=== PATIENT | female | born 1970 | race Caucasian/White ===

== ENCOUNTER 2016-05-27 21:42 | Emergency (ER) | payer OTHER ==
[~2016-05-27] VITALS: Ht 162.6 cm; Wt 117.5 kg
[~2016-05-27 21:42] MED LIST: ALBUAER2 INH; ASCO500T16 PO; DIPH25TA24 PO; EPP3/2 IM; FERR325T51 PO; OXYC-609 PO
[2016-05-27 21:43] VITALS: TEMP 36.7; Ht 162.6 cm; Wt 117.5 kg
[2016-05-27 22:24] LABS: BASO % 0.4 %; BASO ABS # 0.05 K/uL (0-0.2); COMPLETE YES; EOS % 2.8 %; HEMATOCRIT 41.9 % (37-47); IG% 0.3 %; LYMPH % 32.8 %; MEAN CELL VOLUME 82.6 fL (80-100); MEAN CORPUSCULAR HEMOGLOBIN 27.6 pg (25-34); MEAN CORPUSCULAR HGB CONC 33.4 g/dl (32-36); MEAN PLATELET VOLUME 10.3 fL (7.4-10.4); MONO % 7.1 %; NEUT % 56.6 %; PLATELET COUNT 303 K/uL (130-400); RED BLOOD COUNT 5.07 M/uL (4.2-5.4)
[2016-05-27] MEDS: SODIUM CHLORIDE 0.9% 1000ML 1,000 ML IV SCH ×2 (22:27→23:31)
[2016-05-27] MEDS ORDERED: DIPH50TA10 PO (22:29)
--- NOTE | 2016-05-27 22:38 | EMERGENCY ROOM VISIT NOTE ---
History First contact with patient: 21:48 Chief Complaint: ABDOMINAL PAIN Stated Complaint: STOMACH PAIN,DIZZINESS Nursing Triage Summary: Patient reports having medial upper abdominal pain for about 6 months, states " I have just been dealing with it for a while". Patient reports nausea that comes and goes with the pain. Patient reports that she has had softer stools for the last two days. Patient reports her gallbladder is surgically absent. Patient reports dizziness that has been persistent for about 2 weeks, states "The dizziness is wicked." Patient complains of a pinching sensation to the left of her sternum occassaionally; increasing in frequency over the last two weeks; patient last had the pinching about 2 hours before coming. Patient reports occassional shortness of breath. History of Present Illness The patient is a 46 year old female who presents to the Emergency Room with complaints of dizziness. patient reports 2 wk Hx of Dizziness/lightheadedness, she notices when going up the stairs. She denies syncope. Patient was concerned about possible anemia because previously she was anemic secondary to menorrhagia and required transfusion. She saw her PCP 2 days prior to arrival but according to patient, she was not particularly anemic. Patient also reports 6 mos history of int. abdominal pain , diarrhea x a few days, cough, SOB on exertion and int. Chest pain x a few months , non radiating, substernal, non-exertional. She also reports intermittent palpitation. She has a hx of Endometriosis, Kidney stones, PCOS and Asthma Review of Systems See HPI for pertinent positives & negatives. A total of 10 systems reviewed and were otherwise negative. Past Medical/Surgical History Medical Problems: (1) Asthma (2) Depression (3) Endometriosis (4) Kidney stone (5) Lithotripsy (6) Polycystic ovaries Surgical Problems: (1) H/O cystoscopy (2) History of appendectomy (3) History of section (4) History of tonsillectomy Family History Hypertension Kidney disease Social History Smoking Status: Current Every Day Smoker Alcohol Use: occasionally Drug Use: none Marital Status: in relationship Housing Status: lives with family Occupation Status: employed Current/Historical Medications Scheduled B-Complex Vitamins (Vitamin B Complex), 1 TAB PO DAILY Multivitamins/Minerals (Mvi With Minerals), 1 TAB PO DAILY Scheduled PRN Albuterol Hfa (Ventolin Hfa), 2 PUFFS INH Q6H PRN for SOB/Wheezing Diphenhydramine Hcl (Sleep) (Diphenhydramine Hcl), 1 TAB PO Q6 PRN for ALLERGIC REACTION Epinephrine (Epipen), 0.3 MG IM UD PRN for ALLERGIC REACTION Meclizine Hcl (Meclizine Hcl), 1 TAB PO TID PRN for dizzy Naproxen (Aleve), 220 MG PO Q6 PRN for Headache or Pain Allergies Coded Allergies: [place] Nut (Verified Allergy, Severe, ANAPHYLAXIS; reported allergy to all nuts, 05/27/16) [place] Nut (Verified Allergy, Severe, ANAPHYLAXIS; reported allergy to all nuts, 05/27/16) Peanut (Verified Allergy, Severe, ANAPHYLAXIS-ALL NUTS, 05/27/16) ALL NUTS Penicillins (Verified Allergy, Intermediate, RASH - HAS TOLERATED ROCEPHIN 2012, 05/27/16) RASH NUTS (Unverified Allergy, Unknown, ANAPHYLAXIS, 05/27/16) Physical Exam Vital Signs Date Time Temp Pulse Resp B/P Pulse Ox O2 Delivery O2 Flow Rate FiO2 05/28/16 01:45 76 20 141/80 97 05/27/16 23:45 80 20 149/90 96 05/27/16 22:01 86 20 190/103 98 Room Air 90 186/103 92 147/92 05/27/16 21:58 87 05/27/16 21:43 36.7 87 19 169/95 100 Room Air Physical Exam GENERAL: alert, anxious, non-toxic EYE EXAM: normal conjunctiva, PERRL and EOM's grossly intact OROPHARYNX: no exudate, no erythema, lips, buccal mucosa, and tongue normal and mucous membranes are moist NECK: supple, no nuchal rigidity, no adenopathy, non-tender LUNGS: Clear to auscultation. Normal chest wall mechanics HEART: no murmurs, S1 normal and S2 normal ABDOMEN: abdomen tender to palpation in epigastrium normo-active bowel sounds, no masses, no rebound or guarding. BACK: Back is symmetrical on inspection and there is no deformity, no midline tenderness, no CVA tenderness. SKIN: no rashes and no bruising UPPER EXTREMITIES: upper extremities are grossly normal. LOWER EXTREMITIES: No pitting edema. NEURO EXAM: Normal sensorium, cranial nerves II-XII grossly intact, normal speech, no gross weakness of arms, no gross weakness of legs. No drift. Finger to nose intact. Medical Decision & Procedures ER Provider Diagnostic Interpretation: CT HEAD WITHOUT CONTRAST (CT) CLINICAL HISTORY: DIZZINESS COMPARISON STUDY: 12/24/2010 TECHNIQUE: Axial CT of the brain is performed from the vertex to the skull base. IV contrast was not administered for this examination. CHEST ONE VIEW PORTABLE CLINICAL HISTORY: Atypical chest pain and shortness of breath COMPARISON STUDY: 09/01/2015 FINDINGS: The heart is borderline enlarged. There is mild interstitial thickening, unchanged the prior study. There is no focal pulmonary consolidation. There are no pleural effusions.[ IMPRESSION: Stable mild interstitial thickening. No acute findings. CT DOSE: 601.98 mGy.cm FINDINGS: There is no CT evidence of acute cortical infarction. There is no evidence of midline shift. No calvarial fractures are visualized. There is an equivocal subtle 5 mm hyperdense focus within the left parietal white matter as visualized in image #17. An MRI is recommended in follow-up. There is no evidence of pathologic ventricular dilatation. There is no evidence of acute sinusitis IMPRESSION: Artifact versus subtle 5 mm hyperdense focus within the left parietal white matter. An MRI is recommended in follow-up. The study is otherwise unremarkable. Laboratory Results 05/27/16 22:11 Red Blood Count 5.07, Mean Corpuscular Volume 82.6, Mean Corpuscular Hemoglobin 27.6, Mean Corpuscular Hemoglobin Concent 33.4, Mean Platelet Volume 10.3, Neutrophils (%) (Auto) 56.6, Lymphocytes (%) (Auto) 32.8, Monocytes (%) (Auto) 7.1, Eosinophils (%) (Auto) 2.8, Basophils (%) (Auto) 0.4, Neutrophils # (Auto) 6.74, Lymphocytes # (Auto) 3.90, Monocytes # (Auto) 0.84, Eosinophils # (Auto) 0.33, Basophils # (Auto) 0.05 05/27/16 22:11 Test 05/27/16 22:11 05/27/16 22:15 05/28/16 01:15 White Blood Count 11.90 K/uL (4.8-10.8) Red Blood Count 5.07 M/uL (4.2-5.4) Hemoglobin 14.0 g/dL (12.0-16.0) Hematocrit 41.9 % (37-47) Mean Corpuscular Volume 82.6 fL (80-100) Mean Corpuscular Hemoglobin 27.6 pg (25-34) Mean Corpuscular Hemoglobin Concent 33.4 g/dl (32-36) Platelet Count 303 K/uL (130-400) Mean Platelet Volume 10.3 fL (7.4-10.4) Neutrophils (%) (Auto) 56.6 % Lymphocytes (%) (Auto) 32.8 % Monocytes (%) (Auto) 7.1 % Eosinophils (%) (Auto) 2.8 % Basophils (%) (Auto) 0.4 % Neutrophils # (Auto) 6.74 K/uL (1.4-6.5) Lymphocytes # (Auto) 3.90 K/uL (1.2-3.4) Monocytes # (Auto) 0.84 K/uL (0.11-0.59) Eosinophils # (Auto) 0.33 K/uL (0-0.5) Basophils # (Auto) 0.05 K/uL (0-0.2) RDW Standard Deviation 44.3 fL (36.4-46.3) RDW Coefficient of Variation 14.6 % (11.5-14.5) Immature Granulocyte % (Auto) 0.3 % Immature Granulocyte # (Auto) 0.04 K/uL (0.00-0.02) Anion Gap 9.0 mmol/L (3-11) Est Creatinine Clear Calc Drug Dose 124.8 ml/min Estimated GFR () 118.4 Estimated GFR (Non- 102.1 BUN/Creatinine Ratio 15.8 (10-20) Calcium Level 9.1 mg/dl (8.5-10.1) Total Bilirubin 0.3 mg/dl (0.2-1) Direct Bilirubin 0.1 mg/dl (0-0.2) Aspartate Amino Transf (AST/SGOT) 19 U/L (15-37) Alanine Aminotransferase (ALT/SGPT) 34 U/L (12-78) Alkaline Phosphatase 83 U/L (45-117) Total Protein 7.3 gm/dl (6.4-8.2) Albumin 3.6 gm/dl (3.4-5.0) Lipase 193 U/L (73-393) Urine Color YELLOW Urine Appearance CLOUDY (CLEAR) Urine pH 6.0 (4.5-7.5) Urine Specific [place] 1.015 (1.000-1.030) Urine Protein NEG (NEG) Urine Glucose (UA) NEG (NEG) Urine Ketones NEG (NEG) Urine Occult Blood NEG (NEG) Urine Nitrite NEG (NEG) Urine Bilirubin NEG (NEG) Urine Urobilinogen NEG (NEG) Urine Leukocyte Esterase NEG (NEG) Urine WBC (Auto) 1-5 /hpf (0-5) Urine RBC (Auto) 0-4 /hpf (0-4) Urine Hyaline Casts (Auto) 1-5 /lpf (0-5) Urine Epithelial Cells (Auto) >30 /lpf (0-5) Urine Bacteria (Auto) NEG (NEG) Urine Test NEG (NEG) Troponin I < 0.015 ng/ml (0-0.045) Medications Administered Medications (Trade) Dose Ordered Sig/Enriqutea Route Start Time Stop Time Status Last Admin Dose Admin Sodium Chloride (Nss 1000ml) 1,000 ml @ 999 mls/hr Q1H1M IV 05/27/16 22:30 05/28/16 02:37 DC 05/27/16 22:27 999 MLS/HR Ketorolac Tromethamine (Toradol Inj) 30 mg NOW STAT IV 05/27/16 23:01 05/27/16 23:02 DC 05/27/16 23:15 30 MG Lorazepam (Ativan Tab) 1 mg NOW STAT SL 05/27/16 23:33 05/27/16 23:35 DC 05/27/16 23:33 1 MG Medical Decision 46 yo F p/w with hx of endometriosis p/w 2 wk of dizziness/lightheadedness in addition to diarrhea x 4 days, SOB on exertion, cough, chronic intermittent Chest discomfort, mild abdominal pain x 6 mos, tender in the epigastrium, positive orthostatic vital signs EKG: NSR CBC WBC 11.9 BMP: unremarkable Lipase negative Troponin: negative CXR:Stable mild interstitial thickening. No acute findings. CT Head: Artifact versus subtle 5 mm hyperdense focus within the left parietal white matter. An MRI is recommended in follow-up. The study is otherwise unremarkable. MRI Brain 5mm T2/FLAIR hyperintense and minimally T1 hypointense lesion in left post. frontal white matter , corresponding to mild hyperdensity seen on CT Dizziness Orthostatics BP positive -Given IV fluids Abdominal discomfort chronic, epigastric tenderness Lipase negative UA negative Urine test negative Given Toradol 30 mg Given Ativan 1 mg Chest Discomfort ACS etiology unlikely EKG unremarkable, troponin negative CXR:Stable mild interstitial thickening. No acute findings. -Discussed case with Dr. Patel, Neurologist who advised outpatient followup with Neurology as opposed to admission for evaluation. It was unclear whether this abnormality on CT/MRI was even contributing to her symptoms of dizziness. -Case was discussed with [facility] radiologist who indicated the area of abnormality on imaging was unlikely to be a CVA -Patient was discharged with followup with Neurology and a prescription for Antivert for dizziness and recommended oral hydration Impression Primary Impression: Dizziness Additional Impression: Precordial chest pain Departure Information Dispostion Home / Self-Care Condition GOOD Prescriptions Meclizine Hcl (MECLIZINE HCL) 25 Mg Tab 1 TAB PO TID Y for dizzy for 10 Days, #30 TAB Prov: Michel Portillo, 05/28/16 Referrals Janeth Ackerman M.D. (PCP) Patient Instructions My [facility] Resident Tracking Resident Involvement: Resident Care Provided Care Provided: Adult ED Problem Qualifiers
--- NOTE | 2016-05-27 22:39 | DIAGNOSTIC IMAGING REPORT ---
CHEST ONE VIEW PORTABLE CLINICAL HISTORY: Atypical chest pain and shortness of breath COMPARISON STUDY: 09/01/2015 FINDINGS: The heart is borderline enlarged. There is mild interstitial thickening, unchanged the prior study. There is no focal pulmonary consolidation. There are no pleural effusions.[ IMPRESSION: Stable mild interstitial thickening. No acute findings. Electronically signed by: Danny Olivo M.D. 05/27/2016 10:37 PM Dictated Date/Time: 05/27/2016 10:36 PM
[2016-05-27 22:41] LABS: ALT/SGPT 34 U/L (12-78); BLOOD UREA NITROGEN 11 mg/dl (7-18); BUN/CREATININE RATIO 15.8 (10-20); CALCIUM 9.1 mg/dl (8.5-10.1); CARBON DIOXIDE 26 mmol/L (21-32); CHLORIDE 105 mmol/L (98-107); CREATININE 0.71 mg/dl (0.60-1.20); GLUCOSE 95 mg/dl (70-99); POTASSIUM 3.8 mmol/L (3.5-5.1); SODIUM 140 mmol/L (136-145)
[2016-05-27 22:43] LABS: PREG INTERNAL NEGATIVE QC NEG CLEAR BACKGROUND; PREG INTERNAL POSITIVE QC POS CONTROL LINE
[2016-05-27 22:44] LABS: ALKALINE PHOSPHATASE 83 U/L (45-117); AST/SGOT 19 U/L (15-37)
--- NOTE | 2016-05-27 22:48 | DIAGNOSTIC IMAGING REPORT ---
CT HEAD WITHOUT CONTRAST (CT) CLINICAL HISTORY: DIZZINESS COMPARISON STUDY: 12/24/2010 TECHNIQUE: Axial CT of the brain is performed from the vertex to the skull base. IV contrast was not administered for this examination. CT DOSE: 601.98 mGy.cm FINDINGS: There is no CT evidence of acute cortical infarction. There is no evidence of midline shift. No calvarial fractures are visualized. There is an equivocal subtle 5 mm hyperdense focus within the left parietal white matter as visualized in image #17. An MRI is recommended in follow-up. There is no evidence of pathologic ventricular dilatation. There is no evidence of acute sinusitis IMPRESSION: Artifact versus subtle 5 mm hyperdense focus within the left parietal white matter. An MRI is recommended in follow-up. The study is otherwise unremarkable. Electronically signed by: Danny Olivo M.D. 05/27/2016 10:46 PM Dictated Date/Time: 05/27/2016 10:43 PM
[2016-05-27 22:51] LABS: URINE APPEARANCE CLOUDY (CLEAR); URINE BILIRUBIN NEG (NEG); URINE COLOR YELLOW; URINE EPITHELIAL CELL AUTO >30 /lpf (0-5); URINE NITRITE NEG (NEG); URINE SPECIFIC GRAVITY 1.015 (1.000-1.030); UROBILINOGEN NEG (NEG); ZZUR CULT IF INDIC CLEAN CATCH NO
[2016-05-27 22:52] LABS: MANUAL MICROSCOPIC REQUIRED? NO; REVIEW REQ? NO
[2016-05-27] MEDS ORDERED: KETOROLAC TROMETHAMINE 30 MG/ML VIAL IV STA (23:01)
[2016-05-27] MEDS ORDERED: LORAZEPAM 1 MG TAB SL STA (23:33)
[2016-05-27] MEDS ORDERED: LORAZEPAM 1 MG TAB ONE (23:40)
[2016-05-28] MEDS: SODIUM CHLORIDE 0.9% 1000ML 1,000 ML IV SCH ×2 (00:31→01:49)
[2016-05-28 01:45] VITALS: BP 141/80; PULSE 76; O2SAT 97
--- NOTE | 2016-05-28 02:05 | EMERGENCY ROOM VISIT NOTE ---
History Report prepared by Margarito: Kimberley Mejía Under the Supervision of: Dr. Michel Portillo D.O. First contact with patient: 21:48 Chief Complaint: ABDOMINAL PAIN Stated Complaint: STOMACH PAIN,DIZZINESS Nursing Triage Summary: Patient reports having medial upper abdominal pain for about 6 months, states " I have just been dealing with it for a while". Patient reports nausea that comes and goes with the pain. Patient reports that she has had softer stools for the last two days. Patient reports her gallbladder is surgically absent. Patient reports dizziness that has been persistent for about 2 weeks, states "The dizziness is wicked." Patient complains of a pinching sensation to the left of her sternum occassaionally; increasing in frequency over the last two weeks; patient last had the pinching about 2 hours before coming. Patient reports occassional shortness of breath. History of Present Illness The patient is a 46 year old female who presents to the Emergency Room with complaints of intermittent abdominal pain beginning 2 months ago. The patient states that she is prediabetic and the symptoms that she is having now remind her of when she was anemic last year. She notes that she saw her PCP and both her hemoglobin and blood sugar are normal. She notes that eating makes her abdominal pain better. She complains of headache beginning 2 weeks ago, tiredness, lightheadedness beginning 2 weeks ago, feeling as if the is room tilting, diarrhea, and intermittent pinching chest pain. She denies any dizziness, shortness of breath, fever, nausea, vomiting, urinary symptoms, swelling of the calves, hypertension, high cholesterol, smoking, blood clots, and recent long trips. The patient notes that her last bowel movement was 1 hour before she came in [facility]. She states that she does not have her gallbladder as of 4 years ago or her appendix. The patient reports that her chest pain is not worsened by exertion. She states that she was diagnosed with a UTI the other day and has not picked up her antibiotics. Source of History: patient Onset: 2 weeks ago Position: abdomen Timing: intermittent Associated Symptoms: + chest pain, + diarrhea, + headache, No SOB, No fevers , No nausea, No urinary symptoms, No vomiting Note: She complains of tiredness, lightheadedness beginning 2 weeks ago, feeling as if the is room tilting. She denies any dizziness, swelling of the calves, hypertension, high cholesterol, smoking, blood clots, and recent long trips. Review of Systems See HPI for pertinent positives & negatives. A total of 10 systems reviewed and were otherwise negative. Past Medical & Surgical Medical Problems: (1) Asthma (2) Depression (3) Endometriosis (4) Kidney stone (5) Lithotripsy (6) Polycystic ovaries Surgical Problems: (1) H/O cystoscopy (2) History of appendectomy (3) History of section (4) History of tonsillectomy Family History Hypertension Kidney disease Social History Smoking Status: Current Every Day Smoker Alcohol Use: occasionally Drug Use: none Marital Status: in relationship Housing Status: lives with family Occupation Status: employed Current/Historical Medications Scheduled B-Complex Vitamins (Vitamin B Complex), 1 TAB PO DAILY Multivitamins/Minerals (Mvi With Minerals), 1 TAB PO DAILY Scheduled PRN Albuterol Hfa (Ventolin Hfa), 2 PUFFS INH Q6H PRN for SOB/Wheezing Diphenhydramine Hcl (Sleep) (Diphenhydramine Hcl), 1 TAB PO Q6 PRN for ALLERGIC REACTION Epinephrine (Epipen), 0.3 MG IM UD PRN for ALLERGIC REACTION Meclizine Hcl (Meclizine Hcl), 1 TAB PO TID PRN for dizzy Naproxen (Aleve), 220 MG PO Q6 PRN for Headache or Pain Allergies Coded Allergies: [place] Nut (Verified Allergy, Severe, ANAPHYLAXIS; reported allergy to all nuts, 05/27/16) [place] Nut (Verified Allergy, Severe, ANAPHYLAXIS; reported allergy to all nuts, 05/27/16) Peanut (Verified Allergy, Severe, ANAPHYLAXIS-ALL NUTS, 05/27/16) ALL NUTS Penicillins (Verified Allergy, Intermediate, RASH - HAS TOLERATED ROCEPHIN 2012, 05/27/16) RASH NUTS (Unverified Allergy, Unknown, ANAPHYLAXIS, 05/27/16) Physical Exam Vital Signs Date Time Temp Pulse Resp B/P Pulse Ox O2 Delivery O2 Flow Rate FiO2 05/28/16 01:45 76 20 141/80 97 05/27/16 23:45 80 20 149/90 96 05/27/16 22:01 86 20 190/103 98 Room Air 90 186/103 92 147/92 05/27/16 21:58 87 4/6/17 21:43 36.7 87 19 169/95 100 Room Air Physical Exam GENERAL: sitting up in bed, alert, well appearing, well nourished, no distress, non-toxic EYE EXAM: normal conjunctiva, PERRL and EOM's intact EAR EXAM: TMs clear bilaterally OROPHARYNX: no exudate, no erythema, lips, buccal mucosa, and tongue normal and mucous membranes are moist NECK: supple, no nuchal rigidity, no adenopathy, non-tender LUNGS: Clear to auscultation. Normal chest wall mechanics HEART: no murmurs, S1 normal and S2 normal ABDOMEN: abdomen soft, non-tender, normo-active bowel sounds, no masses, no rebound or guarding. BACK: Back is symmetrical on inspection and there is no deformity, no midline tenderness, no CVA tenderness. SKIN: no rashes and no bruising UPPER EXTREMITIES: upper extremities are grossly normal. LOWER EXTREMITIES: No pitting edema. Calves are equal bilaterally NEURO EXAM: Normal sensorium, cranial nerves II-XII intact, normal speech, no weakness of arms, no weakness of legs. No drift. Finger to nose intact. Gross sensation intact. Rapid alternating movements of upper extremities intact. Medical Decision & Procedures ER Provider Diagnostic Interpretation: Radiology results as stated below per my review and the radiologist's interpretation: CHEST ONE VIEW PORTABLE FINDINGS: The heart is borderline enlarged. There is mild interstitial thickening, unchanged the prior study. There is no focal pulmonary consolidation. There are no pleural effusions.[ IMPRESSION: Stable mild interstitial thickening. No acute findings. Electronically signed by: Danny Olivo M.D. 05/27/2016 10:37 PM Dictated Date/Time: 05/27/2016 10:[address] HEAD WITHOUT CONTRAST (CT) FINDINGS: There is no CT evidence of acute cortical infarction. There is no evidence of midline shift. No calvarial fractures are visualized. There is an equivocal subtle 5 mm hyperdense focus within the left parietal white matter as visualized in image #17. An MRI is recommended in follow-up. There is no evidence of pathologic ventricular dilatation. There is no evidence of acute sinusitis IMPRESSION: Artifact versus subtle 5 mm hyperdense focus within the left parietal white matter. An MRI is recommended in follow-up. The study is otherwise unremarkable. Electronically signed by: Danny Olivo M.D. 05/27/2016 10:46 PM Dictated Date/Time: 05/27/2016 10:43 PM MRI HEAD: 5mm T2/FLAIR hyperintense and minimally T1 hypointense lesion in left posterior frontal white matter, corresponding to mild hyperdensity seen on CT. No evidence of associated hemorrhagic products. This is nonspecific. Otherwise, unremarkable examination. Radiologist: Richard Doll MD. Laboratory Results 05/27/16 22:11 Red Blood Count 5.07, Mean Corpuscular Volume 82.6, Mean Corpuscular Hemoglobin 27.6, Mean Corpuscular Hemoglobin Concent 33.4, Mean Platelet Volume 10.3, Neutrophils (%) (Auto) 56.6, Lymphocytes (%) (Auto) 32.8, Monocytes (%) (Auto) 7.1, Eosinophils (%) (Auto) 2.8, Basophils (%) (Auto) 0.4, Neutrophils # (Auto) 6.74, Lymphocytes # (Auto) 3.90, Monocytes # (Auto) 0.84, Eosinophils # (Auto) 0.33, Basophils # (Auto) 0.05 05/27/16 22:11 Test 05/27/16 22:11 05/27/16 22:15 05/28/16 01:15 White Blood Count 11.90 K/uL (4.8-10.8) Red Blood Count 5.07 M/uL (4.2-5.4) Hemoglobin 14.0 g/dL (12.0-16.0) Hematocrit 41.9 % (37-47) Mean Corpuscular Volume 82.6 fL (80-100) Mean Corpuscular Hemoglobin 27.6 pg (25-34) Mean Corpuscular Hemoglobin Concent 33.4 g/dl (32-36) Platelet Count 303 K/uL (130-400) Mean Platelet Volume 10.3 fL (7.4-10.4) Neutrophils (%) (Auto) 56.6 % Lymphocytes (%) (Auto) 32.8 % Monocytes (%) (Auto) 7.1 % Eosinophils (%) (Auto) 2.8 % Basophils (%) (Auto) 0.4 % Neutrophils # (Auto) 6.74 K/uL (1.4-6.5) Lymphocytes # (Auto) 3.90 K/uL (1.2-3.4) Monocytes # (Auto) 0.84 K/uL (0.11-0.59) Eosinophils # (Auto) 0.33 K/uL (0-0.5) Basophils # (Auto) 0.05 K/uL (0-0.2) RDW Standard Deviation 44.3 fL (36.4-46.3) RDW Coefficient of Variation 14.6 % (11.5-14.5) Immature Granulocyte % (Auto) 0.3 % Immature Granulocyte # (Auto) 0.04 K/uL (0.00-0.02) Anion Gap 9.0 mmol/L (3-11) Est Creatinine Clear Calc Drug Dose 124.8 ml/min Estimated GFR () 118.4 Estimated GFR (Non- 102.1 BUN/Creatinine Ratio 15.8 (10-20) Calcium Level 9.1 mg/dl (8.5-10.1) Total Bilirubin 0.3 mg/dl (0.2-1) Direct Bilirubin 0.1 mg/dl (0-0.2) Aspartate Amino Transf (AST/SGOT) 19 U/L (15-37) Alanine Aminotransferase (ALT/SGPT) 34 U/L (12-78) Alkaline Phosphatase 83 U/L (45-117) Total Protein 7.3 gm/dl (6.4-8.2) Albumin 3.6 gm/dl (3.4-5.0) Lipase 193 U/L (73-393) Urine Color YELLOW Urine Appearance CLOUDY (CLEAR) Urine pH 6.0 (4.5-7.5) Urine Specific [place] 1.015 (1.000-1.030) Urine Protein NEG (NEG) Urine Glucose (UA) NEG (NEG) Urine Ketones NEG (NEG) Urine Occult Blood NEG (NEG) Urine Nitrite NEG (NEG) Urine Bilirubin NEG (NEG) Urine Urobilinogen NEG (NEG) Urine Leukocyte Esterase NEG (NEG) Urine WBC (Auto) 1-5 /hpf (0-5) Urine RBC (Auto) 0-4 /hpf (0-4) Urine Hyaline Casts (Auto) 1-5 /lpf (0-5) Urine Epithelial Cells (Auto) >30 /lpf (0-5) Urine Bacteria (Auto) NEG (NEG) Urine Test NEG (NEG) Troponin I < 0.015 ng/ml (0-0.045) Laboratory results per my review. Medications Administered Medications (Trade) Dose Ordered Sig/Enriqueta Route Start Time Stop Time Status Last Admin Dose Admin Sodium Chloride (Nss 1000ml) 1,000 ml @ 999 mls/hr Q1H1M IV 05/27/16 22:30 06/26/16 22:29 05/27/16 22:27 999 MLS/HR Ketorolac Tromethamine (Toradol Inj) 30 mg NOW STAT IV 05/27/16 23:01 05/27/16 23:02 DC 05/27/16 23:15 30 MG Lorazepam (Ativan Tab) 1 mg NOW STAT SL 05/27/16 23:33 05/27/16 23:35 DC 05/27/16 23:33 1 MG ECG Indication: chest pain Rate (beats per minute): 75 Rhythm: sinus rhythm Findings: no ectopy, other (normal axis) ED Course ED COURSE: Vital signs were reviewed and normal The patients medical record was reviewed The above diagnostic studies were performed and reviewed. ED treatments and interventions as stated above. 2148: The patient was evaluated in room C11B. A complete history and physical examination was performed. 2230: Sodium Chloride 1000 ml @ 999 mls/hr IV. 2301: Toradol Inj 30mg IV. 2333: Ativan Tab 1mg SL. 2340: Ativan Tab 1mg SL. 0155: My resident reviewed the case with Dr. Riddle. 0205: Upon reevaluation, the patient is resting comfortably. I discussed my findings with the patient and she understands and agrees with the treatment plan. Based on the patients age, coexisting illnesses, exam and lab findings the decision to treat as an outpatient was made. The patient remained stable while under my care. The patient appeared well at the time of discharge. Medical Decision Differenital diagnosis includes etiologies such as benign positional vertigo, dehydration, hypovolemia, anemia, tumor, infection, hypoglycemia, electrolyte abnormalities, cardiac sources, intracerebral event, toxicologic, neurologic, as well as others were entertained. Differential diagnoses includes but is not limited to gastritis, peptic ulcer disease, GERD, gallbladder disease, pancreatitis, small bowel obstruction, acute coronary syndrome, pericarditis, ischemic bowel, irritable bowel disease, irritable bowel syndrome, appendicitis , diverticulitis, malignancy, hernia, urinary tract infection, torsion, /ectopic (if female), perforation, trauma, infectious. Patient is a 46-year-old female who presents the ER for multiple complaints. She admits to abdominal pain which has been present for the past 2-3 months but has been unchanged. Pain improves with eating. She has no appendix or gallbladder. Last bowel movement was earlier today. Her abdominal exam is benign. She is not obstructed based on history. Labs show a mild leukocytosis of 11.9 thousand. No anemia. BMP along with LFTs, bilirubin, lipase and troponin 2 were negative. EKG was unremarkable. UA was negative. was negative. Chest x-ray was unremarkable. CT head showed a 5 mm hyperdense focus within the left parietal white matter. MRI was performed secondary to this and confirms this finding. My resident discussed this with the on-call neurologist. They do not believe that this fits with her clinical symptoms and is not consistent with a stroke. She was given a bolus normal saline. She was orthostatic. She did feel slightly better following fluids. She was given Ativan for the MRI and dizziness with no relief. Patient was updated bedside. Discussed case with care management and they will assist the patient with setting up an appointment with neurology within next 3-5 days. She was discharged with Antivert and instructed to remain hydrated and follow-up with her primary care doctor. She was instructed not to drive if she is feeling dizzy. I also stressed the importance for her to start her antibiotics which she was given for UTI per primary care doctor but her urine here is completely clean. Since her urine was clean I did not prescribe her any antibiotics at this time and since she is asymptomatic. I did d/w stat rad and they note this is non-specific and is not a stroke. He believes this to be incidental. Discussed with Pt concerning signs and symptoms to watch out for. Pt was instructed to follow up with their PCP and discussed with the patient their option to return to the ED at anytime for persistent or worsening symptoms. The appropriate anticipatory guidance and out-patient management, including indications for return to the emergency department, were explained at length to the patient and understood. Consults Consulting Physician: Dr. Patel My resident reviewed the case with Dr. Patel. She does not believe this to be consistent with the patient's symptoms and recommended following up in the office. Impression Primary Impression: Dizziness Additional Impression: Precordial chest pain Scribe Attestation The scribe's documentation has been prepared under my direction and personally reviewed by me in its entirety. I confirm that the note above accurately reflects all work, treatment, procedures, and medical decision making performed by me. Departure Information Dispostion Being Evaluated By Hospitalist Prescriptions Meclizine Hcl (MECLIZINE HCL) 25 Mg Tab 1 TAB PO TID Y for dizzy for 10 Days, #30 TAB Prov: Michel Portillo, 05/28/16 Referrals Janeth Ackerman M.D. (PCP) Patient Instructions My [facility] Problem Qualifiers
[2016-05-28] MEDS ORDERED: MECL1TAB42 PO (02:06)
--- NOTE | 2016-05-28 06:58 | DIAGNOSTIC IMAGING REPORT ---
MRI OF THE BRAIN WITHOUT CONTRAST CLINICAL HISTORY: Dizziness. Abnormal head CT. COMPARISON STUDY: Head CT May 27, 2016. TECHNIQUE: Utilizing a 1.5 Abbie magnet and dedicated coil, multiplanar, multiecho imaging of the brain was performed without IV contrast. FINDINGS: There are no areas of restricted diffusion. The ventricular system is normal. The basilar cisterns are patent. There is a 5 mm focus of white matter T2 hyperintensity within the posterior left frontal lobe which may correspond to the abnormality shown on head CT of May 27, 2016. This is nonspecific. Flow-voids for the major intracranial vessels are present. Calvarial signal is maintained. No intracranial masses are identified on this unenhanced exam. Sinuses are clear. IMPRESSION: 1. 5 mm T2 hyperintense focus within left posterior frontal lobe. It's unclear whether this corresponds to the abnormality shown on prior head CT. This finding is indeterminate. 2. No evidence of acute infarction. No mass effect. Electronically signed by: Mike Thornton M.D. 05/28/2016 6:56 AM Dictated Date/Time: 05/28/2016 6:48 AM
[2016-10-26] MEDS ORDERED: B-COTAB18 PO (02:02)
[2016-10-26] MEDS ORDERED: EPP3/2 IM (07:17)
== END 2016-05-28 02:10 | disposition home or self-care (01) ==
LOC: C.EDB 21:43 → C.EDA 05-28 02:10
DX: R42 Dizziness and giddiness (principal); R07.2 Precordial pain; F17.200 Nicotine dependence, unspecified, uncomplicated; J45.909 Unspecified asthma, uncomplicated; F32.9 Major depressive disorder, single episode, unspecified

== ENCOUNTER 2016-09-08 19:22 | Emergency (ER) | payer SELFPAY ==
[~2016-09-08] VITALS: Ht 160 cm; Wt 119.8 kg
[~2016-09-08 19:22] MED LIST changes: -ALBUAER2 INH; -ASCO500T16 PO; -DIPH25TA24 PO; +DIPH50TA10 PO; -EPP3/2 IM; -FERR325T51 PO; -OXYC-609 PO
[2016-09-08 19:35] VITALS: TEMP 36.8; Ht 160 cm; Wt 119.8 kg
[2016-09-08] MEDS ORDERED: SODIUM CHLORIDE 0.9% 1000ML 1,000 ML IV STA (19:59)
--- NOTE | 2016-09-08 20:07 | EMERGENCY ROOM VISIT NOTE ---
History Report prepared by Margarito: Rabia Cox Under the Supervision of: Dr. Kimberly Vegas M.D. First contact with patient: 19:40 Chief Complaint: ED VAG BLEEDING Stated Complaint: EXCESSIVE BLEEDING,DIZZY,FATIGUE History of Present Illness The patient is a 46 year old female who presents to the Emergency Room with complaints of persistent vaginal bleeding for the past several days. She currently rates her discomfort as a 3/10 in severity. The patient states that over the past several years she has been experiencing heavy menstrual cycles. She states that today she went through 11 tampons in two hours. The patient states that she has additionally been passing clots the past two days. She states that some of the clots are the size of her fists. The patient states that the bleeding is gushing out of her. She states that she has had her cycle for 17 days. The patient states that last year she had similar symptoms and states that she had to receive a blood transfusion. She states that she saw OB/ glass sander belt and had a pap smear, but then never followed up after. The patient denies any endometrial biopsy. She denies any transfusions within the last three months. The patient denies being on any anti-coagulants. She states that she spoke to her PCP's office today and was instructed to come to the emergency department for further evaluation and treatment. The patient states that today she is now feeling fatigued and dizzy. She states that she has had chest pain over the last three days. Source of History: patient Onset: past several days Position: other (vaginal) Symptom Intensity: 3/10 Quality: other (bleeding) Timing: other (persistent) Associated Symptoms: + chest pain, + fatigue Note: Associated Symptoms: dizziness, passing clots Review of Systems See HPI for pertinent positives & negatives. A total of 10 systems reviewed and were otherwise negative. Past Medical & Surgical Medical Problems: (1) Asthma (2) Depression (3) Endometriosis (4) Kidney stone (5) Lithotripsy (6) Polycystic ovaries Surgical Problems: (1) H/O cystoscopy (2) History of appendectomy (3) History of section (4) History of tonsillectomy Family History Hypertension Kidney disease Social History Smoking Status: Current Every Day Smoker Alcohol Use: occasionally Drug Use: none Marital Status: in relationship Housing Status: lives with family Occupation Status: employed Current/Historical Medications Scheduled B-Complex Vitamins (Vitamin B Complex), 1 TAB PO DAILY Calcium Ascorbate (Vitamin C), 500 MG PO DAILY Ferrous Sulfate (Iron), 1 TAB PO DAILY Multivitamins/Minerals (Mvi With Minerals), 1 TAB PO DAILY Norethindrone Acetate (Aygestin), 1 TAB PO TID Scheduled PRN Albuterol Hfa (Ventolin Hfa), 2 PUFFS INH Q6H PRN for SOB/Wheezing Diphenhydramine Hcl (Sleep) (Diphenhydramine Hcl), 1 TAB PO Q6 PRN for ALLERGIC REACTION Epinephrine (Epipen), 0.3 MG IM UD PRN for ALLERGIC REACTION Naproxen (Aleve), 220 MG PO Q6 PRN for Headache or Pain Allergies Coded Allergies: [place] Nut (Verified Allergy, Severe, ANAPHYLAXIS; reported allergy to all nuts, 05/27/16) [place] Nut (Verified Allergy, Severe, ANAPHYLAXIS; reported allergy to all nuts, 05/27/16) Peanut (Verified Allergy, Severe, ANAPHYLAXIS-ALL NUTS, 05/27/16) ALL NUTS Penicillins (Verified Allergy, Intermediate, RASH - HAS TOLERATED ROCEPHIN 2012, 05/27/16) RASH NUTS (Unverified Allergy, Unknown, ANAPHYLAXIS, 05/27/16) Physical Exam Vital Signs Date Time Temp Pulse Resp B/P (MAP) Pulse Ox O2 Delivery O2 Flow Rate FiO2 09/08/16 22:39 76 18 151/82 96 Room Air 09/08/16 21:27 78 20 137/76 95 Room Air 09/08/16 21:20 77 09/08/16 20:16 95 Room Air 09/08/16 19:35 36.8 92 18 145/85 96 Room Air Physical Exam Vital signs reviewed. General: Well-appearing female, in no significant distress. HEENT: No scleral icterus, PERRLA, neck supple. Atraumatic. Cardiovascular: Regular rate and rhythm, no extra sounds. Pulmonary: Clear to auscultation bilaterally, normal work of breathing. Abdomen: Obese. Mild abdominal tenderness. Soft, nondistended, positive bowel sounds. Pelvic: Scant amount of blood in the vaginal vault. Mild CMT. Musculoskeletal: Atraumatic, no peripheral edema. Neurologic: Patient awake alert and oriented x 3 Skin: Warm, dry, no rash Medical Decision & Procedures ER Provider Diagnostic Interpretation: Radiology results as stated below per my review and radiologist interpretation: PELVIC COMPLETE NON OB CLINICAL HISTORY: heavy VB BLEEDING. DISCHARGE. COMPARISON STUDY: 09/01/2015 FINDINGS: The uterus measured 10 cm. The endometrial stripe measured 1.5 to 2.0 cm The right ovary measured 2.7 cm with a 1.5 cm cyst.. The left ovary measured 4.0 cm with a 2 cm follicular cyst.. There is no ultrasonographic evidence of ovarian torsion. It should be noted that ovarian torsion can be present with normal Doppler ultrasonographic findings. There was no evidence of pathologic free pelvic fluid. IMPRESSION: 1. Moderate endometrial thickening possibly indicative of endometrial hyperplasia versus neoplasia. 2. Bilateral follicular cysts The above report was generated using voice recognition software. It may contain grammatical, syntax or spelling errors. Electronically signed by: Valentino Montoya M.D. 09/08/2016 9:27 PM Dictated Date/Time: 09/08/2016 9:24 PM Laboratory Results 09/08/16 20:13 Red Blood Count 4.32, Mean Corpuscular Volume 83.8, Mean Corpuscular Hemoglobin 26.4, Mean Corpuscular Hemoglobin Concent 31.5, Mean Platelet Volume 10.1, Neutrophils (%) (Auto) 61.5, Lymphocytes (%) (Auto) 28.5, Monocytes (%) (Auto) 6.9, Eosinophils (%) (Auto) 2.6, Basophils (%) (Auto) 0.3, Neutrophils # (Auto) 6.42, Lymphocytes # (Auto) 2.97, Monocytes # (Auto) 0.72, Eosinophils # (Auto) 0.27, Basophils # (Auto) 0.03 09/08/16 20:13 Test 09/08/16 20:13 09/08/16 20:18 09/08/16 20:21 White Blood Count 10.43 K/uL (4.8-10.8) Red Blood Count 4.32 M/uL (4.2-5.4) Hemoglobin 11.4 g/dL (12.0-16.0) Hematocrit 36.2 % (37-47) Mean Corpuscular Volume 83.8 fL (80-100) Mean Corpuscular Hemoglobin 26.4 pg (25-34) Mean Corpuscular Hemoglobin Concent 31.5 g/dl (32-36) Platelet Count 281 K/uL (130-400) Mean Platelet Volume 10.1 fL (7.4-10.4) Neutrophils (%) (Auto) 61.5 % Lymphocytes (%) (Auto) 28.5 % Monocytes (%) (Auto) 6.9 % Eosinophils (%) (Auto) 2.6 % Basophils (%) (Auto) 0.3 % Neutrophils # (Auto) 6.42 K/uL (1.4-6.5) Lymphocytes # (Auto) 2.97 K/uL (1.2-3.4) Monocytes # (Auto) 0.72 K/uL (0.11-0.59) Eosinophils # (Auto) 0.27 K/uL (0-0.5) Basophils # (Auto) 0.03 K/uL (0-0.2) RDW Standard Deviation 50.1 fL (36.4-46.3) RDW Coefficient of Variation 16.4 % (11.5-14.5) Immature Granulocyte % (Auto) 0.2 % Immature Granulocyte # (Auto) 0.02 K/uL (0.00-0.02) Est Creatinine Clear Calc Drug Dose 122.3 ml/min Estimated GFR () 116.4 Estimated GFR (Non- 100.4 BUN/Creatinine Ratio 17.1 (10-20) Calcium Level 8.7 mg/dl (8.5-10.1) Total Bilirubin 0.2 mg/dl (0.2-1) Direct Bilirubin < 0.1 mg/dl (0-0.2) Aspartate Amino Transf (AST/SGOT) 23 U/L (15-37) Alanine Aminotransferase (ALT/SGPT) 32 U/L (12-78) Alkaline Phosphatase 78 U/L (45-117) Total Protein 6.5 gm/dl (6.4-8.2) Albumin 3.1 gm/dl (3.4-5.0) Thyroid Stimulating Hormone (TSH) 1.950 uIu/ml (0.300-4.500) Urine Test NEG (NEG) Bedside Hemoglobin 12.6 g/dl (12.0-16.0) Bedside Hematocrit 37 % (37-47) Bedside Sodium 139 mEq/L (135-144) Bedside Potassium 3.9 mEq/L (3.3-5.0) Bedside Chloride 100 mEq/L (101-112) Bedside Total CO2 27 mEq/l (24-31) Anion Gap 17.0 mmol/L (16-25) Bedside Blood Urea Nitrogen 11 mg/dl (7-18) Bedside Creatinine 0.6 mg/dl (0.6-1.3) Bedside Glucose (other) 147 mg/dl (70-99) Bedside Ionized Calcium (Kevin) 1.19 mmol/l (1.12-1.32) Bedside Troponin I < 0.030 ng/ml (0-0.045) Laboratory results per my review. Medications Administered Medications (Trade) Dose Ordered Sig/Enriqueta Route Start Time Stop Time Status Last Admin Dose Admin Sodium Chloride 1,000 ml @ 999 mls/hr Q1H1M STAT IV 09/08/16 19:59 09/08/16 20:59 DC 09/08/16 20:26 999 MLS/HR Ibuprofen (Motrin Tab) 600 mg NOW STAT PO 09/08/16 21:42 09/08/16 21:43 DC 09/08/16 21:54 600 MG ED Course 1956: Past medical records reviewed. The patient was evaluated in room C9. A complete history and physical examination was performed. 1958: Ordered Sodium Chloride 1000 ml @ 999 mls/hr IV. 2141: Ordered Motrin Tab 600 mg PO. 2199: I discussed the patients case with Dr. Estrada, supervisor [employer]. He states that he will follow up with the patient tomorrow and states that he agrees with Aygestin. 2207: I performed the pelvic exam on the patient at this time. See physical exam for further detail. I discussed all the exam findings with her and I discussed the treatment plan. She verbalized complete understanding and agreement. She is ready to go home. Medical Decision Differential diagnosis: Etiologies such as ectopic , dysfunction uterine bleeding, bleeding dyscrasia, trauma, infection, as well as others were entertained. This patient was evaluated and appeared to be in no significant distress. IV access was obtained and laboratory work was drawn. Patient was hydrated with normal saline solution. The patient's H&H is stable. Pelvic ultrasound was performed and reveals a thickened endometrium. Pelvic exam reveals minimal bleeding. Case was discussed with Dr. Estrada of [employer]. He agrees with the plan for Aygestin. He'll follow the patient in the office. She should call their secretary of state tomorrow to schedule an appointment. Patient is comfortable is plan and agrees. Medication Reconcilliation Current Medication List: was personally reviewed by me Blood Pressure Screening Patient's blood pressure: Elevated blood pressure Blood pressure disposition: Elevated BP felt to be situational, Referred to PCP Consults Time Called: 2154 Consulting Physician: Dr. Estrada, supervisor [employer] Returned Call: 2199 I discussed the patients case with Dr. Estrada, supervisor [employer]. He states that he will follow up with the patient tomorrow and states that he agrees with Aygestin. Impression Primary Impression: Dysfunctional uterine bleeding Scribe Attestation The scribe's documentation has been prepared under my direction and personally reviewed by me in its entirety. I confirm that the note above accurately reflects all work, treatment, procedures, and medical decision making performed by me. Departure Information Dispostion Home / Self-Care Prescriptions Norethindrone Acetate (AYGESTIN) 5 Mg Tab 1 TAB PO TID for 10 Days, #30 TAB Prov: Kimberly Vegas M.D. 09/08/16 Referrals Janeth Ackerman M.D. (PCP) Andrew Estrada M.D. Forms HOME CARE DOCUMENTATION FORM, IMPORTANT VISIT INFORMATION, WORK / SCHOOL INSTRUCTIONS Patient Instructions ED Bleed Irregular Vaginal, My [facility] Additional Instructions Diagnosis: Dysfunctional uterine bleeding Aygestin 5 mg three times daily for 10 days. This will stop your bleeding, you are likely to bleed when pills are done, hopefully a nutrition consultant bleed. Drink plenty of fluids. Ibuprofen 600 mg every 6 hours as needed for pain. Follow up with OBGYN, call Dr Estrada tomorrow to schedule an appt.
[2016-09-08 20:16] VITALS: O2SAT 95
[2016-09-08 20:32] LABS: ISTAT CREATININE 0.6 mg/dl (0.6-1.3); ISTAT HEMOGLOBIN 12.6 g/dl (12.0-16.0); ISTAT IONIZED CALCIUM 1.19 mmol/l (1.12-1.32)
[2016-09-08 20:36] LABS: BASO % 0.3 %; BASO ABS # 0.03 K/uL (0-0.2); COMPLETE YES; EOS % 2.6 %; HEMATOCRIT 36.2 % (37-47); IG% 0.2 %; LYMPH % 28.5 %; LYMPH ABS # 2.97 K/uL (1.2-3.4); MEAN CELL VOLUME 83.8 fL (80-100); MEAN CORPUSCULAR HEMOGLOBIN 26.4 pg (25-34); MEAN CORPUSCULAR HGB CONC 31.5 g/dl (32-36); MEAN PLATELET VOLUME 10.1 fL (7.4-10.4); MONO % 6.9 %; NEUT % 61.5 %; PLATELET COUNT 281 K/uL (130-400); RED BLOOD COUNT 4.32 M/uL (4.2-5.4); WHITE BLOOD COUNT 10.43 K/uL (4.8-10.8)
[2016-09-08 20:54] LABS: ALT/SGPT 32 U/L (12-78); BLOOD UREA NITROGEN 12 mg/dl (7-18); BUN/CREATININE RATIO 17.1 (10-20); CALCIUM 8.7 mg/dl (8.5-10.1); CARBON DIOXIDE 29 mmol/L (21-32); CHLORIDE 105 mmol/L (98-107); CREATININE 0.72 mg/dl (0.60-1.20); GLUCOSE 143 mg/dl (70-99); POTASSIUM 3.8 mmol/L (3.5-5.1); SODIUM 139 mmol/L (136-145)
[2016-09-08 21:04] LABS: ALKALINE PHOSPHATASE 78 U/L (45-117); AST/SGOT 23 U/L (15-37)
--- NOTE | 2016-09-08 21:28 | DIAGNOSTIC IMAGING REPORT ---
PELVIC COMPLETE NON OB CLINICAL HISTORY: heavy VB BLEEDING. DISCHARGE. COMPARISON STUDY: 09/01/2015 FINDINGS: The uterus measured 10 cm. The endometrial stripe measured 1.5 to 2.0 cm The right ovary measured 2.7 cm with a 1.5 cm cyst.. The left ovary measured 4.0 cm with a 2 cm follicular cyst.. There is no ultrasonographic evidence of ovarian torsion. It should be noted that ovarian torsion can be present with normal Doppler ultrasonographic findings. There was no evidence of pathologic free pelvic fluid. IMPRESSION: 1. Moderate endometrial thickening possibly indicative of endometrial hyperplasia versus neoplasia. 2. Bilateral follicular cysts The above report was generated using voice recognition software. It may contain grammatical, syntax or spelling errors. Electronically signed by: Valentino Montoya M.D. 09/08/2016 9:27 PM Dictated Date/Time: 09/08/2016 9:24 PM
[2016-09-08] MEDS ORDERED: IBUPROFEN 600 MG TAB PO STA (21:42)
[2016-09-08] MEDS ORDERED: AYG/5 PO (21:58)
[2016-09-08 22:39] VITALS: BP 151/82; PULSE 76; O2SAT 96
[2016-10-26] MEDS ORDERED: B-COTAB18 PO (02:02)
[2016-10-26] MEDS ORDERED: EPP3/2 IM (07:17)
== END 2016-09-08 22:46 | disposition home or self-care (01) ==
LOC: C.EDB 19:23 → C.EDC 22:46
DX: N93.8 Other specified abnormal uterine and vaginal bleeding (principal); J45.909 Unspecified asthma, uncomplicated; F32.9 Major depressive disorder, single episode, unspecified; Z87.442 Personal history of urinary calculi; E28.2 Polycystic ovarian syndrome; Z84.1 Family history of disorders of kidney and ureter; Z82.49 Family history of ischemic heart disease and other diseases of the circulatory system; F17.210 Nicotine dependence, cigarettes, uncomplicated; Z79.899 Other long term (current) drug therapy

== ENCOUNTER 2016-10-26 16:52 | Emergency (ER) | payer SELFPAY ==
[~2016-10-26 16:52] MED LIST changes: +B-COTAB18 PO; +EPP3/2 IM
[2016-10-26 17:50] VITALS: BP 146/85; PULSE 87; TEMP 36.8; O2SAT 96
--- NOTE | 2016-10-26 17:52 | EMERGENCY ROOM VISIT NOTE ---
History First contact with patient: 17:29 Chief Complaint: LACERATION/CUT (SUT/DERMABOND) Stated Complaint: LACERATION TO RT THUMB History of Present Illness The patient is a 46 year old female who presents to the Emergency Room with complaints of a laceration to her right thumb from a brand-new knife. The patient reports moderate bleeding from the wound. The patient is uncertain of her last tetanus immunization. The patient is [id number], and rates her discomfort a 2 out of 10 on my exam. Review of Systems 6 system review was performed and was negative except for pertinent positives and negatives as indicated in history of present illness Past Medical/Surgical History Medical Problems: (1) Asthma (2) Depression (3) Endometriosis (4) Kidney stone (5) Lithotripsy (6) Polycystic ovaries Surgical Problems: (1) H/O cystoscopy (2) History of appendectomy (3) History of section (4) History of tonsillectomy Family History Hypertension Kidney disease Social History Smoking Status: Current Every Day Smoker Alcohol Use: occasionally Drug Use: none Marital Status: in relationship Housing Status: lives with family Occupation Status: employed Current/Historical Medications Scheduled B-Complex Vitamins (Vitamin B Complex), 1 TAB PO DAILY Calcium Ascorbate (Vitamin C), 500 MG PO DAILY Ferrous Sulfate (Iron), 1 TAB PO DAILY Multivitamins/Minerals (Mvi With Minerals), 1 TAB PO DAILY Scheduled PRN Albuterol Hfa (Ventolin Hfa), 2 PUFFS INH Q6H PRN for SOB/Wheezing Diphenhydramine Hcl (Sleep) (Diphenhydramine Hcl), 1 TAB PO Q6 PRN for ALLERGIC REACTION Epinephrine (Epipen), 0.3 MG IM UD PRN for ALLERGIC REACTION Naproxen (Aleve), 220 MG PO Q6 PRN for Headache or Pain Physical Exam Vital Signs Date Time Temp Pulse Resp B/P (MAP) Pulse Ox O2 Delivery O2 Flow Rate FiO2 10/26/16 17:50 36.8 87 20 146/85 96 Room Air Physical Exam CONSTITUTIONAL: Healthy and well nourished. Alert and oriented X 3 with positive affect. HEENT: Normocephalic, atraumatic. Pupils equal, round and reactive. MUSCULOSKELETAL: Examination of the right thumb shows a 4 mm V-shaped laceration of the fingertip. Resolving flap is blanched. There is no active bleeding. The flap is perfectly approximated. Capillary refill is less than 2 seconds. INTEGUMENTARY: No rash or other significant dermatologic conditions noted. NEUROLOGIC: Right thumb is sensory intact. Medical Decision & Procedures Procedure Laceration repair was performed using Dermabond. The wound was initially cleansed with normal saline and hydrogen peroxide mixture. ED Course Patient history and physical exam were performed. Nurse's notes were reviewed. Vital signs were reviewed and were normal. The patient was administered Adacel IM. Laceration repair was performed using Dermabond skin glue. The patient was advised that if the glue prematurely falls off, she may then apply an antibiotic ointment and bandage until it heals. She was encouraged to intermittently apply ice as needed for swelling and pain. Ibuprofen or Tylenol if needed for additional pain relief. The patient was happy with plan of care, and denied any pain at the conclusion of my exam. Medical Decision Head Trauma Blood Pressure Screening Patient's blood pressure: Normal blood pressure Impression Primary Impression: Laceration of right thumb Departure Information Dispostion Home / Self-Care Forms HOME CARE DOCUMENTATION FORM, IMPORTANT VISIT INFORMATION Patient Instructions My [facility] Additional Instructions Read skin glue handout. Do not apply any ointments to the glue. Watch for any signs of underlying developing infection. If the glue wears off within the next 5 days, apply an antibiotic ointment and dressing until it heals. Problem Qualifiers Primary Impression: Laceration of right thumb Encounter type: initial encounter Damage to nail status: without damage Foreign body presence: without foreign body Qualified Codes: S61.011A - Laceration without foreign body of right thumb without damage to nail, initial encounter
[2016-10-26] MEDS ORDERED: DIPHTHERIA/TETANUS/PERTUSSIS 0.5 ML SYR/VIAL IM. ONE (18:00)
[2016-10-26] MEDS ORDERED: FERR1TAB23 PO (20:12)
[2016-10-26] MEDS ORDERED: CALC500T72 PO (20:13)
[2016-10-26] MEDS ORDERED: MULT-513 PO (22:29)
[2016-10-26] MEDS ORDERED: VNTHFA/IN INH (22:29)
[2016-10-26] MEDS ORDERED: NAPR1TAB9 PO (22:29)
== END 2016-10-26 18:12 | disposition home or self-care (01) ==
LOC: C.EDB 16:53 → C.EDD 18:12
DX: S61.011A Laceration without foreign body of right thumb without damage to nail, initial encounter (principal); W26.0XXA Contact with knife, initial encounter; Y92.9 Unspecified place or not applicable; J45.909 Unspecified asthma, uncomplicated; F32.9 Major depressive disorder, single episode, unspecified; Z87.442 Personal history of urinary calculi; N80.9 Endometriosis, unspecified; E28.2 Polycystic ovarian syndrome; Z82.49 Family history of ischemic heart disease and other diseases of the circulatory system; Z84.1 Family history of disorders of kidney and ureter; F17.210 Nicotine dependence, cigarettes, uncomplicated

== ENCOUNTER 2017-02-09 01:22 | Emergency (ER) | payer SELFPAY ==
[~2017-02-09] VITALS: Ht 160 cm; Wt 115.2 kg
[~2017-02-09 01:22] MED LIST changes: +CALC500T72 PO; -DIPH50TA10 PO; +FERR1TAB23 PO; +MULT-513 PO; +NAPR1TAB9 PO; +VNTHFA/IN INH
[2017-02-09 01:27] VITALS: TEMP 36.6; Ht 160 cm; Wt 115.2 kg
[2017-02-09] MEDS ORDERED: SODIUM CHLORIDE 0.9% 1000ML 1,000 ML IV STA (01:46)
[2017-02-09 02:09] LABS: BASO % 0.4 %; BASO ABS # 0.04 K/uL (0-0.2); COMPLETE YES; EOS % 2.9 %; IG% 0.2 %; LYMPH % 34.4 %; LYMPH ABS # 3.44 K/uL (1.2-3.4); MEAN CELL VOLUME 79.7 fL (80-100); MEAN CORPUSCULAR HEMOGLOBIN 25.3 pg (25-34); MEAN CORPUSCULAR HGB CONC 31.8 g/dl (32-36); MONO % 8.9 %; NEUT % 53.2 %; PLATELET COUNT 275 K/uL (130-400); RED BLOOD COUNT 5.02 M/uL (4.2-5.4)
[2017-02-09 02:10] LABS: ISTAT CREATININE 0.7 mg/dl (0.6-1.3); ISTAT HEMOGLOBIN 12.6 g/dl (12.0-16.0); ISTAT IONIZED CALCIUM 1.23 mmol/l (1.12-1.32)
[2017-02-09 02:30] LABS: ALT/SGPT 29 U/L (12-78); AST/SGOT 19 U/L (15-37); BLOOD UREA NITROGEN 9 mg/dl (7-18); BUN/CREATININE RATIO 13.5 (10-20); CALCIUM 8.8 mg/dl (8.5-10.1); CARBON DIOXIDE 31 mmol/L (21-32); CHLORIDE 104 mmol/L (98-107); GLUCOSE 132 mg/dl (70-99); POTASSIUM 4.2 mmol/L (3.5-5.1); SODIUM 137 mmol/L (136-145)
[2017-02-09 02:32] LABS: ALKALINE PHOSPHATASE 82 U/L (45-117)
[2017-02-09 02:33] LABS: PREG INTERNAL NEGATIVE QC NEG CLEAR BACKGROUND; PREG INTERNAL POSITIVE QC POS CONTROL LINE
[2017-02-09] MEDS ORDERED: OPTIRAY 320 IV PRN (03:30)
[2017-02-09] MEDS ORDERED: ACETAMINOPHEN 500 MG TAB PO STA (03:50)
--- NOTE | 2017-02-09 05:31 | EMERGENCY ROOM VISIT NOTE ---
History First contact with patient: 01:28 Chief Complaint: SHORTNESS OF BREATH Stated Complaint: SHORTNESS OF BREATH,LIGHT HEADED History of Present Illness The patient is a 46 year old female who presents to the Emergency Room with complaints of lightheadedness, fatigue, dyspnea, and chest discomfort for the past few days. Patient has a history of anemia and has had blood transfusion before. Patient had heavy vaginal bleeding for the past 3 weeks and it just tapered off 3 days ago. Patient continues to smoke. No prior heart disease or blood clots. She has traveled recently to [place] and [facility]. She has a family history of heart disease with her father having heart disease in his late 40s. Echo last year was normal per patient. Last stress test was 2010. Patient denies fevers, cold symptoms, wheezing, back pain, abdominal pain, leg pain or swelling. Review of Systems See HPI for pertinent positives & negatives. A total of 10 systems reviewed and were otherwise negative. Past Medical/Surgical History Medical Problems: (1) Asthma (2) Depression (3) Endometriosis (4) Kidney stone (5) Lithotripsy (6) Polycystic ovaries Surgical Problems: (1) H/O cystoscopy (2) History of appendectomy (3) History of section (4) History of tonsillectomy Family History Hypertension Kidney disease Social History Smoking Status: Current Every Day Smoker Alcohol Use: occasionally Drug Use: none Marital Status: in relationship Housing Status: lives with family Occupation Status: employed Current/Historical Medications Scheduled B-Complex Vitamins (Vitamin B Complex), 1 TAB PO DAILY Calcium Ascorbate (Vitamin C), 500 MG PO DAILY Ferrous Sulfate (Iron), 1 TAB PO DAILY Multivitamins/Minerals (Mvi With Minerals), 1 TAB PO DAILY Scheduled PRN Albuterol Hfa (Ventolin Hfa), 2 PUFFS INH Q6H PRN for SOB/Wheezing Epinephrine (Epipen), 0.3 MG IM UD PRN for ALLERGIC REACTION Naproxen (Aleve), 220 MG PO Q6H PRN for Headache or Pain Physical Exam Vital Signs Date Time Temp Pulse Resp B/P (MAP) Pulse Ox O2 Delivery O2 Flow Rate FiO2 02/09/17 04:25 67 19 02/09/17 03:55 18 02/09/17 03:25 74 15 97 Room Air 02/09/17 03:01 113/62 02/09/17 02:55 65 16 97 Room Air 02/09/17 02:17 74 17 95 02/09/17 02:12 78 20 95 Room Air 02/09/17 02:11 Room Air 02/09/17 02:10 72 02/09/17 02:04 131/81 02/09/17 01:27 36.6 75 16 122/77 96 Room Air Physical Exam VITALS: Vitals are noted on the nurse's note and reviewed by myself. Vital signs stable. GENERAL: Pleasant female, in no acute distress, nondiaphoretic, well-developed well-nourished. SKIN: The skin was without rashes, erythema, edema, or bruising. There is no tenting of the skin. Capillary reflex less than 2 seconds. HEAD: Normocephalic atraumatic. EARS: External auditory canals clear, tympanic membranes pearly manuel without erythema or effusion bilaterally. EYES: Pupils equal round and reactive to light and accommodation. Conjunctivae without injection, sclerae without icterus. Extraocular movements intact. NOSE: Patent, turbinates without inflammation or discharge. MOUTH: Mucous membranes moist. Pharynx without erythema or exudate. Uvula midline. Airway patent. Tongue does not deviate. NECK: Supple without nuchal rigidity. No lymphadenopathy. No thyromegaly. Cervical spine is nontender. No JVD. HEART: Regular rate and rhythm chest nontender to palpation LUNGS: Clear to auscultation bilaterally without wheezes, rales or rhonchi. No dullness to percussion. No retractions or accessory muscle use. ABDOMEN: Positive bowel sounds x 4. Normal tympanic percussion. Soft, nontender, without masses or organomegaly. Spencer sign negative. No guarding or rebound tenderness. MUSCULOSKELETAL: No muscle atrophy, erythema, or edema noted. NEURO: Patient was alert and oriented to person place and time. Normal sensation to light and sharp touch. No focal neurological deficits. Medical Decision & Procedures Laboratory Results 02/09/17 01:54 Red Blood Count 5.02, Mean Corpuscular Volume 79.7, Mean Corpuscular Hemoglobin 25.3, Mean Corpuscular Hemoglobin Concent 31.8, Mean Platelet Volume 10.0, Neutrophils (%) (Auto) 53.2, Lymphocytes (%) (Auto) 34.4, Monocytes (%) (Auto) 8.9, Eosinophils (%) (Auto) 2.9, Basophils (%) (Auto) 0.4, Neutrophils # (Auto) 5.32, Lymphocytes # (Auto) 3.44, Monocytes # (Auto) 0.89, Eosinophils # (Auto) 0.29, Basophils # (Auto) 0.04 02/09/17 01:54 Test 02/09/17 01:54 02/09/17 01:57 02/09/17 02:10 02/09/17 05:10 White Blood Count 10.00 K/uL (4.8-10.8) Red Blood Count 5.02 M/uL (4.2-5.4) Hemoglobin 12.7 g/dL (12.0-16.0) Hematocrit 40.0 % (37-47) Mean Corpuscular Volume 79.7 fL (80-100) Mean Corpuscular Hemoglobin 25.3 pg (25-34) Mean Corpuscular Hemoglobin Concent 31.8 g/dl (32-36) Platelet Count 275 K/uL (130-400) Mean Platelet Volume 10.0 fL (7.4-10.4) Neutrophils (%) (Auto) 53.2 % Lymphocytes (%) (Auto) 34.4 % Monocytes (%) (Auto) 8.9 % Eosinophils (%) (Auto) 2.9 % Basophils (%) (Auto) 0.4 % Neutrophils # (Auto) 5.32 K/uL (1.4-6.5) Lymphocytes # (Auto) 3.44 K/uL (1.2-3.4) Monocytes # (Auto) 0.89 K/uL (0.11-0.59) Eosinophils # (Auto) 0.29 K/uL (0-0.5) Basophils # (Auto) 0.04 K/uL (0-0.2) RDW Standard Deviation 54.5 fL (36.4-46.3) RDW Coefficient of Variation 18.7 % (11.5-14.5) Immature Granulocyte % (Auto) 0.2 % Immature Granulocyte # (Auto) 0.02 K/uL (0.00-0.02) D-Dimer 560 ug/L FEU (0-500) Est Creatinine Clear Calc Drug Dose 122.9 ml/min Estimated GFR () 120.4 Estimated GFR (Non- 103.9 BUN/Creatinine Ratio 13.5 (10-20) Calcium Level 8.8 mg/dl (8.5-10.1) Total Bilirubin 0.2 mg/dl (0.2-1) Direct Bilirubin < 0.1 mg/dl (0-0.2) Aspartate Amino Transf (AST/SGOT) 19 U/L (15-37) Alanine Aminotransferase (ALT/SGPT) 29 U/L (12-78) Alkaline Phosphatase 82 U/L (45-117) Total Protein 7.4 gm/dl (6.4-8.2) Albumin 3.2 gm/dl (3.4-5.0) Lipase 290 U/L (73-393) Human Chorionic Gonadotropin, Qual NEG (NEG) Bedside Hemoglobin 12.6 g/dl (12.0-16.0) Bedside Hematocrit 37 % (37-47) Bedside Sodium 139 mEq/L (135-144) Bedside Potassium 4.0 mEq/L (3.3-5.0) Bedside Chloride 100 mEq/L (101-112) Bedside Total CO2 29 mEq/l (24-31) Anion Gap 15.0 mmol/L (16-25) Bedside Blood Urea Nitrogen 8 mg/dl (7-18) Bedside Creatinine 0.7 mg/dl (0.6-1.3) Bedside Glucose (other) 141 mg/dl (70-99) Bedside Ionized Calcium (Kevin) 1.23 mmol/l (1.12-1.32) Urine Test NEG (NEG) Bedside Troponin I < 0.030 ng/ml (0-0.045) Medications Administered Medications (Trade) Dose Ordered Sig/Enriqueta Route Start Time Stop Time Status Last Admin Dose Admin Sodium Chloride 1,000 ml @ 999 mls/hr Q1H1M STAT IV 02/09/17 01:46 02/09/17 02:46 DC 02/09/17 02:17 999 MLS/HR Acetaminophen (Tylenol Tab) 1,000 mg NOW STAT PO 02/09/17 03:50 02/09/17 03:51 DC 02/09/17 03:56 1,000 MG ED Course Prior records/ancillary studies reviewed. Triage Nursing notes reviewed. Additional history obtained from family The patient's history was concerning for fatigue, dyspnea and chest pain. Differential diagnosis: Etiologies such as anemia, cardiac ischemia, aortic dissection, pulmonary embolism, pneumonia, pneumothorax, musculoskeletal, infections, pericarditis, myocarditis, esophageal rupture, gastrointestinal, as well as others were entertained. Physical examination: As above. ER treatment provided: IV fluids On reassessment the patient felt better. Diagnostic interpretation by me: The electrocardiogram was normal sinus, normal intervals, no acute ST-T wave changes. Impression normal sinus interpreted by myself The labs revealed stable H&H, neg trop 2. Mild hyperglycemia without DKA Imaging studies: Chest x-ray with no acute consolidation, pneumothorax or free air per my interpretation CTA CHEST: There is artifact limiting evaluation for small peripheral PE. No central PE. No consolidation. No CT evidence for edema. No effusions. Incidental findings: Stable lung nodules. Low-density liver lesion likely cyst. Liver prominent in size with possible steatosis. Cholecystectomy. Radiologist: Jack Rasmussen M.D. Consultation: A consultation was placed with the hospitalist. The case was discussed and diagnostics were reviewed. The patient was evaluated in the ER for further treatment. Exam and history seem consistent with chest pain last likely be cardiac in etiology. Patient's been symptomatic for 3 days. 2 negative troponins. Normal EKG. Negative CTA. She is advised to follow-up with family care in a day or 2 for further evaluation workup here in the ER sooner for chest pain, difficulty breathing, worsening signs or symptoms or as needed By the evaluation outlined above emergent etiologies such as cardiac ischemia, aortic dissection, pulmonary embolism, pneumonia, pneumothorax, infections, pericarditis, myocarditis, gastrointestinal, as well as others were deemed relatively unlikely. Patient was also advised follow-up for her slightly elevated glucose. The pt informed about the findings as listed above. All questions were answered and pleased with the treatment. Return instructions were outlined and the patient was discharged in stable condition. Referral: The patient was referred back to primary care physician for follow-up in 2 to 3 days for a recheck of the current condition. Case reviewed with my Attending. The chart was completed utilizing [email or web address] voice recognition software. Grammatical errors, random word insertions, pronoun errors, and incomplete sentences are an occassional consequence of this system due to software limitations, ambient noise, and hardware issues. Any formal questions or concerns about the content, text, or information contained within the body of this dictation should be directly addressed to the physician print shop assistant for clarification. Medical Decision As above Medication Reconcilliation Current Medication List: was personally reviewed by me Blood Pressure Screening Patient's blood pressure: Normal blood pressure Impression Primary Impression: Precordial chest pain Additional Impression: Hyperglycemia Departure Information Dispostion Home / Self-Care Condition GOOD Referrals Janeth Ackerman M.D. (PCP) Patient Instructions My [facility] Additional Instructions Your blood sugar was slightly high today. Follow-up with family care for this. Ibuprofen(Motrin, Advil) may be used for fever or pain. Use 600mg every six hours as needed. Take with food. Avoid using more than 2400mg in a 24 hour period. Do not use 2400mg per day for more than three consecutive days without physician direction. Prolonged inappropriate use can lead to stomach upset or ulcers. (AND/OR) Acetaminophen(Tylenol) may be used for fever or pain. Use 1000mg every six hours as needed. Avoid using more than 3000mg in a 24 hour period. Rest and drink plenty of fluids as tolerated. Continue current medications. Avoid strenuous activities and anything that worsens your pain. Resume normal activities once your symptoms resolve. Return to the ER immediately for worsening or persistent chest pain, abdominal pain, vomiting, fevers, chest pains, difficulty breathing, worsening of your condition, or as needed. Follow up with your primary physician in 2-3 days for a recheck of your current condition. Problem Qualifiers
[2017-02-09 05:49] VITALS: BP 124/63; PULSE 71; O2SAT 98
--- NOTE | 2017-02-09 06:39 | DIAGNOSTIC IMAGING REPORT ---
CHEST ONE VIEW PORTABLE CLINICAL HISTORY: Atypical chest pain COMPARISON STUDY: 05/27/2016 FINDINGS: The cardiac and mediastinal contours are normal. There is no evidence of focal pulmonary consolidation. There is no evidence of failure. No pleural effusions are visualized.[ Slight interstitial prominence, likely relates to technical factors given the patient's large body habitus IMPRESSION: No active disease in the chest. Electronically signed by: Danny Olivo M.D. 02/09/2017 6:38 AM Dictated Date/Time: 02/09/2017 6:37 AM
--- NOTE | 2017-02-09 06:46 | DIAGNOSTIC IMAGING REPORT ---
CT ANGIOGRAPHY OF THE CHEST, PULMONARY EMBOLUS PROTOCOL CLINICAL HISTORY: Chest pain, cyst smoker and recent travel with elevated d-dimer. COMPARISON STUDY: Chest CT September 01, 2015 and chest radiograph February 09, 2017. TECHNIQUE: Following IV administration of 93 mL of Optiray-320, helical axial images of the chest were obtained utilizing the pulmonary embolus protocol. Maximal intensity projections and sagittal and coronal reformats were viewed on an independent 3D workstation. IV contrast was administered without complication. A dose lowering technique was utilized adhering to the principles of ALARA. CT DOSE: 736.29 mGy.cm FINDINGS: No pulmonary emboli are identified. There is no evidence of thoracic aortic dissection. The size of the heart is at the upper limits of normal. There is no pericardial effusion. No enlarged axillary, mediastinal or hilar lymph nodes are present. There is no consolidation to suggest pneumonia. Numerous pulmonary nodules are unchanged from a CT of December 24, 2010. No pneumothorax or pleural effusion is present. Bony thorax is unremarkable. Gallbladder surgically absent. A water attenuation 3.9 cm right hepatic lobe lesion has only minimally increased in size since CT of March 03, 2015. Contours are irregular. IMPRESSION: 1. No pulmonary emboli identified. 2. No acute intrathoracic findings. 3. No change in multiple pulmonary nodules which are benign given stability. 4. 3.9 cm right hepatic lobe lesion, only minimally increased in size since CT of March 03, 2015. This likely reflects a cyst however a follow-up nonemergent right upper quadrant ultrasound is recommended. Electronically signed by: Mike Thornton M.D. 02/09/2017 6:45 AM Dictated Date/Time: 02/09/2017 6:28 AM
== END 2017-02-09 05:49 | disposition home or self-care (01) ==
LOC: C.EDB 01:23 → C.EDA 05:49
DX: R07.2 Precordial pain (principal); R73.9 Hyperglycemia, unspecified; D64.9 Anemia, unspecified; J45.909 Unspecified asthma, uncomplicated; F17.200 Nicotine dependence, unspecified, uncomplicated; Z82.49 Family history of ischemic heart disease and other diseases of the circulatory system; Z84.1 Family history of disorders of kidney and ureter

== ENCOUNTER 2017-04-01 22:08 | Emergency (ER) | payer SELFPAY ==
[~2017-04-01] VITALS: Ht 160 cm; Wt 118.1 kg
[~2017-04-01 22:08] MED LIST changes: -MULT-513 PO; -NAPR1TAB9 PO; -VNTHFA/IN INH
[2017-04-01 22:15] VITALS: TEMP 36.9; Ht 160 cm; Wt 118.1 kg
[2017-04-01] MEDS ORDERED: VNTHFA/IN INH (22:29)
[2017-04-01] MEDS ORDERED: NAPR1TAB9 PO (22:29)
[2017-04-01] MEDS ORDERED: MULT-513 PO (22:29)
[2017-04-01] MEDS ORDERED: LORA-741 PO (22:47)
[2017-04-01] MEDS ORDERED: SERT50TA PO (22:48)
[2017-04-01 23:11] VITALS: PULSE 77; O2SAT 98
[2017-04-01] MEDS ORDERED: ACETAMINOPHEN 500 MG TAB PO STA (23:24)
[2017-04-01] MEDS ORDERED: SODIUM CHLORIDE 0.9% 1000ML 1,000 ML IV STA (23:24)
[2017-04-01] MEDS ORDERED: GI COCKTAIL PO STA (23:35)
--- NOTE | 2017-04-01 23:37 | EMERGENCY ROOM VISIT NOTE ---
History First contact with patient: 22:51 Chief Complaint: CHEST PAIN Stated Complaint: DIZZY - CHEST PAIN History of Present Illness The patient is a 47 year old female who presents to the Emergency Room with many complaints including: palpitations a/w mild mid sternal chest pressure starting at around 1945 today and then was doing laundry and "passed out" about an hour later, and banged her head on the air conditioning and fell into a pile of clothes. Says she has not felt well for a couple of weeks, has had intermittent nausea and diarrhea and did not eat anything today, although did drink water and coffee. Has felt a feeling of being hot off and on. Reports bilateral headache, which is chronic. Denies dark tarry stools, hematuria, emesis, dyspnea. Reports that her PCP is currently working her up for a possible ulcer - pt notes she takes Aleve often, with no acid propulsion generator repairer. Of note, pt has had a cholecystectomy and appendectomy. Review of Systems See HPI for pertinent positives and negatives. Past Medical/Surgical History Medical Problems: (1) Asthma (2) Depression (3) Endometriosis (4) Kidney stone (5) Lithotripsy (6) Polycystic ovaries Surgical Problems: (1) H/O cystoscopy (2) History of appendectomy (3) History of section (4) History of tonsillectomy Family History Hypertension Kidney disease Social History Smoking Status: Current Every Day Smoker Alcohol Use: occasionally Drug Use: none Marital Status: in relationship Housing Status: lives with family Occupation Status: employed Current/Historical Medications Scheduled B-Complex Vitamins (Vitamin B Complex), 1 TAB PO DAILY Calcium Ascorbate (Vitamin C), 500 MG PO DAILY Ferrous Sulfate (Iron), 1 TAB PO DAILY Multivitamins/Minerals (Mvi With Minerals), 1 TAB PO DAILY Ranitidine (Zantac), 1 TAB PO BID Sertraline (Zoloft), 50 MG PO DAILY Scheduled PRN Albuterol Hfa (Ventolin Hfa), 2 PUFFS INH Q6H PRN for SOB/Wheezing Epinephrine (Epipen), 0.3 MG IM UD PRN for ALLERGIC REACTION Lorazepam (Ativan), 1 TAB PO UD PRN for Anxiety Naproxen (Aleve), 220 MG PO Q6H PRN for Headache or Pain Physical Exam Vital Signs Date Time Temp Pulse Resp B/P (MAP) Pulse Ox O2 Delivery O2 Flow Rate FiO2 2/10/18 01:43 123/91 04/01/17 23:11 77 16 159/96 98 Room Air 04/01/17 23:08 73 04/01/17 22:15 36.9 83 18 176/84 98 Room Air Physical Exam GENERAL: Awake, alert, well-appearing, in no distress. Obese. HENT: Normocephalic, atraumatic. Oropharynx unremarkable. EYES: Normal conjunctiva. Sclera non-icteric. NECK: Supple. No nuchal rigidity. No JVD. RESPIRATORY: Clear to auscultation. CARDIAC: Regular rate, normal rhythm. Extremities warm and well perfused. Pulses equal. ABDOMEN: Soft, non-distended. Tenderness to palpation in RUQ and epigastric area. No rebound or guarding. No masses. RECTAL: Deferred. MUSCULOSKELETAL: Chest examination reveals no tenderness. The back is symmetrical on inspection without obvious abnormality. There is no CVA tenderness to palpation. No joint edema. LOWER EXTREMITIES: Calves are equal size bilaterally and non-tender. No edema. No discoloration. NEURO: Normal sensorium. No sensory or motor deficits noted. SKIN: No rash or jaundice noted. Medical Decision & Procedures Laboratory Results 04/01/17 23:42 Red Blood Count 5.16, Mean Corpuscular Volume 83.9, Mean Corpuscular Hemoglobin 26.7, Mean Corpuscular Hemoglobin Concent 31.9, Mean Platelet Volume 10.1, Neutrophils (%) (Auto) 50.5, Lymphocytes (%) (Auto) 37.8, Monocytes (%) (Auto) 7.1, Eosinophils (%) (Auto) 3.9, Basophils (%) (Auto) 0.4, Neutrophils # (Auto) 4.48, Lymphocytes # (Auto) 3.36, Monocytes # (Auto) 0.63, Eosinophils # (Auto) 0.35, Basophils # (Auto) 0.04 04/01/17 23:42 Test 04/01/17 23:42 04/02/17 01:13 White Blood Count 8.89 K/uL (4.8-10.8) Red Blood Count 5.16 M/uL (4.2-5.4) Hemoglobin 13.8 g/dL (12.0-16.0) Hematocrit 43.3 % (37-47) Mean Corpuscular Volume 83.9 fL (80-100) Mean Corpuscular Hemoglobin 26.7 pg (25-34) Mean Corpuscular Hemoglobin Concent 31.9 g/dl (32-36) Platelet Count 244 K/uL (130-400) Mean Platelet Volume 10.1 fL (7.4-10.4) Neutrophils (%) (Auto) 50.5 % Lymphocytes (%) (Auto) 37.8 % Monocytes (%) (Auto) 7.1 % Eosinophils (%) (Auto) 3.9 % Basophils (%) (Auto) 0.4 % Neutrophils # (Auto) 4.48 K/uL (1.4-6.5) Lymphocytes # (Auto) 3.36 K/uL (1.2-3.4) Monocytes # (Auto) 0.63 K/uL (0.11-0.59) Eosinophils # (Auto) 0.35 K/uL (0-0.5) Basophils # (Auto) 0.04 K/uL (0-0.2) RDW Standard Deviation 50.5 fL (36.4-46.3) RDW Coefficient of Variation 16.5 % (11.5-14.5) Immature Granulocyte % (Auto) 0.3 % Immature Granulocyte # (Auto) 0.03 K/uL (0.00-0.02) Anion Gap 6.0 mmol/L (3-11) Est Creatinine Clear Calc Drug Dose 110.7 ml/min Estimated GFR () 104.9 Estimated GFR (Non- 90.5 BUN/Creatinine Ratio 16.1 (10-20) Calcium Level 8.6 mg/dl (8.5-10.1) Magnesium Level 2.1 mg/dl (1.8-2.4) Total Bilirubin 0.2 mg/dl (0.2-1) Aspartate Amino Transf (AST/SGOT) 23 U/L (15-37) Alanine Aminotransferase (ALT/SGPT) 38 U/L (12-78) Alkaline Phosphatase 83 U/L (45-117) Troponin I < 0.015 ng/ml (0-0.045) Total Protein 7.5 gm/dl (6.4-8.2) Albumin 3.6 gm/dl (3.4-5.0) Globulin 3.9 gm/dl (2.5-4.0) Albumin/Globulin Ratio 0.9 (0.9-2) Lipase 373 U/L (73-393) Thyroid Stimulating Hormone (TSH) 2.050 uIu/ml (0.300-4.500) Bedside Troponin I < 0.030 ng/ml (0-0.045) Medications Administered Medications (Trade) Dose Ordered Sig/Enriqueta Route Start Time Stop Time Status Last Admin Dose Admin Sodium Chloride 1,000 ml @ 999 mls/hr Q1H1M STAT IV 04/01/17 23:24 04/02/17 00:24 DC 04/01/17 23:24 999 MLS/HR Acetaminophen (Tylenol Tab) 1,000 mg NOW STAT PO 04/01/17 23:24 04/01/17 23:28 DC 04/01/17 23:36 1,000 MG Miscellaneous Medication (Gi Cocktail) 24 ml NOW STAT PO 04/01/17 23:35 04/01/17 23:37 DC 04/01/17 23:35 24 ML Ranitidine HCl (zANTac SYRUP) 150 mg NOW ONCE PO 04/01/17 23:45 04/01/17 23:46 DC 04/01/17 23:45 150 MG Ketorolac Tromethamine (Toradol Inj) 30 mg NOW STAT IV 04/02/17 00:51 04/02/17 00:52 DC 04/02/17 01:02 30 MG ED Course [id number] signed up, reviewed records, saw and assessed pt 2315 saw with attending. Ordered cbc, cmp, lipase, TSH, mg, Trop, stat ECG, CXR, and CT head. Ordered fluids and 1gm tylenol 2445 reassessed pt - discussed normal head ct, cxr and labs- except for BSG > 200 which qualifies for a diagnosis of diabetes. Pt also reports improvement with ranitidine syrup. Medical Decision The patient is a 47 year old female who presents to the Emergency Room with many complaints including: palpitations a/w mild mid sternal chest pressure starting at around 1945 today and then was doing laundry and "passed out" about an hour later, and banged her head on the air conditioning and fell into a pile of clothes. Says she has not felt well for a couple of weeks, has had intermittent nausea and diarrhea and did not eat anything today, although did drink water and coffee. Has felt a feeling of being hot off and on. Reports bilateral headache, which is chronic. Denies dark tarry stools, hematuria, emesis, dyspnea. Reports that her PCP is currently working her up for a possible ulcer - pt notes she takes Aleve often, with no acid propulsion generator repairer. Of note, pt has had a cholecystectomy and appendectomy. DDX: AL, gastritis, hypoglycemia, hyperglycemia, viral enteritis Pt's head ct, cxr and blood work all non remarkable with the exception of her BSG which is >200 which qualifies as a diagnosis of diabetes. D/w pt that hyperglycemia can sometimes present this way, however given her ongoing work up for ulcers and her improvement on ranitidine, likely today's clinical picture is multifactorial. Discussed follow up with her PCP next week regarding today's visit. Recommend not skipping any more meals. Recommend daily ranitidine. Pt verbalized understanding, answered all questions. Impression Primary Impression: Epigastric abdominal pain Additional Impressions: Headache Syncope Hyperglycemia Departure Information Dispostion Home / Self-Care Condition GOOD Prescriptions Ranitidine (Zantac) 150 Mg Tab 1 TAB PO BID for 30 Days, #60 TAB 0 Refills Prov: Riya Soto M.D. 04/02/17 Patient Instructions My [facility] Additional Instructions You were seen in the ED for chest pain and syncope. A cat scan of your head shows no abnormalities, and your chest X ray is normal. We also checked your heart enzymes, liver, pancreas and thyroid and those are all normal. Unfortunately, your blood sugar is very elevated. This would qualify you as diabetic - you should call your PCP and schedule an appointment in 1-3 days to be seen regarding your diabetes treatment. In the meantime, as discussed, do not skip any meals, avoid candy and added sugar, and stay well hydrated. We also recommend you take Ranitidine, which is an antacid, as this helped improve your symptoms here. Take it twice a day for 1 week, then you can take 1 per day from then on. We recommend you follow up with your PCP for all follow up tests regarding cardiology, endoscopy as per your PCP. If your symptoms worsen, you experience chest pain, syncope, or difficulty breathing you should return to the ED. Resident Tracking Resident Involvement: Resident Care Provided Care Provided: Adult ED Problem Qualifiers
[2017-04-01] MEDS ORDERED: LIDOCAINE HCL 2% VISC SOLN 20 ML UDC ONE (23:40)
[2017-04-01] MEDS ORDERED: ALUMINUM/MAGNESIUM SUSP 30 ML UDC ONE (23:40)
[2017-04-01] MEDS ORDERED: RANITIDINE HCL SYRUP 150 MG/10 ML UDC PO ONE (23:45)
--- NOTE | 2017-04-01 23:46 | EMERGENCY ROOM VISIT NOTE ---
History Report prepared by Margarito: Neptali Keyes Under the Supervision of: Dr. Richard Allen M.D. First contact with patient: 22:51 Chief Complaint: CHEST PAIN Stated Complaint: DIZZY - CHEST PAIN Nursing Triage Summary: chest pain prior to arrival states she has been seen here for this recently and was supposed to have endoscopy and f/u with cardiology and did not to either History of Present Illness The patient is a 47 year old female who presents to the Emergency Room with complaints of worsening chest pain that began prior to arrival. She describes the pain as palpitations with chest pressure as if "someone was sitting on her chest". She describes the pain as a 2/10 in severity. Patient states that she passed out doing laundry and fell into a basket of clothes. She denies bleeding from the fall. Patient has associated symptoms of intermittent heat flashes and diarrhea. She states she has not had menopause recently. She adds that she has not been feeling well intermittently for the past 2 weeks. She denies vomiting, hematuria, or hematochezia. Patient adds that she smokes. She states that she never followed up with anyone after her previous ER visits. Patient adds that her doctor feels like she has an ulcer. Patient states she has not eaten all day. She states she has only drank coffee and water. She adds that she has no gallbladder or appendix. Source of History: patient Onset: Prior to arrival Position: chest Symptom Intensity: 2/10 Timing: worsening Associated Symptoms: + diarrhea, No vomiting, No hematochezia Note: Patient has intermittent heat flashes. Patient denies hematuria. Review of Systems See HPI for pertinent positives & negatives. A total of 10 systems reviewed and were otherwise negative. Past Medical & Surgical Medical Problems: (1) Asthma (2) Depression (3) Endometriosis (4) Kidney stone (5) Lithotripsy (6) Polycystic ovaries Surgical Problems: (1) H/O cystoscopy (2) History of appendectomy (3) History of section (4) History of tonsillectomy Family History Hypertension Kidney disease Social History Smoking Status: Current Every Day Smoker Alcohol Use: occasionally Drug Use: none Marital Status: in relationship Housing Status: lives with family Occupation Status: employed Current/Historical Medications Scheduled B-Complex Vitamins (Vitamin B Complex), 1 TAB PO DAILY Calcium Ascorbate (Vitamin C), 500 MG PO DAILY Ferrous Sulfate (Iron), 1 TAB PO DAILY Multivitamins/Minerals (Mvi With Minerals), 1 TAB PO DAILY Ranitidine (Zantac), 1 TAB PO BID Sertraline (Zoloft), 50 MG PO DAILY Scheduled PRN Albuterol Hfa (Ventolin Hfa), 2 PUFFS INH Q6H PRN for SOB/Wheezing Epinephrine (Epipen), 0.3 MG IM UD PRN for ALLERGIC REACTION Lorazepam (Ativan), 1 TAB PO UD PRN for Anxiety Naproxen (Aleve), 220 MG PO Q6H PRN for Headache or Pain Allergies Coded Allergies: Dendron Nut (Verified Allergy, Severe, ANAPHYLAXIS; reported allergy to all nuts, 02/09/17) Citlali Nut (Verified Allergy, Severe, ANAPHYLAXIS; reported allergy to all nuts, 02/09/17) Peanut (Verified Allergy, Severe, ANAPHYLAXIS-ALL NUTS, 02/09/17) ALL NUTS Penicillins (Verified Allergy, Intermediate, RASH - HAS TOLERATED ROCEPHIN 2012, 02/09/17) RASH NUTS (Unverified Allergy, Unknown, ANAPHYLAXIS, 02/09/17) Physical Exam Vital Signs Date Time Temp Pulse Resp B/P (MAP) Pulse Ox O2 Delivery O2 Flow Rate FiO2 04/02/17 01:43 123/91 04/01/17 23:11 77 16 159/96 98 Room Air 04/01/17 23:08 73 04/01/17 22:15 36.9 83 18 176/84 98 Room Air Physical Exam GENERAL: Patient is well appearing and in minimal distress. HEENT: No acute trauma, normocephalic atraumatic, mucous membranes moist, no nasal congestion, no scleral icterus. NECK: No stridor, no adenopathy, no meningismus, trachea is midline. LUNGS: No dyspnea. Clear to auscultation and equal bilaterally. Faint wheezing, no rhonchi. HEART: Regular rate and rhythm. No murmurs, rubs, gallops appreciated. ABDOMEN: Soft, epigastric tenderness to palpitation, bowel sounds positive, no masses appreciated, no peritonitis. BACK: No midline tenderness, no CVA tenderness EXTREMITIES: Normal motion all extremities, no cyanosis, no edema. NEUROLOGIC: Alert and oriented, no acute motor or sensory deficits, no focal weakness, cranial nerves grossly intact. SKIN: No rash, no jaundice, no diaphoresis. Medical Decision & Procedures ER Provider Diagnostic Interpretation: X ray results are stated below per my interpretation: Chest: 1 view: No infiltrate, no effusion, normal cardiac border. No change form previous. Radiology results and stated below per my review and radiologist interpretation: CT Head: negative per [facility]. Laboratory Results 04/01/17 23:42 Red Blood Count 5.16, Mean Corpuscular Volume 83.9, Mean Corpuscular Hemoglobin 26.7, Mean Corpuscular Hemoglobin Concent 31.9, Mean Platelet Volume 10.1, Neutrophils (%) (Auto) 50.5, Lymphocytes (%) (Auto) 37.8, Monocytes (%) (Auto) 7.1, Eosinophils (%) (Auto) 3.9, Basophils (%) (Auto) 0.4, Neutrophils # (Auto) 4.48, Lymphocytes # (Auto) 3.36, Monocytes # (Auto) 0.63, Eosinophils # (Auto) 0.35, Basophils # (Auto) 0.04 04/01/17 23:42 Test 04/01/17 23:42 04/02/17 01:13 White Blood Count 8.89 K/uL (4.8-10.8) Red Blood Count 5.16 M/uL (4.2-5.4) Hemoglobin 13.8 g/dL (12.0-16.0) Hematocrit 43.3 % (37-47) Mean Corpuscular Volume 83.9 fL (80-100) Mean Corpuscular Hemoglobin 26.7 pg (25-34) Mean Corpuscular Hemoglobin Concent 31.9 g/dl (32-36) Platelet Count 244 K/uL (130-400) Mean Platelet Volume 10.1 fL (7.4-10.4) Neutrophils (%) (Auto) 50.5 % Lymphocytes (%) (Auto) 37.8 % Monocytes (%) (Auto) 7.1 % Eosinophils (%) (Auto) 3.9 % Basophils (%) (Auto) 0.4 % Neutrophils # (Auto) 4.48 K/uL (1.4-6.5) Lymphocytes # (Auto) 3.36 K/uL (1.2-3.4) Monocytes # (Auto) 0.63 K/uL (0.11-0.59) Eosinophils # (Auto) 0.35 K/uL (0-0.5) Basophils # (Auto) 0.04 K/uL (0-0.2) RDW Standard Deviation 50.5 fL (36.4-46.3) RDW Coefficient of Variation 16.5 % (11.5-14.5) Immature Granulocyte % (Auto) 0.3 % Immature Granulocyte # (Auto) 0.03 K/uL (0.00-0.02) Anion Gap 6.0 mmol/L (3-11) Est Creatinine Clear Calc Drug Dose 110.7 ml/min Estimated GFR () 104.9 Estimated GFR (Non- 90.5 BUN/Creatinine Ratio 16.1 (10-20) Calcium Level 8.6 mg/dl (8.5-10.1) Magnesium Level 2.1 mg/dl (1.8-2.4) Total Bilirubin 0.2 mg/dl (0.2-1) Aspartate Amino Transf (AST/SGOT) 23 U/L (15-37) Alanine Aminotransferase (ALT/SGPT) 38 U/L (12-78) Alkaline Phosphatase 83 U/L (45-117) Troponin I < 0.015 ng/ml (0-0.045) Total Protein 7.5 gm/dl (6.4-8.2) Albumin 3.6 gm/dl (3.4-5.0) Globulin 3.9 gm/dl (2.5-4.0) Albumin/Globulin Ratio 0.9 (0.9-2) Lipase 373 U/L (73-393) Thyroid Stimulating Hormone (TSH) 2.050 uIu/ml (0.300-4.500) Bedside Troponin I < 0.030 ng/ml (0-0.045) Laboratory results as reviewed by me. Medications Administered Medications (Trade) Dose Ordered Sig/Enriqueta Route Start Time Stop Time Status Last Admin Dose Admin Sodium Chloride 1,000 ml @ 999 mls/hr Q1H1M STAT IV 04/01/17 23:24 04/02/17 00:24 DC 04/01/17 23:24 999 MLS/HR Acetaminophen (Tylenol Tab) 1,000 mg NOW STAT PO 04/01/17 23:24 04/01/17 23:28 DC 04/01/17 23:36 1,000 MG Miscellaneous Medication (Gi Cocktail) 24 ml NOW STAT PO 04/01/17 23:35 04/01/17 23:37 DC 04/01/17 23:35 24 ML Ranitidine HCl (zANTac SYRUP) 150 mg NOW ONCE PO 04/01/17 23:45 04/01/17 23:46 DC 04/01/17 23:45 150 MG Ketorolac Tromethamine (Toradol Inj) 30 mg NOW STAT IV 04/02/17 00:51 04/02/17 00:52 DC 04/02/17 01:02 30 MG ED Course 2320: The patient was evaluated in room A12B. A complete history and physical exam was performed. 2324: Acetaminophen 1000mg PO, Sodium Chloride 1000 ml @ 999 mls/hr IV, GI Cocktail 24ml PO 234: Lidocaine HCl 20ml .ROUTE, Maalox Susp 30ml .ROUTE 2345: Ranitidine HCl 150mg PO 0051: Toradol Inj 30mg IV 0110: Reevaluated the patient. Discussed results and discharge instructions. She verbalized understanding and agreement. The patient is ready for discharge. Medical Decision Differential: Hepatic Disfunction, Gastritis/PUD, Pancreatitis, ACS, Aortic Pathology, amongst other pathologies entertained. 47 yr old female with ongoing issues with periodic ED visit for similar symptoms. She has persistent epigastric pain with previously prescribed endoscopy that she has not had done yet. She has chronic migraines/headaches which she has previously been seen for. No evidence meningitis, dissection, SAH , ICH, nor other acute incracranial pathology. That said, with reported syncope and headache felt that CT warranted which was negative. Again stressed Neuro follow up which she had not done after previous extensive work up last year for similar symptoms. No gallbladder and abdominal exam is not surgical. Lipase/LFT unremarkable. No evidence this is ACS and with 2 negative trops I do not feel that it is. EKG unremarkable and no issues with cardiac monitoring while in ED. I am not exactly sure the cause of her constellation of symptoms but she is stable, has large, negative work-up, has had similar previous symptoms without clear cause and thus I do not find clear evidence of reason to admit/obs her this evening. She is moderately hyperglycemic which I suspect is early diabetes thus once again stressed the importance of follow up with her PCP. Head Trauma GCS Score: 15 Medication Reconcilliation Current Medication List: was personally reviewed by me Blood Pressure Screening Patient's blood pressure: Normal blood pressure Blood pressure disposition: Did not require urgent referral Impression Primary Impression: Epigastric abdominal pain Additional Impressions: Syncope Headache Hyperglycemia Scribe Attestation The scribe's documentation has been prepared under my direction and personally reviewed by me in its entirety. I confirm that the note above accurately reflects all work, treatment, procedures, and medical decision making performed by me. Departure Information Prescriptions Ranitidine (Zantac) 150 Mg Tab 1 TAB PO BID for 30 Days, #60 TAB 0 Refills Prov: Riya Soto M.D. 04/02/17 Referrals Janeth Ackerman M.D. (PCP) Patient Instructions [facility] Problem Qualifiers
[2017-04-01 23:54] LABS: BASO % 0.4 %; BASO ABS # 0.04 K/uL (0-0.2); EOS % 3.9 %; EOS ABS # 0.35 K/uL (0-0.5); HEMATOCRIT 43.3 % (37-47); HEMOGLOBIN 13.8 g/dL (12.0-16.0); IG# 0.03 K/uL (0.00-0.02); LYMPH % 37.8 %; LYMPH ABS # 3.36 K/uL (1.2-3.4); MEAN CELL VOLUME 83.9 fL (80-100); MEAN CORPUSCULAR HEMOGLOBIN 26.7 pg (25-34); MEAN CORPUSCULAR HGB CONC 31.9 g/dl (32-36); MEAN PLATELET VOLUME 10.1 fL (7.4-10.4); MONO % 7.1 %; MONO ABS # 0.63 K/uL (0.11-0.59); NEUT % 50.5 %; NEUT ABS # 4.48 K/uL (1.4-6.5); PLATELET COUNT 244 K/uL (130-400); RED CELL DISTRIBUTION WIDTH CV 16.5 % (11.5-14.5); RED CELL DISTRIBUTION WIDTH SD 50.5 fL (36.4-46.3); WHITE BLOOD COUNT 8.89 K/uL (4.8-10.8)
[2017-04-02 00:13] LABS: ALBUMIN 3.6 gm/dl (3.4-5.0); ALT/SGPT 38 U/L (12-78); AST/SGOT 23 U/L (15-37); BLOOD UREA NITROGEN 13 mg/dl (7-18); CALCIUM 8.6 mg/dl (8.5-10.1); CARBON DIOXIDE 29 mmol/L (21-32); CREATININE 0.78 mg/dl (0.60-1.20); GLUCOSE 234 mg/dl (70-99); LIPASE 373 U/L (73-393); POTASSIUM 4.2 mmol/L (3.5-5.1); SODIUM 137 mmol/L (136-145)
[2017-04-02 00:24] LABS: ALKALINE PHOSPHATASE 83 U/L (45-117); TOTAL PROTEIN 7.5 gm/dl (6.4-8.2)
[2017-04-02] MEDS ORDERED: KETOROLAC TROMETHAMINE 30 MG/ML VIAL IV STA (00:51)
[2017-04-02] MEDS ORDERED: ZNTT/150 PO (01:19)
[2017-04-02 01:43] VITALS: BP 123/91
--- NOTE | 2017-04-02 05:33 | DIAGNOSTIC IMAGING REPORT ---
CHEST ONE VIEW PORTABLE CLINICAL HISTORY: 47 years-old Female presenting with Chest Pain. TECHNIQUE: Portable upright AP view of the chest was obtained. COMPARISON: 02/09/2017. FINDINGS: Cardiomediastinal silhouette normal. Lungs and pleural spaces clear. Degenerative changes of the thoracic spine. Upper abdomen normal. IMPRESSION: 1. No acute cardiopulmonary disease. Electronically signed by: Evaristo Taylor M.D. 04/02/2017 5:32 AM Dictated Date/Time: 04/02/2017 5:31 AM
--- NOTE | 2017-04-02 05:54 | DIAGNOSTIC IMAGING REPORT ---
HEAD WITHOUT CONTRAST (CT) CLINICAL HISTORY: 47 years-old Female presenting with Syncope. TECHNIQUE: Multidetector CT imaging of the head was performed without the use of intravenous contrast. IV contrast: None. A dose lowering technique was used consistent with the principles of ALARA (as low as reasonably achievable). COMPARISON: 05/27/2016. CT DOSE (mGy.cm): The estimated cumulative dose is 537.48 mGy.cm. FINDINGS: Unit Leader topogram: Unremarkable. Ventricles and sulci normal in size. Brain parenchyma normal in appearance with preserved manuel-white differentiation. No mass effect or midline shift. No hemorrhage or acute territorial infarct. No extra-axial fluid collection. Paranasal sinuses and mastoid air cells clear. Calvarium intact. IMPRESSION: 1. No acute intracranial abnormality. Electronically signed by: Evaristo Taylor M.D. 04/02/2017 5:53 AM Dictated Date/Time: 04/02/2017 5:50 AM
== END 2017-04-02 01:40 | disposition home or self-care (01) ==
LOC: C.EDB 22:09 → C.EDA 04-02 01:40
DX: R10.13 Epigastric pain (principal); R51 Headache; R55 Syncope and collapse; R73.9 Hyperglycemia, unspecified; J45.909 Unspecified asthma, uncomplicated; F32.9 Major depressive disorder, single episode, unspecified; Z87.442 Personal history of urinary calculi; Z82.49 Family history of ischemic heart disease and other diseases of the circulatory system; Z84.1 Family history of disorders of kidney and ureter; F17.210 Nicotine dependence, cigarettes, uncomplicated; Z79.899 Other long term (current) drug therapy; E66.9 Obesity, unspecified

== ENCOUNTER 2017-05-13 19:58 | Emergency (ER) | payer SELFPAY ==
[~2017-05-13] VITALS: Ht 160 cm; Wt 114.2 kg
[~2017-05-13 19:58] MED LIST changes: +LORA-741 PO; +MULT-513 PO; +NAPR1TAB9 PO; +RANI150T85 PO; +SERT50TA PO; +VNTHFA/IN INH
[2017-05-13 20:02] VITALS: TEMP 36.7; Ht 160 cm; Wt 114.2 kg
--- NOTE | 2017-05-13 22:18 | DIAGNOSTIC IMAGING REPORT ---
L EXTREMITY NONVASCULAR LIMITED CLINICAL HISTORY: 47 years-old Female presenting with Wooden splinter in heel. TECHNIQUE: Real-time grayscale Doppler ultrasound imaging of the left heel was performed for a focused evaluation at the site of clinical concern. Color Doppler ultrasound imaging was also performed. COMPARISON: None. FINDINGS: 5 mm hyperechogenic linear focus 1 cm below the cutis in the left heel at the site of clinical interest. Minimal surrounding fluid. No significant hyperemia. IMPRESSION: 1. 5 mm linear focus in the subcutaneous tissue consistent with foreign body. Electronically signed by: Evaristo Taylor M.D. 05/13/2017 10:17 PM Dictated Date/Time: 05/13/2017 10:16 PM
--- NOTE | 2017-05-13 22:40 | EMERGENCY ROOM VISIT NOTE ---
History First contact with patient: 20:36 Chief Complaint: FOREIGNBODY ANY BODY PART Stated Complaint: GIANT SPLINTER IN MY FOOT History of Present Illness The patient is a 47 year old female who presents to the Emergency Room with complaints of a splinter in her left heel. The patient reports that she got a splinter off of her wooden floor at home. She noticed that her sock was stuck to it, then when she started to walk, ran it into the bottom of her foot. She believes that the splinter is long. She was able to remove a small portion of it, but is concerned that a piece broke off inside. The patient is uncertain of her last tetanus immunization. She rates her discomfort a 1 out of 10. Review of Systems 10 system review was performed and was negative except for pertinent positives and negatives as indicated in history of present illness Past Medical/Surgical History Medical Problems: (1) Asthma (2) Asthma (3) Depression (4) Depression (5) Endometriosis (6) Endometriosis (7) Kidney stone (8) Kidney stone (9) Lithotripsy (10) Lithotripsy (11) Polycystic ovaries (12) Polycystic ovaries Surgical Problems: (1) H/O cystoscopy (2) H/O cystoscopy (3) History of appendectomy (4) History of appendectomy (5) History of section (6) History of section (7) History of tonsillectomy (8) History of tonsillectomy Family History Hypertension Hypertension Kidney disease Kidney disease Social History Smoking Status: Current Every Day Smoker Alcohol Use: occasionally Drug Use: none Marital Status: in relationship Housing Status: lives with family Occupation Status: employed Current/Historical Medications Scheduled B-Complex Vitamins (Vitamin B Complex), 1 TAB PO DAILY Calcium Ascorbate (Vitamin C), 500 MG PO DAILY Ferrous Sulfate (Iron), 1 TAB PO DAILY Multivitamins/Minerals (Mvi With Minerals), 1 TAB PO DAILY Ranitidine (Zantac), 1 TAB PO BID Sertraline (Zoloft), 50 MG PO DAILY Scheduled PRN Albuterol Hfa (Ventolin Hfa), 2 PUFFS INH Q6H PRN for SOB/Wheezing Epinephrine (Epipen), 0.3 MG IM UD PRN for ALLERGIC REACTION Lorazepam (Ativan), 1 TAB PO UD PRN for Anxiety Naproxen (Aleve), 220 MG PO Q6H PRN for Headache or Pain Physical Exam Vital Signs Date Time Temp Pulse Resp B/P (MAP) Pulse Ox O2 Delivery O2 Flow Rate FiO2 05/13/17 20:02 36.7 87 18 170/90 96 Room Air Physical Exam CONSTITUTIONAL: Healthy and well nourished. Alert and oriented X 3 with positive affect. HEENT: Normocephalic, atraumatic. Pupils equal, round and reactive. NECK: Full active range of motion without discomfort. MUSCULOSKELETAL: Examination of the left heel shows a puncture site with tenderness to palpation. An underlying foreign body cannot be palpated. She has no overriding erythema of the heel, but has tenderness of the lateral and medial heel region. Distal pulses are intact. INTEGUMENTARY: No rash or other significant dermatologic conditions noted. NEUROLOGIC: No focal neurologic deficits noted. Medical Decision & Procedures ER Provider Diagnostic Interpretation: Ultrasound of the left heel shows a probable underlying splinter measuring 5 mm in length, and located 1 cm below the cutis. L EXTREMITY NONVASCULAR LIMITED CLINICAL HISTORY: 47 years-old Female presenting with Wooden splinter in heel. TECHNIQUE: Real-time grayscale Doppler ultrasound imaging of the left heel was performed for a focused evaluation at the site of clinical concern. Color Doppler ultrasound imaging was also performed. COMPARISON: None. FINDINGS: 5 mm hyperechogenic linear focus 1 cm below the cutis in the left heel at the site of clinical interest. Minimal surrounding fluid. No significant hyperemia. IMPRESSION: 1. 5 mm linear focus in the subcutaneous tissue consistent with foreign body. ED Course Patient history and physical exam were performed. Nurse's notes were reviewed. Patient refused any analgesics. Adacel was administered IM. Ultrasound does show what appears to be a small 5 mm linear density approximate 1 cm below the cutis. The patient was advised that this foreign body will be very difficult to locate, and that missed attempts at removing the foreign body could cause scarring of the heel and future problems with pain with heel strike. I did suggest that she follow-up with orthopedics for further management. The patient reports that she is currently on Cipro and Flagyl for a colitis. Patient was dispensed crutches. She was encouraged to continue with warm soaks , and apply a dressing/ointment/salve to keep the tissue soft. She was instructed to return to the emergency department for any signs of developing infection. Ibuprofen or Tylenol as needed for pain. The patient was happy with plan of care, voiced understanding of all discharge instructions, and rated her discomfort a 3 out of 10 at the time of discharge, which she reports was escalated secondary to ultrasound studies. Medical Decision Blood Pressure Screening Patient's blood pressure: Elevated blood pressure Blood pressure disposition: Referred to PCP Impression Primary Impression: Wooden splinter left heel Additional Impression: Elevated blood pressure reading Departure Information Dispostion Home / Self-Care Referrals Rufus Cid D.O. Forms HOME CARE DOCUMENTATION FORM, IMPORTANT VISIT INFORMATION Patient Instructions [facility] Additional Instructions Keep the wound covered with in ointment or salve and dressing. Use crutches as needed to keep weight off of the heel. Ibuprofen 800 mg and/or Tylenol 1000 mg every 8 hours. You may also alternate these medications for more effective pain relief: Ibuprofen --4 HRS--> Tylenol --4 HRS--> ibuprofen --4 HRS--> Tylenol .... Follow-up with Dr. Cid, [facility], for further reevaluation and management -call Tuesday for an appointment. Problem Qualifiers
[2017-05-13 22:41] VITALS: BP 140/91; PULSE 82; O2SAT 98
[2017-05-13] MEDS ORDERED: DIPHTHERIA/TETANUS/PERTUSSIS 0.5 ML SYR/VIAL IM. ONE (22:45)
== END 2017-05-13 22:52 | disposition home or self-care (01) ==
LOC: C.EDB 20:00 → C.EDD 22:52
DX: S91.342A Puncture wound with foreign body, left foot, initial encounter (principal); W45.8XXA Other foreign body or object entering through skin, initial encounter; R03.0 Elevated blood-pressure reading, without diagnosis of hypertension

== ENCOUNTER 2018-03-16 17:32 | Observation (INO) ==
[2018-03-16] MEDS ORDERED: ONDANSETRON INJ 2 MG/ML 2 ML VIAL IV STA (18:13)
[2018-03-16] MEDS ORDERED: MoRPHine SULFATE 4 MG/ML 1 ML CARP\\VIAL IV STA ×3 (18:13→20:43)
[2018-03-16] MEDS ORDERED: SODIUM CHLORIDE 0.9% 1000ML 1,000 ML IV SCH (18:15)
--- NOTE | 2018-03-16 18:17 | Emergency Department Note ---
Entered by Delano Kang acting as a scribe for Angus Mireles MD History of Present Illness General Chief complaint: Abdominal Pain Stated complaint: BELLY PAIN Time Seen by Provider: 03/16/18 18:00 Source: patient History of Present Illness Onset (ago): year(s) 2 Location: abdomen (right sided) Radiation: flank (around to right) Severity: severe Pain Consistency: + other (worsening) Maximum Pain Intensity: 9 Exacerbated By: + movement and + other (coughing and sneezing) Associated symptoms: + denies other symptoms (fevers, vomiting, vlood in stool, dark/black stool) and + other (nausea, diarrhea); no chest pain, no headaches and no shortness of breath The patient is a 48 year old female who presents to the Emergency Room with complaints of worsening, severe, right-sided abdominal pain beginning two years ago. The patient states she has a history of two complex hernias, and her symptoms have been intermittent for the past two years. She reports her symptoms have worsened over the past two months, and she came in tonight because her symptoms will not go away. The patient notes her symptoms radiate around to her right flank, and bending over, coughing, and sneezing increases her discomfort. She states she is being evaluated by a surgeon in a week, and she has been following up with her PCP, Dr. Ackerman. The patient reports she has had several CT scans, and she last had a CT scan 6 days ago. She notes she is nauseous and has diarrhea. The patient states she is currently nauseous and has diarrhea. She denies fevers, vomiting, blood in her stool, dark or black stool, headache, chest pain, shortness of breath, and a history of diabetes or hypertension. The patient notes a history of an appendectomy and a cholecystectomy. She states she currently has a UTI and shingles. The patient reports her shingles are on the left upper portion of her body, and she has had them for two weeks. She notes she started Valtrex. CT SCAN FROM 6 DAYS AGO FOR COMPARISON: CT SCAN OF THE ABDOMEN AND PELVIS WITH IV CONTRAST IMPRESSION: 1. Question cystitis. Correlation with clinical findings and urinalysis will be required. 2. There is moderate to advanced colonic diverticulosis without CT evidence of acute diverticulitis. 3. There is a lobulated water attenuation lesion in the right hepatic lobe which measures 4.3 cm. This is unchanged from 04/25/2017 but has clearly increased in size dating back to 2009. 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 Consider nonemergent follow-up with GI. 4. There are small bilateral nonobstructing renal calculi. 5. Hepatomegaly and severe hepatic steatosis. 6. Mild splenomegaly. 7. Additional findings as above. Electronically signed by: Jared Guillermo M.D. 03/10/2018 7:52 PM Home Medications Home Medications Medication Instructions Recorded Confirmed Type fluticasone [Flonase Allergy 2 spray INTRANASAL DAILY 03/16/18 03/16/18 History Relief] gabapentin 100 mg PO BID 03/16/18 03/16/18 History sertraline [Zoloft] 50 mg PO DAILY 03/16/18 03/16/18 History sulfamethoxazole-trimethoprim 1 tab PO BID 03/16/18 03/16/18 History [Bactrim DS] valacyclovir [Valtrex] 1,000 mg PO TID 03/16/18 03/16/18 History Allergies Allergy/AdvReac Type Severity Reaction Status Date / Time hazelnut Allergy Severe ANAPHYLAXIS; Unverified 03/16/18 18:24 reported allergy to all nuts peanut Allergy Severe ANAPHYLAXIS-ALL Unverified 03/16/18 18:24 NUTS Penicillins Allergy Intermediate RASH - HAS Unverified 03/16/18 18:24 TOLERATED ROCEPHIN 2012 nut - unspecified Allergy Unknown ANAPHYLAXIS Unverified 03/16/18 18:24 Past Med/Surg History Medical History Bladder infection (Acute) Shingles (Acute) Hernia of abdominal cavity (Chronic) Surgical History H/O cystoscopy (Resolved) History of appendectomy (Resolved) Hx of cholecystectomy (Resolved) Family History Other Family history of high blood pressure Family history of kidney disease Social History Feels Safe at Home: Yes Smoking Status: Former smoker Review of Systems See HPI for pertinent positives & negatives. and A total of 10 systems reviewed and were otherwise negative Physical Exam Vital Signs Vital Signs - 24 hr 03/16/18 17:47 03/16/18 18:50 03/16/18 20:00 Temperature 36.7 C Temperature Source Oral Sepsis Recent Fever Within 48 Hours No Sepsis New/Unexplained Change in Mental Status No Sepsis Action Taken by Nursing No Action Required Pulse Rate 82 82 Pulse Rate [Radial] 71 Pulse Rhythm Regular Regular Pulse Rhythm [Radial] Regular Pulse Strength Normal Pulse Strength [Radial] Respiratory Rate 22 18 16 Respiratory Effort / Characteristics Non-Labored Spontaneous Respiratory Depth Normal Normal Respiratory Pattern Regular Blood Pressure 155/109 H Blood Pressure [Right Arm] 150/90 H Blood Pressure Mean 124 Blood Pressure Mean [Right Arm] 110 Blood Pressure Position Sitting Blood Pressure Position [Right Arm] Pulse Oximetry 96 96 98 Oxygen Delivery Method Room Air Room Air Room Air 03/16/18 20:40 03/16/18 22:30 03/16/18 23:18 Temperature 36.8 C Temperature Source Oral Sepsis Recent Fever Within 48 Hours Sepsis New/Unexplained Change in Mental Status Sepsis Action Taken by Nursing Pulse Rate 79 Pulse Rate [Radial] 81 63 Pulse Rhythm Pulse Rhythm [Radial] Regular Regular Pulse Strength Pulse Strength [Radial] Normal Normal Respiratory Rate 16 16 16 Respiratory Effort / Characteristics Non-Labored Non-Labored Spontaneous Respiratory Depth Normal Normal Respiratory Pattern Regular Blood Pressure 101/62 Blood Pressure [Right Arm] 143/83 H 101/62 Blood Pressure Mean Blood Pressure Mean [Right Arm] 103 75 Blood Pressure Position Blood Pressure Position [Right Arm] Lying Sitting Pulse Oximetry 96 94 98 Oxygen Delivery Method Room Air Room Air Room Air 03/17/18 00:03 Temperature 36.7 C Temperature Source Oral Sepsis Recent Fever Within 48 Hours Sepsis New/Unexplained Change in Mental Status Sepsis Action Taken by Nursing Pulse Rate Pulse Rate [Radial] 76 Pulse Rhythm Pulse Rhythm [Radial] Pulse Strength Pulse Strength [Radial] Respiratory Rate 18 Respiratory Effort / Characteristics Respiratory Depth Respiratory Pattern Blood Pressure Blood Pressure [Right Arm] 124/76 Blood Pressure Mean Blood Pressure Mean [Right Arm] 92 Blood Pressure Position Blood Pressure Position [Right Arm] Sitting Pulse Oximetry 99 Oxygen Delivery Method Room Air General: Uncomfortable appearing middle-age female complaining of abdominal pain. HEENT: Normal cephalic atraumatic. Pupils are equal round and reactive to light. Extraocular movements are intact. Oropharynx is pink with moist mucous membranes. No swelling of the mouth lips or tongue. Neck: Supple with a midline trachea. No meningeal signs or stiffness, no JVD or bruits. No Stridor. Chest: Clear to auscultation bilaterally. No wheezes or rhonchi. No increased work of breathing. Heart: regular rate and rhythm. Abdomen: Soft, nondistended without rebound guarding or rigidity. Mild swelling in the right mid abdomen above the umbilicus. No redness or warmth. Moderately tender. Extremities: No cyanosis clubbing or edema. No calf tenderness or assymetry Spine/Back. Non tender to palpation. No CVA tenderness Skin: Good turgor without rashes. Neurologic exam: Cranial nerves two through 12 are intact. Motor and sensation are intact and symmetrical throughout. Course 1802: Past medical records reviewed. The patient was evaluated in room C06, and a complete history and physical examination were performed. 1848: I reevaluated the patient. She is still complaining of pain. She is getting pain medication currently. 1905: I reevaluated the patient. She appears to be more comfortable, but she is still having pain. I ordered more morphine. She is about to go to her CT scan. 2018: The patient returned from CT. She appears more comfortable. 2050: The patient is still having pain. She does not think she can go home. I ordered her more medications. 2057: I discussed the patient's case with Dr. Wooten, General Surgery. He states there is nothing emergent that needs to be performed. 2100: I reevaluated the patient and updated her about the consult. She feels that she still cannot go home. She verbalized agreement to a hospitalist evaluation and the treatment plan. The patient will be evaluated for further management and care. 2111: I reviewed the patient's case with Dr. Connors, [facility] Hospitalist. He will evaluate the patient for further management. Administered Medications Hydromorphone HCl (Dilaudid) 0.5 mg IV Q3H PRN PRN Reason: Pain Stop: 03/31/18 00:01 Last Admin: 03/17/18 00:30 Dose: 0.5 mg Discontinued Medications Sodium Chloride (Nss 1000ml) 1,000 mls @ 999 mls/hr IV .Q1H1M ROSIBEL Stop: 03/16/18 19:15 Last Infusion: 03/16/18 21:05 Dose: Admin: 03/16/18 18:47 Dose: 999 mls/hr Ioversol (Optiray 320 100ml) 93 ml IV ONCE PRN PRN Reason: Interaction Checking Stop: 03/20/18 19:58 Last Admin: 03/16/18 19:59 Dose: 93 ml Morphine Sulfate (Morphine Sulfate) 4 mg IV NOW STA Stop: 03/16/18 18:14 Last Admin: 03/16/18 18:47 Dose: 4 mg Morphine Sulfate (Morphine Sulfate) 4 mg IV NOW STA Stop: 03/16/18 19:08 Last Admin: 03/16/18 19:14 Dose: 4 mg Morphine Sulfate (Morphine Sulfate) 4 mg IV NOW STA Stop: 03/16/18 20:44 Last Admin: 03/16/18 20:55 Dose: 4 mg Ondansetron HCl (Zofran) 4 mg IV NOW STA Stop: 03/16/18 18:14 Last Admin: 03/16/18 18:47 Dose: 4 mg Medical Decision Making Differential Diagnosis Differential Diagnosis includes:hernia, bowel obstruction, infection, UTI, sepsis, electrolyte or metabolic abnormalities. Medical Records Attestation: I reviewed the patient's medical records. Home Medications Current Medication List: was personally reviewed by me Laboratory Data Attestation: I reviewed the patient's lab results. Result diagrams: 03/16/18 18:25 03/16/18 18:25 Lab Results 03/16/18 03/16/18 03/16/18 Range/Units 18:20 18:20 18:25 WBC 9.78 (4.8-10.8) K/uL RBC 4.83 (4.2-5.4) M/uL Hgb 13.8 (12.0-16.0) g/dL Hct 41.6 (37-47) % MCV 86.1 (80-100) fL MCH 28.6 (25-34) pg MCHC 33.2 (32-36) g/dL RDW Std Deviation 46.1 (36.4-46.3) fL RDW Coeff of Shannen 14.6 H (11.5-14.5) % Plt Count 250 (130-400) K/uL MPV 10.1 (7.4-10.4) fL Immature Gran % (Auto) 0.2 % Neut % (Auto) 59.4 % Lymph % (Auto) 29.4 % [place] % (Auto) 7.7 % Eos % (Auto) 3.1 % Baso % (Auto) 0.2 % Immature Gran # (Auto) 0.02 (0.00-0.02) K/uL Neut # (Auto) 5.81 (1.4-6.5) K/uL Lymph # (Auto) 2.88 (1.2-3.4) K/uL [place] # (Auto) 0.75 H (0.11-0.59) K/uL Eos # (Auto) 0.30 (0-0.5) K/uL Baso # (Auto) 0.02 (0-0.2) K/uL Sodium (136-145) mmol/L Potassium (3.5-5.1) mmol/L Chloride (98-107) mmol/L Carbon Dioxide (21-32) mmol/L Anion Gap (3-11) BUN (7-18) mg/dl Creatinine (0.6-1.2) mg/dl Est Cr Clr Drug Dosing ml/min Est GFR ( Amer) Est GFR (Non-Af Amer) BUN/Creatinine Ratio (10-20) Glucose (70-99) mg/dl Calcium (8.5-10.1) mg/dl Total Bilirubin (0.2-1) mg/dl AST (15-37) U/L ALT (12-78) U/L Alkaline Phosphatase (45-117) U/L Total Protein (6.4-8.2) gm/dl Albumin (3.4-5.0) gm/dl Globulin (2.5-4.0) gm/dl Albumin/Globulin Ratio (0.9-2) Lipase (73-393) U/L Urine Color Yellow Urine Appearance Clear (Clear) Urine pH 5.0 (4.5-7.5) Ur Specific Daisy 1.024 (1.000-1.030) Urine Protein Negative (Negative) Urine Glucose (UA) Negative (Negative) Urine Ketones Negative (Negative) Urine Blood Negative (Negative) Urine Nitrite Negative (Negative) Urine Bilirubin Negative (Negative) Urine Urobilinogen Negative (Negative) Ur Leukocyte Esterase Negative (Negative) POC Ur Test NEG (NEG) 03/16/18 Range/Units 18:25 WBC (4.8-10.8) K/uL RBC (4.2-5.4) M/uL Hgb (12.0-16.0) g/dL Hct (37-47) % MCV (80-100) fL MCH (25-34) pg MCHC (32-36) g/dL RDW Std Deviation (36.4-46.3) fL RDW Coeff of Shannen (11.5-14.5) % Plt Count (130-400) K/uL MPV (7.4-10.4) fL Immature Gran % (Auto) % Neut % (Auto) % Lymph % (Auto) % [place] % (Auto) % Eos % (Auto) % Baso % (Auto) % Immature Gran # (Auto) (0.00-0.02) K/uL Neut # (Auto) (1.4-6.5) K/uL Lymph # (Auto) (1.2-3.4) K/uL [place] # (Auto) (0.11-0.59) K/uL Eos # (Auto) (0-0.5) K/uL Baso # (Auto) (0-0.2) K/uL Sodium 135 L (136-145) mmol/L Potassium 4.2 (3.5-5.1) mmol/L Chloride 102 (98-107) mmol/L Carbon Dioxide 23 (21-32) mmol/L Anion Gap 9.0 (3-11) BUN 12 (7-18) mg/dl Creatinine 0.97 (0.6-1.2) mg/dl Est Cr Clr Drug Dosing 89.4 ml/min Est GFR ( Amer) 80.0 Est GFR (Non-Af Amer) 69.1 BUN/Creatinine Ratio 12.5 (10-20) Glucose 126 H (70-99) mg/dl Calcium 8.8 (8.5-10.1) mg/dl Total Bilirubin 0.3 (0.2-1) mg/dl AST 36 (15-37) U/L ALT 45 (12-78) U/L Alkaline Phosphatase 85 (45-117) U/L Total Protein 7.6 (6.4-8.2) gm/dl Albumin 3.6 (3.4-5.0) gm/dl Globulin 4.0 (2.5-4.0) gm/dl Albumin/Globulin Ratio 0.9 (0.9-2) Lipase 136 (73-393) U/L Urine Color Urine Appearance (Clear) Urine pH (4.5-7.5) Ur Specific Daisy (1.000-1.030) Urine Protein (Negative) Urine Glucose (UA) (Negative) Urine Ketones (Negative) Urine Blood (Negative) Urine Nitrite (Negative) Urine Bilirubin (Negative) Urine Urobilinogen (Negative) Ur Leukocyte Esterase (Negative) POC Ur Test (NEG) Imaging Data Radiologist's Impression: Radiology results as stated below per my review and the radiologist's interpretation: ABDOMEN AND PELVIS CT WITH IV CONTRAST CT DOSE: 1474.44 mGy.cm HISTORY: Acute periumbilical abdominal pain with associated abdominal wall hernia hx of hernia, increasing pain TECHNIQUE: Multiaxial CT images of the abdomen and pelvis were performed following the use of intravenous contrast. A dose lowering technique was utilized adhering to the principles of ALARA. Technologist reports that approximately 10 mL of the IV contrast infiltrated into the patient's left upper extremity. COMPARISON STUDY: CT abdomen and pelvis 03/10/2018 FINDINGS: Lung bases appear generally clear. No pneumatosis or pneumoperitoneum. Imaged inferior cardiac chambers appear to be unremarkable. Hepatomegaly with hepatic steatosis. Lobular hypodense mass of the right hepatic lobe redemonstrated measuring 4.4 x 3.6 x 3.8 cm, unchanged from most recent comparison study. Water attenuation is seen centrally within this mass. Liver is otherwise unremarkable. No intrahepatic biliary ductal dilation or evidence of cirrhosis. Patency of the hepatic and portal veins. Spleen, pancreas and adrenal glands appear unremarkable. Prior cholecystectomy. Hypodense 9 mm lesion of the superior pole left kidney suggests renal cyst. There are least 3 nonobstructing calculi noted about the left kidney measuring up to 3 mm. There are least 3 nonobstructing calculi noted about the right kidney also measuring up to 3 mm. No ureteral calculi or obstructive uropathy. Partial distention of the urinary bladder lumen with associated bladder wall thickening. Uterus and adnexa are unremarkable. Aorta and IVC are within normal limits. No adenopathy. No bowel obstruction or focal bowel wall thickening. Moderate diverticulum involves the third portion duodenum. Colonic diverticulosis without acute diverticulitis. Prior appendectomy. No ascites or mesenteric inflammatory change. Moderate sized fat filled periumbilical hernia redemonstrated with diastases of 4.1 cm. No significant inflammation. No bowel extension into the hernia sac. Soft tissues are otherwise unremarkable. Bones appear to be intact. Moderate intervertebral disc space narrowing with posterior disc osteophyte complex formation at L5-S1. Moderate facet arthropathy is also seen at this interspace. IMPRESSION: 1. Moderate sized fat filled periumbilical hernia. No associated inflammation or bowel extension into the hernia sac. 2. No bowel obstruction or focal bowel wall thickening. 3. Colonic diverticulosis without acute diverticulitis. 4. Prior cholecystectomy and appendectomy. 5. Hepatic steatosis with hepatomegaly. 6. Lobular hypodense mass of the right hepatic lobe redemonstrated measuring up to 4.4 cm. Differential considerations would include biliary cystadenoma versus less likely a cluster of hepatic cysts. 7. Additional findings as as above. Electronically signed by: Reji Dey M.D. 03/16/2018 8:18 PM Blood Pressure Blood Pressure Findings: Elevated blood pressure Blood Pressure Disposition: further management by hospitalist ANETA Narrative This patient comes in as described above. She has had ongoing abdominal pain. She was found to have a fat-containing umbilical and supraumbilical hernia. She had a CAT scan about a week ago she had increasing pain she appears very uncomfortable on exam there is some visible bulging. No peritonitis. She had no fever she had nausea. No bowel issues. IV access was established and she was given morphine 4 mgs IV and Zofran 4 mgs IV. She is not driving. Multiple blood testing was obtained. I wanted to ensure that there was no progression or advancement of the hernia. I wanted also make sure there is no incarceration or bowel in the hernia given her degree of discomfort. She is also being treated for UTI at this point and urinalysis was obtained. I got labs to also make sure she is not getting septic. She has nothing to suggest pyelonephritis. She did receive IV morphine several times additionally. CAT scan shows no change from previous CAT scan. She has no acute electrolyte or metabolic abnormalities and she has nothing to suggest sepsis. Her CAT scan does show a moderate sized hernia that contains fat. I did discuss it with Dr. Wooten, the on-call surgeon and he did not feel she needed acute emergent surgery. The patient does not feel she can go home secondary to pain. I did consult Dr. Connors to see her in the ER for admission for pain management and further evaluation. Impression & Plan Abdominal pain, Ventral hernia Discharge Plan Visit Data *Final* Discharge Date/Time: 03/16/18 23:18 Chief Complaint: Abdominal Pain Stated Complaint: BELLY PAIN ED Provider: Angus Mireles Discharge Problem: Abdominal pain, Ventral hernia Patient Disposition: Admitted As Inpatient Discharge Instructions Interventions: ED Discharge Assessment Last Done: 03/16/18 23:18 The scribe's documentation has been prepared under my direction and personally reviewed by me in its entirety. I confirm that the note above accurately reflects all work, treatment, procedures, and medical decision making performed by me.
[2018-03-16 18:37] LABS: Basophils # (auto) 0.02 K/uL (0-0.2); Basophils % (auto) 0.2 %; Eosinophils % (auto) 3.1 %; Hematocrit (blood only) 41.6 % (37-47); Hemoglobin 13.8 g/dL (12.0-16.0); Immature Granulocytes # (auto) 0.02 K/uL (0.00-0.02); Immature Granulocytes % (auto) 0.2 %; Lymphocytes # (auto) 2.88 K/uL (1.2-3.4); Lymphocytes % (auto) 29.4 %; Mean Corpuscular Hgb Conc 33.2 g/dL (32-36); Mean Corpuscular Volume 86.1 fL (80-100); Mean Platelet Volume 10.1 fL (7.4-10.4); Monocytes # (auto) 0.75 K/uL (0.11-0.59); Monocytes % (auto) 7.7 %; Neutrophils # (auto) 5.81 K/uL (1.4-6.5); Neutrophils % (auto) 59.4 %; Platelet Count 250 K/uL (130-400); RDW Coefficient of Variation 14.6 % (11.5-14.5); RDW Standard Deviation 46.1 fL (36.4-46.3); Red Blood Count 4.83 M/uL (4.2-5.4); White Blood Count 9.78 K/uL (4.8-10.8)
[2018-03-16 18:50] LABS: Appearance Urine Clear (Clear); Bilirubin Urine Negative (Negative); Color Urine Yellow; Glucose Urine UA Negative (Negative); Ketones Urine Negative (Negative); Leukocyte Esterase Urine Negative (Negative); Nitrite Urine Negative (Negative); Protein Urine Negative (Negative); Specific Gravity Urine 1.024 (1.000-1.030); Urobilinogen Urine Negative (Negative)
[2018-03-16 19:02] LABS: Albumin Globulin Ratio 0.9 (0.9-2); Albumin Level 3.6 gm/dl (3.4-5.0); BUN Creatinine Ratio 12.5 (10-20); Bilirubin,Total 0.3 mg/dl (0.2-1); Calcium 8.8 mg/dl (8.5-10.1); Creatinine Clr Calc Pharmacy 89.4 ml/min; Est GFR (Non-African American) 69.1; Potassium 4.2 mmol/L (3.5-5.1); Total Protein 7.6 gm/dl (6.4-8.2)
[2018-03-16] MEDS ORDERED: IOVERSOL 100ml IV PRN (19:59)
--- NOTE | 2018-03-16 20:19 | CT Scan Report ---
ABDOMEN AND PELVIS CT WITH IV CONTRAST CT DOSE: 1474.44 mGy.cm HISTORY: Acute periumbilical abdominal pain with associated abdominal wall hernia hx of hernia, incr easing pain TECHNIQUE: Multiaxial CT images of the abdomen and pelvis were performed following the use of intrave nous contrast. A dose lowering technique was utilized adhering to the principles of ALARA. Technolog ist reports that approximately 10 mL of the IV contrast infiltrated into the patient's left upper ext remity. COMPARISON STUDY: CT abdomen and pelvis 03/10/2018 FINDINGS: Lung bases appear generally clear. No pneumatosis or pneumoperitoneum. Imaged inferior cardiac chamb ers appear to be unremarkable. Hepatomegaly with hepatic steatosis. Lobular hypodense mass of the right hepatic lobe redemonstrated measuring 4.4 x 3.6 x 3.8 cm, unchanged from most recent comparison study. Water attenuation is seen centrally within this mass. Liver is otherwise unremarkable. No intrahepatic biliary ductal dilation or evidence of cirrhosis. Patency of the hepatic and portal veins. Spleen, pancreas and adrenal gland s appear unremarkable. Prior cholecystectomy. Hypodense 9 mm lesion of the superior pole left kidney suggests renal cyst. There are least 3 nonobst ructing calculi noted about the left kidney measuring up to 3 mm. There are least 3 nonobstructing ca lculi noted about the right kidney also measuring up to 3 mm. No ureteral calculi or obstructive urop athy. Partial distention of the urinary bladder lumen with associated bladder wall thickening. Uterus and adnexa are unremarkable. Aorta and IVC are within normal limits. No adenopathy. No bowel obstruction or focal bowel wall thickening. Moderate diverticulum involves the third portion duodenum. Colonic diverticulosis without acute diverticulitis. Prior appendectomy. No ascites or mes enteric inflammatory change. Moderate sized fat filled periumbilical hernia redemonstrated with diast ases of 4.1 cm. No significant inflammation. No bowel extension into the hernia sac. Soft tissues are otherwise unremarkable. Bones appear to be intact. Moderate intervertebral disc space narrowing with posterior disc osteophyte complex formation at L5-S1. Moderate facet arthropathy is also seen at thi s interspace. IMPRESSION: 1. Moderate sized fat filled periumbilical hernia. No associated inflammation or bowel extension into the hernia sac. 2. No bowel obstruction or focal bowel wall thickening. 3. Colonic diverticulosis without acute diverticulitis. 4. Prior cholecystectomy and appendectomy. 5. Hepatic steatosis with hepatomegaly. 6. Lobular hypodense mass of the right hepatic lobe redemonstrated measuring up to 4.4 cm. Differenti al considerations would include biliary cystadenoma versus less likely a cluster of hepatic cysts. 7. Additional findings as as above. Electronically signed by: Reji Dey M.D. 03/16/2018 8:18 PM
[2018-03-17] MEDS ORDERED: ONDANSETRON INJ 2 MG/ML 2 ML VIAL IV PRN (00:02)
--- NOTE | 2018-03-17 00:07 | History and Physical Report ---
DATE OF ADMISSION: 03/16/2018 CHIEF COMPLAINT: Severe abdominal pain and diarrhea. HISTORY OF PRESENT ILLNESS: This is a 48-year-old female with past medical history significant for obesity, history of cholecystectomy, history of calculus of ureter, history of recurrent UTI, headaches, presents with ongoing abdominal pain. She has had this abdominal pain for some time in the periumbilical region. She was seen by GI in 04/2017. At that time, CAT scan showed possibly some thickening of the mid transverse colon. She was treated with Cipro and Flagyl and also liver lesions thought to be benign process, consistent with hemangioma or cysts.She still continued to have abdominal pain and recently she had CAT scan by PCP and shows same periumbilical hernia, and she is supposed to see the surgery and also GI for endoscopy, but in the last few days the pain got worse even bending down or walking short distance making her abdominal pain worse. She is not able to sleep well because of abdominal pain, some nausea but no vomiting, but her appetite is okay. Last week she was also started on Bactrim for UTI and also valacyclovir for shingles. She has noticed some rash in her left backside of the chest and breast area a couple weeks ago but it started worsening approximately 5days ago she was started on Valacyclovir.She has couple of more days of Bactrim and valacyclovir.. [place] somewhat feverish today. Has headaches, blurred visions on and off. No earache. No dizziness and runny nose, no sore throat or difficulty swallowing. No cough, no chest pain, no shortness of breath, having diarrhea for some time now, but since she was started on antibiotics her diarrhea got worse, occurring 6-8 times a day, watery stools, no bloody stools or black stools, and having frequent urination, no swelling in the legs. Currently, resting comfortable and hemodynamically stable. ALLERGIES: HAZELNUT, PEANUT, PENICILLINS. PAST MEDICAL HISTORY: As mentioned above. PAST SURGICAL HISTORY: removal of cyst from lower arm area, , cystourethroscopy with lithotripsy, appendectomy, removal of the kidneys, laparoscopic cholecystectomy, tonsillectomy, adenoidectomy. MEDICATIONS: The patient is on Pyridium 100 mg p.o. t.i.d. p.r.n., Bactrim 1 mg p.o. b.i.d. for 7 days, valacyclovir 1000 mg p.o. t.i.d. for 7 days, fluticasone nasal spray 2 sprays in each nostril daily, Zoloft 50 mg p.o. daily, gabapentin 100 mg p.o. b.i.d., Maxalt p.r.n., epinephrine p.r.n. FAMILY HISTORY: Significant for mother has breast cancer. Father has diabetes, hypertension. Paternal grandfather had heart disorder. Maternal grandfather has colon cancer. Maternal grandmother has ovarian cancer. Aunt has rheumatoid arthritis. SOCIAL HISTORY: . Quit smoking in 02/2018. Smoked half-pack a day for 10 years. Alcohol, once in a while. Drugs, marijuana once in a while. REVIEW OF SYMPTOMS: As per HPI. Rest of review of symptoms negative. PHYSICAL EXAMINATION: GENERAL: The patient is obese, not in acute distress. VITAL SIGNS: Temperature 36.7, pulse 81, respiratory rate 16, blood pressure 143/83, oxygen 96% on room air. HEENT: No pallor, no icterus. Pupils equal, round, and react to light. NECK: No JVD, no neck masses, no carotid bruits. CARDIOVASCULAR: S1, S2 heard, regular rate and rhythm, no murmur, no gallop. RESPIRATORY SYSTEM: Normal AP diameter, no accessory muscle use. No wheezing, no crackles. ABDOMEN: Soft, bowel sounds present. Tenderness in the periumbilical region and mild guarding. No distention. CENTRAL NERVOUS SYSTEM: Cranial nerves II-XII grossly intact. Nonfocal. EXTREMITIES: No edema, no erythema. LABS: WBC is 9.7, hemoglobin 13.8, hematocrit 41.6, platelets 250. Sodium 135, potassium 4.2, chloride 102, bicarb 23, BUN 12, creatinine 0.9, serum glucose 126, calcium 8.8, total bilirubin 0.3, AST 36, ALT 45, alkaline phosphatase 85. Lipase 136. Urinalysis negative. Urine test negative. CT scan of the abdomen and pelvis shows moderate size, fat-filled periumbilical hernia. No evidence of inflammation or bowel obstruction at the hernial sac. No bowel obstruction or focal bowel wall thickening, colonic diverticulosis without acute diverticulitis, prior cholecystectomy and appendectomy, hepatic steatosis with hepatomegaly, lobular hypodense mass in right hepatic lobe remonstrating measuring up to 4.4 cm. Differential consideration would include biliary cystadenoma or clusters of hepatic cysts. ASSESSMENT AND PLAN: This 48-year-old female presents with ongoing severe abdominal pain, nausea, and diarrhea. 1. Abdominal pain. This has been ongoing for some time. She has fat-filled periumbilical hernia but there is no inflammation around the hernia site. Supposed to see gastrointestinal for esophagogastroduodenoscopy and also supposed to follow with surgery.As she is requiring iv pain medications, we will observe on medical floor. IV Dilaudid p.r.n., n.p.o. for now, IV fluids, and consult general surgery and also gastrointestinal for further recommendations.But Patient feeling wanted to eat-started on clears 2. Diarrhea, chronic, but it got worse since she was started on antibiotics for urinary tract infection last weekend. We will check the stool for Clostridium difficile and stool for stool cultures and follow the results. 3. Shingles on the left side of the chest the rash seemed to be improving on valacyclovir for 7 days, done with 4-5 days, we will complete the course. 4. History of recurrent urinary tract infection. Currently, on Bactrim started last weekend on 1-week course. 5. Cervical neck pain and follows with Dr. Sagastume, pain management,On gabapentin, which we will continue. 6. Anxiety and depression. Continue Zoloft. 7. Headaches, on Maxalt p.r.n. 8. Obesity, needs counseling. 5. Deep venous thrombosis prophylaxis, sequential compression devices for now. DISPOSITION: Observation in the medical floor. Expect to discharge home and follow with family doctor. Level 1 full code. MTDD
[2018-03-17] MEDS: HYDROmorphone INJ 0.5 MG/0.5 ML SYR IV PRN ×5 (00:30→21:41)
[2018-03-17] MEDS: D5W AND NSS 1,000 ML IV SCH ×2 (00:40→09:24)
[2018-03-17] MEDS: GABAPENTIN 100 MG CAP PO SCH ×4 (00:43→20:05)
[2018-03-17] MEDS: PANTOprazole 40 MG in SYRINGE 0 ML IV SCH ×2 (00:44→07:10)
[2018-03-17] MEDS: VALACYCLOVIR HCL 500 MG TABLET PO SCH ×4 (00:44→20:05)
[2018-03-17] MEDS: SULFAMETHOXAZOLE/TRIMETHOPRIM DS 800/160MG TAB PO SCH ×3 (00:45→20:05)
[2018-03-17 05:35] LABS: Basophils # (auto) 0.03 K/uL (0-0.2); Basophils % (auto) 0.4 %; Eosinophils # (auto) 0.34 K/uL (0-0.5); Eosinophils % (auto) 4.5 %; Hematocrit (blood only) 41.7 % (37-47); Hemoglobin 13.2 g/dL (12.0-16.0); Immature Granulocytes # (auto) 0.02 K/uL (0.00-0.02); Immature Granulocytes % (auto) 0.3 %; Lymphocytes # (auto) 2.96 K/uL (1.2-3.4); Lymphocytes % (auto) 39.5 %; Mean Corpuscular Hgb Conc 31.7 g/dL (32-36); Mean Platelet Volume 10.2 fL (7.4-10.4); Monocytes # (auto) 0.61 K/uL (0.11-0.59); Monocytes % (auto) 8.1 %; Neutrophils # (auto) 3.54 K/uL (1.4-6.5); Neutrophils % (auto) 47.2 %; Platelet Count 214 K/uL (130-400); RDW Coefficient of Variation 14.7 % (11.5-14.5); RDW Standard Deviation 47.6 fL (36.4-46.3); Red Blood Count 4.74 M/uL (4.2-5.4)
[2018-03-17 05:52] LABS: BUN Creatinine Ratio 12.6 (10-20); Calcium 8.4 mg/dl (8.5-10.1); Creatinine Clr Calc Pharmacy 107.9 ml/min; Est GFR (Non-African American) 87.2; Magnesium 2.3 mg/dl (1.8-2.4); Potassium 4.2 mmol/L (3.5-5.1)
[2018-03-17] MEDS: SERTRALINE HCL 50 MG TABLET PO SCH (07:11)
[2018-03-17] MEDS: FLUTICASONE PROPIONATE NA SPR 16 GM BTL SCH (07:12)
[2018-03-17] MEDS: ACETAMINOPHEN 325 MG TAB PO PRN ×2 (07:24→17:03)
--- NOTE | 2018-03-17 08:33 | Gastrointestinal Consultation ---
Date of Consultation March 17, 2018 Assessment & Plan (1) Abdominal pain: 48 year old female with chronic abd pain, nausea, diarrhea admitted with worsening s/s who notes intermittent epigastric pain, burning/sharp, associated with nausea, no vomiting. She has had numerous CT scans both IP/OP with ventral hernia but no other GI pathology identified. DDX discussed - gastritis, esophagitis, PUD, gastroparesis, IBS etc. - Agree with general surgery consultation - Would make the pt NPO - Will discuss with attending, anesthesia if we are able to complete EGD this AM given about 50 cc of liquid this AM - OP GES if EGD is negative - ? concern for shingles on shoulder - Stool culture - Stool for c.diff - Bentyl 10 mg three times daily - Call with any acute changes, questions or concerns Present on Admission?: Yes Supervising Physician Co-Signing Physician Notes Attending attestation I have seen, examined this patient, and agree with the findings and above by our mid-level provider GEORGES Mcgowan. -patient with ruq/epigastric pain-chronic diffuse abdominal pain -Will plan EGD for further evaluation -CT, labs reviewed, no abnormailites other than known hernia. History of Present Illness Reason for Consultation: abd pain, diarrhea Requesting Physician: Leonel Attending Physician: Magali Castaneda MD History of Present Illness 48 year old female with history of obesity, recurrent UTI, RITCHIE, chronic abd pain who presents to the ED for evaluation of acute on chronic abd pain. Pt was seen and evaluated, chart reviewed. Since admission has been on clear liquids. Did have about 10 cc of apple juice this AM at 0800 and 30 cc of water around 8:15. She notes she has had chronic lower abdominal pain. She notes this is worse with activity, coughing and is associated with a mid abdomen bulging. She notes she was talk she had a hernia in this location and was planning on following up with general surgery. Current symptoms she is concerned with are different, states I have a stomach ulcer. Notes an intermittent pain, burning, sharp in the epigastric region. Sometimes worse with PO, at other times improved with PO. Mild nausea, no vomiting. Decreased appetite. Early satiety. Notes she is gaining weight. Chronic diarrhea, worse of recent. 8-10 liquid stools. Brown/ green. No black or bloody stools. No fever, chills, CP, SOB. Notes was seen by PCP recently with concern for shingles, started on Valtrex. 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 NSAIDs: Aleve BID x weeks ETOH: occasional Marijuana: occasional AC: none EGD: none Colonoscopy: none Family history of IBD: none Allergies Allergy/AdvReac Type Severity Reaction Status Date / Time hazelnut Allergy Severe ANAPHYLAXIS; Unverified 03/16/18 18:24 reported allergy to all nuts peanut Allergy Severe ANAPHYLAXIS-ALL Unverified 03/16/18 18:24 NUTS Penicillins Allergy Intermediate RASH - HAS Unverified 03/16/18 18:24 TOLERATED ROCEPHIN 2013 nut - unspecified Allergy Unknown ANAPHYLAXIS Unverified 03/16/18 18:24 Home Medications Home Medications Medication Instructions Recorded Confirmed Type fluticasone [Flonase Allergy 2 spray INTRANASAL DAILY 03/16/18 03/16/18 History Relief] gabapentin 100 mg PO BID 03/16/18 03/16/18 History sertraline [Zoloft] 50 mg PO DAILY 03/16/18 03/16/18 History sulfamethoxazole-trimethoprim 1 tab PO BID 03/16/18 03/16/18 History [Bactrim DS] valacyclovir [Valtrex] 1,000 mg PO TID 03/16/18 03/16/18 History Patient History Medical History Bladder infection (Acute) Shingles (Acute) Hernia of abdominal cavity (Chronic) Asthma Has not used inhaler for years. H/o hospitalization and intubation in 1979. Depression Kidney stones Morbid obesity Surgical History H/O cystoscopy (Resolved) History of appendectomy (Resolved) Hx of cholecystectomy (Resolved) Family History Other Family history of high blood pressure Family history of kidney disease Social History Current Living Situation: Parent Other Information That Helps Us Care for You: No Feels Safe at Home: Yes Safety Concerns: Feels Safe At This Time Smoking Status: Former smoker (Quit 15 days ago. Smoked 2 packs per week x 30 years) Tobacco Type: cigarettes Cigarettes per Day: 20 Do You Dip or Chew Tobacco: No Hx Alcohol Use: Yes Alcohol type: wine Alcohol Intake Frequency: holidays/ special occasions only Hx Substance Use: Yes substance use type: marijuana (Last use was yesterday ) Beliefs That Will Affect Care: Quaker Quaker Beliefs: UU Preferred Language: French Communication Ability: Effective Costume Maker Required: No Review of Systems Constitutional: no fever, no chills and no fatigue Respiratory: no cough, no chest congestion, no dyspnea and no dyspnea on exertion Cardiovascular: no chest pain, no chest pain at rest, no radiating jaw, neck or arm pain and no dyspnea Gastrointestinal: + abdominal pain, + bloating, + early satiety, + heartburn and + cramping; no belching, no vomiting, no coffee ground emesis, no hematemesis, no diarrhea/loose stools, no blood in stools and no melena Physical Exam 2 Vital Signs (Past 24 Hours): Last Vital Signs Temp 36.7 C 03/17/18 00:03 Pulse 76 03/17/18 00:03 Resp 18 03/17/18 00:03 BP 124/76 03/17/18 00:03 Pulse Ox 99 03/17/18 00:03 Eyes: PERRL, conjunctivae normal, anicteric sclerae Respiratory: normal respiratory effort, lungs clear to auscultation Cardiovascular: RRR, no murmur, no edema Gastrointestinal (Abdomen): Inspection/Auscultation: normal bowel sounds Percussion/Palpation: + abdomen tender, abdomen soft and + hernia (bulge in mid abdomen was present when pt sat forward, coughed); no guarding and abdomen not rigid Results & Data Laboratory Results 03/17/18 03/17/18 03/16/18 Range/Units 05:20 05:20 18:25 WBC 7.50 (4.8-10.8) K/uL RBC 4.74 (4.2-5.4) M/uL Hgb 13.2 (12.0-16.0) g/dL Hct 41.7 (37-47) % MCV 88.0 (80-100) fL MCH 27.8 (25-34) pg MCHC 31.7 L (32-36) g/dL RDW Std Deviation 47.6 H (36.4-46.3) fL RDW Coeff of Shannen 14.7 H (11.5-14.5) % Plt Count 214 (130-400) K/uL MPV 10.2 (7.4-10.4) fL Immature Gran % (Auto) 0.3 % Neut % (Auto) 47.2 % Lymph % (Auto) 39.5 % [place] % (Auto) 8.1 % Eos % (Auto) 4.5 % Baso % (Auto) 0.4 % Immature Gran # (Auto) 0.02 (0.00-0.02) K/uL Neut # (Auto) 3.54 (1.4-6.5) K/uL Lymph # (Auto) 2.96 (1.2-3.4) K/uL [place] # (Auto) 0.61 H (0.11-0.59) K/uL Eos # (Auto) 0.34 (0-0.5) K/uL Baso # (Auto) 0.03 (0-0.2) K/uL Sodium 137 135 L (136-145) mmol/L Potassium 4.2 4.2 (3.5-5.1) mmol/L Chloride 107 102 (98-107) mmol/L Carbon Dioxide 27 23 (21-32) mmol/L Anion Gap 3.0 9.0 (3-11) BUN 10 12 (7-18) mg/dl Creatinine 0.80 0.97 (0.6-1.2) mg/dl Est Cr Clr Drug Dosing 107.9 89.4 ml/min Est GFR ( Amer) 101.0 80.0 Est GFR (Non-Af Amer) 87.2 69.1 BUN/Creatinine Ratio 12.6 12.5 (10-20) Glucose 108 H 126 H (70-99) mg/dl Calcium 8.4 L 8.8 (8.5-10.1) mg/dl Magnesium 2.3 (1.8-2.4) mg/dl Total Bilirubin 0.3 (0.2-1) mg/dl AST 36 (15-37) U/L ALT 45 (12-78) U/L Alkaline Phosphatase 85 (45-117) U/L Total Protein 7.6 (6.4-8.2) gm/dl Albumin 3.6 (3.4-5.0) gm/dl Globulin 4.0 (2.5-4.0) gm/dl Albumin/Globulin Ratio 0.9 (0.9-2) Lipase 136 (73-393) U/L Urine Color Urine Appearance (Clear) Urine pH (4.5-7.5) Ur Specific [place] (1.000-1.030) Urine Protein (Negative) Urine Glucose (UA) (Negative) Urine Ketones (Negative) Urine Blood (Negative) Urine Nitrite (Negative) Urine Bilirubin (Negative) Urine Urobilinogen (Negative) Ur Leukocyte Esterase (Negative) POC Ur Test (NEG) 03/16/18 03/16/18 03/16/18 Range/Units 18:25 18:20 18:20 WBC 9.78 (4.8-10.8) K/uL RBC 4.83 (4.2-5.4) M/uL Hgb 13.8 (12.0-16.0) g/dL Hct 41.6 (37-47) % MCV 86.1 (80-100) fL MCH 28.6 (25-34) pg MCHC 33.2 (32-36) g/dL RDW Std Deviation 46.1 (36.4-46.3) fL RDW Coeff of Shannen 14.6 H (11.5-14.5) % Plt Count 250 (130-400) K/uL MPV 10.1 (7.4-10.4) fL Immature Gran % (Auto) 0.2 % Neut % (Auto) 59.4 % Lymph % (Auto) 29.4 % [place] % (Auto) 7.7 % Eos % (Auto) 3.1 % Baso % (Auto) 0.2 % Immature Gran # (Auto) 0.02 (0.00-0.02) K/uL Neut # (Auto) 5.81 (1.4-6.5) K/uL Lymph # (Auto) 2.88 (1.2-3.4) K/uL [place] # (Auto) 0.75 H (0.11-0.59) K/uL Eos # (Auto) 0.30 (0-0.5) K/uL Baso # (Auto) 0.02 (0-0.2) K/uL Sodium (136-145) mmol/L Potassium (3.5-5.1) mmol/L Chloride (98-107) mmol/L Carbon Dioxide (21-32) mmol/L Anion Gap (3-11) BUN (7-18) mg/dl Creatinine (0.6-1.2) mg/dl Est Cr Clr Drug Dosing ml/min Est GFR ( Amer) Est GFR (Non-Af Amer) BUN/Creatinine Ratio (10-20) Glucose (70-99) mg/dl Calcium (8.5-10.1) mg/dl Magnesium (1.8-2.4) mg/dl Total Bilirubin (0.2-1) mg/dl AST (15-37) U/L ALT (12-78) U/L Alkaline Phosphatase (45-117) U/L Total Protein (6.4-8.2) gm/dl Albumin (3.4-5.0) gm/dl Globulin (2.5-4.0) gm/dl Albumin/Globulin Ratio (0.9-2) Lipase (73-393) U/L Urine Color Yellow Urine Appearance Clear (Clear) Urine pH 5.0 (4.5-7.5) Ur Specific [place] 1.024 (1.000-1.030) Urine Protein Negative (Negative) Urine Glucose (UA) Negative (Negative) Urine Ketones Negative (Negative) Urine Blood Negative (Negative) Urine Nitrite Negative (Negative) Urine Bilirubin Negative (Negative) Urine Urobilinogen Negative (Negative) Ur Leukocyte Esterase Negative (Negative) POC Ur Test NEG (NEG) _ (1) Abdominal pain Abdominal location: unspecified location Qualified Code(s): R10.9 - Unspecified abdominal pain
--- NOTE | 2018-03-17 09:37 | Anesthesiology Consultation ---
Date of Service March 17, 2018 Assessment & Plan (1) Encounter for pre-operative examination: Chart Review Chart Review: Acceptable Risk for Surgery and Patient NOT seen in Pre Admission Testing Consults Requested none ASA ASA3 Proposed Anesthesia Anesthesia Type: MAC Risk / Benefits Reviewed With: PT / POA / Parent / Guardian, Accepts Plan and Informed Consent Obtained NPO Date Last Intake of Fluids: 03/17/18 Time Last Intake of Fluids: 07:00 Last Intake of Fluids Comment: Apple juice 15ml Date Last Intake of Solids: 03/16/18 Time Last Intake of Solids: 15:00 History Surgery Operation Date: 03/17/18 08:30 Proposed Procedures p Esophagogastroduodenoscopy Dr Nicole Rivera Height/Weight Height: 1.63 m Weight: 116.619 kg Allergies Allergy/AdvReac Type Severity Reaction Status Date / Time hazelnut Allergy Severe ANAPHYLAXIS; Unverified 03/16/18 18:24 reported allergy to all nuts peanut Allergy Severe ANAPHYLAXIS-ALL Unverified 03/16/18 18:24 NUTS Penicillins Allergy Intermediate RASH - HAS Unverified 03/16/18 18:24 TOLERATED ROCEPHIN 2013 nut - unspecified Allergy Unknown ANAPHYLAXIS Unverified 03/16/18 18:24 Medications Home Medications Medication Instructions Recorded Confirmed Last Taken fluticasone [Flonase Allergy 2 spray INTRANASAL DAILY 03/16/18 03/16/18 Unknown Relief] gabapentin 100 mg PO BID 03/16/18 03/16/18 Unknown sertraline [Zoloft] 50 mg PO DAILY 03/16/18 03/16/18 Unknown sulfamethoxazole-trimethoprim 1 tab PO BID 03/16/18 03/16/18 Unknown [Bactrim DS] valacyclovir [Valtrex] 1,000 mg PO TID 03/16/18 03/16/18 Unknown Active Medications Generic Name Dose Route Start Last Admin Trade Name Freq PRN Reason Stop Dose Admin Acetaminophen 650 mg 03/17/18 00:02 03/17/18 07:24 Tylenol PO 04/16/18 00:01 650 mg Q4H PRN Administration pain/fever Fluticasone Propionate 2 sprays 03/17/18 09:00 03/17/18 07:12 Flonase NA 04/16/18 08:59 2 sprays DAILY ROSIBEL Administration Gabapentin 100 mg 03/16/18 22:30 03/17/18 07:24 Neurontin PO 04/15/18 22:29 100 mg BID ROSIBEL Administration Hydromorphone HCl 0.5 mg 03/17/18 00:02 03/17/18 06:13 Dilaudid IV 03/31/18 00:01 0.5 mg Q3H PRN Administration Pain Dextrose/Sodium Chloride 1,000 mls @ 100 mls/hr 03/17/18 00:02 03/17/18 10:38 D5w And Nss IV 04/16/18 00:01 0 mls/hr .Q10H ROSIBEL Infusion Pantoprazole Sodium 40 mg/ 10 mls @ 5 mls/min 03/17/18 00:02 03/17/18 07:10 Syringe IV 04/16/18 00:01 5 mls/min BID ROSIBEL Administration Sertraline HCl 50 mg 03/17/18 09:00 03/17/18 07:11 Zoloft PO 04/16/18 08:59 50 mg DAILY ROSIBEL Administration Trimethoprim/Sulfamethoxazole 1 tab 03/17/18 00:02 03/17/18 07:12 Septra Ds 800/160mg Tab PO 03/27/18 00:01 1 tab BID ROSIBEL Administration Valacyclovir HCl 1,000 mg 03/17/18 00:02 03/17/18 07:12 Valtrex PO 03/27/18 00:01 1,000 mg TID ROSIBEL Administration Past Medical History Medical History Bladder infection (Acute) Shingles (Acute) Hernia of abdominal cavity (Chronic) Asthma Has not used inhaler for years. H/o hospitalization and intubation in 1979. Depression Kidney stones Morbid obesity Past Family History Family History Other Family history of high blood pressure Family history of kidney disease Past Surgical History Surgical History H/O cystoscopy (Resolved) History of appendectomy (Resolved) Hx of cholecystectomy (Resolved) Past Anesthesia History No Hx of Anesthesia Complications and No Family Hx of Anesthesia Complications History of PONV Yes Motion Sickness Screening History of Motion Sickness: No Social History Smoking Status: Former smoker (Quit 15 days ago. Smoked 2 packs per week x 30 years) tobacco type: cigarettes Smoking cigarettes per day: 20 Do You Dip or Chew Tobacco: No Hx Alcohol Use: Yes Alcohol type: wine alcohol intake frequency: holidays/special occasions only Hx Substance Use: Yes substance use type: marijuana (Last use was yesterday ) Exercise / Class Metabolic Activity II 4-5 Yardwork/Stairs/Walk up hill Physical Exam Vital Signs Last Vital Signs Temp 36.4 C L 03/17/18 07:30 Pulse 56 L 03/17/18 07:30 Resp 20 03/17/18 07:30 BP 106/69 03/17/18 07:30 Pulse Ox 94 03/17/18 07:30 Constitutional + morbidly obese ENMT Mouth: no TMJ abnormality and no TMJ clicking Thyromental Distance: < 3.5 Finger Breadths Mallampati Class: III Mouth / Teeth: 2 1. Loose Neck + thick neck and + limited neck extension Respiratory Auscultation: lungs clear to auscultation bilaterally Cardiovascular Rate/Rhythm: regular rate and regular rhythm Psychiatric Orientation: alert and oriented x 3 Testing Laboratory Results 03/17/18 05:20 03/17/18 05:20 Urine Color Yellow 03/16/18 18:20 Urine Appearance Clear (Clear) 03/16/18 18:20 Urine pH 5.0 (4.5-7.5) 03/16/18 18:20 Ur Specific [place] 1.024 (1.000-1.030) 03/16/18 18:20 Urine Protein Negative (Negative) 03/16/18 18:20 Urine Glucose (UA) Negative (Negative) 03/16/18 18:20 Urine Ketones Negative (Negative) 03/16/18 18:20 Urine Nitrite Negative (Negative) 03/16/18 18:20 Ur Leukocyte Esterase Negative (Negative) 03/16/18 18:20 03/16/18 18:20 POC Ur Test NEG
[2018-03-17] MEDS ORDERED: fentaNYL citrate 100 MCG/2 ML VIAL ONE (11:24)
[2018-03-17] MEDS ORDERED: PROPOFOL IV EMULSION 10 MG/ML 20 ML VIAL IV ONE (11:24)
[2018-03-17] MEDS ORDERED: LIDOCAINE HCL 2% 2 ML VIAL/AMP(20MG/ML) INFIL ONE (11:24)
--- NOTE | 2018-03-17 11:47 | GI REPORT ---
Patient Name: Ingrid Benavidez Procedure Date: 03/17/2018 11:28 AM Date of : 1970 Admit Type: Inpatient Age: 48 Gender: Female Attending MD: Emery Rivera MD Procedure: Upper GI endoscopy Providers: Emery Rivera MD Referring MD: Magali Castaneda Indications: Epigastric abdominal pain, Abdominal pain in the right upper quadrant Medicines: Monitored Anesthesia Care Complications: No immediate complications. Estimated blood loss: Minimal. Estimated Blood Loss: Estimated blood loss: none. Procedure: Pre-Anesthesia Assessment: - Pre-Anesthesia Assessment: - Prior to the procedure, a History and Physical was performed, and patient medications, allergies and sensitivities were reviewed. The patient's tolerance of previous anesthesia was reviewed. Please see [employer] for complete details. - The risks and benefits of the procedure and the sedation options and risks were discussed with the patient. All questions were answered and informed consent was obtained. - Patient identification and proposed procedure were verified prior to the procedure by the physician and the nurse. The procedure was verified in the pre-procedure area in the procedure room. After obtaining informed consent, the endoscope was passed carefully and meticuously under direct vision and only advanced when the lumen was clearly identified, C02 insuflation was utilized throughout the entirity of the procedure. Throughout the procedure, the patient's blood pressure, pulse, and oxygen saturations were monitored continuously. After obtaining informed consent, the endoscope was passed under direct vision. Throughout the procedure, the patient's blood pressure, pulse, and oxygen saturations were monitored continuously. The Endoscope was introduced through the mouth, and advanced to the second part of duodenum. The upper GI endoscopy was accomplished without difficulty. The patient tolerated the procedure well. Findings: The Z-line was irregular. This was biopsied with a cold forceps for histology. One non-bleeding superficial gastric ulcer with a clean ulcer base ([place] Class III) was found in the prepyloric region of the stomach. The lesion was 5 mm in largest dimension. Biopsies were taken with a cold forceps for Helicobacter pylori testing. The examined duodenum was normal. Biopsies for histology were taken with a cold forceps for evaluation of celiac disease. Impression: - Z-line irregular. Biopsied. - Non-bleeding gastric ulcer with a clean ulcer base ([place] Class III). Biopsied. - Normal examined duodenum. Biopsied. Recommendation: - Await pathology results. - Return patient to [facility] for [facility] care. - Use Prilosec (omeprazole) 40 mg PO BID for 2 months. - No aspirin, ibuprofen, naproxen, or other non-steroidal anti-inflammatory drugs. - Diet with clears and advance as tolerated - Repeat EGD in 2 months to ensure healing - After Two months Prilosec 20 mg daily indefinately - GI to sign off, call with questions Emery Rivera MD 03/17/2018 11:47:17 AM This report has been signed electronically. Note Initiated On: 03/17/2018 11:28 AM Number of Addenda: 0 I attest to the content of the Intraoperative Record and orders documented therein, exceptions below {[id number]}
[2018-03-17] MEDS ORDERED: ONDANSETRON INJ 2 MG/ML 2 ML VIAL ONE (11:53)
--- NOTE | 2018-03-17 12:13 | Anesthesiology Progress Note ---
Date of Service March 17, 2018 Anesthesia Post Procedure Vital Signs Vital Signs: Temp Pulse Pulse Pulse Resp BP BP 03/17/18 12:01 59 L 16 122/66 03/17/18 11:46 59 L 12 111/68 03/17/18 11:00 36.4 C L 59 L 16 03/17/18 07:30 36.4 C L 56 L 20 03/17/18 00:03 36.7 C 76 18 03/16/18 23:18 79 16 101/62 03/16/18 22:30 36.8 C 63 16 03/16/18 20:40 81 16 03/16/18 20:00 82 16 03/16/18 18:50 71 18 03/16/18 17:47 36.7 C 82 22 155/109 H BP Pulse Ox 03/17/18 12:01 95 03/17/18 11:46 99 03/17/18 11:00 147/83 H 96 03/17/18 07:30 106/69 94 03/17/18 00:03 124/76 99 03/16/18 23:18 98 03/16/18 22:30 101/62 94 03/16/18 20:40 143/83 H 96 03/16/18 20:00 98 03/16/18 18:50 150/90 H 96 03/16/18 17:47 96 Pain Intensity Abdomen: Pain Intensity: 6 Notes Mental Status: alert / awake / arousable Patient Amnestic to Procedure: Yes Nausea / Vomiting: adequately controlled Pain: adequately controlled Airway Patency, RR, SpO2: stable & adequate BP & HR: stable & adequate Hydration State: stable & adequate Anesthetic Complications: no major complications apparent
[2018-03-17] MEDS: PANTOprazole 40 MG TAB PO SCH ×2 (12:30→20:05)
--- NOTE | 2018-03-17 12:57 | Surgery Consultation ---
Date of Consultation March 17, 2018 Assessment & Plan (1) Ventral hernia: -chronic reducible ventral hernia -appt with Dr Lyle as outpatient -acute painj from gastric ulcer -no indication to fix hernia as inpatient -will sign off Present on Admission?: Yes History of Present Illness Attending Physician: Magali Castaneda MD History of Present Illness This is a 48 year old female with history of morbid obesity with a chronic ventral hernia which causes her chronic intermittent pain with straining, it is worse with activity, coughing and is associated with a mid abdomen bulging. She notes she was planning on following up with general surgery, Dr. Lyle on the of this month. She is admitted with acute worsening pain which is a little different than her chronic lower abdominal pain. She notes an intermittent pain, burning, sharp in the epigastric region. Sometimes worse with PO, at other times improved with PO. There is some mild nausea but no vomiting, decreased appetite, and early satiety. She also has chronic diarrhea with 8-10 liquid stools daily. She has just finished her EGD which shows a gastric ulcer. Allergies Allergy/AdvReac Type Severity Reaction Status Date / Time hazelnut Allergy Severe ANAPHYLAXIS; Unverified 03/16/18 18:24 reported allergy to all nuts peanut Allergy Severe ANAPHYLAXIS-ALL Unverified 03/16/18 18:24 NUTS Penicillins Allergy Intermediate RASH - HAS Unverified 03/16/18 18:24 TOLERATED ROCEPHIN 2012 nut - unspecified Allergy Unknown ANAPHYLAXIS Unverified 03/16/18 18:24 Home Medications Home Medications Medication Instructions Recorded Confirmed Type fluticasone [Flonase Allergy 2 spray INTRANASAL DAILY 03/16/18 03/16/18 History Relief] gabapentin 100 mg PO BID 03/16/18 03/16/18 History sertraline [Zoloft] 50 mg PO DAILY 03/16/18 03/16/18 History sulfamethoxazole-trimethoprim 1 tab PO BID 03/16/18 03/16/18 History [Bactrim DS] valacyclovir [Valtrex] 1,000 mg PO TID 03/16/18 03/16/18 History Patient History Medical History Bladder infection (Acute) Shingles (Acute) Hernia of abdominal cavity (Chronic) Asthma Has not used inhaler for years. H/o hospitalization and intubation in 1979. Depression Kidney stones Morbid obesity Surgical History H/O cystoscopy (Resolved) History of appendectomy (Resolved) Hx of cholecystectomy (Resolved) Family History Other Family history of high blood pressure Family history of kidney disease Social History Current Living Situation: Parent Other Information That Helps Us Care for You: No Feels Safe at Home: Yes Safety Concerns: Feels Safe At This Time Smoking Status: Former smoker (Quit 15 days ago. Smoked 2 packs per week x 30 years) Tobacco Type: cigarettes Cigarettes per Day: 20 Do You Dip or Chew Tobacco: No Hx Alcohol Use: Yes Alcohol type: wine Alcohol Intake Frequency: holidays/ special occasions only Hx Substance Use: Yes substance use type: marijuana (Last use was yesterday ) Beliefs That Will Affect Care: Alevism Alevism Beliefs: UU Preferred Language: Ethiopian Communication Ability: Effective Slip Dumper Required: No Review of Systems Constitutional: + weight gain; no fever, no chills, no weakness and no increased appetite Eyes: no diplopia, no dry eyes and no itchy eyes Ear, Nose, Mouth, Throat: no ear pain Respiratory: no cough, no chest congestion, no dyspnea and no dyspnea on exertion Cardiovascular: no chest pain, no chest pain with activity and no dyspnea Gastrointestinal: + abdominal pain, + early satiety, + nausea, + change in bowel habits and + diarrhea/loose stools; no vomiting and no hematemesis Genitourinary (Female): no problem reported Musculoskeletal: no back pain, no neck pain and no joint pain Integumentary: no rash, no lesions, no pruritus and no yellowing of the skin Neurologic: no problem reported Psychiatric: no problem reported Endocrine: no problem reported Hematologic / Lymphatic: no problem reported Allergy / Immunological: no problem reported Physical Exam 2 Vital Signs (Past 24 Hours): Last Vital Signs Temp 36.4 C L 03/17/18 11:00 Pulse 59 L 03/17/18 12:16 Resp 18 03/17/18 12:16 BP 114/68 03/17/18 12:16 Pulse Ox 95 03/17/18 12:16 Constitutional: WD/WN, vitals as above no acute distress and not ill appearing Eyes: PERRL, conjunctivae normal, anicteric sclerae ENMT: external ear and nose normal, oropharynx normal Neck: trachea midline Respiratory: normal respiratory effort, lungs clear to auscultation Cardiovascular: RRR, no murmur, no edema Gastrointestinal (Abdomen): Inspection/Auscultation: abdomen normal to inspection, normal bowel sounds and + abdominal surgical scar; abdomen not distended Percussion/Palpation: abdomen soft and + hernia (upper midline ventral hernia; reducible); abdomen nontender and no guarding Musculoskeletal: Head/Neck/Chest: normocephalic, head atraumatic and neck supple Skin: no rashes, warm and dry Neurologic: moves all extremities Psychiatric: A+Ox3, euthymic affect Lymphatic: no lymphadenopathy Results & Data Diagnostic Findings ABDOMEN AND PELVIS CT WITH IV CONTRAST CT DOSE: 1474.44 mGy.cm HISTORY: Acute periumbilical abdominal pain with associated abdominal wall hernia hx of hernia, increasing pain TECHNIQUE: Multiaxial CT images of the abdomen and pelvis were performed following the use of intravenous contrast. A dose lowering technique was utilized adhering to the principles of ALARA. Technologist reports that approximately 10 mL of the IV contrast infiltrated into the patient's left upper extremity. COMPARISON STUDY: CT abdomen and pelvis 03/10/2018 FINDINGS: Lung bases appear generally clear. No pneumatosis or pneumoperitoneum. Imaged inferior cardiac chambers appear to be unremarkable. Hepatomegaly with hepatic steatosis. Lobular hypodense mass of the right hepatic lobe redemonstrated measuring 4.4 x 3.6 x 3.8 cm, unchanged from most recent comparison study. Water attenuation is seen centrally within this mass. Liver is otherwise unremarkable. No intrahepatic biliary ductal dilation or evidence of cirrhosis. Patency of the hepatic and portal veins. Spleen, pancreas and adrenal glands appear unremarkable. Prior cholecystectomy. Hypodense 9 mm lesion of the superior pole left kidney suggests renal cyst. There are least 3 nonobstructing calculi noted about the left kidney measuring up to 3 mm. There are least 3 nonobstructing calculi noted about the right kidney also measuring up to 3 mm. No ureteral calculi or obstructive uropathy. Partial distention of the urinary bladder lumen with associated bladder wall thickening. Uterus and adnexa are unremarkable. Aorta and IVC are within normal limits. No adenopathy. No bowel obstruction or focal bowel wall thickening. Moderate diverticulum involves the third portion duodenum. Colonic diverticulosis without acute diverticulitis. Prior appendectomy. No ascites or mesenteric inflammatory change. Moderate sized fat filled periumbilical hernia redemonstrated with diastases of 4.1 cm. No significant inflammation. No bowel extension into the hernia sac. Soft tissues are otherwise unremarkable. Bones appear to be intact. Moderate intervertebral disc space narrowing with posterior disc osteophyte complex formation at L5-S1. Moderate facet arthropathy is also seen at this interspace. IMPRESSION: 1. Moderate sized fat filled periumbilical hernia. No associated inflammation or bowel extension into the hernia sac. 2. No bowel obstruction or focal bowel wall thickening. 3. Colonic diverticulosis without acute diverticulitis. 4. Prior cholecystectomy and appendectomy. 5. Hepatic steatosis with hepatomegaly. 6. Lobular hypodense mass of the right hepatic lobe redemonstrated measuring up to 4.4 cm. Differential considerations would include biliary cystadenoma versus less likely a cluster of hepatic cysts. 7. Additional findings as as above. _ (1) Ventral hernia Obstruction and gangrene presence: without obstruction or gangrene Qualified Code(s): K43.9 - Ventral hernia without obstruction or gangrene
--- NOTE | 2018-03-17 18:30 | Hospitalist Progress Note ---
Date of Service March 17, 2018 Assessment & Plan (1) Abdominal pain: Presented with intractable abdominal pain, chronic periumbilical hernia CT abdomen pelvis shows no evidence of incarceration No evidence of infection, or hemodynamic come from Appreciate input from surgery Given outpatient follow-up, and elective procedure for hernia repair Present on Admission?: Yes (2) Shingles: Had shingles rash approximately 2 weeks ago Almost resolved Continue valacyclovir (3) Gastric ulcer: Complaint of epigastric discomfort History of NSAID intake Appreciate GI input Status post EGD: Showed 5 mm gastric ulcer, no evidence of bleeding Patient is started with PPI 40 mg twice daily daily Diet advanced, tolerating well She needs instructed to avoid NSAIDs Outpatient follow-up with GI, repeat EGD in 2 months to assess healing (4) Bladder infection: Recent urine tract infection No urinary symptoms Was started on Bactrim in clinic Continue Bactrim to complete the course Disposition: Possible discharge tomorrow Subjective Continues to complain of mid abdominal pain Frustrated as a surgery recommended outpatient elective procedure Status post EGD today, showed gastric ulcer Diet resumed, tolerating well, no nausea vomiting No dark stool Remained stable hemodynamically Physical Exam 2 Vital Signs (Past 24 Hours): Last Vital Signs Temp 36.9 C 03/17/18 15:49 Pulse 61 03/17/18 15:49 Resp 16 03/17/18 15:49 BP 114/68 03/17/18 15:49 Pulse Ox 93 03/17/18 15:49 Physical Exam: GENERAL: No sign of distress, obese HEENT: Sclera nonicteric, Normal oral mucosa, neck: No JVD, no thyromegaly, trachea midline Lungs: Clear to auscultate, no wheeze or rales Cardiovascular: Regular S1 and S2, Abdomen: Soft, mild tenderness at the periumbilical area/no guarding or rebound bowel sounds active, Extremities: No rash or deformity, normal joint, Neuro: No focal neurological deficit, no dysarthria, no facial droop Psych: Alert awake oriented x3: Euthymic Skin: No rash LYMPH NODES: No cervical lymphadenopathy _ (1) Abdominal pain Abdominal location: unspecified location Qualified Code(s): R10.9 - Unspecified abdominal pain
[2018-03-18] MEDS: HYDROmorphone INJ 0.5 MG/0.5 ML SYR IV PRN (00:39)
[2018-03-18] MEDS ORDERED: HYDROmorphone INJ 0.5 MG/0.5 ML SYR IV STA ×2 (01:34→15:44)
[2018-03-18] MEDS: ACETAMINOPHEN 325 MG TAB PO PRN ×2 (06:11→12:22)
[2018-03-18] MEDS ORDERED: HYDROCODONE/ACETAMOPHEN 5/325MG TAB PO ONE (08:41)
[2018-03-18] MEDS: PANTOprazole 40 MG TAB PO SCH ×2 (09:19→20:52)
[2018-03-18] MEDS: FLUTICASONE PROPIONATE NA SPR 16 GM BTL SCH (09:19)
[2018-03-18] MEDS: SERTRALINE HCL 50 MG TABLET PO SCH (09:19)
[2018-03-18] MEDS: VALACYCLOVIR HCL 500 MG TABLET PO SCH ×3 (09:19→20:52)
[2018-03-18] MEDS: GABAPENTIN 100 MG CAP PO SCH ×2 (09:19→20:52)
[2018-03-18] MEDS: SULFAMETHOXAZOLE/TRIMETHOPRIM DS 800/160MG TAB PO SCH ×2 (09:19→20:52)
[2018-03-18] MEDS ORDERED: DOCUSATE SODIUM 100 MG CAP PO PRN (15:46)
[2018-03-18] MEDS ORDERED: POLYETHYLENE (MIRALAX) 17 GM PACK PO PRN (15:46)
--- NOTE | 2018-03-18 17:41 | Hospitalist Progress Note ---
Date of Service March 18, 2018 Assessment & Plan (1) Abdominal pain: Presented with intractable abdominal pain, chronic periumbilical hernia CT abdomen pelvis shows no evidence of incarceration Appreciate input from surgery Patient has a reducible chronic ventral hernia, Without any incarceration, Discussed with on-call surgery Dr. Landers Patient was evaluated by him yesterday Patient will need to have gastric ulcer healed, Evaluated in clinic, already scheduled appointment for next Thursday, March 22, 2018 No plan for surgery during this admission (2) Shingles: Had shingles rash approximately 2 weeks ago Almost resolved-no visible rash noted Continue valacyclovir (3) Gastric ulcer: Presented with complaint of epigastric discomfort History of NSAID intake Appreciate GI input Status post EGD: Showed 5 mm gastric ulcer, no evidence of bleeding Patient is started with PPI 40 mg twice daily Prescription for omeprazole 40 mg twice daily sent to pharmacy Diet advanced, tolerating well She needs instructed to avoid NSAIDs Outpatient follow-up with GI, repeat EGD in 2 months to assess healing (4) Bladder infection: Recent urine tract infection No urinary symptoms Was started on Bactrim in clinic Continue Bactrim to complete the course Disposition: Possible discharge home tomorrow Subjective Upset as IV Dilaudid was discontinued Has ongoing pain and discomfort at periumbilical region, 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 any procedure during this admission , scheduled for clinic follow-up on next week Tolerating diet well No nausea vomiting No dark stool, no diarrhea Physical Exam 2 Vital Signs (Past 24 Hours): Last Vital Signs Temp 36.9 C 03/18/18 15:42 Pulse 59 L 03/18/18 15:42 Resp 20 03/18/18 15:42 BP 149/74 H 03/18/18 15:42 Pulse Ox 97 03/18/18 15:42 Physical Exam: GENERAL: No sign of distress, obese HEENT: Sclera nonicteric, pink-purple bilateral equal reactive to light extraocular muscle intact Normal oral mucosa, neck: No JVD, no thyromegaly, trachea midline Lungs: Clear to auscultate, no wheeze or rales Cardiovascular: Regular S1 and S2, no murmur or gallop, no JVD, no lower extremity edema Abdomen: Soft, small ventral hernia periumbilical area, spontaneously reducible , bowel sounds active Extremities: No rash or deformity, normal joint, Neuro: No focal neurological deficit, no dysarthria, no facial droop Psych: Alert awake oriented x3: Euthymic Skin: No rash LYMPH NODES: No cervical lymphadenopathy _ (1) Abdominal pain Abdominal location: unspecified location Qualified Code(s): R10.9 - Unspecified abdominal pain
[2018-03-18] MEDS: OXYCODONE/ACETAMINOPHEN 5mg/325mg TAB PO PRN ×2 (18:16→22:36)
[2018-03-19] MEDS ORDERED: HYDROmorphone INJ 0.5 MG/0.5 ML SYR IV PRN
[2018-03-19] MEDS: ACETAMINOPHEN 325 MG TAB PO PRN (04:18)
[2018-03-19] MEDS: FLUTICASONE PROPIONATE NA SPR 16 GM BTL SCH (08:14)
[2018-03-19] MEDS: SERTRALINE HCL 50 MG TABLET PO SCH (08:15)
[2018-03-19] MEDS: VALACYCLOVIR HCL 500 MG TABLET PO SCH ×2 (08:15→13:20)
[2018-03-19] MEDS: GABAPENTIN 100 MG CAP PO SCH (08:15)
[2018-03-19] MEDS: PANTOprazole 40 MG TAB PO SCH (08:15)
[2018-03-19] MEDS: SULFAMETHOXAZOLE/TRIMETHOPRIM DS 800/160MG TAB PO SCH (08:15)
[2018-03-19] MEDS ORDERED: SUMAtriptan succinate 25 MG TAB PO ONE (08:45)
--- NOTE | 2018-03-19 15:51 | Discharge Summary ---
Date of Service March 19, 2018 Admission HPI Per Admitting Provider DICTATED BY: Yoel Connors MD DATE OF ADMISSION: 03/16/2018 CHIEF COMPLAINT: Severe abdominal pain and diarrhea. HISTORY OF PRESENT ILLNESS: This is a 48-year-old female with past medical history significant for obesity, history of cholecystectomy, history of calculus of ureter, history of recurrent UTI, headaches, presents with ongoing abdominal pain. She has had this abdominal pain for some time in the periumbilical region. She was seen by GI in 04/2017. At that time, CAT scan showed possibly some thickening of the mid transverse colon. She was treated with Cipro and Flagyl and also liver lesions thought to be benign process, consistent with hemangioma or cysts.She still continued to have abdominal pain and recently she had CAT scan by PCP and shows same periumbilical hernia, and she is supposed to see the surgery and also GI for endoscopy, but in the last few days the pain got worse even bending down or walking short distance making her abdominal pain worse. She is not able to sleep well because of abdominal pain, some nausea but no vomiting, but her appetite is okay. Last week she was also started on Bactrim for UTI and also valacyclovir for shingles. She has noticed some rash in her left backside of the chest and breast area a couple weeks ago but it started worsening approximately 5days ago she was started on Valacyclovir.She has couple of more days of Bactrim and valacyclovir.. [place] somewhat feverish today. Has headaches, blurred visions on and off. No earache. No dizziness and runny nose, no sore throat or difficulty swallowing. No cough, no chest pain, no shortness of breath, having diarrhea for some time now, but since she was started on antibiotics her diarrhea got worse, occurring 6-8 times a day, watery stools, no bloody stools or black stools, and having frequent urination, no swelling in the legs. Currently, resting comfortable and hemodynamically stable. ALLERGIES: HAZELNUT, PEANUT, PENICILLINS. PAST MEDICAL HISTORY: As mentioned above. PAST SURGICAL HISTORY: removal of cyst from lower arm area, , cystourethroscopy with lithotripsy, appendectomy, removal of the kidneys, laparoscopic cholecystectomy, tonsillectomy, adenoidectomy. MEDICATIONS: The patient is on Pyridium 100 mg p.o. t.i.d. p.r.n., Bactrim 1 mg p.o. b.i.d. for 7 days, valacyclovir 1000 mg p.o. t.i.d. for 7 days, fluticasone nasal spray 2 sprays in each nostril daily, Zoloft 50 mg p.o. daily, gabapentin 100 mg p.o. b.i.d., Maxalt p.r.n., epinephrine p.r.n. FAMILY HISTORY: Significant for mother has breast cancer. Father has diabetes, hypertension. Paternal grandfather had heart disorder. Maternal grandfather has colon cancer. Maternal grandmother has ovarian cancer. Aunt has rheumatoid arthritis. SOCIAL HISTORY: . Quit smoking in 02/2018. Smoked half-pack a day for 10 years. Alcohol, once in a while. Drugs, marijuana once in a while. REVIEW OF SYMPTOMS: As per HPI. Rest of review of symptoms negative. Admission Exam Per Admitting Provider PHYSICAL EXAMINATION: GENERAL: The patient is obese, not in acute distress. VITAL SIGNS: Temperature 36.7, pulse 81, respiratory rate 16, blood pressure 143/83, oxygen 96% on room air. HEENT: No pallor, no icterus. Pupils equal, round, and react to light. NECK: No JVD, no neck masses, no carotid bruits. CARDIOVASCULAR: S1, S2 heard, regular rate and rhythm, no murmur, no gallop. RESPIRATORY SYSTEM: Normal AP diameter, no accessory muscle use. No wheezing, no crackles. ABDOMEN: Soft, bowel sounds present. Tenderness in the periumbilical region and mild guarding. No distention. CENTRAL NERVOUS SYSTEM: Cranial nerves II-XII grossly intact. Nonfocal. EXTREMITIES: No edema, no erythema. Principal Diagnosis Peptic ulcer disease, gastric ulcer noted in EGD, chronic periumbilical ventral hernia, reducible Discharge Exam GENERAL: No sign of distress, obese HEENT: Sclera nonicteric, pink-purple bilateral equal reactive to light extraocular muscle intact Normal oral mucosa, neck: No JVD, no thyromegaly, trachea midline Lungs: Clear to auscultate, no wheeze or rales Cardiovascular: Regular S1 and S2, no murmur or gallop, no JVD, no lower extremity edema Abdomen: Soft, reproducible periumbilical hernia, bowel sounds active Extremities: No rash or deformity, normal joint, Neuro: No focal neurological deficit, no dysarthria, no facial droop Psych: Alert awake oriented x3: Euthymic Skin: No rash LYMPH NODES: No cervical lymphadenopathy Discharge Data Allergies Allergy/AdvReac Type Severity Reaction Status Date / Time hazelnut Allergy Severe ANAPHYLAXIS; Unverified 03/16/18 18:24 reported allergy to all nuts peanut Allergy Severe ANAPHYLAXIS-ALL Unverified 03/16/18 18:24 NUTS Penicillins Allergy Intermediate RASH - HAS Unverified 03/16/18 18:24 TOLERATED ROCEPHIN 2012 nut - unspecified Allergy Unknown ANAPHYLAXIS Unverified 03/16/18 18:24 Consultations 03/16/18 21:02 ED Decision to Admit Stat 03/17/18 08:00 Consult Gastroenterology Routine Consult General Surgery Routine Procedures Performed Operation Date: 03/17/18 08:30 Actual Procedures p EGD Biopsy Cytology - Emery Rivera Ordered Studies 03/16/18 18:14 CT abd pelvis IV con only Stat Hospital Course (1) Abdominal pain: Presented with intractable abdominal pain, chronic periumbilical hernia CT abdomen pelvis shows no evidence of incarceration Appreciate input from surgery Patient has a reducible chronic ventral hernia, Without any incarceration, Discussed with on-call surgery Dr. Landers Patient was evaluated by him yesterday Patient will need to have gastric ulcer healed, Evaluated in clinic, already scheduled appointment for next Tuesday, March 22, 2018 No plan for surgery during this admission Counseling provided to patient by surgery team Patient is agreeable to outpatient follow-up (2) Shingles: Had shingles rash approximately 2 weeks ago Almost resolved-no visible rash noted Complete valacyclovir (3) Gastric ulcer: Presented with complaint of epigastric discomfort History of NSAID intake Appreciate GI input Status post EGD: Showed 5 mm gastric ulcer, no evidence of bleeding Patient is started with PPI 40 mg twice daily Prescription for omeprazole 40 mg twice daily sent to pharmacy Diet advanced, tolerating well She is instructed to avoid NSAIDs Outpatient follow-up with GI, repeat EGD in 2 months to assess healing (4) Bladder infection: Recent urine tract infection No urinary symptoms Was started on Bactrim in clinic Continue Bactrim to complete the course Disposition: Stable to be discharged home today Total Time Total Time Spent Total Time Spent (In Minutes): Approximate 30 minutes Discharge Plan Discharge Items Patient Disposition: Home - Self-Care Reason For Visit: ABDOMINAL PAIN, DIARRHEA Discharge Diagnosis: ABDOMINAL PAIN /VENTRAL HERNIA /GASTRIC ULCER Discharge Goals: Decrease discomfort, Improve disease control and Therapeutic intervention Activity: Resume your previous activity Non-emergency contact: Primary Care Provider Call non-emergency contact if: you have any medication questions Follow-up/Referrals: Emery Rivera [Physician] - (REPEAT EGD IN 2 MONTHS TO ASSESS HEALING OF GASTRIC ULCER ) Floyd Landers MD [Physician] - 03/22/18 1:00 pm Janeth Ackerman MD [Primary Care Provider] - 03/23/18 2:20 pm Diet: Heart Healthy Addtl Provider Instructions: SURGERY FOLLOW UP WITH DR LANDERS ON Tuesday03/22/2018 @ 1:00 PM General Surgery, [facility] TAKE PRILOSEC/OMEPRAZOLE 40 MG TWICE DAILY FOR 2 MONTHS AFTER 2 MONTHS CONTINUE TO TAKE OMEPRAZOLE 40 MG DAILY INDEFINITELY REPEAT EGD IN 2 MONTHS TO ENSURE GASTRIC ULCER HEALING DO NOT TAKE ASPIRIN, MOTRIN, ALEVE , ADVIL, NAPROXEN , IBUPROPHEN AVOID ALL NSAID'S -WILL WORSEN GASTRIC ULCER AVOID HOT , SPICY FOOD LIMIT CAFFEINE AND ALCHOHOL INTAKE TO PREVENT ACID REFLUX Prescriptions: New omeprazole 20 mg capsule,delayed release(DR/EC) 20 mg PO BID 60 Days Qty: 120 RF: 0 Continue valacyclovir [Valtrex] 1 gram Tablet 1,000 mg PO TID RF: 0 sulfamethoxazole-trimethoprim [Bactrim DS] 800-160 mg Tablet 1 tab PO BID RF: 0 fluticasone [Flonase Allergy Relief] 50 mcg/actuation [place],Suspension 2 spray INTRANASAL DAILY RF: 0 sertraline [Zoloft] 50 mg Tablet 50 mg PO DAILY RF: 0 gabapentin 100 mg Capsule 100 mg PO BID RF: 0 Stand-Alone Forms: [facility] [place], Work/School Release (Inpt) Discharge Orders: Discharge Order (Routine); Ordered 03/19/18 Ordered By: Magali Castaneda Admission Data Admit Date/Time: 03/16/18 23:22 Attending Provider: Magali Castaneda Admit Provider: Yoel Connors Primary Care Provider: Janeth Ackerman Other Providers: Yoel Connors ; Moses Gunderson ; Nely Najera ; Whit Vallejo ; Emery Rivera ; Karsten Ross ; Angeles Kennedy ; Becca Blake ; Jose Jiang ; Sergey Antoine ; Patricia Valdovinos ; Saba Biswas ; Stephanie Collier ; Marcia Busots ; Simi Beltran ; Valentino Lyle ; Maria Luisa Singleton ; Marbella Vora ; Neptali Morton ; Sid Hughes ; Migdalia Ross ; Anil Sheets ; Floyd Landers ; Grazyna Vigil ; Goyo Valentin ; Soraya Mansfield ; Aime Hernandez ; Henry Holt Jr ; Blanche Patrick Service: Medical Other Interventions: Discharge Summary Assessment (RN) Last Done: 03/19/18 13:10 DC Date/Time DO NOT enter until pt leaves facility: 03/19/18 14:04
== END 2018-03-19 14:04 | disposition home or self-care (01) ==
LOC: 3N 17:32 → ED 17:32 → 3N 23:18

== ENCOUNTER 2018-06-09 17:46 | Inpatient (IN) ==
[2018-06-09] MEDS ORDERED: KETOROLAC 30 MG/ML VIAL IV STA (18:54)
[2018-06-09] MEDS ORDERED: ONDANSETRON INJ 2 MG/ML 2 ML VIAL IV STA (18:54)
[2018-06-09] MEDS ORDERED: SODIUM CHLORIDE 0.9% 1000ML 2,000 ML IV SCH (19:00)
--- NOTE | 2018-06-09 19:21 | XRay Report ---
XR chest 1V portable HISTORY: fever, chills, cough COMPARISON: Chest 04/01/2017. FINDINGS: No pneumothorax. No pleural effusions. The heart is normal in size. No focal lung consolida tions to suggest pneumonia. No evidence for pulmonary edema. IMPRESSION: No acute process. Electronically signed by: Judd Harley M.D. 06/09/2018 7:19 PM
[2018-06-09 20:05] LABS: Basophils # (auto) 0.02 K/uL (0-0.2); Basophils % (auto) 0.2 %; Hematocrit (blood only) 40.7 % (37-47); Hemoglobin 13.5 g/dL (12.0-16.0); Immature Granulocytes # (auto) 0.06 K/uL (0.00-0.02); Immature Granulocytes % (auto) 0.5 %; Lymphocytes # (auto) 0.49 K/uL (1.2-3.4); Lymphocytes % (auto) 3.7 %; Mean Corpuscular Hgb Conc 33.2 g/dL (32-36); Mean Corpuscular Volume 82.7 fL (80-100); Mean Platelet Volume 10.3 fL (7.4-10.4); Monocytes # (auto) 0.64 K/uL (0.11-0.59); Monocytes % (auto) 4.9 %; Neutrophils # (auto) 11.92 K/uL (1.4-6.5); Neutrophils % (auto) 90.7 %; Platelet Count 174 K/uL (130-400); RDW Coefficient of Variation 14.5 % (11.5-14.5); RDW Standard Deviation 44.3 fL (36.4-46.3); Red Blood Count 4.92 M/uL (4.2-5.4); White Blood Count 13.13 K/uL (4.8-10.8)
[2018-06-09 20:16] LABS: INR 1.2 (0.9-1.1); Prothrombin Time 12.3 Seconds (9.0-12.0)
[2018-06-09] MEDS ORDERED: ACETAMINOPHEN 500 MG TAB ONE (20:16)
[2018-06-09 20:25] LABS: Albumin Level 3.1 gm/dl (3.4-5.0); BUN Creatinine Ratio 10.2 (10-20); Calcium 9.2 mg/dl (8.5-10.1); Creatinine Clr Calc Pharmacy 109.2 ml/min; Est GFR (African American) 109.2; Est GFR (Non-African American) 94.3; Potassium 3.6 mmol/L (3.5-5.1)
[2018-06-09 20:28] LABS: Albumin Globulin Ratio 0.7 (0.9-2); Globulin 4.2 gm/dl (2.5-4.0); Total Protein 7.3 gm/dl (6.4-8.2)
[2018-06-09 21:02] LABS: iSTAT Creatinine 0.6 mg/dl (0.6-1.3); iSTAT Hemoglobin 14.3 g/dl (12.0-16.0); iSTAT Ionized Calcium 1.13 mmol/l (1.12-1.32); iSTAT Potassium 3.9 mEq/L (3.3-5.0)
[2018-06-09 21:03] LABS: Appearance Urine Cloudy (Clear); Bacteria Urine Automated 1+ (Negative); Bilirubin Urine Negative (Negative); Blood Urine 3+ (Negative); Color Urine Orange; Epithelial Cell Urine Auto >30 /lpf (0-5); Glucose Urine UA Negative (Negative); Leukocyte Esterase Urine Negative (Negative); Nitrite Urine Negative (Negative); Protein Urine 2+ (Negative); RBC Urine Automated >30 /hpf (0-4); Urobilinogen Urine Negative (Negative)
[2018-06-09 21:06] LABS: Ketones Urine 3+ (Negative)
[2018-06-09] MEDS ORDERED: IOVERSOL 100ml IV PRN (21:29)
[2018-06-09] MEDS ORDERED: cefTRIAXone SODIUM 1,000 MG/50 ML BAG IV STA (21:52)
--- NOTE | 2018-06-09 22:36 | CT Scan Report ---
ABDOMEN AND PELVIS CT WITH IV CONTRAST CT DOSE: 1183.84 mGycm HISTORY: mild generalized abdominal pain, fevers/chills, h/o UTIs TECHNIQUE: Multiaxial CT images of the abdomen and pelvis were performed following the use of intrave nous contrast. A dose lowering technique was utilized adhering to the principles of ALARA. COMPARISON STUDY: Abdomen and pelvis CT 03/16/2018. Chest CT 02/09/2017. FINDINGS: Small subpleural nodular densities within the right lower lobe posteriorly remain unchanged . The largest nodule measures 6 mm. No pneumoperitoneum. No pneumatosis. No suspicious lytic or blast ic osseous lesions. Hepatic steatosis. No change in the 4.5 cm lobular cyst within the right hepatic lobe. No new hepatic lesions identified. Cholecystectomy. The spleen is mildly enlarged measuring 13. 5 cm in length. This is slightly increased in size. The pancreas and adrenal glands are unremarkable. There are few punctate bilateral renal calculi. No ureteral calculi. No hydronephrosis. Mild bladder wall thickening. This could be due to to the underdistention. Subcentimeter retroperitoneal lymph no mary ann have slightly increased in size. Increase in size in a 2.8 cm hypodense focus within the upper po le of the left kidney. There is mild adjacent fat stranding. This previous measured 1.2 cm. Small fat -containing left inguinal hernia. The uterus and bilateral adnexa are unremarkable. Colonic diverticu losis. No evidence for diverticulitis. Moderate sized supraumbilical fat-containing hernia, unchanged . IMPRESSION: 1. Interval increase in size in a 2.8 cm hypodense focus within the upper pole of the left kidney. Th ere is mild adjacent fat stranding. Given the patient's history, this favors a focal pyelonephritis/l obar nephronia or a developing abscess. However, a renal mass could also have a similar appearance. T herefore, follow-up CT or MRI in one month is recommended to ensure resolution following a course of antibiotic therapy. 2. Mild bladder wall thickening which could be due to a cystitis or underdistention. 3. Mild splenomegaly and a few prominent retroperitoneal lymph nodes which have slightly increased in size. These may be reactive. 4. No bowel wall thickening or obstruction. 5. No change in the 4.5 cm lobular cystic lesion within the right hepatic lobe. 6. Additional findings as described above. Electronically signed by: Judd Harley M.D. 06/09/2018 10:35 PM
[2018-06-09] MEDS ORDERED: metroNIDAZOLE 500 MG/100 ML BAG IV STA (23:11)
[2018-06-09] MEDS ORDERED: NSS + 20MEQ KCL 20 MEQ/1,000 ML BAG IV ONE (23:14)
[2018-06-09 23:23] LABS: Magnesium 1.6 mg/dl (1.8-2.4)
[2018-06-09] MEDS ORDERED: metroNIDAZOLE 500 MG/100 ML BAG IV ONE (23:26)
[2018-06-09] MEDS ORDERED: KETOROLAC TROMETHAMINE 15 MG/ML VIAL IV ONE (23:50)
[2018-06-09] MEDS ORDERED: PROCHLORPERAZINE 5 MG in SYRINGE 4 ML IV ONE (23:50)
--- NOTE | 2018-06-09 23:50 | History & Physical Report ---
Date of Service June 09, 2018 Assessment & Plan (1) Sepsis: Secondary to complicated UTI Enteric organism growth sensitive to ceftriaxone on review of patient's previous microbiologic data Diarrhea rule out C. difficile mood disorder, stable Past tobacco abuse GMF Cultures, IV Ceftriaxone Urology consult RE complicated UTI, abnormal CT IVF Stool C. difficile, Flagyl 1 dose for now, oral vancomycin if stool C. difficile positive DVT prophylaxis . Lovenox subcu Full code. History of Present Illness Chief Complaint: Flank pain Primary Care Provider: Janeth Ackerman MD History obtained from patient and records. Medical history significant for mood disorder, endometriosis, recurrent UTI, ongoing tobacco abuse. Recent confinement February 2018 for abdominal pain, periumbilical hernia. 3 days history of achy flank pain, nausea vomiting diarrhea symptoms, flulike symptoms, fever, chills. Usual smoker's cough symptoms. At the ER, patient given IV ceftriaxone for sepsis. 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 Allergies Allergy/AdvReac Type Severity Reaction Status Date / Time hazelnut Allergy Severe ANAPHYLAXIS; Verified 06/09/18 19:39 reported allergy to all nuts nut - unspecified Allergy Severe ANAPHYLAXIS Verified 06/09/18 19:39 peanut Allergy Severe ANAPHYLAXIS-ALL Verified 06/09/18 19:39 NUTS Penicillins Allergy Intermediate RASH - HAS Verified 06/09/18 19:39 TOLERATED ROCEPHIN 2012 Home Medications Home Medications Medication Instructions Recorded Confirmed Type fluticasone propionate [Flonase 2 spray INTRANASAL DAILY 03/16/18 06/09/18 History Allergy Relief] gabapentin 100 mg PO BID 03/16/18 06/09/18 History sertraline [Zoloft] 50 mg PO DAILY 03/16/18 06/09/18 History valacyclovir [Valtrex] 1,000 mg PO TID 03/16/18 06/09/18 History Past Med/Surg History Medical History UTI (urinary tract infection) (Chronic) Bladder infection (Acute) Shingles (Acute) Hernia of abdominal cavity (Chronic) Asthma (Chronic) Has not used inhaler for years. H/o hospitalization and intubation in 1979. Depression (Chronic) Kidney stones (Chronic) Morbid obesity Surgical History H/O cystoscopy (Resolved) History of appendectomy (Resolved) Hx of cholecystectomy (Resolved) Social History Preferred Language: Thai Communication Ability: Effective Etiology Teacher Required: No Beliefs That Will Affect Care: None Current Living Situation: Family Feels Safe at Home: Yes Safety Concerns: Feels Safe At This Time Smoking Status: Former smoker Tobacco Type: cigarettes Cigarettes Per Day: 20 Second Hand Exposure: No Hx Alcohol Use: Yes Alcohol type: wine Hx Substance Use: No Review of Systems Review of Systems: As per HPI, all 10 systems reviewed, all other ROS negative Physical Exam Physical Exam: GENERAL: Comfortable, obese, no respiratory distress SKIN: Normal color, warm HEENT: [place] palpebral conjunctivae, no ptosis, dry buccal mucosa NECK : Supple, short neck no tenderness CHEST : Decreased breath sounds, expiratory wheezes, no tenderness HEART : Tachycardic, no obvious murmurs ABDOMEN: distention, nontender EXTREMITIES : Minimal LE swelling/tenderness, no other conspicuous deformities noted NEUROLOGIC : Coherent, no facial asymmetry, no other gross focality Results & Data Vital Signs (Past 12 Hours) Vital Signs Temp Pulse Resp BP BP Pulse Ox 06/09/18 20:41 101/46 L 06/09/18 20:00 86/52 L 06/09/18 17:51 38.4 C H 111 H 18 173/97 H 96 Laboratory Results Laboratory Results WBC 13.13 K/uL (4.8-10.8) H 06/09/18 19:52 RBC 4.92 M/uL (4.2-5.4) 06/09/18 19:52 Hgb 13.5 g/dL (12.0-16.0) 06/09/18 19:52 POC Hgb 14.3 g/dl (12.0-16.0) 06/09/18 19:49 Hct 40.7 % (37-47) 06/09/18 19:52 POC Hct 42 % (37-47) 06/09/18 19:49 MCV 82.7 fL (80-100) 06/09/18 19:52 MCH 27.4 pg (25-34) 06/09/18 19:52 MCHC 33.2 g/dL (32-36) 06/09/18 19:52 RDW Std Deviation 44.3 fL (36.4-46.3) 06/09/18 19:52 RDW Coeff of Shannen 14.5 % (11.5-14.5) 06/09/18 19:52 Plt Count 174 K/uL (130-400) 06/09/18 19:52 MPV 10.3 fL (7.4-10.4) 06/09/18 19:52 Immature Gran % (Auto) 0.5 % 06/09/18 19:52 Neut % (Auto) 90.7 % 06/09/18 19:52 Lymph % (Auto) 3.7 % 06/09/18 19:52 [place] % (Auto) 4.9 % 06/09/18 19:52 Eos % (Auto) 0.0 % 06/09/18 19:52 Baso % (Auto) 0.2 % 06/09/18 19:52 Immature Gran # (Auto) 0.06 K/uL (0.00-0.02) H 06/09/18 19:52 Neut # (Auto) 11.92 K/uL (1.4-6.5) H 06/09/18 19:52 Lymph # (Auto) 0.49 K/uL (1.2-3.4) L 06/09/18 19:52 [place] # (Auto) 0.64 K/uL (0.11-0.59) H 06/09/18 19:52 Eos # (Auto) 0.00 K/uL (0-0.5) 06/09/18 19:52 Baso # (Auto) 0.02 K/uL (0-0.2) 06/09/18 19:52 PT 12.3 Seconds (9.0-12.0) H 06/09/18 19:52 INR 1.2 (0.9-1.1) H 06/09/18 19:52 POC Sodium 132 mEq/L (135-144) L 06/09/18 19:49 Sodium 132 mmol/L (136-145) L 06/09/18 19:52 POC Potassium 3.9 mEq/L (3.3-5.0) 06/09/18 19:49 Potassium 3.6 mmol/L (3.5-5.1) 06/09/18 19:52 POC Chloride 97 mEq/L (101-112) L 06/09/18 19:49 Chloride 100 mmol/L (98-107) 06/09/18 19:52 Carbon Dioxide 24 mmol/L (21-32) 06/09/18 19:52 POC Total CO2 24 mEq/l (24-31) 06/09/18 19:49 Anion Gap 8.0 (3-11) 06/09/18 19:52 POC Anion Gap 16.0 mmol/L (16-25) 06/09/18 19:49 POC BUN 6 mg/dl (7-18) L 06/09/18 19:49 BUN 8 mg/dl (7-18) 06/09/18 19:52 Creatinine 0.75 mg/dl (0.6-1.2) 06/09/18 19:52 POC Creatinine 0.6 mg/dl (0.6-1.3) 06/09/18 19:49 Est Cr Clr Drug Dosing 109.2 ml/min 06/09/18 19:52 Est GFR ( Amer) 109.2 06/09/18 19:52 Est GFR (Non-Af Amer) 94.3 06/09/18 19:52 BUN/Creatinine Ratio 10.2 (10-20) 06/09/18 19:52 Glucose 124 mg/dl (70-99) H 06/09/18 19:52 POC Glucose (other) 130 mg/dl (70-99) H 06/09/18 19:49 Calcium 9.2 mg/dl (8.5-10.1) 06/09/18 19:52 POC Ioniz Calcium Kevin 1.13 mmol/l (1.12-1.32) 06/09/18 19:49 Magnesium 1.6 mg/dl (1.8-2.4) L 06/09/18 19:52 Total Bilirubin 1.0 mg/dl (0.2-1) 06/09/18 19:52 AST 23 U/L (15-37) 06/09/18 19:52 ALT 28 U/L (12-78) 06/09/18 19:52 Alkaline Phosphatase 81 U/L (45-117) 06/09/18 19:52 Total Protein 7.3 gm/dl (6.4-8.2) 06/09/18 19:52 Albumin 3.1 gm/dl (3.4-5.0) L 06/09/18 19:52 Globulin 4.2 gm/dl (2.5-4.0) H 06/09/18 19:52 Albumin/Globulin Ratio 0.7 (0.9-2) L 06/09/18 19:52 Lipase 60 U/L (73-393) L 06/09/18 19:52 Urine Color [place] 06/09/18 20:45 Urine Appearance Cloudy (Clear) H 06/09/18 20:45 Urine pH 8.0 (4.5-7.5) H 06/09/18 20:45 Ur Specific [place] 1.020 (1.000-1.030) 06/09/18 20:45 Urine Protein 2+ (Negative) H 06/09/18 20:45 Urine Glucose (UA) Negative (Negative) 06/09/18 20:45 Urine Ketones 3+ (Negative) H 06/09/18 20:45 Urine Blood 3+ (Negative) H 06/09/18 20:45 Urine Nitrite Negative (Negative) 06/09/18 20:45 Urine Bilirubin Negative (Negative) 06/09/18 20:45 Urine Urobilinogen Negative (Negative) 06/09/18 20:45 Ur Leukocyte Esterase Negative (Negative) 06/09/18 20:45 Urine WBC (Auto) 5-10 /hpf (0-5) H 06/09/18 20:45 Urine RBC (Auto) >30 /hpf (0-4) H 06/09/18 20:45 U Hyaline Cast (Auto) 1-5 /lpf (0-5) 06/09/18 20:45 U Epithel Cells (Auto) >30 /lpf (0-5) H 06/09/18 20:45 Urine Bacteria (Auto) 1+ (Negative) H 06/09/18 20:45 POC Ur Test NEG (NEG) 06/09/18 18:[address] abdomen pelvis: 1. Interval increase in size in a 2.8 cm hypodense focus within the upper pole of the left kidney. There is mild adjacent fat stranding. Given the patient's history, this favors a focal pyelonephritis/lobar nephronia or a developing abscess. However, a renal mass could also have a similar appearance. Therefore, follow-up CT or MRI in one month is recommended to ensure resolution following a course of antibiotic therapy. 2. Mild bladder wall thickening which could be due to a cystitis or underdistention. 3. Mild splenomegaly and a few prominent retroperitoneal lymph nodes which have slightly increased in size. These may be reactive. 4. No bowel wall thickening or obstruction. 5. No change in the 4.5 cm lobular cystic lesion within the right hepatic lobe. 6. Additional findings as described above. Chest x-ray: No acute process (1) Sepsis Sepsis type: sepsis due to unspecified organism Qualified Code(s): A41.9 - Sepsis, unspecified organism
[2018-06-10] MEDS ORDERED: KETOROLAC TROMETHAMINE 15 MG/ML VIAL IV PRN
[2018-06-10] MEDS ORDERED: PROCHLORPERAZINE 5 MG/ML 2 ML VIAL ONE (00:02)
[2018-06-10] MEDS ORDERED: XOPENEX/ATROVENT 1.25mg/0.5MG NEB COMBO NEB STA (00:04)
[2018-06-10] MEDS ORDERED: IPRATROPIUM BROMIDE NEB SOLN 0.02% 2.5 ML VIAL INH STA (00:29)
[2018-06-10] MEDS ORDERED: LEVALBUTEROL 1.25MG/0.5ML NEB INH STA (00:30)
--- NOTE | 2018-06-10 00:34 | Emergency Department Note ---
Entered by Claudio Malin acting as a scribe for Abdullahi Maurice MD History of Present Illness General Chief complaint: Flu Like Symptoms Stated complaint: FLU LIKE SYMTPOMS Time Seen by Provider: 06/09/18 18:46 Source: patient History of Present Illness Onset (ago): day(s) 3 Location: chest (flu-like symptoms) Pain Consistency: + intermittent Maximum Pain Intensity: 6 Relieved By: + other (Tylenol) Associated symptoms: + denies other symptoms (blood in urine, burning urination, and swelling of her legs), + fever/chills, + nausea/vomiting and + other (back pain) The patient is a 48 year-old white F w/ PMHx of asthma, depression, endometriosis, kidney stones, and UTIs who presents to the ED w/ CC of intermittent flu-like symptoms beginning 3 days ago. She states that she is cur rently experiencing nausea, vomiting, back pain, fever, and chills. She adds that she threw up 3 times last night and 5 times today. She notes that her nausea symptoms have been relieved by Tylenol. She denies currently experiencing blood in urine, burning urination, and swelling of her legs. She states that she has a history of UTIs but denies that her current symptoms are similar. She adds that she just quit smoking a week ago. Home Medications Home Medications Medication Instructions Recorded Confirmed Type fluticasone propionate [Flonase 2 spray INTRANASAL DAILY 03/16/18 06/09/18 History Allergy Relief] gabapentin 100 mg PO BID 03/16/18 06/09/18 History sertraline [Zoloft] 50 mg PO DAILY 03/16/18 06/09/18 History valacyclovir [Valtrex] 1,000 mg PO TID 03/16/18 06/09/18 History Allergies Allergy/AdvReac Type Severity Reaction Status Date / Time hazelnut Allergy Severe ANAPHYLAXIS; Verified 06/09/18 19:39 reported allergy to all nuts nut - unspecified Allergy Severe ANAPHYLAXIS Verified 06/09/18 19:39 peanut Allergy Severe ANAPHYLAXIS-ALL Verified 06/09/18 19:39 NUTS Penicillins Allergy Intermediate RASH - HAS Verified 06/09/18 19:39 TOLERATED ROCEPHIN 2012 Past Med/Surg History Medical History UTI (urinary tract infection) (Chronic) Bladder infection (Acute) Shingles (Acute) Hernia of abdominal cavity (Chronic) Asthma (Chronic) Has not used inhaler for years. H/o hospitalization and intubation in 1979. Depression (Chronic) Kidney stones (Chronic) Morbid obesity Surgical History H/O cystoscopy (Resolved) History of appendectomy (Resolved) Hx of cholecystectomy (Resolved) Social History Preferred Language: Vietnamese Communication Ability: Effective Barrel Roller Operator Required: No Beliefs That Will Affect Care: None Current Living Situation: Family Feels Safe at Home: Yes Safety Concerns: Feels Safe At This Time Smoking Status: Former smoker Tobacco Type: cigarettes Cigarettes Per Day: 20 Second Hand Exposure: No Hx Alcohol Use: Yes Alcohol type: wine Hx Substance Use: No Review of Systems See HPI for pertinent positives & negatives. and A total of 10 systems reviewed and were otherwise negative Physical Exam Vital Signs Vital Signs - 24 hr 06/09/18 17:51 06/09/18 20:00 06/09/18 20:41 Temperature 38.4 C H Temperature Source Oral Sepsis Recent Fever Within 48 Hours No Sepsis New/Unexplained Change in Mental Status No Sepsis Action Taken by Nursing No Action Required Pulse Rate 111 H Pulse Rate [Finger] Respiratory Rate 18 Respiratory Effort / Characteristics Respiratory Depth Blood Pressure 173/97 H Blood Pressure [Right Arm] 86/52 L 101/46 L Blood Pressure Mean 122 Blood Pressure Mean [Right Arm] 63 64 Blood Pressure Position [Right Arm] Sitting Standing Pulse Oximetry 96 Oxygen Delivery Method Room Air 06/09/18 23:54 Temperature 36.6 C Temperature Source Oral Sepsis Recent Fever Within 48 Hours Sepsis New/Unexplained Change in Mental Status Sepsis Action Taken by Nursing Pulse Rate Pulse Rate [Finger] 67 Respiratory Rate 18 Respiratory Effort / Characteristics Non-Labored Spontaneous Respiratory Depth Normal Blood Pressure Blood Pressure [Right Arm] 101/62 Blood Pressure Mean Blood Pressure Mean [Right Arm] 75 Blood Pressure Position [Right Arm] Pulse Oximetry 95 Oxygen Delivery Method Room Air GENERAL: Well nourished, mild distress. EYE EXAM: Normal conjunctiva. PERRL, no anisocoria and EOM's grossly intact w/o pain. OROPHARYNX: No exudate, posterior pharynx is clear, no tonsillar/uvular deviation or swelling. NECK: Supple, no nuchal rigidity, no adenopathy, non-tender. no signs of meningismus. LUNGS: Coarse breath sounds in right base. Normal chest wall mechanics. HEART: Tachycardic, no MRG. ABDOMEN: Abdomen soft, mild abd discomfort not localized, normo-active bowel sounds, no masses, no rebound or guarding. Not peritonitic, negative obturators and psoas. BACK: No CVA TTP. SKIN: No rashes and no bruising. UPPER EXTREMITIES: Upper extremities are grossly normal. LOWER EXTREMITIES: No pitting edema. No calf pain. NEURO EXAM: Cranial nerves II-XII grossly intact, normal speech, 5/5 strength throughout, moves all 4 extremities on command w/o issue. Course 1849: The patient was evaluated in room B12A. A complete history and physical ex amination was performed. 2248: I reviewed the patient's case [facility] He will evaluate the patient for further management. Consultations Consultation #1: I reviewed the patient's case with Dr[facility]unsford [facility] He will evaluate the patient for further management. Time: 22:49 Administered Medications Ioversol (Optiray 320 100ml) 95 ml IV ONCE PRN PRN Reason: Interaction Checking Stop: 06/13/18 21:28 Last Admin: 06/09/18 21:29 Dose: 95 ml Documented by: [id number] Discontinued Medications Acetaminophen (Tylenol) Confirm Administered Dose 1,000 mg .ROUTE .STK-MED ONE Stop: 06/09/18 20:17 Last Admin: 06/09/18 20:17 Dose: 1,000 mg Documented by: [id number] Sodium Chloride (Nss 1000ml) 2,000 mls @ 999 mls/hr IV .Q2H1M ROSIBEL Stop: 06/09/18 21:00 Last Infusion: 06/09/18 21:51 Dose: 0 mls/hr Documented by: [id number] Admin: 06/09/18 20:03 Dose: 999 mls/hr Documented by: [id number] Ceftriaxone Sodium (Rocephin) 1,000 mg in 50 mls @ 100 mls/hr IV NOW STA Stop: 06/09/18 22:21 Last Infusion: 06/09/18 22:41 Dose: 0 mls/hr Documented by: [id number] Admin: 06/09/18 22:09 Dose: 100 mls/hr Documented by: [id number] Metronidazole (Flagyl) 500 mg in 100 mls @ 100 mls/hr IV NOW STA Stop: 06/10/18 00:10 Last Admin: 06/10/18 00:12 Dose: Not Given Documented by: [id number] Prochlorperazine 5 mg/ Syringe 5 mls @ 5 mls/min IV ONE ONE Stop: 06/09/18 23:51 Last Admin: 06/10/18 00:12 Dose: 5 mls/min Documented by: [id number] Ketorolac Tromethamine (Toradol) 30 mg IV NOW STA Stop: 06/09/18 18:55 Last Admin: 06/09/18 20:02 Dose: 30 mg Documented by: [id number] Ketorolac Tromethamine (Toradol) 15 mg IV NOW ONE Stop: 06/09/18 23:51 Last Admin: 06/10/18 00:12 Dose: 15 mg Documented by: [id number] Metronidazole (Flagyl) Confirm Administered Dose 500 mg IV .STK-MED ONE Stop: 06/09/18 23:27 Last Admin: 06/09/18 23:35 Dose: 500 mg Documented by: [id number] Ondansetron HCl (Zofran) 4 mg IV NOW STA Stop: 06/09/18 18:55 Last Admin: 06/09/18 20:03 Dose: 4 mg Documented by: [id number] Prochlorperazine (Compazine) Confirm Administered Dose 10 mg .ROUTE .STK-MED ONE Stop: 06/10/18 00:03 Last Admin: 06/10/18 00:12 Dose: Not Given Documented by: [id number] Medical Decision Making Medical Records Attestation: I reviewed the patient's medical records. Home Medications Current Medication List: was personally reviewed by me Laboratory Data Attestation: I reviewed the patient's lab results. Result diagrams: 06/09/18 19:52 06/09/18 19:52 Lab Results 06/09/18 06/09/18 06/09/18 Range/Units 18:54 19:49 19:52 WBC 13.13 H (4.8-10.8) K/uL RBC 4.92 (4.2-5.4) M/uL Hgb 13.5 (12.0-16.0) g/dL POC Hgb 14.3 (12.0-16.0) g/dl Hct 40.7 (37-47) % POC Hct 42 (37-47) % MCV 82.7 (80-100) fL MCH 27.4 (25-34) pg MCHC 33.2 (32-36) g/dL RDW Std Deviation 44.3 (36.4-46.3) fL RDW Coeff of Shannen 14.5 (11.5-14.5) % Plt Count 174 (130-400) K/uL MPV 10.3 (7.4-10.4) fL Immature Gran % (Auto) 0.5 % Neut % (Auto) 90.7 % Lymph % (Auto) 3.7 % [place] % (Auto) 4.9 % Eos % (Auto) 0.0 % Baso % (Auto) 0.2 % Immature Gran # (Auto) 0.06 H (0.00-0.02) K/uL Neut # (Auto) 11.92 H (1.4-6.5) K/uL Lymph # (Auto) 0.49 L (1.2-3.4) K/uL [place] # (Auto) 0.64 H (0.11-0.59) K/uL Eos # (Auto) 0.00 (0-0.5) K/uL Baso # (Auto) 0.02 (0-0.2) K/uL PT (9.0-12.0) Seconds INR (0.9-1.1) POC Sodium 132 L (135-144) mEq/L Sodium (136-145) mmol/L POC Potassium 3.9 (3.3-5.0) mEq/L Potassium (3.5-5.1) mmol/L POC Chloride 97 L (101-112) mEq/L Chloride (98-107) mmol/L Carbon Dioxide (21-32) mmol/L POC Total CO2 24 (24-31) mEq/l Anion Gap (3-11) POC Anion Gap 16.0 (16-25) mmol/L POC BUN 6 L (7-18) mg/dl BUN (7-18) mg/dl Creatinine (0.6-1.2) mg/dl POC Creatinine 0.6 (0.6-1.3) mg/dl Est Cr Clr Drug Dosing ml/min Est GFR ( Amer) Est GFR (Non-Af Amer) BUN/Creatinine Ratio (10-20) Glucose (70-99) mg/dl POC Glucose (other) 130 H (70-99) mg/dl Calcium (8.5-10.1) mg/dl POC Ioniz Calcium Kevin 1.13 (1.12-1.32) mmol/l Magnesium (1.8-2.4) mg/dl Total Bilirubin (0.2-1) mg/dl AST (15-37) U/L ALT (12-78) U/L Alkaline Phosphatase (45-117) U/L Total Protein (6.4-8.2) gm/dl Albumin (3.4-5.0) gm/dl Globulin (2.5-4.0) gm/dl Albumin/Globulin Ratio (0.9-2) Lipase (73-393) U/L Urine Color Urine Appearance (Clear) Urine pH (4.5-7.5) Ur Specific [place] (1.000-1.030) Urine Protein (Negative) Urine Glucose (UA) (Negative) Urine Ketones (Negative) Urine Blood (Negative) Urine Nitrite (Negative) Urine Bilirubin (Negative) Urine Urobilinogen (Negative) Ur Leukocyte Esterase (Negative) Urine WBC (Auto) (0-5) /hpf Urine RBC (Auto) (0-4) /hpf U Hyaline Cast (Auto) (0-5) /lpf U Epithel Cells (Auto) (0-5) /lpf Urine Bacteria (Auto) (Negative) POC Ur Test NEG (NEG) 06/09/18 06/09/18 06/09/18 Range/Units 19:52 19:52 20:45 WBC (4.8-10.8) K/uL RBC (4.2-5.4) M/uL Hgb (12.0-16.0) g/dL POC Hgb (12.0-16.0) g/dl Hct (37-47) % POC Hct (37-47) % MCV (80-100) fL MCH (25-34) pg MCHC (32-36) g/dL RDW Std Deviation (36.4-46.3) fL RDW Coeff of Shannen (11.5-14.5) % Plt Count (130-400) K/uL MPV (7.4-10.4) fL Immature Gran % (Auto) % Neut % (Auto) % Lymph % (Auto) % [place] % (Auto) % Eos % (Auto) % Baso % (Auto) % Immature Gran # (Auto) (0.00-0.02) K/uL Neut # (Auto) (1.4-6.5) K/uL Lymph # (Auto) (1.2-3.4) K/uL [place] # (Auto) (0.11-0.59) K/uL Eos # (Auto) (0-0.5) K/uL Baso # (Auto) (0-0.2) K/uL PT 12.3 H (9.0-12.0) Seconds INR 1.2 H (0.9-1.1) POC Sodium (135-144) mEq/L Sodium 132 L (136-145) mmol/L POC Potassium (3.3-5.0) mEq/L Potassium 3.6 (3.5-5.1) mmol/L POC Chloride (101-112) mEq/L Chloride 100 (98-107) mmol/L Carbon Dioxide 24 (21-32) mmol/L POC Total CO2 (24-31) mEq/l Anion Gap 8.0 (3-11) POC Anion Gap (16-25) mmol/L POC BUN (7-18) mg/dl BUN 8 (7-18) mg/dl Creatinine 0.75 (0.6-1.2) mg/dl POC Creatinine (0.6-1.3) mg/dl Est Cr Clr Drug Dosing 109.2 ml/min Est GFR ( Amer) 109.2 Est GFR (Non-Af Amer) 94.3 BUN/Creatinine Ratio 10.2 (10-20) Glucose 124 H (70-99) mg/dl POC Glucose (other) (70-99) mg/dl Calcium 9.2 (8.5-10.1) mg/dl POC Ioniz Calcium Kevin (1.12-1.32) mmol/l Magnesium 1.6 L (1.8-2.4) mg/dl Total Bilirubin 1.0 (0.2-1) mg/dl AST 23 (15-37) U/L ALT 28 (12-78) U/L Alkaline Phosphatase 81 (45-117) U/L Total Protein 7.3 (6.4-8.2) gm/dl Albumin 3.1 L (3.4-5.0) gm/dl Globulin 4.2 H (2.5-4.0) gm/dl Albumin/Globulin Ratio 0.7 L (0.9-2) Lipase 60 L (73-393) U/L Urine Color [place] Urine Appearance Cloudy H (Clear) Urine pH 8.0 H (4.5-7.5) Ur Specific [place] 1.020 (1.000-1.030) Urine Protein 2+ H (Negative) Urine Glucose (UA) Negative (Negative) Urine Ketones 3+ H (Negative) Urine Blood 3+ H (Negative) Urine Nitrite Negative (Negative) Urine Bilirubin Negative (Negative) Urine Urobilinogen Negative (Negative) Ur Leukocyte Esterase Negative (Negative) Urine WBC (Auto) 5-10 H (0-5) /hpf Urine RBC (Auto) >30 H (0-4) /hpf U Hyaline Cast (Auto) 1-5 (0-5) /lpf U Epithel Cells (Auto) >30 H (0-5) /lpf Urine Bacteria (Auto) 1+ H (Negative) POC Ur Test (NEG) Imaging Data Radiologist's Impression: Radiology results as stated below per my review and the radiologist's interpretation: ABDOMEN AND PELVIS CT WITH IV CONTRAST CT DOSE: 1183.84 mGycm HISTORY: mild generalized abdominal pain, fevers/chills, h/o UTIs TECHNIQUE: Multiaxial CT images of the abdomen and pelvis were performed following the use of intravenous contrast. A dose lowering technique was utilized adhering to the principles of ALARA. COMPARISON STUDY: Abdomen and pelvis CT 03/16/2018. Chest CT 02/09/2017. FINDINGS: Small subpleural nodular densities within the right lower lobe posteriorly remain unchanged. The largest nodule measures 6 mm. No pneumoperitoneum. No pneumatosis. No suspicious lytic or blastic osseous lesions. Hepatic steatosis. No change in the 4.5 cm lobular cyst within the right hepatic lobe. No new hepatic lesions identified. Cholecystectomy. The spleen is mildly enlarged measuring 13.5 cm in length. This is slightly increased in size. The pancreas and adrenal glands are unremarkable. There are few punctate bilateral renal calculi. No ureteral calculi. No hydronephrosis. Mild bladder wall thickening. This could be due to to the underdistention. Subc entimeter retroperitoneal lymph nodes have slightly increased in size. Increase in size in a 2.8 cm hypodense focus within the upper pole of the left kidney. There is mild adjacent fat stranding. This previous measured 1.2 cm. Small fat- containing left inguinal hernia. The uterus and bilateral adnexa are unremarkable. Colonic diverticulosis. No evidence for diverticulitis. Moderate sized supraumbilical fat-containing hernia, unchanged. IMPRESSION: 1. Interval increase in size in a 2.8 cm hypodense focus within the upper pole of the left kidney. There is mild adjacent fat stranding. Given the patient's history, this favors a focal pyelonephritis/lobar nephronia or a developing abscess. However, a renal mass could also have a similar appearance. Therefore, follow-up CT or MRI in one month is recommended to ensure resolution following a course of antibiotic therapy. 2. Mild bladder wall thickening which could be due to a cystitis or underdistention. 3. Mild splenomegaly and a few prominent retroperitoneal lymph nodes which have slightly increased in size. These may be reactive. 4. No bowel wall thickening or obstruction. 5. No change in the 4.5 cm lobular cystic lesion within the right hepatic lobe. 6. Additional findings as described above. Electronically signed by: Judd Harley M.D. 06/09/2018 10:35 PM XR chest 1V portable HISTORY: fever, chills, cough COMPARISON: Chest 04/01/2017. FINDINGS: No pneumothorax. No pleural effusions. The heart is normal in size. No focal lung consolidations to suggest pneumonia. No evidence for pulmonary edema. IMPRESSION: No acute process. Electronically signed by: Judd Harley M.D. 06/09/2018 7:19 PM ECG Data Attestation: I personally reviewed and interpreted this ECG as follows: Indication: chest pain Rate (beats per minute): 110 Rhythm: sinus tachycardia Findings: + other (normal QRS duration, normal axis, no STs changes) and + T- wave inversion (questionable, Lead 3) Blood Pressure Blood Pressure Findings: Low blood pressure Blood Pressure Disposition: further management by hospitalist ANETA Zazueta The patient is a 48 year-old white F w/ PMHx of asthma, depression, endometriosis, kidney stones, and UTIs who presents to the ED w/ CC of intermi ttent flu-like symptoms beginning 3 days ago. Differential diagnosis includes: viral syndrome, otitis, pharyngitis, pneumonia, influenza, meningitis, urinary tract infection, sepsis, bacteremia, as well as others were entertained. Patient was seen and evaluated the bedside. Patient has had 3 days of symptoms which include nausea vomiting associated diarrhea. The patient has had some tachycardia and febrile on presentation. The patient did have blood work completed along with urinalysis CT abdomen pelvis was given IV fluids had blood cultures drawn and a urinalysis. Patient did have a mild white count of 13. Patient has normal kidney function. Patient has normal LFTs and lipase. Chest x-ray is negative. EKG shows sinus tachycardia no evidence of overt ischemia. Patient CT did show likely pyelonephritis. Also did relate possibly early development of abscess. Patient's heart rate did improve. Given the patient's initial picture of sepsis given her tachycardia white blood cell count fever and associated source believe the patient would benefit from IV antibiotics and follow-up clinically to ensure that she response to treatment as there was concern for possible developing abscess. I did speak with the on-call hospitalist who agreed to further evaluate treat the patient. Patient was admitted to the medicine service. Impression & Plan Pyelonephritis, Sepsis, Encounter for smoking cessation counseling Discharge Plan Visit Data Chief Complaint: Flu Like Symptoms Stated Complaint: FLU LIKE SYMTPOMS ED Provider: Abdullahi Maurice Discharge Problem: Pyelonephritis, Sepsis, Encounter for smoking cessation counseling Patient Disposition: Admitted As Inpatient Discharge Instructions Interventions: ED Discharge Assessment Last Done: 06/10/18 00:25 Forms Stand Alone Forms: My MedAdherence Prescriptions Prescriptions: No Action valacyclovir [Valtrex] 1 gram Tablet 1,000 mg PO TID RF: 0 fluticasone propionate [Flonase Allergy Relief] 50 mcg/actuation Kinder,Caruso spension 2 spray INTRANASAL DAILY RF: 0 sertraline [Zoloft] 50 mg Tablet 50 mg PO DAILY RF: 0 gabapentin 100 mg Capsule 100 mg PO BID RF: 0 Referrals Referrals: Janeth Ackerman MD [Primary Care Provider] - Discharge Problem: Sepsis Qualifiers: Sepsis type: sepsis due to unspecified organism Qualified Code(s): A41.9 - Sepsis, unspecified organism The scribe's documentation has been prepared under my direction and personally reviewed by me in its entirety. I confirm that the note above accurately reflects all work, treatment, procedures, and medical decision making performed by me.
[2018-06-10 00:37] LABS: Influenza A virus by PCR Neg for Influ A (Neg); Influenza B virus by PCR Neg for Influ B (Neg)
[2018-06-10] MEDS: PROCHLORPERAZINE 5 MG in SYRINGE 4 ML IV PRN (07:09)
[2018-06-10 07:56] LABS: Basophils # (auto) 0.02 K/uL (0-0.2); Basophils % (auto) 0.2 %; Eosinophils # (auto) 0.04 K/uL (0-0.5); Eosinophils % (auto) 0.4 %; Hematocrit (blood only) 37.7 % (37-47); Hemoglobin 12.1 g/dL (12.0-16.0); Immature Granulocytes # (auto) 0.04 K/uL (0.00-0.02); Immature Granulocytes % (auto) 0.4 %; Lymphocytes % (auto) 4.5 %; Mean Corpuscular Hgb Conc 32.1 g/dL (32-36); Mean Corpuscular Volume 85.1 fL (80-100); Mean Platelet Volume 10.3 fL (7.4-10.4); Monocytes # (auto) 0.72 K/uL (0.11-0.59); Monocytes % (auto) 6.5 %; Neutrophils # (auto) 9.71 K/uL (1.4-6.5); Platelet Count 159 K/uL (130-400); RDW Coefficient of Variation 14.9 % (11.5-14.5); RDW Standard Deviation 46.6 fL (36.4-46.3); Red Blood Count 4.43 M/uL (4.2-5.4); White Blood Count 11.03 K/uL (4.8-10.8)
[2018-06-10] MEDS: GABAPENTIN 100 MG CAP PO SCH ×2 (08:13→20:21)
[2018-06-10] MEDS: VALACYCLOVIR HCL 500 MG TABLET PO SCH ×3 (08:13→20:19)
[2018-06-10] MEDS: SERTRALINE HCL 50 MG TABLET PO SCH (08:13)
[2018-06-10] MEDS: FLUTICASONE PROPIONATE NA SPR 16 GM BTL NAE SCH (08:14)
[2018-06-10 08:26] LABS: BUN Creatinine Ratio 19.2 (10-20); Calcium 8.5 mg/dl (8.5-10.1); Creatinine Clr Calc Pharmacy 156.6 ml/min; Est GFR (African American) 130.1; Est GFR (Non-African American) 112.3; Magnesium 1.9 mg/dl (1.8-2.4); Potassium 3.6 mmol/L (3.5-5.1)
[2018-06-10] MEDS: IBUPROFEN 200 MG TAB PO PRN ×2 (09:15→17:38)
[2018-06-10] MEDS: ALBUTEROL 0.5% NEB SOLN 2.5 MG/0.5 ML VIAL NEB PRN (09:19)
[2018-06-10] MEDS ORDERED: MAGNESIUM SULFATE / D5W 1 GM/100 ML BAG IV ONE (11:16)
[2018-06-10] MEDS ORDERED: LORazepam 0.25 MG/0.5 ML VIAL IV STA (12:24)
[2018-06-10] MEDS: CEFEPIME 2,000 MG in SYRINGE 7.5 ML IV SCH ×2 (12:46→20:19)
[2018-06-10] MEDS ORDERED: GADOBUTROL 65ML VIAL IV PRN (14:19)
--- NOTE | 2018-06-10 15:35 | Magnetic Resonance Report ---
MR lumbar spine wo/w con CLINICAL HISTORY: Severe back pain. Fever, possible osteomyelitis. TECHNIQUE: Sagittal and axial T1, T2 and STIR images were obtained. Images were acquired before and a fter the administration of 11 cc of intravenous Gadavist COMPARISON STUDY: No previous studies for comparison. OBSERVATIONS: The cytotechnologist/histotechnologist film reveals mild splenomegaly. There are T2 bright lesions within the right lobe of the li lane. The vertebral bodies and posterior elements appear intact. There is no abnormal bony signal present t o suggest a marrow replacement process. L1-2: No disc protrusions or extrusions. No evidence of spinal canal or neural foraminal compromise. L2-3: No disc protrusions or extrusions. No evidence of spinal canal or neural foraminal compromise. L3-4: No disc protrusions or extrusions. No evidence of spinal canal or neural foraminal compromise. L4-5: No disc protrusions or extrusions. No evidence of spinal canal or neural foraminal compromise. L5-S1: There is a small broad-based central disc protrusion. There is no significant spinal stenosis. There is minor left-sided foraminal narrowing. The conus medullaris and cauda equina appear normal. There are no pathologically enhancing masses. There are no findings to indicate epidural abscess. There are no findings to indicate discitis or osteomyelitis. IMPRESSION: 1. No evidence of discitis or osteomyelitis 2. No evidence of epidural abscess 3. Small central disc protrusion at the L5-S1 level, a finding of doubtful acute clinical significanc e Electronically signed by: Danny Olivo M.D. 06/10/2018 3:33 PM
--- NOTE | 2018-06-10 15:49 | Magnetic Resonance Report ---
MR abdomen wo/w con CLINICAL HISTORY: Severe back pain and fever. TECHNIQUE: Imaging was performed prior to and following IV contrast injection. The patient was admini stered 11 cc of intravenous Gadavist. COMPARISON STUDY: CT scan the abdomen pelvis dated 06/09/2018 FINDINGS: Imaging was acquired in the axial and coronal planes. The spleen is mildly enlarged measuring 14.5 cm. There is no evidence of abdominal aortic dilatation. No adrenal masses are visualized. No pancreatic masses are visualized. There is a cluster of T2 bright cystic lesions within the right hepatic lobe measuring 4.6 cm. These are slowly enlarging when compared with studies dating back to 2013. There is no pathologic post cont rast-enhancement. Likely diagnostic considerations include biliary cystadenoma versus clustered hepat ic cysts. Also evident is a 1 cm enhancing nodule within the right lobe of the liver. This is T2 brig ht and may represent a flash filling hemangioma. There is a fat-containing ventral hernia. There are bilateral T2 bright renal lesions consistent with cysts. In addition there is a nonenhancin g 22 mm lesion arising from the upper pole the left kidney which has mixed signal attenuation on T2 w eighted images. Given the CT appearance, and history of fever and back pain, this may represent a foc al lobar nephronia. As was stated in the prior CT report, a 4 week follow-up study is recommended. IMPRESSION: 1. No evidence of solid renal neoplasm 2. Bilateral renal cysts 3. Nonenhancing 22 mm lesion within the upper pole of the left kidney. Given the CT appearance and cl inical history this may represent focal lobar nephronia. As was stated in the prior CT report a 4 wee k follow-up study is recommended 4. Fat-containing ventral hernia 5. Slowly enlarging cystic lesion within the right lobe of the liver currently measuring 4.6 cm. Like ly diagnostic considerations include a biliary cystadenoma versus clustered hepatic cysts 6. 1 cm T2 bright enhancing right lobe hepatic nodule, likely representing a flash filling hemangioma 7. Mild splenomegaly Electronically signed by: Danny Olivo M.D. 06/10/2018 3:47 PM
[2018-06-10] MEDS ORDERED: OXYCODONE HCL IR 5 MG TAB (IMMEDIATE RELEASE) PO PRN (17:45)
[2018-06-10] MEDS ORDERED: IBUPROFEN 200 MG TAB PO PRN (17:46)
--- NOTE | 2018-06-10 19:10 | Hospitalist Progress Note ---
Date of Service June 10, 2018 Assessment & Plan (1) Sepsis: Sepsis Bacteremia blood cultures with gram negative bacilli upgraded admission ceftriaxone antibiotic with cefepime Possible Pyelonephritis and renal cysts -MRI abdomen 1. No evidence of solid renal neoplasm 2. Bilateral renal cysts 3. Nonenhancing 22 mm lesion within the upper pole of the left kidney. Given the CT appearance and clinical history this may represent focal lobar nephronia. As was stated in the prior CT report a 4 week follow-up study is recommended 4. Fat-containing ventral hernia 5. Slowly enlarging cystic lesion within the right lobe of the liver currently measuring 4.6 cm. Likely diagnostic considerations include a biliary cystadenoma versus clustered hepatic cysts 6. 1 cm T2 bright enhancing right lobe hepatic nodule, likely representing a flash filling hemangioma 7. Mild splenomegaly Low back pain secondary to disc protrusion Lumbar spine MRI 1. No evidence of discitis or osteomyelitis 2. No evidence of epidural abscess 3. Small central disc protrusion at the L5-S1 level, Mood disorder -continue Zoloft and gabapentin DVT prophylaxis . SCDs Full code. Subjective Patient feeling better today. back pain of lower back better but tenderness to palpation. denies pain with urination. headache feeling better. no vomiting. no shortness of breath. denies dysuria Physical Exam Constitutional: WD/WN, vitals as above Eyes: PERRL, conjunctivae normal, anicteric sclerae EOM intact bilaterally Neck: trachea midline, no thyromegaly normal visual inspection Respiratory: normal respiratory effort, lungs clear to auscultation Cardiovascular: Rate/Rhythm: regular rhythm and + bradycardic Gastrointestinal (Abdomen): normal bowel sounds, soft, nontender, no hepatosplenomegaly Musculoskeletal: Head/Neck/Chest: normocephalic and head atraumatic low back tenderness to palpation of the lumbar sacral spine. no flank pain Neurologic: PERRL, EOMI, accommodation nl, no face palsy, no dysarthria CN's II-XI intact bilaterally Psychiatric: A+Ox3, euthymic affect Results & Data Vital Signs (Past 12 Hours) Vital Signs Temp Pulse Resp BP Pulse Ox 06/10/18 15:26 36.6 C 65 18 91/52 L 97 06/10/18 09:18 20 94 06/10/18 09:00 38.4 C H 138 H 18 94 06/10/18 08:06 36.9 C 84 20 123/66 96 (1) Sepsis Sepsis type: sepsis due to unspecified organism Qualified Code(s): A41.9 - Sepsis, unspecified organism
[2018-06-10] MEDS ORDERED: cefTRIAXone SODIUM 1,000 MG in DEXTROSE 5% 50 ML IV SCH (21:00)
[2018-06-11] MEDS: PROCHLORPERAZINE 5 MG in SYRINGE 4 ML IV PRN ×3 (00:01→21:51)
[2018-06-11] MEDS: ALBUTEROL 0.5% NEB SOLN 2.5 MG/0.5 ML VIAL NEB PRN (00:08)
[2018-06-11] MEDS: CEFEPIME 2,000 MG in SYRINGE 7.5 ML IV SCH ×3 (04:45→20:33)
[2018-06-11] MEDS: FLUTICASONE PROPIONATE NA SPR 16 GM BTL NAE SCH (08:15)
[2018-06-11] MEDS: SERTRALINE HCL 50 MG TABLET PO SCH (08:16)
[2018-06-11] MEDS: GABAPENTIN 100 MG CAP PO SCH ×2 (08:16→20:33)
[2018-06-11] MEDS: VALACYCLOVIR HCL 500 MG TABLET PO SCH ×2 (08:16→14:38)
[2018-06-11 09:32] LABS: Basophils # (auto) 0.02 K/uL (0-0.2); Basophils % (auto) 0.3 %; Eosinophils # (auto) 0.17 K/uL (0-0.5); Eosinophils % (auto) 2.5 %; Hematocrit (blood only) 35.4 % (37-47); Hemoglobin 11.2 g/dL (12.0-16.0); Immature Granulocytes # (auto) 0.01 K/uL (0.00-0.02); Immature Granulocytes % (auto) 0.1 %; Lymphocytes % (auto) 17.4 %; Mean Corpuscular Hgb Conc 31.6 g/dL (32-36); Mean Corpuscular Volume 85.9 fL (80-100); Mean Platelet Volume 10.6 fL (7.4-10.4); Monocytes # (auto) 0.74 K/uL (0.11-0.59); Monocytes % (auto) 10.7 %; Neutrophils # (auto) 4.76 K/uL (1.4-6.5); Platelet Count 163 K/uL (130-400); RDW Coefficient of Variation 15.1 % (11.5-14.5); RDW Standard Deviation 47.3 fL (36.4-46.3); Red Blood Count 4.12 M/uL (4.2-5.4)
[2018-06-11 10:06] LABS: BUN Creatinine Ratio 12.9 (10-20); Calcium 8.5 mg/dl (8.5-10.1); Creatinine Clr Calc Pharmacy 145.7 ml/min; Est GFR (African American) 127.1; Est GFR (Non-African American) 109.6; Potassium 3.2 mmol/L (3.5-5.1)
--- NOTE | 2018-06-11 14:43 | Hospitalist Progress Note ---
Date of Service June 11, 2018 Assessment & Plan (1) Sepsis: Sepsis Bacteremia admission blood cultures 06/09/18 with gram negative bacilli; upgraded admission ceftriaxone antibiotic with cefepime on 06/10/18 Pyelonephritis Bilateral renal cysts -MRI abdomen 1. No evidence of solid renal neoplasm 2. Bilateral renal cysts 3. Nonenhancing 22 mm lesion within the upper pole of the left kidney. Given the CT appearance and clinical history this may represent focal lobar nephronia. As was stated in the prior CT report a 4 week follow-up study is recommended 4. Fat-containing ventral hernia 5. Slowly enlarging cystic lesion within the right lobe of the liver currently measuring 4.6 cm. Likely diagnostic considerations include a biliary cystadenoma versus clustered hepatic cysts 6. 1 cm T2 bright enhancing right lobe hepatic nodule, likely representing a flash filling hemangioma 7. Mild splenomegaly -patient denies dsyuria -continue cefepime q8 hours for gram negative bacilli bacteremia and await speciation, urine culture also positive for gram negative bacilli and speciated as pansensitive E.coli, repeat blood cultures on 06/10/18 pending results -will request infectious disease consultation on 06/12/18 for further assistance in antibiotic management when more blood culture information Low back pain secondary to disc protrusion Lumbar spine MRI 1. No evidence of discitis or osteomyelitis 2. No evidence of epidural abscess 3. Small central disc protrusion at the L5-S1 level -continue home dose gabapentin Mood Disorder (Depression) -continue Zoloft History of Shingles -Patient is no longer on Valtrex recently as outpatient and will stop this medic ation from inpatient list DVT prophylaxis . SCDs Full code. Subjective patient reports back pain today across lower back but does not localize to any costovertebral angle. tried regular food today and vomited. denies abdomen pain or chest pain. no shortness of breath. on room air Physical Exam Constitutional: WD/WN, vitals as above Eyes: PERRL, conjunctivae normal, anicteric sclerae EOM intact bilaterally ENMT: external ear and nose normal, oropharynx normal Neck: trachea midline, no thyromegaly normal visual inspection Respiratory: normal respiratory effort, lungs clear to auscultation Cardiovascular: Rate/Rhythm: regular rhythm and + bradycardic Gastrointestinal (Abdomen): normal bowel sounds, soft, nontender, no hepatosplenomegaly Musculoskeletal: Head/Neck/Chest: normocephalic and head atraumatic Neurologic: PERRL, EOMI, accommodation nl, no face palsy, no dysarthria CN's II-XI intact bilaterally Psychiatric: A+Ox3, euthymic affect Results & Data Vital Signs (Past 12 Hours) Vital Signs Temp Pulse Resp BP Pulse Ox 06/11/18 08:00 36.7 C 69 18 130/77 98 (1) Sepsis Sepsis type: sepsis due to unspecified organism Qualified Code(s): A41.9 - Sepsis, unspecified organism
--- NOTE | 2018-06-11 15:04 | Urology Consultation ---
Date of Consultation June 11, 2018 Assessment & Plan (1) Pyelonephritis: Left segmental pyelonephritis left upper pole with bacteremia Clinically seems to be responding to the iv abt May switch to orals once sensitivities back. Needs ct scan in 4-6 weeks to document resolution of the focal infectious pocket. If does not resolve could need a drain placed outpatient. most will resolve with antibiotics. I will see her after the ct scan in late june or early July. Present on Admission?: Yes History of Present Illness Reason for Consultation: left pyelonephritis Attending Physician: MD Dr Joanna Chawla History of Present Illness I am asked by Dr sheets to evaluate and treat patient for left peylonephritis. Patient is a patient of mine from many years ago last seenin 2013. She has been ill for about 4 days. She had nausea emesis and diarrhea first. Then she had dark urine fevers and a worsening of her chronic back pain. She was admitted on Tuesday06/09/18. She has + GNR blood cultures and e coli growing in the urine. Her CT shows a segmental pyelonephritis in the left upper pole. She has had ceftriaxone then cefipime for this. She has normalized her white count and her fever curve has normalized in last 24 hours. Her back pain has improved last 12 hours. She feels she is improving. She still has duarrhea. She has had other utis with pyelonephritis in past. She has had kidney and ureteral stones and stone surgery once over 10 yrs ago. No significant stones on most recent ct scan. Allergies Allergy/AdvReac Type Severity Reaction Status Date / Time hazelnut Allergy Severe ANAPHYLAXIS; Verified 06/09/18 19:39 reported allergy to all nuts nut - unspecified Allergy Severe ANAPHYLAXIS Verified 06/09/18 19:39 peanut Allergy Severe ANAPHYLAXIS-ALL Verified 06/09/18 19:39 NUTS Penicillins Allergy Intermediate RASH - HAS Verified 06/09/18 19:39 TOLERATED ROCEPHIN 2012 Home Medications Home Medications Medication Instructions Recorded Confirmed Type fluticasone propionate [Flonase 2 spray INTRANASAL DAILY 03/16/18 06/09/18 History Allergy Relief] gabapentin 100 mg PO BID 03/16/18 06/09/18 History sertraline [Zoloft] 50 mg PO DAILY 03/16/18 06/09/18 History valacyclovir [Valtrex] 1,000 mg PO TID 03/16/18 06/09/18 History Patient History Medical History UTI (urinary tract infection) (Chronic) Bladder infection (Acute) Shingles (Acute) Hernia of abdominal cavity (Chronic) Asthma (Chronic) Has not used inhaler for years. H/o hospitalization and intubation in 1979. Depression (Chronic) Kidney stones (Chronic) Morbid obesity Surgical History H/O cystoscopy (Resolved) History of appendectomy (Resolved) Hx of cholecystectomy (Resolved) Social History Preferred Language: Albanian Communication Ability: Effective Data Collection Specialist Required: No Beliefs That Will Affect Care: None Current Living Situation: Family Feels Safe at Home: Yes Safety Concerns: Feels Safe At This Time Smoking Status: Former smoker Tobacco Type: cigarettes Cigarettes Per Day: 20 Second Hand Exposure: No Hx Alcohol Use: Yes Alcohol type: wine Hx Substance Use: No Review of Systems Review of Systems: PMH- ventral hernia, depression, obesity, asthma PSH- , ureteroscopy, lap cande Allergy- PCN as a child and nuts Soc- not , 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 Fam Hx- DM, CAD, stones ROS_ + nausea, + emesis, + wheezing, + diarrhea, no seizures, poor appetite, no rash, no chest pain, no bloating, + sore throat, + neck swelling ? LAD? Physical Exam Constitutional: well developed, well nourished, + obese, healthy appearing, well groomed, cooperative and comfortable Neck: trachea midline, no thyromegaly normal visual inspection; no anterior neck swelling no lymph nodes palpated, Respiratory: normal respiratory effort and symmetric chest movement; does not use accessory muscles Auscultation: no wheezes Gastrointestinal (Abdomen): Inspection/Auscultation: abdomen normal to inspection and + visible herniation Percussion/Palpation: abdomen soft; abdomen nontender and no guarding Skin: no rashes, warm and dry normal turgor; no rashes Psychiatric: A+Ox3, euthymic affect Results & Data Vital Signs (Past 12 Hours) Vital Signs Temp Pulse Resp BP Pulse Ox 06/11/18 08:00 36.7 C 69 18 130/77 98
[2018-06-11] MEDS: ACETAMINOPHEN 325 MG TAB PO PRN (18:04)
[2018-06-11] MEDS: CALCIUM CARBONATE 500 MG CHEWABLE TAB PO PRN (21:51)
[2018-06-12] MEDS: ONDANSETRON INJ 2 MG/ML 2 ML VIAL IV PRN ×3 (04:34→20:47)
[2018-06-12] MEDS: CEFEPIME 2,000 MG in SYRINGE 7.5 ML IV SCH (04:38)
[2018-06-12] MEDS: ACETAMINOPHEN 325 MG TAB PO PRN (07:11)
[2018-06-12] MEDS ORDERED: POTASSIUM CHLORIDE 20 MEQ TABCR PO STA (07:34)
[2018-06-12 07:37] LABS: Basophils # (auto) 0.02 K/uL (0-0.2); Basophils % (auto) 0.3 %; Eosinophils # (auto) 0.21 K/uL (0-0.5); Eosinophils % (auto) 3.2 %; Hematocrit (blood only) 34.8 % (37-47); Hemoglobin 11.3 g/dL (12.0-16.0); Immature Granulocytes # (auto) 0.03 K/uL (0.00-0.02); Immature Granulocytes % (auto) 0.5 %; Lymphocytes % (auto) 28.7 %; Mean Corpuscular Hgb Conc 32.5 g/dL (32-36); Mean Corpuscular Volume 83.1 fL (80-100); Mean Platelet Volume 10.8 fL (7.4-10.4); Monocytes # (auto) 0.65 K/uL (0.11-0.59); Monocytes % (auto) 9.8 %; Neutrophils # (auto) 3.82 K/uL (1.4-6.5); Neutrophils % (auto) 57.5 %; Platelet Count 178 K/uL (130-400); RDW Standard Deviation 45.7 fL (36.4-46.3); Red Blood Count 4.19 M/uL (4.2-5.4); White Blood Count 6.63 K/uL (4.8-10.8)
[2018-06-12] MEDS ORDERED: ONDANSETRON INJ 2 MG/ML 2 ML VIAL IV PRN (07:39)
[2018-06-12 08:15] LABS: Calcium 8.4 mg/dl (8.5-10.1); Creatinine Clr Calc Pharmacy 136.1 ml/min; Est GFR (African American) 124.2; Est GFR (Non-African American) 107.2; Potassium 3.5 mmol/L (3.5-5.1)
[2018-06-12] MEDS: SERTRALINE HCL 50 MG TABLET PO SCH (09:05)
[2018-06-12] MEDS: FLUTICASONE PROPIONATE NA SPR 16 GM BTL NAE SCH (09:05)
[2018-06-12] MEDS: GABAPENTIN 100 MG CAP PO SCH ×2 (09:06→20:52)
[2018-06-12] MEDS: SUMAtriptan succinate 25 MG TAB PO PRN ×2 (09:14→21:31)
[2018-06-12] MEDS: CYCLOBENZAPRINE HCL 5 MG TAB PO PRN ×2 (09:14→17:08)
--- NOTE | 2018-06-12 11:41 | Infectious Disease Consult ---
Date of Consultation June 12, 2018 Assessment & Plan (1) E. coli septic shock: continue IV abx for now, will change to rocephin. due to degree of kidney infection, would prefer to give course of IV abx with daily ctx either at home or [facility] but patient states she currently does not have insurance. If she is unable to udergo treatment with IV abx due to cost/lack of coverage po Levaquin 500mg daily would be alternative. repeat cultures negative, ok for picc if she has coverage for continued IV abx. will need [address] days min[address] would repeat ct abd/pelvis prior to discontinuation of abx, if remains with infection, will extend duration. (2) Pyelonephritis: History of Present Illness Attending Physician: Jame Sierra MD pt admitted with increased abd pain, f/c, cloudy urine, foul odor. CT in ER revealed a left kidney 2.8cm collection, developing abscess vs mass. urology following, no plans for OR at this time, repeat ct in future to assess response to abx. currently on cefepime and tolerating well. no fevers this am but still with pain and dysuria. 06/09 blood and urine cultures growing pansensitive E. coli. tmax on 06/10 38.4, afebrile since. UA only 5-10 wbc and +1 bacteria. repeat blood cultures from 06/10 negative to date. not eating well. remains with upset stomach. denies cp, sob, cough, wheeze. tolerating abx. no hematuria but remains with dysuria and cloudy urine, only slightly improved. Allergies Allergy/AdvReac Type Severity Reaction Status Date / Time hazelnut Allergy Severe ANAPHYLAXIS; Verified 06/09/18 19:39 reported allergy to all nuts nut - unspecified Allergy Severe ANAPHYLAXIS Verified 06/09/18 19:39 peanut Allergy Severe ANAPHYLAXIS-ALL Verified 06/09/18 19:39 NUTS Penicillins Allergy Intermediate RASH - HAS Verified 06/09/18 19:39 TOLERATED ROCEPHIN 2012 Home Medications Home Medications Medication Instructions Recorded Confirmed Type fluticasone propionate [Flonase 2 spray INTRANASAL DAILY 03/16/18 06/09/18 History Allergy Relief] gabapentin 100 mg PO BID 03/16/18 06/09/18 History sertraline [Zoloft] 50 mg PO DAILY 03/16/18 06/09/18 History valacyclovir [Valtrex] 1,000 mg PO TID 03/16/18 06/09/18 History Patient History Medical History UTI (urinary tract infection) (Chronic) Bladder infection (Acute) Shingles (Acute) Hernia of abdominal cavity (Chronic) Asthma (Chronic) Has not used inhaler for years. H/o hospitalization and intubation in 1979. Depression (Chronic) Kidney stones (Chronic) Morbid obesity Surgical History H/O cystoscopy (Resolved) History of appendectomy (Resolved) Hx of cholecystectomy (Resolved) Family History Other Family history of high blood pressure Family history of kidney disease Social History Preferred Language: Romansh Communication Ability: Effective Frit Burner Required: No Beliefs That Will Affect Care: None marital status: Current Living Situation: Family Feels Safe at Home: Yes Safety Concerns: Feels Safe At This Time Smoking Status: Former smoker Tobacco Type: cigarettes Cigarettes Per Day: 20 Second Hand Exposure: No Hx Alcohol Use: Yes Alcohol type: wine Hx Substance Use: No Review of Systems Review of Systems: All systems reviewed & are unremarkable except as noted in HPI & below Physical Exam Constitutional: WD/WN, vitals as above Eyes: PERRL, conjunctivae normal, anicteric sclerae ENMT: external ear and nose normal, oropharynx normal Neck: normal visual inspection Respiratory: normal respiratory effort, lungs clear to auscultation Cardiovascular: RRR, no murmur, no edema Gastrointestinal (Abdomen): normal bowel sounds, soft, nontender, no hepatosplenomegaly Inspection/Auscultation: abdomen not distended Percussion/Palpation: abdomen soft; abdomen nontender and abdomen not rigid Musculoskeletal: no cyanosis or clubbing, extremities motor strength 5/5 Skin: no rashes, warm and dry Psychiatric: A+Ox3, euthymic affect Results & Data Vital Signs (Past 12 Hours) Vital Signs Temp Pulse Resp BP Pulse Ox 06/12/18 07:00 36.8 C 84 18 160/64 H 94 Laboratory Results Microbiology 06/09/18 19:45 Blood Blood Culture - Final Escherichia coli 06/09/18 19:52 Blood Blood Culture - Final Escherichia coli 06/10/18 12:11 Blood Blood Culture - Preliminary No growth to date. 06/10/18 11:46 Blood Blood Culture - Preliminary No growth to date. 06/09/18 20:45 Urine,Clean Catch Urine Culture - Final Escherichia coli
[2018-06-12] MEDS: cefTRIAXone SODIUM 2,000 MG in DEXTROSE 5% 50 ML IV SCH (13:09)
[2018-06-12] MEDS ORDERED: HYDROmorphone INJ 0.5 MG/0.5 ML SYR IV STA (13:47)
--- NOTE | 2018-06-12 16:38 | Hospitalist Progress Note ---
Date of Service June 12, 2018 Assessment & Plan (1) Sepsis: Sepsis Bacteremia (E.coli Bacteremia) Pyelonephritis Bilateral renal cysts -MRI abdomen 1. No evidence of solid renal neoplasm 2. Bilateral renal cysts 3. Nonenhancing 22 mm lesion within the upper pole of the left kidney. Given the CT appearance and clinical history this may represent focal lobar nephronia. As was stated in the prior CT report a 4 week follow-up study is recommended 4. Fat-containing ventral hernia 5. Slowly enlarging cystic lesion within the right lobe of the liver currently measuring 4.6 cm. Likely diagnostic considerations include a biliary cystadenoma versus clustered hepatic cysts 6. 1 cm T2 bright enhancing right lobe hepatic nodule, likely representing a flash filling hemangioma 7. Mild splenomegaly -admission blood cultures 06/09/18 with gram negative bacilli; upgraded admission ceftriaxone antibiotic with cefepime on 06/10/18 -was on cefepime q8 hours from 06/10/18 to 06/12/18 for gram negative bacilli bacteremia which speciated as pansensitive E.coli (also positive urine culture for pansensitive E.coli), and infectious disease consult recommending IV antibiotics of minimum 21 days of ceftriaxone, transitioned from cefepime to ceftriaxone on 06/12/18, the second set of blood cultures from 06/10/18 with no growth to date -will send a third set of blood cultures -plan on obtaining line access by 06/13/18 -if patient can tolerate ceftriaxone and line access then line access can be obtained on 06/13/18, then will work with keycase assembler on antibiotics via [facility] as outpatient Low back pain secondary to disc protrusion Lumbar spine MRI 1. No evidence of discitis or osteomyelitis 2. No evidence of epidural abscess 3. Small central disc protrusion at the L5-S1 level -continue home dose gabapentin Mood Disorder (Depression) -continue Zoloft History of Shingles -Patient is no longer on Valtrex recently as outpatient and will stop this medication from inpatient list DVT prophylaxis . SCDs Full code. Subjective Patient was seen and examined. some nausea. no vomiting. more back pain today. no chest pain, no shortness of breath. we discussed at length about infectious disease recommendations and logistics Physical Exam Constitutional: WD/WN, vitals as above Eyes: PERRL, conjunctivae normal, anicteric sclerae EOM intact bilaterally ENMT: external ear and nose normal, oropharynx normal Neck: trachea midline, no thyromegaly normal visual inspection Respiratory: normal respiratory effort, lungs clear to auscultation Cardiovascular: Rate/Rhythm: regular rhythm and + bradycardic Gastrointestinal (Abdomen): normal bowel sounds, soft, nontender, no hepatosplenomegaly Musculoskeletal: Head/Neck/Chest: normocephalic and head atraumatic Neurologic: PERRL, EOMI, accommodation nl, no face palsy, no dysarthria CN's II-XI intact bilaterally Psychiatric: A+Ox3, euthymic affect Results & Data Vital Signs (Past 12 Hours) Vital Signs Temp Pulse Resp BP Pulse Ox 06/12/18 15:22 36.9 C 64 18 164/93 H 96 06/12/18 07:00 36.8 C 84 18 160/64 H 94 (1) Sepsis Sepsis type: sepsis due to unspecified organism Qualified Code(s): A41.9 - Sepsis, unspecified organism
[2018-06-12] MEDS: HYDROmorphone INJ 0.5 MG/0.5 ML SYR IV PRN (20:47)
[2018-06-13] MEDS: CYCLOBENZAPRINE HCL 5 MG TAB PO PRN ×3 (01:39→18:31)
[2018-06-13] MEDS: SERTRALINE HCL 50 MG TABLET PO SCH (08:26)
[2018-06-13] MEDS: GABAPENTIN 100 MG CAP PO SCH ×2 (08:26→20:09)
[2018-06-13] MEDS: ONDANSETRON INJ 2 MG/ML 2 ML VIAL IV PRN ×3 (08:27→20:08)
[2018-06-13] MEDS: FLUTICASONE PROPIONATE NA SPR 16 GM BTL NAE SCH (08:27)
[2018-06-13] MEDS: HYDROmorphone INJ 0.5 MG/0.5 ML SYR IV PRN ×2 (08:27→14:20)
--- NOTE | 2018-06-13 09:24 | Hospitalist Progress Note ---
Date of Service June 13, 2018 Assessment & Plan (1) Sepsis: Sepsis Bacteremia (E.coli Bacteremia) Pyelonephritis Bilateral renal cysts -MRI abdomen 1. No evidence of solid renal neoplasm 2. Bilateral renal cysts 3. Nonenhancing 22 mm lesion within the upper pole of the left kidney. Given the CT appearance and clinical history this may represent focal lobar nephronia. As was stated in the prior CT report a 4 week follow-up study is recommended 4. Fat-containing ventral hernia 5. Slowly enlarging cystic lesion within the right lobe of the liver currently measuring 4.6 cm. Likely diagnostic considerations include a biliary cystadenoma versus clustered hepatic cysts 6. 1 cm T2 bright enhancing right lobe hepatic nodule, likely representing a flash filling hemangioma 7. Mild splenomegaly -admission blood cultures 06/09/18 with gram negative bacilli; upgraded admission ceftriaxone antibiotic with cefepime on 06/10/18 -was on cefepime q8 hours from 06/10/18 to 06/12/18 for gram negative bacilli bacteremia which speciated as pansensitive E.coli (also positive urine culture for pansensitive E.coli), and infectious disease consult recommending IV antibiotics of minimum 21 days of ceftriaxone 2 grams daily, transitioned from cefepime to ceftriaxone on 06/12/18, the second set of blood cultures from 06/10/18 with no growth to date -a third set of blood cultures on 06/12/18 are pending -midline planned to be placed on 06/13/18 for possible outpatient antibiotics as outpatient via the [facility] such as IV ceftriaxone -06/13/18 patient reports worsening right flank pain and going to right abdomen, will send CT abdomen to rule out abscess or cyst rupture, will increase prn oral oxycodone from 5 mg q8 hour prn to 10 mg q8 hour prn. will leave prn dilaudid doses unchanged, give senna and prn miralax as bowel regimen Low back pain secondary to disc protrusion Lumbar spine MRI 1. No evidence of discitis or osteomyelitis 2. No evidence of epidural abscess 3. Small central disc protrusion at the L5-S1 level -continue home dose gabapentin Mood Disorder (Depression) -continue Zoloft History of Shingles -Patient is no longer on Valtrex recently as outpatient and will stop this medication from inpatient list DVT prophylaxis . SCDs Full code. Subjective patient awaiting midline for IV antibiotics. Patient concerned that right flank pain is getting worse and also right abdomen pain. no fevers overnight. patient denies vomiting. reports she is a able to make bowel movements. reports that oral pain medication is not adequate for sufficient pain relief Physical Exam Constitutional: WD/WN, vitals as above Eyes: PERRL, conjunctivae normal, anicteric sclerae EOM intact bilaterally ENMT: external ear and nose normal, oropharynx normal Neck: trachea midline, no thyromegaly normal visual inspection Respiratory: normal respiratory effort, lungs clear to auscultation Cardiovascular: Rate/Rhythm: regular rhythm and + bradycardic Gastrointestinal (Abdomen): normal bowel sounds, soft, nontender, no hepatosplenomegaly Musculoskeletal: Head/Neck/Chest: normocephalic and head atraumatic tenderness of right flank Neurologic: PERRL, EOMI, accommodation nl, no face palsy, no dysarthria CN's II-XI intact bilaterally Psychiatric: A+Ox3, euthymic affect Results & Data Vital Signs (Past 12 Hours) Vital Signs Temp Pulse Pulse Resp BP Pulse Ox 06/13/18 07:00 36.7 C 64 20 145/73 H 93 06/12/18 23:42 37.6 C H 66 16 113/65 96 (1) Sepsis Sepsis type: sepsis due to unspecified organism Qualified Code(s): A41.9 - Sepsis, unspecified organism
[2018-06-13] MEDS ORDERED: POLYETHYLENE (MIRALAX) 17 GM PACK PO PRN (09:30)
[2018-06-13 10:01] LABS: Basophils # (auto) 0.03 K/uL (0-0.2); Basophils % (auto) 0.4 %; Eosinophils # (auto) 0.18 K/uL (0-0.5); Eosinophils % (auto) 2.2 %; Hematocrit (blood only) 37.6 % (37-47); Hemoglobin 12.2 g/dL (12.0-16.0); Immature Granulocytes # (auto) 0.04 K/uL (0.00-0.02); Immature Granulocytes % (auto) 0.5 %; Lymphocytes % (auto) 23.1 %; Mean Corpuscular Volume 82.8 fL (80-100); Mean Platelet Volume 10.9 fL (7.4-10.4); Monocytes # (auto) 0.91 K/uL (0.11-0.59); Monocytes % (auto) 11.1 %; Neutrophils # (auto) 5.15 K/uL (1.4-6.5); Neutrophils % (auto) 62.7 %; Platelet Count 207 K/uL (130-400); RDW Coefficient of Variation 14.8 % (11.5-14.5); RDW Standard Deviation 45.2 fL (36.4-46.3); Red Blood Count 4.54 M/uL (4.2-5.4); White Blood Count 8.21 K/uL (4.8-10.8)
[2018-06-13 10:27] LABS: BUN Creatinine Ratio 13.9 (10-20); Calcium 8.7 mg/dl (8.5-10.1); Creatinine Clr Calc Pharmacy 153.7 ml/min; Est GFR (African American) 129.3; Est GFR (Non-African American) 111.6; Potassium 3.6 mmol/L (3.5-5.1)
[2018-06-13 11:11] LABS: Mean Corpuscular Hgb Conc 32.4 g/dL (32-36)
[2018-06-13] MEDS: SENNA 8.6 MG TAB PO SCH (11:19)
[2018-06-13] MEDS: cefTRIAXone SODIUM 2,000 MG in DEXTROSE 5% 50 ML IV SCH (11:19)
[2018-06-13] MEDS ORDERED: IOVERSOL 100ml IV PRN (12:33)
--- NOTE | 2018-06-13 13:22 | CT Scan Report ---
CT abdomen oral and IV con HISTORY: 48 years-old Female pyelonephritis, rule out abscess or cyst rupture, acute pyelonephritis with fever and chills. Questioned renal abscess on prior study. COMPARISON: CT abdomen and pelvis 06/09/2018, CT 03/16/2018, CT 05/22/2007. TECHNIQUE: Multiple axial CT images of the abdomen were obtained with the use of both IV and oral con trast. A dose lowering technique was used consistent with the principals of MARY KATE. FINDINGS: There are multiple bibasilar solid pulmonary nodules redemonstrated measuring up to approximately 4 m m, unchanged. Mild subsegmental bibasilar atelectasis. No pneumatosis or pneumoperitoneum. The imaged inferior cardiac chambers are unremarkable. Cluster of hypodense cystic lesions noted about the right hepatic lobe, conglomerate measuring approx imately 4.3 x 3.4 cm, unchanged suggestive of cysts or cystadenoma. Suggestion of hepatic steatosis. No biliary ductal dilation. Spleen is mildly enlarged, 14.8 cm. Pancreas and adrenal glands are unrem arkable. Prior cholecystectomy. 3 mm nonobstructing calculus of the inferior pole right kidney, unchanged. There are a few additional punctate calculi noted about the interpolar right kidney. Nonobstructing calculi of the left kidney are seen measuring up to 3 mm. There are a few hypodense lesions noted about the bilateral kidneys me asuring up to 8 mm suggestive of probable cysts. There is redemonstration of a complex hypoechoic les ion of the superior pole left kidney posteriorly, 2.6 x 2.3 cm which previously measured approximatel y 2.8 x 2.3 cm. Mild adjacent stranding of the perinephric fat. No ureteral calculi or obstructive ur opathy. Aorta and IVC are unremarkable. A few mildly prominent paraaortic lymph nodes measuring up to 9 mm are redemonstrated, unchanged. No drainable fluid collections. No bowel obstruction. Small duodenal diverticulum. Colonic diverticulosis. Moderate sized fat filled supraumbilical hernia redemonstrated, diastases 3.9 cm. Soft tissues are otherwise unremarkable. Bone s appear intact. IMPRESSION: 1. Hypodense lesion of the superior pole left kidney measuring up to 2.6 cm has not significantly perlita nged from 06/09/2018 and again demonstrates mild adjacent perinephric stranding. Differential consider ations would include focal pyelonephritis, complex cyst or developing abscess with neoplasm considere d less likely. Again, follow-up in approximately one month recommended. 2. Nonobstructing bilateral nephrolithiasis. 3. Mild splenomegaly. 4. Additional findings as above. The above report was generated using voice recognition software. It may contain grammatical, syntax o r spelling errors. Dictated: 06/13/2018 12:47 PM Transcribed: 06/13/2018 1:22 PM Laverne [id number] [email or web address] Electronically signed by: Reji Dey M.D. 06/13/2018 1:33 PM
--- NOTE | 2018-06-13 14:48 | Infectious Disease Progress Nt ---
Date of Service June 13, 2018 Assessment & Plan (1) E. coli septic shock: plan to continue rocephin daily x 3 weeks at [facility]. followup prior to d/c abx. will need additional ct prior to stopping abx to reassess. she will need weekly cbc, cmp. ok for d/c when otherwise stable. (2) Pyelonephritis: Subjective continued abd pain, repeat ct done today, unchanged. no f/c. tolerating ctx. states she is to be d/c home tomorrow on IV abx at [facility] x 3 weeks. picc placed today. no n/v/d. no f/c. 06/10 blood cultures remain negative. all remaining ros reviewed and are negative Physical Exam Constitutional: WD/WN, vitals as above Eyes: PERRL, conjunctivae normal, anicteric sclerae ENMT: external ear and nose normal, oropharynx normal Neck: normal visual inspection Respiratory: normal respiratory effort, lungs clear to auscultation Cardiovascular: RRR, no murmur, no edema Gastrointestinal (Abdomen): normal bowel sounds, soft, nontender, no hepatosplenomegaly Inspection/Auscultation: abdomen not distended Percussion/Palpation: abdomen soft; abdomen nontender and abdomen not rigid Musculoskeletal: no cyanosis or clubbing, extremities motor strength 5/5 Skin: no rashes, warm and dry Psychiatric: A+Ox3, euthymic affect Results & Data Vital Signs (Past 12 Hours) Vital Signs Temp Pulse Resp BP Pulse Ox 06/13/18 07:00 36.7 C 64 20 145/73 H 93 Laboratory Results Microbiology 06/09/18 19:45 Blood Blood Culture - Final Escherichia coli 06/09/18 19:52 Blood Blood Culture - Final Escherichia coli 06/10/18 12:11 Blood Blood Culture - Preliminary No growth to date. 06/10/18 11:46 Blood Blood Culture - Preliminary No growth to date. 06/09/18 20:45 Urine,Clean Catch Urine Culture - Final Escherichia coli
[2018-06-13] MEDS: SUMAtriptan succinate 25 MG TAB PO PRN (18:31)
[2018-06-13] MEDS: OXYCODONE HCL IR 5 MG TAB (IMMEDIATE RELEASE) PO PRN (20:09)
[2018-06-14] MEDS: ACETAMINOPHEN 325 MG TAB PO PRN (02:19)
[2018-06-14] MEDS: CYCLOBENZAPRINE HCL 5 MG TAB PO PRN (02:36)
[2018-06-14] MEDS: OXYCODONE HCL IR 5 MG TAB (IMMEDIATE RELEASE) PO PRN ×2 (05:37→15:00)
[2018-06-14] MEDS: SERTRALINE HCL 50 MG TABLET PO SCH (08:09)
[2018-06-14] MEDS: GABAPENTIN 100 MG CAP PO SCH (08:09)
[2018-06-14] MEDS: SENNA 8.6 MG TAB PO SCH (08:09)
[2018-06-14] MEDS: FLUTICASONE PROPIONATE NA SPR 16 GM BTL NAE SCH (08:09)
[2018-06-14] MEDS: cefTRIAXone SODIUM 2,000 MG in DEXTROSE 5% 50 ML IV SCH (08:13)
[2018-06-14 08:59] LABS: Basophils # (auto) 0.01 K/uL (0-0.2); Basophils % (auto) 0.1 %; Eosinophils # (auto) 0.29 K/uL (0-0.5); Eosinophils % (auto) 3.6 %; Immature Granulocytes # (auto) 0.05 K/uL (0.00-0.02); Immature Granulocytes % (auto) 0.6 %; Lymphocytes # (auto) 1.91 K/uL (1.2-3.4); Lymphocytes % (auto) 23.4 %; Mean Corpuscular Hgb Conc 32.4 g/dL (32-36); Mean Corpuscular Volume 83.5 fL (80-100); Mean Platelet Volume 10.9 fL (7.4-10.4); Monocytes # (auto) 0.53 K/uL (0.11-0.59); Monocytes % (auto) 6.5 %; Neutrophils # (auto) 5.37 K/uL (1.4-6.5); Neutrophils % (auto) 65.8 %; Platelet Count 182 K/uL (130-400); RDW Coefficient of Variation 14.7 % (11.5-14.5); RDW Standard Deviation 45.1 fL (36.4-46.3); Red Blood Count 4.43 M/uL (4.2-5.4); White Blood Count 8.16 K/uL (4.8-10.8)
[2018-06-14 09:26] LABS: BUN Creatinine Ratio 13.7 (10-20); Calcium 8.6 mg/dl (8.5-10.1); Creatinine Clr Calc Pharmacy 120.3 ml/min; Est GFR (African American) 119.3; Est GFR (Non-African American) 102.9; Potassium 3.5 mmol/L (3.5-5.1)
[2018-06-14] MEDS: CALCIUM CARBONATE 500 MG CHEWABLE TAB PO PRN (13:01)
--- NOTE | 2018-06-14 15:23 | Hospitalist Progress Note ---
Date of Service June 14, 2018 Assessment & Plan (1) Sepsis: -Sepsis has resolved -Afebrile, clinically improved, No leucocytosis -Work up- MRI abdomen- 1. No evidence of solid renal neoplasm 2. Bilateral renal cysts 3. Nonenhancing 22 mm lesion within the upper pole of the left kidney. Given the CT appearance and clinical history this may represent focal lobar nephronia. As was stated in the prior CT report a 4 week follow-up study is recommended 4. Fat-containing ventral hernia 5. Slowly enlarging cystic lesion within the right lobe of the liver currently measuring 4.6 cm. Likely diagnostic considerations include a biliary cystadenoma versus clustered hepatic cysts 6. 1 cm T2 bright enhancing right lobe hepatic nodule, likely representing a flash filling hemangioma 7. Mild splenomegaly -Blood cx 06/09- E coli, Urine culture- E coli. Repeat blood culture 06/12/18- negative -IV Ceftriaxone on admission---> IV Cefepime on 06/10/09. Culture- E coli marks sensitive. -ID recommends IV Rocephin 2 gram x 3 weeks- day 07/11 today -Midline placed for outpatient antibiotics via the [facility] -arrangements made -06/13/18 reported worsening flank pain- CT scan was repeated - no sig change, again recommends follow up ct in 1 month Low back pain secondary to disc protrusion Lumbar spine MRI 1. No evidence of discitis or osteomyelitis 2. No evidence of epidural abscess 3. Small central disc protrusion at the L5-S1 level -continue home dose gabapentin Mood Disorder (Depression) -continue Zoloft History of Shingles -Patient is no longer on Valtrex recently as outpatient and will stop this medication from inpatient list Morbid obesity DVT prophylaxis . SCDs Full code. Disposition Eager to be discharged Ok to discharge home today Subjective Patient still complaining of bilateral flank pain, but overall improving. Eager to be discharged Denies any urinary symptoms, nausea, vomiting, fever, chills Physical Exam Physical Exam: GENERAL- AAOX3, No acute distress, Morbidly obese + LUNGS- Air entry bilaterally equal. No rales, rhonchi, crackles, wheezes heard. HEART- Regular rate and rhythm. No murmurs ABDOMEN- Soft, non tender, non distended, Bowel sounds heard. EXTREMITIES- Good peripheral pulses, no edema Results & Data Vital Signs (Past 12 Hours) Vital Signs Temp Pulse Resp BP Pulse Ox 06/14/18 07:42 36.6 C 58 L 18 130/78 95 (1) Sepsis Sepsis type: sepsis due to unspecified organism Qualified Code(s): A41.9 - Sepsis, unspecified organism
--- NOTE | 2018-06-14 16:00 | Discharge Summary ---
Date of Service June 14, 2018 Admission HPI Per Admitting Provider History obtained from patient and records. Medical history significant for mood disorder, endometriosis, recurrent UTI, ongoing tobacco abuse. Recent confinement February 2018 for abdominal pain, periumbilical hernia. 3 days history of achy flank pain, nausea vomiting diarrhea symptoms, flulike symptoms, fever, chills. Usual smoker's cough symptoms. At the ER, patient given IV ceftriaxone for sepsis. 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 SEPSIS 2. BACTEREMIA E COLI 3. PYELONEPHRITIS, E COLI SECONDARY DIAGNOSIS ON DISCHARGE 1.MOOD DISORDER 2.CHRONIC LOW BACK PAIN 3. MORBID OBESITY Discharge Exam GENERAL- AAOX3, No acute distress, Morbidly obese + LUNGS- Air entry bilaterally equal. No rales, rhonchi, crackles, wheezes heard. HEART- Regular rate and rhythm. No murmurs ABDOMEN- Soft, non tender, non distended, Bowel sounds heard. EXTREMITIES- Good peripheral pulses, no edema Discharge Data Allergies Allergy/AdvReac Type Severity Reaction Status Date / Time hazelnut Allergy Severe ANAPHYLAXIS; Verified 06/09/18 19:39 reported allergy to all nuts nut - unspecified Allergy Severe ANAPHYLAXIS Verified 06/09/18 19:39 peanut Allergy Severe ANAPHYLAXIS-ALL Verified 06/09/18 19:39 NUTS Penicillins Allergy Intermediate RASH - HAS Verified 06/09/18 19:39 TOLERATED ROCEPHIN 2012 Consultations 06/09/18 22:49 ED Decision to Admit Stat 06/10/18 00:00 Consult Urology Routine 06/12/18 08:05 Consult Infectious Diseases Routine Ordered Studies 06/09/18 18:54 CT abd pelvis IV con only Stat 06/10/18 11:31 MR lumbar spine wo/w con Stat 06/10/18 11:33 MR abdomen wo/w con Stat 06/13/18 09:21 CT abdomen oral and IV con Routine Hospital Course (1) Sepsis: -Sepsis has resolved -Afebrile, clinically improved, No leucocytosis -Work up- MRI abdomen- 1. No evidence of solid renal neoplasm 2. Bilateral renal cysts 3. Nonenhancing 22 mm lesion within the upper pole of the left kidney. Given the CT appearance and clinical history this may represent focal lobar nephronia. As was stated in the prior CT report a 4 week follow-up study is recommended 4. Fat-containing ventral hernia 5. Slowly enlarging cystic lesion within the right lobe of the liver currently measuring 4.6 cm. Likely diagnostic considerations include a biliary cystadenoma versus clustered hepatic cysts 6. 1 cm T2 bright enhancing right lobe hepatic nodule, likely representing a flash filling hemangioma 7. Mild splenomegaly -Blood cx 06/09- E coli, Urine culture- E coli. Repeat blood culture 06/12/18- negative -IV Ceftriaxone on admission---> IV Cefepime on 06/10/09. Culture- E coli marks sensitive. -ID recommends IV Rocephin 2 gram x 3 weeks- day 07/11 today -Midline placed for outpatient antibiotics via the [facility] -arrangements made -06/13/18 reported worsening flank pain- CT scan was repeated - no sig change, again recommends follow up ct in 1 month Low back pain secondary to disc protrusion Lumbar spine MRI 1. No evidence of discitis or osteomyelitis 2. No evidence of epidural abscess 3. Small central disc protrusion at the L5-S1 level -continue home dose gabapentin Mood Disorder (Depression) -continue Zoloft History of Shingles -Patient is no longer on Valtrex recently as outpatient and will stop this medication from inpatient list Morbid obesity DVT prophylaxis . SCDs Full code. Disposition Eager to be discharged Ok to discharge home today Total Time Total Time Spent Total Time Spent (In Minutes): 38 MINUTES Discharge Plan Discharge Items Patient Disposition: Home - Self-Care Reason For Visit: SEPSIS Discharge Diagnosis: sepsis bacteremia E coli Pyelonephritis Discharge Goals: Improve disease control Activity: Resume your previous activity Non-emergency contact: Primary Care Provider Call non-emergency contact if: your symptoms worsen Follow-up/Referrals: Janeth Ackerman MD [Primary Care Provider] - 06/16/18 11:40 am Diet: Heart Healthy, Low Fat and Low Sodium (2gm) Addtl Provider Instructions: You were admitted for pyelonephritis MEDICATION CHANGES 1. IV Rocephin 2 gram via midline -Day 07/11 today 2. OXYCODONE Prescriptions: New oxycodone 5 mg tablet 5 mg PO Q8H PRN (Reason: pain) Qty: 15 RF: 0 Continued valacyclovir [Valtrex] 1 gram Tablet 1,000 mg PO TID RF: 0 fluticasone propionate [Flonase Allergy Relief] 50 mcg/actuation [place],Suspension 2 spray INTRANASAL DAILY RF: 0 sertraline [Zoloft] 50 mg Tablet 50 mg PO DAILY RF: 0 gabapentin 100 mg Capsule 100 mg PO BID RF: 0 Stand-Alone Forms: [facility] Discharge Orders: Discharge Order (Routine); Ordered 06/14/18 Ordered By: Briana Ackerman Admission Data Admit Date/Time: 06/09/18 23:57 Attending Provider: Briana Ackerman Admit Provider: Sid Lunsford Primary Care Provider: Janeth Ackerman. Other Providers: Sid Lunsford ; Delia Lawrence ; Delia Cho ; Jame Sierra Service: Medical Other Pending Studies at Discharge: No
== END 2018-06-14 17:09 | disposition home or self-care (01) | DRG 872 ==
LOC: ED 17:46 → 2W 23:57 → SUATTDRO 23:57 → 2W 06-10 00:25

== ENCOUNTER 2018-12-17 05:00 | Inpatient (IN) ==
[2018-12-17] MEDS ORDERED: NITROGLYCERIN SL 0.4 MG/TAB TAB ONE (05:21)
[2018-12-17] MEDS ORDERED: NITROGLYCERIN SL 0.4 MG/TAB TAB SL PRN ×2 (05:22→08:18)
[2018-12-17 05:47] LABS: Basophils # (auto) 0.03 K/uL (0-0.2); Basophils % (auto) 0.3 %; Eosinophils # (auto) 0.33 K/uL (0-0.5); Eosinophils % (auto) 2.9 %; Hematocrit (blood only) 41.5 % (37-47); Immature Granulocytes # (auto) 0.03 K/uL (0.00-0.02); Immature Granulocytes % (auto) 0.3 %; Lymphocytes # (auto) 3.11 K/uL (1.2-3.4); Lymphocytes % (auto) 27.8 %; Mean Corpuscular Hemoglobin 28.7 pg (25-34); Mean Corpuscular Hgb Conc 33.7 g/dL (32-36); Mean Corpuscular Volume 85.2 fL (80-100); Mean Platelet Volume 10.2 fL (7.4-10.4); Monocytes # (auto) 1.03 K/uL (0.11-0.59); Monocytes % (auto) 9.2 %; Neutrophils # (auto) 6.67 K/uL (1.4-6.5); Neutrophils % (auto) 59.5 %; Platelet Count 222 K/uL (130-400); RDW Coefficient of Variation 14.5 % (11.5-14.5); RDW Standard Deviation 45.5 fL (36.4-46.3); Red Blood Count 4.87 M/uL (4.2-5.4)
[2018-12-17 05:55] LABS: Albumin Level 3.4 gm/dl (3.4-5.0); Blood Urea Nitrogen 10 mg/dl (7-18); Calcium 8.8 mg/dl (8.5-10.1); Carbon Dioxide 29 mmol/L (21-32); Chloride 105 mmol/L (98-107); Creatinine Clr Calc Pharmacy 140.5 ml/min; Est GFR (African American) 124.2; Est GFR (Non-African American) 107.2; Glucose 112 mg/dl (70-99); Lipase 488 U/L (73-393); Sodium 138 mmol/L (136-145)
[2018-12-17 06:03] LABS: Alanine Aminotransferase 45 U/L (12-78); Alkaline Phosphatase 86 U/L (45-117); Aspartate Aminotransferase 18 U/L (15-37); Bilirubin,Total 0.5 mg/dl (0.2-1); Globulin 3.3 gm/dl (2.5-4.0); Total Protein 6.7 gm/dl (6.4-8.2); Troponin I < 0.015 ng/ml (0-0.045)
[2018-12-17] MEDS ORDERED: ACETAMINOPHEN 500 MG TAB PO STA (06:03)
[2018-12-17] MEDS ORDERED: ONDANSETRON INJ 2 MG/ML 2 ML VIAL IV STA (06:11)
[2018-12-17] MEDS ORDERED: SODIUM CHLORIDE 0.9% 500 ML IV ONE (06:14)
--- NOTE | 2018-12-17 06:24 | XRay Report ---
XR chest 1V portable CLINICAL HISTORY: Chest Pain dyspnea COMPARISON STUDY: 06/19/2017 FINDINGS: The bones soft tissues and hemidiaphragms are normal. The cardiomediastinal silhouette is n ormal. The lungs are clear. The pulmonary vasculature is normal. Slight chronic peribronchial thicken ing unchanged from the prior study. IMPRESSION: Slight chronic peribronchial thickening. Otherwise negative study. The above report was generated using voice recognition software. It may contain grammatical, syntax or spelling errors. Electronically signed by: Valentino Montoya M.D. 12/17/2018 6:23 AM
[2018-12-17] MEDS ORDERED: ASPIRIN CHEW 324 MG PO STA (06:26)
[2018-12-17 06:49] LABS: Magnesium 1.8 mg/dl (1.8-2.4)
--- NOTE | 2018-12-17 06:53 | Emergency Department Note ---
Entered by Gill Guevara acting as a scribe for History of Present Illness General Chief complaint: Chest Pain Stated complaint: CHEST PAIN Time Seen by Provider: 12/17/18 05:11 Source: patient History of Present Illness Onset (ago): hour(s) 3 Location: chest Severity: similar to prior episodes Pain Consistency: + other (episode) Maximum Pain Intensity: 4 Current Pain Intensity: 3 Quality: + sharp Associated symptoms: + nausea/vomiting (positive nausea; negative vomiting ) and + other (positive dizziness; positive back pain) The patient is a 48 year old female who presents to the Emergency Room with complaints of an episode of sharp chest pain that began at 0200, approximately 3 hours prior to arrival. The patient states that she had some back pain at this time and decided to shower to help relieve her pain with the hot water. She states that during her shower, she began to feel nauseous and dizzy. The patient rates her current pain at 3/10. The patient states that this is similar to prior episodes of chest pain over the past few weeks. She states that she has been very busy and stressed recently, and has attributed her symptoms to this stress. The patient states that she was dizzy today while walking which is not normal for her. The patient states that she quit smoking approximately 8 weeks ago. She states that her father of an GA at 48 years old. The patient denies any history of catheterizations, but states that she has previously had a normal s tress test. Home Medications Home Medications Medication Instructions Recorded Confirmed Type fluticasone propionate [Flonase 2 spray INTRANASAL [facility] 03/16/18 12/17/18 History Allergy Relief] gabapentin 300 mg PO [facility] 03/16/18 12/17/18 History sertraline [Zoloft] 50 mg PO QAM 03/16/18 12/17/18 History milk thistle 150 mg PO DAILY 10/08/18 12/17/18 History [id number] oil-vit D3 1 tab PO DAILY 10/08/18 12/17/18 History [Horton-3 + Vitamin D3] vitamin B complex 1 tab PO DAILY 10/08/18 12/17/18 History gabapentin 400 mg PO 12/17/18 12/17/18 History melatonin 0 mg PO 12/17/18 12/17/18 History multivitamin 1 tab PO DAILY 12/17/18 12/17/18 History Allergies Allergy/AdvReac Type Severity Reaction Status Date / Time hazelnut Allergy Severe ANAPHYLAXIS; Verified 12/17/18 05:30 reported allergy to all nuts nut - unspecified Allergy Severe ANAPHYLAXIS Verified 12/17/18 05:30 peanut Allergy Severe ANAPHYLAXIS-ALL Verified 12/17/18 05:30 NUTS Penicillins Allergy Intermediate RASH - HAS Verified 12/17/18 05:30 TOLERATED ROCEPHIN 2012 Past Med/Surg History Medical History E. coli septic shock Pyelonephritis (Acute) UTI (urinary tract infection) (Chronic) Bladder infection (Acute) Shingles (Acute) Hernia of abdominal cavity (Chronic) Asthma (Chronic) Has not used inhaler for years. H/o hospitalization and intubation in 1979. Depression (Chronic) Kidney stones (Chronic) History of anemia History of bronchitis Morbid obesity Surgical History H/O cystoscopy (Resolved) History of appendectomy (Resolved) Hx of cholecystectomy (Resolved) H/O section S/P tonsillectomy Family History Father Diabetes Hypertension Heart disease Mother Cancer Breast cancer Grandfather Colorectal cancer Other Family history of high blood pressure Family history of kidney disease Social History Preferred Language: Dominican Communication Ability: Effective Sorter Operator Required: No Beliefs That Will Affect Care: None marital status: Current Living Situation: Family Feels Safe at Home: Yes Smoking Status: Former smoker Tobacco Type: cigarettes ; Cigarettes Per Day: 20 ; Second Hand Exposure: No ; Hx Alcohol Use: Yes Alcohol type: wine Hx Substance Use: No Review of Systems See HPI for pertinent positives & negatives. and A total of 10 systems reviewed and were otherwise negative Physical Exam Vital Signs Vital Signs - 24 hr 12/17/18 05:06 12/17/18 05:17 12/17/18 05:33 Temperature 37.3 C Temperature Source Oral Sepsis Recent Fever Within 48 Hours No Sepsis New/Unexplained Change in Mental Status No Sepsis Action Taken by Nursing No Action Required Pulse Rate 88 67 Pulse Rate [Finger] 65 Pulse Rhythm Regular Pulse Rhythm [Finger] Regular Pulse Strength [Finger] Normal Respiratory Rate 20 17 14 Respiratory Effort / Characteristics Non-Labored Spontaneous Non-Labored Spontaneous Respiratory Depth Normal Normal Respiratory Pattern Regular Blood Pressure 157/83 H Blood Pressure [Right Arm] 157/83 H Blood Pressure Mean 107 Blood Pressure Mean [Right Arm] 107 Pulse Oximetry 99 98 94 Oxygen Delivery Method Room Air Room Air Room Air 12/17/18 06:19 Temperature Temperature Source Sepsis Recent Fever Within 48 Hours Sepsis New/Unexplained Change in Mental Status Sepsis Action Taken by Nursing Pulse Rate Pulse Rate [Finger] 63 Pulse Rhythm Pulse Rhythm [Finger] Regular Pulse Strength [Finger] Normal Respiratory Rate 24 Respiratory Effort / Characteristics Non-Labored Spontaneous Respiratory Depth Normal Respiratory Pattern Regular Blood Pressure Blood Pressure [Right Arm] 135/71 Blood Pressure Mean Blood Pressure Mean [Right Arm] 92 Pulse Oximetry 95 Oxygen Delivery Method Room Air HEENT: Head - normocephalic and atraumatic Pupils are equal, round, and reactive to light. Extraocular eye muscles are intact, and sclera are anicteric. Nose - moist nasal mucosa without discharge. Mouth - moist buccal mucosa. Oropharynx is nonerythematous and there is no tonsillar exudate or edema noted. Neck: Supple; no JVD, nuchal rigidity, cervical lymphadenopathy, or auscultated bruits. Heart: Regular rate and rhythm. There is a normal S1 and S2 with no murmurs, clicks, or gallops appreciated. Lungs: Clear to auscultation bilaterally with no wheezes, rales, or rhonchi. Abdomen: Soft, completely nontender, nondistended, with good bowel sounds. There are no palpable pulsatile masses or hepatosplenomegaly. There is no guarding, rigidity, or rebound noted. Extremities: No evidence of cyanosis, clubbing, or edema. There are easily palpable peripheral pulses. Skin: warm and dry with good turgor and no rashes. Course 0516: Past medical records reviewed. The patient was evaluated in room A10. A complete history and physical exam was performed. An IV lock was initiated and labs were drawn as above. A chest x-ray was obtained. The patient was observed on the lunchroom monitor and pulse oximeter. She remained in normal sinus rhythm. A twelve-lead EKG was obtained with no ischemic changes. 0521: Ordered Nitroglycerin 0.4mg SL. 0604: Ordered Tylenol 1000 mg PO. 0605: The patient states that her pain went from a 3/10 to a 2/10 after one Nitroglycerin. The patient declined anymore Nitroglycerin because it gave her a headache. The patient is receiving Tylenol for her headache. 0609: The patient will be given an oral dose of aspirin. [facility] the patient for further wojciech luation. Administered Medications Sodium Chloride (Nss) 500 mls @ 500 mls/hr IV .Q1H ONE Stop: 12/17/18 07:13 Last Admin: 12/17/18 06:23 Dose: 500 mls/hr Documented by: [id number] Nitroglycerin (Nitrostat) 0.4 mg SL UD PRN PRN Reason: Chest Pain Stop: 01/16/19 05:21 Last Admin: 12/17/18 05:24 Dose: 0.4 mg Documented by: [id number] Discontinued Medications Acetaminophen (Tylenol) 1,000 mg PO NOW STA Stop: 12/17/18 06:04 Last Admin: 12/17/18 06:08 Dose: 1,000 mg Documented by: [id number] Ondansetron HCl (Zofran) 4 mg IV NOW STA Stop: 12/17/18 06:12 Last Admin: 12/17/18 06:14 Dose: 4 mg Documented by: [id number] Medical Decision Making Differential Diagnosis Differential diagnoses include anxiety, costochondritis, acute coronary syndrome, pleurisy, and others were considered. Medical Records Attestation: I reviewed the patient's medical records. Home Medications Current Medication List: was personally reviewed by me Laboratory Data Attestation: I reviewed the patient's lab results. Result diagrams: 12/17/18 05:15 12/17/18 05:15 Lab Results 12/17/18 12/17/18 12/17/18 Range/Units 05:15 05:15 06:27 WBC 11.20 H (4.8-10.8) K/uL RBC 4.87 (4.2-5.4) M/uL Hgb 14.0 (12.0-16.0) g/dL Hct 41.5 (37-47) % MCV 85.2 (80-100) fL MCH 28.7 (25-34) pg MCHC 33.7 (32-36) g/dL RDW Std Deviation 45.5 (36.4-46.3) fL RDW Coeff of Shannen 14.5 (11.5-14.5) % Plt Count 222 (130-400) K/uL MPV 10.2 (7.4-10.4) fL Immature Gran % (Auto) 0.3 % Neut % (Auto) 59.5 % Lymph % (Auto) 27.8 % Pepin % (Auto) 9.2 % Eos % (Auto) 2.9 % Baso % (Auto) 0.3 % Immature Gran # (Auto) 0.03 H (0.00-0.02) K/uL Neut # (Auto) 6.67 H (1.4-6.5) K/uL Lymph # (Auto) 3.11 (1.2-3.4) K/uL Pepin # (Auto) 1.03 H (0.11-0.59) K/uL Eos # (Auto) 0.33 (0-0.5) K/uL Baso # (Auto) 0.03 (0-0.2) K/uL Sodium 138 (136-145) mmol/L Potassium 4.0 (3.5-5.1) mmol/L Chloride 105 (98-107) mmol/L Carbon Dioxide 29 (21-32) mmol/L Anion Gap 4.0 (3-11) BUN 10 (7-18) mg/dl Creatinine 0.61 (0.6-1.2) mg/dl Est Cr Clr Drug Dosing 140.5 ml/min Est GFR ( Amer) 124.2 Est GFR (Non-Af Amer) 107.2 BUN/Creatinine Ratio 17.0 (10-20) Glucose 112 H (70-99) mg/dl Calcium 8.8 (8.5-10.1) mg/dl Magnesium Cancelled Total Bilirubin 0.5 (0.2-1) mg/dl AST 18 (15-37) U/L ALT 45 (12-78) U/L Alkaline Phosphatase 86 (45-117) U/L Troponin I < 0.015 (0-0.045) ng/ml Total Protein 6.7 (6.4-8.2) gm/dl Albumin 3.4 (3.4-5.0) gm/dl Globulin 3.3 (2.5-4.0) gm/dl Albumin/Globulin Ratio 1.0 (0.9-2) Lipase 488 H (73-393) U/L Imaging Data Attestation: I personally reviewed and interpreted this imaging study as foll ows: My Impression: CHEST X-RAY 1 VIEW: No cardiomegaly. No obvious pneumothorax or pulmonary infiltrates. ECG Data Attestation: I personally reviewed and interpreted this ECG as follows: Indication: chest pain Rate (beats per minute): 71 Rhythm: normal sinus Findings: no PAC, no PVC, no ST depression, no ST elevation, no acute ischemic change and no ectopy Blood Pressure Blood Pressure Findings: Elevated blood pressure Blood Pressure Disposition: further management by hospitalist ANETA Zazueta The patient is a 48 year old female who presents to the Emergency Room with complaints of an episode of sharp chest pain that began at 0200, approximately 3 hours prior to arrival. The patient admits that she is under significant incre ased stress but became concerned tonight when she had the chest discomfort that was associated with some dizziness and significant nausea. Patient was scheduled to have an outpatient hernia surgery performed on Tuesday but explains that it was being canceled because during her preop testing, she had an abnormal EKG. The patient was given a dose of aspirin and had reduction in her chest discomfort with the nitroglycerin. The patient has significant risk factors for heart disease as she is prediabetic, obese, hypertensive, a significant tobacco history, and a very strong family history of heart disease. The patient will require admission to the hospital to rule out GA and pursue cardiac stress testing and/or catheterization. First troponin was normal and EKG was unremarkable. I discussed the case with the [facility] Hospitalist and they will evaluate for further management. Impression & Plan Substernal chest pain, Anxiety Discharge Plan Visit Data Chief Complaint: Chest Pain Stated Complaint: CHEST PAIN ED Provider: Ashlie Tenorio Discharge Problem: Substernal chest pain, Anxiety Patient Disposition: Being Evaluated by Hospitalist Forms Stand Alone Forms: Call Back Authorization, [facility] Prescriptions Prescriptions: No Action fluticasone propionate [Flonase Allergy Relief] 50 mcg/actuation [place],Suspension 2 spray INTRANASAL QAM RF: 0 sertraline [Zoloft] 50 mg Tablet 50 mg PO QAM RF: 0 gabapentin 100 mg Capsule 300 mg PO QAM RF: 0 gabapentin 400 mg Capsule 400 mg PO HS RF: 0 multivitamin Tablet 1 tab PO DAILY RF: 0 melatonin 5 mg Capsule PO HS RF: 0 vitamin B complex Tablet 1 tab PO DAILY RF: 0 milk thistle 150 mg Capsule 150 mg PO DAILY RF: 0 Horton-3 + Vitamin D3 31.25-117-100 mg-mg-unit Tablet,Chewable 1 tab PO DAILY RF: 0 Referrals Referrals: Janeth Ackerman MD [Primary Care Provider] - The scribe's documentation has been prepared under my direction and personally reviewed by me in its entirety. I confirm that the note above accurately reflects all work, treatment, procedures, and medical decision making performed by me.
[2018-12-17 06:55] LABS: Partial Thromboplastin Time 26.1 Seconds (21.0-31.0)
--- NOTE | 2018-12-17 07:14 | History & Physical Report ---
Date of Service December 17, 2018 Assessment & Plan (1) Substernal chest pain: Relieved by nitro ? ACS Abdominal pain with minimal lipase elevation ? Pancreatitis hx abdominal hernia, elective surgery contemplated pending outpatient stress test mood disorder, at baseline Hyperglycemia rule out DM Past tobacco abuse OBS PCU Trend troponin, TTE if with elevation Follow lipase, CT abdomen pelvis N.p.o. for now RE possible pancreatitis, IVF Further management pending work-up results Check hemoglobin A1c DVT prophylaxis Lovenox subcu Full code History of Present Illness Chief Complaint: Chest pain Primary Care Provider: Janeth Ackerman MD History obtained from patient and records. Medical history significant for mood disorder, endometriosis, recurrent UTI, past tobacco abuse. Recent confinement May 2018 for sepsis secondary to E. coli pyelonephritis. Patient has been dealing with achy abdominal discomfort from umbilical/ventral hernia issues for a month now. Has been evaluated by a number of local surgeons. Patient possibly considering having [facility] surgeon perform operation. Outpatient stress test recommended given history of episodic substernal pressure with occasional dyspnea on exertion prior to surgery as per records. This week patient noted mild worsening of epigastric discomfort this time with radiation to both flanks and her back. No nausea no vomiting no fever no chills. She was working on her bills on her couch last night when she experience substernal chest pain, nonpleuritic and shortness of breath with symptoms of dizziness. Chest discomfort relieved by aspirin and nitroglycerin given at the ER. 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 Allergies Allergy/AdvReac Type Severity Reaction Status Date / Time hazelnut Allergy Severe ANAPHYLAXIS; Verified 12/17/18 05:30 reported allergy to all nuts nut - unspecified Allergy Severe ANAPHYLAXIS Verified 12/17/18 05:30 peanut Allergy Severe ANAPHYLAXIS-ALL Verified 12/17/18 05:30 NUTS Penicillins Allergy Intermediate RASH - HAS Verified 12/17/18 05:30 TOLERATED ROCEPHIN 2012 Home Medications Home Medications Medication Instructions Recorded Confirmed Type fluticasone propionate [Flonase 2 spray INTRANASAL QAM 03/16/18 12/17/18 History Allergy Relief] gabapentin 300 mg PO QAM 03/16/18 12/17/18 History sertraline [Zoloft] 50 mg PO QAM 03/16/18 12/17/18 History milk thistle 150 mg PO DAILY 10/08/18 12/17/18 History in-7-nac-epa-fish oil-vit D3 1 tab PO DAILY 10/08/18 12/17/18 History [[place]-3 + Vitamin D3] vitamin B complex 1 tab PO DAILY 10/08/18 12/17/18 History gabapentin 400 mg PO HS 12/17/18 12/17/18 History melatonin 0 mg PO HS 12/17/18 12/17/18 History multivitamin 1 tab PO DAILY 12/17/18 12/17/18 History Past Med/Surg History Medical History E. coli septic shock Pyelonephritis (Acute) UTI (urinary tract infection) (Chronic) Bladder infection (Acute) Shingles (Acute) Hernia of abdominal cavity (Chronic) Asthma (Chronic) Has not used inhaler for years. H/o hospitalization and intubation in 1979. Depression (Chronic) Kidney stones (Chronic) History of anemia History of bronchitis Morbid obesity Surgical History H/O cystoscopy (Resolved) History of appendectomy (Resolved) Hx of cholecystectomy (Resolved) H/O section S/P tonsillectomy Family History Father Diabetes Hypertension Heart disease Mother Cancer Breast cancer Grandfather Colorectal cancer Other Family history of high blood pressure Family history of kidney disease Social History Preferred Language: Thai Communication Ability: Effective [employer] Required: No Beliefs That Will Affect Care: None marital status: Current Living Situation: Family Current Living Situation Comment: lives with mother and daughter Other Information That Helps Us Care for You: No Feels Safe at Home: Yes Safety Concerns: Feels Safe At This Time Smoking Status: Former smoker Tobacco Type: cigarettes ; Cigarettes Per Day: 5 ; Do You Dip or Chew Tobacco: No ; Smoking End Date: October 2018 ; Second Hand Exposure: No ; Tobacco Cessation Education Requested by Patient: No Hx Alcohol Use: No Hx Substance Use: No Review of Systems Review of Systems: As per HPI, all 10 systems reviewed, some stress with mother living with her. All other ROS negative Physical Exam Physical Exam: GENERAL: Comfortable, obese, no respiratory distress SKIN: Normal color, warm HEENT: [place] palpebral conjunctivae, no ptosis, dry buccal mucosa NECK : Supple, short neck, no tenderness CHEST : Decreased breath sounds, expiratory wheezes, no tenderness HEART : Tachycardic, no obvious murmurs ABDOMEN: distention, epigastric tenderness EXTREMITIES : Minimal LE swelling/tenderness, no other conspicuous deformities noted NEUROLOGIC : Coherent, no facial asymmetry, no other gross focality Results & Data Vital Signs (Past 12 Hours) Vital Signs Temp Pulse Pulse Resp BP BP Pulse Ox 12/17/18 06:19 63 24 135/71 95 12/17/18 05:33 67 14 94 12/17/18 05:17 65 17 157/83 H 98 12/17/18 05:06 37.3 C 88 20 157/83 H 99 Laboratory Results Laboratory Results WBC 11.20 K/uL (4.8-10.8) H 12/17/18 05:15 RBC 4.87 M/uL (4.2-5.4) 12/17/18 05:15 Hgb 14.0 g/dL (12.0-16.0) 12/17/18 05:15 Hct 41.5 % (37-47) 12/17/18 05:15 MCV 85.2 fL (80-100) 12/17/18 05:15 MCH 28.7 pg (25-34) 12/17/18 05:15 MCHC 33.7 g/dL (32-36) 12/17/18 05:15 RDW Std Deviation 45.5 fL (36.4-46.3) 12/17/18 05:15 RDW Coeff of Shannen 14.5 % (11.5-14.5) 12/17/18 05:15 Plt Count 222 K/uL (130-400) 12/17/18 05:15 MPV 10.2 fL (7.4-10.4) 12/17/18 05:15 Immature Gran % (Auto) 0.3 % 12/17/18 05:15 Neut % (Auto) 59.5 % 12/17/18 05:15 Lymph % (Auto) 27.8 % 12/17/18 05:15 [place] % (Auto) 9.2 % 12/17/18 05:15 Eos % (Auto) 2.9 % 12/17/18 05:15 Baso % (Auto) 0.3 % 12/17/18 05:15 Immature Gran # (Auto) 0.03 K/uL (0.00-0.02) H 12/17/18 05:15 Neut # (Auto) 6.67 K/uL (1.4-6.5) H 12/17/18 05:15 Lymph # (Auto) 3.11 K/uL (1.2-3.4) 12/17/18 05:15 [place] # (Auto) 1.03 K/uL (0.11-0.59) H 12/17/18 05:15 Eos # (Auto) 0.33 K/uL (0-0.5) 12/17/18 05:15 Baso # (Auto) 0.03 K/uL (0-0.2) 12/17/18 05:15 APTT 26.1 Seconds (21.0-31.0) 12/17/18 06:27 PTT Ratio 1.0 12/17/18 06:27 Sodium 138 mmol/L (136-145) 12/17/18 05:15 Potassium 4.0 mmol/L (3.5-5.1) 12/17/18 05:15 Chloride 105 mmol/L (98-107) 12/17/18 05:15 Carbon Dioxide 29 mmol/L (21-32) 12/17/18 05:15 Anion Gap 4.0 (3-11) 12/17/18 05:15 BUN 10 mg/dl (7-18) 12/17/18 05:15 Creatinine 0.61 mg/dl (0.6-1.2) 12/17/18 05:15 Est Cr Clr Drug Dosing 140.5 ml/min 12/17/18 05:15 Est GFR ( Amer) 124.2 12/17/18 05:15 Est GFR (Non-Af Amer) 107.2 12/17/18 05:15 BUN/Creatinine Ratio 17.0 (10-20) 12/17/18 05:15 Glucose 112 mg/dl (70-99) H 12/17/18 05:15 Calcium 8.8 mg/dl (8.5-10.1) 12/17/18 05:15 Magnesium Cancelled 12/17/18 06:27 Total Bilirubin 0.5 mg/dl (0.2-1) 12/17/18 05:15 AST 18 U/L (15-37) 12/17/18 05:15 ALT 45 U/L (12-78) 12/17/18 05:15 Alkaline Phosphatase 86 U/L (45-117) 12/17/18 05:15 Troponin I < 0.015 ng/ml (0-0.045) 12/17/18 05:15 Total Protein 6.7 gm/dl (6.4-8.2) 12/17/18 05:15 Albumin 3.4 gm/dl (3.4-5.0) 12/17/18 05:15 Globulin 3.3 gm/dl (2.5-4.0) 12/17/18 05:15 Albumin/Globulin Ratio 1.0 (0.9-2) 12/17/18 05:15 Lipase 488 U/L (73-393) H 12/17/18 05:15 Diagnostic Findings Chest x-ray as per my interpretation: Atelectasis EKG as per my interpretation : Rate 70, NSR, normal axis, no ischemia
[2018-12-17] MEDS ORDERED: IOVERSOL 100ml IV PRN (07:48)
--- NOTE | 2018-12-17 08:10 | CT Scan Report ---
CT abd pelvis IV con only CT DOSE: 1636.26 mGy.cm HISTORY: Flank pain abd/flank pain TECHNIQUE: Multiaxial CT images of the abdomen and pelvis were performed following the use of intrave nous contrast. A dose lowering technique was utilized adhering to the principles of ALARA. COMPARISON STUDY: 07/04/2018 FINDINGS: Stable micronodularity right lung base. Mild fatty replacement of the liver. Unchanged cystic change right hepatic lobe. Prior cholecystectomy. Spleen is uniform. Kidneys enhance uniformly. No evidence for renal hydronephrosis. Ventral hernia containing several bowel loops. This is considered a nonobstructive finding. Nonobstructive bowel pattern. Bladder is midline. Several small scattered colonic diverticuli with no evidence for diverticulitis. IMPRESSION: 1. No acute process in the abdomen or pelvis. 2. Stable hepatic cyst. 3. Ventral hernia considered nonobstructive and unchanged. 4. Scattered colonic diverticuli with no evidence for diverticulitis. The above report was generated using voice recognition software. It may contain grammatical, syntax or spelling errors. Electronically signed by: Vaelntino Montoya M.D. 12/17/2018 8:07 AM
[2018-12-17] MEDS ORDERED: MoRPHine SULFATE 4 MG/ML 1 ML CARP\\VIAL IV PRN (08:18)
[2018-12-17] MEDS ORDERED: LORazepam 0.5 MG/1 ML VIAL IV PRN (08:18)
[2018-12-17] MEDS ORDERED: LACTATED RINGER'S 1,000 ML IV SCH (08:18)
[2018-12-17] MEDS ORDERED: PROMETHAZINE HCL 12.5 MG in SODIUM CHLORIDE 0.9% 50 ML IV PRN (08:18)
[2018-12-17] MEDS ORDERED: MELATONIN PO PRN (08:18)
[2018-12-17] MEDS ORDERED: TRAMADOL HCL 50 MG TABLET PO PRN (08:18)
[2018-12-17] MEDS: MULTIVITAMIN TAB PO SCH (09:08)
[2018-12-17] MEDS: FLUTICASONE PROPIONATE NA SPR 16 GM BTL SCH (09:08)
[2018-12-17] MEDS: ENOXAPARIN INJ 40 MG/0.4 ML SYR SQ SCH (09:08)
[2018-12-17] MEDS: GABAPENTIN 300 MG CAP PO SCH (09:09)
[2018-12-17] MEDS: SERTRALINE HCL 50 MG TABLET PO SCH (09:09)
[2018-12-17] MEDS: VITAMIN B COMPLEX TAB PO SCH (09:09)
[2018-12-17 09:22] LABS: Chol HDL Ratio 3; Cholesterol 150 mg/dl (0-200); HDL Cholesterol 45 mg/dl; LDL Cholesterol Calculated 68 mg/dl; Lipase 607 U/L (73-393); Triglycerides 185 mg/dl (0-150); Troponin I < 0.015 ng/ml (0-0.045); VLDL Cholesterol 37 mg/dl
[2018-12-17] MEDS: ACETAMINOPHEN 325 MG TAB PO PRN (12:56)
--- NOTE | 2018-12-17 13:26 | Communication Note ---
Date of Service: December 17, 2018 Pt was seen and examined. Lying in bed with no distress Pt said that after she got the nitro subl, her chest pain resolves She said that she had similar chest pain 1 week ago She said that she in under a lot of stress lately She is very anxious and she said that her dad from [place] at age 48 Currently denies any chest pain, palpitation, dizziness and SOB Exam General- No acute distress Head- atraumatic Eyes- PERRL, EOMI, ENT- oropharynx clear Neck- supple, no JVD Lungs- clear to auscultation Heart- regular rhythm; no murmur Abdomen- normal bowel sounds, +ventral hernia, +tenderness with palpation Extremities- no calf tenderness Neuro- alert, oriented x 3; PERRL, EOMI; no facial palsy; no dysarthria Skin- warm & dry A/P Chest pain Need to r/o ACS CXR showed no acute finding Troponin x2 set negative Will get an echo Will consult cardio for possible dobutatimine stress in am Will make NPO after midnight Continue aspirin Continue monitor in tele Elevated Lipase CT abd/pelvis showed no acute process in the abdomen or pelvis. Lipase on admission 488 --->607 Continue IVF Will start on clear liquid diet Will repeat Lipase in am Abdominal ventral Hernia Abdmoninal Pain CT showed ventral hernia considered nonobstructive and unchanged. She said that she will need to get cardiac clearance before proceeding for ventr al hernia repair Follow up outpatient with your surgery Elevated Glucose Hba1c pending Continue monitor BS DVT px on Lovenox subq CODE STATUS FULL CODE Disposition Continue monitor in Tele
--- NOTE | 2018-12-17 14:27 | Cardiology Consultation ---
Date of Consultation December 17, 2018 Assessment & Plan (1) Substernal chest pain: (2) Anxiety: The patient's pain is atypical. Her EKG is within normal limits. Cardiac markers are negative. Her risk factors include obesity. Prior to discharge she should have a dobutamine stress echocardiogram. History of Present Illness Attending Physician: Candace Noe MD History of Present Illness This is a 48-year-old female with no significant cardiac history. Last evening she was sitting at her desk doing work and she had sharp sticking chest discomfort. She did not feel well but decided to take a shower after which she developed some nausea and diaphoresis. She decided to present to the emergency department. After arrival she was given sublingual nitroglycerin with some relief of her discomfort. She was admitted to the telemetry unit. Her EKG is within normal limits. Cardiac markers are negative. Allergies Allergy/AdvReac Type Severity Reaction Status Date / Time hazelnut Allergy Severe ANAPHYLAXIS; Verified 12/17/18 05:30 reported allergy to all nuts nut - unspecified Allergy Severe ANAPHYLAXIS Verified 12/17/18 05:30 peanut Allergy Severe ANAPHYLAXIS-ALL Verified 12/17/18 05:30 NUTS Penicillins Allergy Intermediate RASH - HAS Verified 12/17/18 05:30 TOLERATED ROCEPHIN 2012 Home Medications Home Medications Medication Instructions Recorded Confirmed Type fluticasone propionate [Flonase 2 spray INTRANASAL QA 03/16/18 12/17/18 History Allergy Relief] gabapentin 300 mg PO QAM 03/16/18 12/17/18 History sertraline [Zoloft] 50 mg PO QAM 03/16/18 12/17/18 History milk thistle 150 mg PO DAILY 10/08/18 12/17/18 History dv-1-sld-epa-fish oil-vit D3 1 tab PO DAILY 10/08/18 12/17/18 History [[place]-3 + Vitamin D3] vitamin B complex 1 tab PO DAILY 10/08/18 12/17/18 History gabapentin 400 mg PO HS 12/17/18 12/17/18 History melatonin 0 mg PO HS 12/17/18 12/17/18 History multivitamin 1 tab PO DAILY 12/17/18 12/17/18 History Patient History Medical History E. coli septic shock Pyelonephritis (Acute) UTI (urinary tract infection) (Chronic) Bladder infection (Acute) Shingles (Acute) Hernia of abdominal cavity (Chronic) Asthma (Chronic) Has not used inhaler for years. H/o hospitalization and intubation in 1979. 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: No Beliefs That Will Affect Care: None marital status: Current Living Situation: Family Current Living Situation Comment: lives with mother and daughter Other Information That Helps Us Care for You: No Feels Safe at Home: Yes Safety Concerns: Feels Safe At This Time Smoking Status: Former smoker Tobacco Type: cigarettes ; Cigarettes Per Day: 5 ; Do You Dip or Chew Tobacco: No ; Smoking End Date: October 2018 ; Second Hand Exposure: No ; Tobacco Cessation Education Requested by Patient: No Hx Alcohol Use: No Hx Substance Use: No Review of Systems Review of Systems: All systems reviewed & are unremarkable except as noted in HPI & below Nothing additional Physical Exam Physical Exam: General: no acute distress and stated age Head: normocephalic, no masses, lesions, tenderness or abnormalities Eyes: conjunctiva are pink and non-injected, sclera clear Neck: supple, no adenopathy, no bruits, normal jugular venous pulse, no hepatojugular reflux Chest: normal shape and normal respiratory effort Lungs: clear to auscultation and percussion Cardiac Exam: - regular rate & rhythm, no murmurs gallops or rubs - normal S1, normal S2 Pulses: 2(+) throughout Abdomen: abdomen soft, non-tender, no abnormal masses and no hepatosplenomegaly Musculoskeletal: no gait disturbance, no joint inflammation, no deforming arthritis Extremities: no edema and no cyanosis Neuro: grossly normal exam Results & Data Vital Signs (Past 12 Hours) Vital Signs Temp Pulse Pulse Resp BP BP Pulse Ox 12/17/18 10:45 36.6 C 54 L 16 134/68 94 12/17/18 08:00 36.8 C 56 L 18 134/68 98 12/17/18 07:30 67 16 137/74 96 12/17/18 07:17 63 15 116/65 98 12/17/18 07:00 61 23 96 12/17/18 06:30 61 14 96 12/17/18 06:19 63 24 135/71 95 12/17/18 06:00 63 17 135/71 95 12/17/18 05:33 64 13 109/64 96 12/17/18 05:30 72 14 94 12/17/18 05:17 65 17 157/83 H 98 12/17/18 05:14 65 9 L 98 12/17/18 05:12 70 12 157/83 H 99 12/17/18 05:10 70 13 151/124 H 98 12/17/18 05:06 37.3 C 88 20 157/83 H 99 Laboratory Results Laboratory Results - last 24 hr 12/17/18 12/17/18 12/17/18 05:15 05:15 06:27 WBC 11.20 H RBC 4.87 Hgb 14.0 Hct 41.5 MCV 85.2 MCH 28.7 MCHC 33.7 RDW Std Deviation 45.5 RDW Coeff of Shannen 14.5 Plt Count 222 MPV 10.2 Immature Gran % (Auto) 0.3 Neut % (Auto) 59.5 Lymph % (Auto) 27.8 [place] % (Auto) 9.2 Eos % (Auto) 2.9 Baso % (Auto) 0.3 Immature Gran # (Auto) 0.03 H Neut # (Auto) 6.67 H Lymph # (Auto) 3.11 [place] # (Auto) 1.03 H Eos # (Auto) 0.33 Baso # (Auto) 0.03 APTT 26.1 PTT Ratio 1.0 Sodium 138 Potassium 4.0 Chloride 105 Carbon Dioxide 29 Anion Gap 4.0 BUN 10 Creatinine 0.61 Est Cr Clr Drug Dosing 140.5 Est GFR ( Amer) 124.2 Est GFR (Non-Af Amer) 107.2 BUN/Creatinine Ratio 17.0 Glucose 112 H Estimat Average Glucose Hemoglobin A1c Calcium 8.8 Magnesium 1.8 Total Bilirubin 0.5 AST 18 ALT 45 Alkaline Phosphatase 86 Troponin I < 0.015 Total Protein 6.7 Albumin 3.4 Globulin 3.3 Albumin/Globulin Ratio 1.0 Triglycerides Cholesterol LDL Cholesterol, Calc VLDL Cholesterol, Calc HDL Cholesterol Cholesterol/HDL Ratio Lipase 488 H 12/17/18 12/17/18 12/17/18 06:27 06:27 08:30 WBC RBC Hgb Hct MCV MCH MCHC RDW Std Deviation RDW Coeff of Shannen Plt Count MPV Immature Gran % (Auto) Neut % (Auto) Lymph % (Auto) [place]alf[place] % (Auto) Eos % (Auto) Baso % (Auto) Immature Gran # (Auto) Neut # (Auto) Lymph # (Auto) [place] # (Auto) Eos # (Auto) Baso # (Auto) APTT PTT Ratio Sodium Potassium Chloride Carbon Dioxide Anion Gap BUN Creatinine Est Cr Clr Drug Dosing Est GFR ( Amer) Est GFR (Non-Af Amer) BUN/Creatinine Ratio Glucose Estimat Average Glucose Pending Hemoglobin A1c Pending Calcium Magnesium Cancelled Total Bilirubin AST ALT Alkaline Phosphatase Troponin I < 0.015 Total Protein Albumin Globulin Albumin/Globulin Ratio Triglycerides 185 H Cholesterol 150 LDL Cholesterol, Calc 68 VLDL Cholesterol, Calc 37 HDL Cholesterol 45 Cholesterol/HDL Ratio 3 Lipase 607 H Medications Administered Laboratory Results - last 24 hr 12/17/18 12/17/18 12/17/18 05:15 05:15 06:27 WBC 11.20 H RBC 4.87 Hgb 14.0 Hct 41.5 MCV 85.2 MCH 28.7 MCHC 33.7 RDW Std Deviation 45.5 RDW Coeff of Shannen 14.5 Plt Count 222 MPV 10.2 Immature Gran % (Auto) 0.3 Neut % (Auto) 59.5 Lymph % (Auto) 27.8 [place] % (Auto) 9.2 Eos % (Auto) 2.9 Baso % (Auto) 0.3 Immature Gran # (Auto) 0.03 H Neut # (Auto) 6.67 H Lymph # (Auto) 3.11 [place] # (Auto) 1.03 H Eos # (Auto) 0.33 Baso # (Auto) 0.03 APTT 26.1 PTT Ratio 1.0 Sodium 138 Potassium 4.0 Chloride 105 Carbon Dioxide 29 Anion Gap 4.0 BUN 10 Creatinine 0.61 Est Cr Clr Drug Dosing 140.5 Est GFR ( Amer) 124.2 Est GFR (Non-Af Amer) 107.2 BUN/Creatinine Ratio 17.0 Glucose 112 H Estimat Average Glucose Hemoglobin A1c Calcium 8.8 Magnesium 1.8 Total Bilirubin 0.5 AST 18 ALT 45 Alkaline Phosphatase 86 Troponin I < 0.015 Total Protein 6.7 Albumin 3.4 Globulin 3.3 Albumin/Globulin Ratio 1.0 Triglycerides Cholesterol LDL Cholesterol, Calc VLDL Cholesterol, Calc HDL Cholesterol Cholesterol/HDL Ratio Lipase 488 H 12/17/18 12/17/18 12/17/18 06:27 06:27 08:30 WBC RBC Hgb Hct MCV MCH MCHC RDW Std Deviation RDW Coeff of Shannen Plt Count MPV Immature Gran % (Auto) Neut % (Auto) Lymph % (Auto) [place]alf[place] % (Auto) Eos % (Auto) Baso % (Auto) Immature Gran # (Auto) Neut # (Auto) Lymph # (Auto) [place]alf[place] # (Auto) Eos # (Auto) Baso # (Auto) APTT PTT Ratio Sodium Potassium Chloride Carbon Dioxide Anion Gap BUN Creatinine Est Cr Clr Drug Dosing Est GFR ( Amer) Est GFR (Non-Af Amer) BUN/Creatinine Ratio Glucose Estimat Average Glucose Pending Hemoglobin A1c Pending Calcium Magnesium Cancelled Total Bilirubin AST ALT Alkaline Phosphatase Troponin I < 0.015 Total Protein Albumin Globulin Albumin/Globulin Ratio Triglycerides 185 H Cholesterol 150 LDL Cholesterol, Calc 68 VLDL Cholesterol, Calc 37 HDL Cholesterol 45 Cholesterol/HDL Ratio 3 Lipase 607 H Current Inpatient Medications Acetaminophen (Tylenol) 650 mg PO Q4H PRN PRN Reason: Pain or Fever Stop: 01/16/19 08:17 Last Admin: 12/17/18 12:56 Dose: 650 mg Documented by: Aspirin (Ecotrin Ectab) 81 mg PO [facility] Stop: 01/17/19 08:59 Enoxaparin Sodium (Lovenox) 40 mg SQ [facility] Stop: 01/16/19 08:59 Last Admin: 12/17/18 09:08 Dose: 40 mg Documented by: Fluticasone Propionate (Flonase) 2 sprays NA [facility] Stop: 01/16/19 08:59 Last Admin: 12/17/18 09:08 Dose: 2 sprays Documented by: Gabapentin (Neurontin) 300 mg PO [facility] Stop: 01/16/19 08:59 Last Admin: 12/17/18 09:09 Dose: 300 mg Documented by: Gabapentin (Neurontin) 400 mg PO HS [facility] Stop: 01/16/19 20:59 Lorazepam (Ativan) 0.5 mg in 1 mls @ 1 mls/min IV Q4H PRN PRN Reason: Anxiety/Agitation Stop: 01/16/19 08:17 Promethazine HCl 12.5 mg/ (Sodium Chloride) 50.5 mls @ 202 mls/hr IV Q6H PRN PRN Reason: Nausea And Vomiting Stop: 01/16/19 08:17 Ioversol (Optiray 320 100ml) 94 ml IV ONCE PRN PRN Reason: Interaction Checking Stop: 12/21/18 07:47 Last Admin: 12/17/18 07:48 Dose: 94 ml Documented by: Morphine Sulfate (Morphine Sulfate) 4 mg IV Q6H PRN PRN Reason: Pain Stop: 12/31/18 08:17 Multivitamins (Multivitamin Tab) 1 tab PO DAILY [facility] Stop: 01/16/19 08:59 Last Admin: 12/17/18 09:08 Dose: 1 tab Documented by: Nitroglycerin (Nitrostat) 0.4 mg SL UD PRN PRN Reason: Chest Pain Stop: 01/16/19 08:17 Sertraline HCl (Zoloft) 50 mg PO QAM [facility] Stop: 01/16/19 08:59 Last Admin: 12/17/18 09:09 Dose: 50 mg Documented by: Tramadol HCl (Ultram) 25 - 50 mg PO Q4H PRN PRN Reason: Pain Stop: 01/16/19 08:17 Vitamin B Complex (Vitamin B Complex) 1 tab PO DAILY [facility] Stop: 01/16/19 08:59 Last Admin: 12/17/18 09:09 Dose: 1 tab Documented by:
[2018-12-17] MEDS: CYCLOBENZAPRINE HCL 5 MG TAB PO PRN (20:56)
[2018-12-17] MEDS: GABAPENTIN 400 MG CAP PO SCH (20:56)
[2018-12-18 05:42] LABS: Basophils # (auto) 0.03 K/uL (0-0.2); Basophils % (auto) 0.3 %; Eosinophils % (auto) 3.3 %; Hematocrit (blood only) 41.7 % (37-47); Hemoglobin 13.5 g/dL (12.0-16.0); Immature Granulocytes # (auto) 0.01 K/uL (0.00-0.02); Immature Granulocytes % (auto) 0.1 %; Lymphocytes % (auto) 26.5 %; Mean Corpuscular Hemoglobin 27.6 pg (25-34); Mean Corpuscular Hgb Conc 32.4 g/dL (32-36); Mean Corpuscular Volume 85.3 fL (80-100); Mean Platelet Volume 9.9 fL (7.4-10.4); Monocytes # (auto) 0.81 K/uL (0.11-0.59); Monocytes % (auto) 8.9 %; Neutrophils # (auto) 5.52 K/uL (1.4-6.5); Neutrophils % (auto) 60.9 %; Platelet Count 225 K/uL (130-400); RDW Coefficient of Variation 14.7 % (11.5-14.5); RDW Standard Deviation 45.6 fL (36.4-46.3); Red Blood Count 4.89 M/uL (4.2-5.4); White Blood Count 9.07 K/uL (4.8-10.8)
[2018-12-18 06:08] LABS: BUN Creatinine Ratio 12.9 (10-20); Calcium 8.7 mg/dl (8.5-10.1); Creatinine Clr Calc Pharmacy 126.5 ml/min; Est GFR (African American) 120.5; Est GFR (Non-African American) 103.9; Potassium 4.3 mmol/L (3.5-5.1)
[2018-12-18 06:15] LABS: Estimated Average Glucose 134 mg/dl; Hemoglobin A1C 6.3 % (4.5-5.6)
[2018-12-18] MEDS: ACETAMINOPHEN 325 MG TAB PO PRN (06:45)
[2018-12-18] MEDS: ASPIRIN 81 MG ECTAB PO SCH (08:23)
[2018-12-18] MEDS: FLUTICASONE PROPIONATE NA SPR 16 GM BTL SCH (08:24)
[2018-12-18] MEDS: ENOXAPARIN INJ 40 MG/0.4 ML SYR SQ SCH (08:24)
[2018-12-18] MEDS: MULTIVITAMIN TAB PO SCH (08:25)
[2018-12-18] MEDS: SERTRALINE HCL 50 MG TABLET PO SCH (08:26)
[2018-12-18] MEDS: GABAPENTIN 300 MG CAP PO SCH (08:26)
[2018-12-18] MEDS: VITAMIN B COMPLEX TAB PO SCH (08:26)
--- NOTE | 2018-12-18 09:22 | Hospitalist Progress Note ---
Date of Service December 18, 2018 Assessment & Plan (1) Substernal chest pain: Relieved by nitro Differentials include ACS, possible Pancreatitis Lipase was elevated Troponin negative x2 Planned for DSE today Currently NPO. Will reassess after DSE and advance diet as tolerated CT Abdomen/Pelvis report reviewed. Continue IVF for now (2) Impaired glucose tolerance: A1c 6.3 Lifestyle modification Need recheck outpatient (3) Anxiety: Stable (4) Hernia of abdominal cavity: History of abdominal hernia, elective surgery contemplated pending outpatient stress test Follow up outpatient (5) DVT prophylaxis: lovenox sq Subjective Patient seen and evaluated Reported substernal chest pain yesterday, described as sharp, on walking to bathroom yesterday, not referred, resolved spontaneously, lasted about 5 mins. Currently has no complaints Review of Systems Constitutional: no problem reported Eyes: no problem reported Ear, Nose, Mouth, Throat: no problem reported Respiratory: no problem reported Cardiovascular: + chest pain Gastrointestinal: + abdominal pain (chronic, intermittent around hernia site reported) and + constipation; no nausea, no vomiting and no diarrhea/loose stools Genitourinary: no problem reported Musculoskeletal: no problem reported Integumentary: no problem reported Neurologic: no problem reported Physical Exam Physical Exam: General: Well nourished, well hydrated, average body habitus, no acute distress and not ill appearing Eyes: PERRL, conjunctivae normal, not pale, anicteric sclerae, EOM intact bilaterally ENMT: External ear and nose normal, oropharynx normal Neck: Normal visual inspection, no tracheal deviation, no swelling noted Respiratory: Normal respiratory effort, no respiratory distress, lungs clear to auscultation, no crackles and no wheezes Cardiovascular: Pulse is RRR. Heart Sounds: normal S1 and normal S2; no murmurs. Vessels: normal peripheral pulses Extremities: no pedal edema Chest (Breasts): Chest: normal inspection of chest, No tenderness on palpation Gastrointestinal (Abdomen): Abdomen is not distended, soft, non-tender to palpation, no guarding, no palpable hepatosplenomegaly, normal bowel sounds Musculoskeletal: No cyanosis or clubbing, all extremities motor strength 5/5 Skin: No rash noted on gross inspection, No ulcers noted Neurologic: Alert and oriented x 3, No focal weakness, sensation grossly intact Psychiatric: Alert and oriented x 3, euthymic affect, no depressed affect Results & Data Vital Signs (Past 12 Hours) Vital Signs Temp Pulse Pulse Resp BP Pulse Ox 12/18/18 07:06 36.4 C L 56 L 16 129/85 95 12/18/18 03:37 36.5 C 63 18 128/91 91 12/18/18 00:00 56 L 12/17/18 22:53 36.9 C 70 16 147/88 H 96 Laboratory Results Short CBC 12/18/18 Range/Units 05:13 WBC 9.07 (4.8-10.8) K/uL Hgb 13.5 (12.0-16.0) g/dL Hct 41.7 (37-47) % Plt Count 225 (130-400) K/uL BMP 12/18/18 05:13 Sodium 139 Potassium 4.3 Chloride 105 Carbon Dioxide 28 BUN 9 Creatinine 0.67 Glucose 112 H Calcium 8.[address] Abd/Pelvis w/Cont 1. No acute process in the abdomen or pelvis. 2. Stable hepatic cyst. 3. Ventral hernia considered nonobstructive and unchanged. 4. Scattered colonic diverticuli with no evidence for diverticulitis.
[2018-12-18] MEDS ORDERED: POLYETHYLENE (MIRALAX) 17 GM PACK PO PRN (09:39)
[2018-12-18] MEDS ORDERED: hydroCHLOROthiazide 25 MG TAB PO STA (11:45)
[2018-12-18] MEDS ORDERED: hydroCHLOROthiazide 25 MG TAB PO SCH (11:45)
--- NOTE | 2018-12-18 11:47 | Cardiology Progress Note ---
Date of Service December 18, 2018 Assessment & Plan (1) Substernal chest pain: Patient with nonischemic response to stress echocardiogram achieving a moderately high peak workload. The blood pressure response was hypertensive, with a systolic blood pressure of just over 200 mmHg noted in stage II of a standard Danny protocol. Recommend adding blood pressure medication, my first thought is to add HCTZ 12.5 mg daily. She does have a history of past urinary tract infection and resultant septic shock, but her kidney function electrolytes are stable at this time. She continues to have a mild elevation in her lipase, I will defer work-up of this to the hospitalist team. No abdominal pain noted. I am going to advance her diet. Subjective Chief complaint: Follow-up chest discomfort Subjective: Patient seen prior to, during and post exercise stress echocardiogram. No additional chest discomfort overnight last night. Review of Systems Review of Systems: All systems reviewed & are unremarkable except as noted in HPI & below Physical Exam Physical Exam: Temp Pulse Resp BP Pulse Ox 36.4 C L 64 16 129/85 95 12/18/18 07:06 12/18/18 09:12 12/18/18 07:06 12/18/18 07:06 12/18/18 07:06 Constitutional: WD/WN, vitals as above Respiratory: normal respiratory effort, lungs clear to auscultation Cardiovascular: RRR, no murmur, no edema Gastrointestinal (Abdomen): normal bowel sounds, soft, nontender, no hepatosplenomegaly Neurologic: PERRL, EOMI, accommodation nl, no face palsy, no dysarthria Results & Data Vital Signs (Past 12 Hours) Vital Signs Temp Pulse Pulse Resp BP Pulse Ox 12/18/18 09:12 64 12/18/18 07:06 36.4 C L 56 L 16 129/85 95 12/18/18 03:37 36.5 C 63 18 128/91 91 12/18/18 00:00 56 L Laboratory Results Coagulation 12/17/18 Range/Units 06:27 APTT 26.1 (21.0-31.0) Seconds CBC 12/18/18 Range/Units 05:13 WBC 9.07 (4.8-10.8) K/uL RBC 4.89 (4.2-5.4) M/uL Hgb 13.5 (12.0-16.0) g/dL Hct 41.7 (37-47) % Plt Count 225 (130-400) K/uL Neut # (Auto) 5.52 (1.4-6.5) K/uL Lymph # (Auto) 2.40 (1.2-3.4) K/uL [place] # (Auto) 0.81 H (0.11-0.59) K/uL Eos # (Auto) 0.30 (0-0.5) K/uL Baso # (Auto) 0.03 (0-0.2) K/uL Comprehensive Metabolic Panel 12/18/18 Range/Units 05:13 Sodium 139 (136-145) mmol/L Potassium 4.3 (3.5-5.1) mmol/L Chloride 105 (98-107) mmol/L Carbon Dioxide 28 (21-32) mmol/L BUN 9 (7-18) mg/dl Creatinine 0.67 (0.6-1.2) mg/dl Glucose 112 H (70-99) mg/dl Calcium 8.7 (8.5-10.1) mg/dl Intake and Output 12/17/18 12/18/18 12/18/18 22:59 06:59 14:59 Intake Total 975 / 2272.5 Balance 975 / 2272.5 Intake: Oral 975 / 975 Other: Weight 113 kg Diagnostic Findings EKG performed this morning 12/18/2018 at 6:39 AM and reviewed independently revealed normal sinus rhythm at 61 bpm, normal EKG, no change compared to 12/17/2018. Resting transthoracic echocardiogram performed earlier today and reviewed independently revealed normal left ventricular myocardial thickness and normal resting wall motion. The LV ejection fraction was normal at 55 to 60%. No significant valvular heart disease was noted. The left ventricular diastolic function was normal.
[2018-12-18] MEDS: LACTATED RINGER'S 1,000 ML IV SCH ×2 (12:05→23:44)
[2018-12-18] MEDS: GABAPENTIN 400 MG CAP PO SCH (19:56)
[2018-12-18] MEDS: CYCLOBENZAPRINE HCL 5 MG TAB PO PRN (21:00)
[2018-12-19 07:37] VITALS: BP 143/59; PULSE 58; TEMP 98.1; O2SAT 95
[2018-12-19] MEDS: VITAMIN B COMPLEX TAB PO SCH (08:45)
[2018-12-19] MEDS: ASPIRIN 81 MG ECTAB PO SCH (08:45)
[2018-12-19] MEDS: MULTIVITAMIN TAB PO SCH (08:45)
[2018-12-19] MEDS: SERTRALINE HCL 50 MG TABLET PO SCH (08:45)
[2018-12-19] MEDS: ENOXAPARIN INJ 40 MG/0.4 ML SYR SQ SCH (08:46)
[2018-12-19] MEDS: GABAPENTIN 300 MG CAP PO SCH (08:46)
[2018-12-19] MEDS: FLUTICASONE PROPIONATE NA SPR 16 GM BTL SCH (08:47)
[2018-12-19] MEDS ORDERED: hydroCHLOROthiazide 25 MG TAB PO SCH (09:00)
--- NOTE | 2018-12-19 10:46 | Discharge Summary ---
Date of Service December 19, 2018 Admission HPI Per Admitting Provider History obtained from patient and records. Medical history significant for mood disorder, endometriosis, recurrent UTI, past tobacco abuse. Recent confinement May 2018 for sepsis secondary to E. coli pyelonephritis. Patient has been dealing with achy abdominal discomfort from umbilical/ventral hernia issues for a month now. Has been evaluated by a number of local surgeons. Patient possibly considering having [facility] surgeon perform operation. Outpatient stress test recommended given history of episodic substernal pressure with occasional dyspnea on exertion prior to surgery as per records. This week patient noted mild worsening of epigastric discomfort this time with radiation to both flanks and her back. No nausea no vomiting no fever no chills. She was working on her bills on her couch last night when she experience substernal chest pain, nonpleuritic and shortness of breath with symptoms of dizziness. Chest discomfort relieved by aspirin and nitroglycerin given at the ER. 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 Principal Diagnosis Chest pain noncardiac, negative cardiac stress test, pancreatitis, resolved Discharge Exam Constitutional WD/WN, vitals as above Eyes PERRL, conjunctivae normal, anicteric sclerae ENMT external ear and nose normal, oropharynx normal Neck trachea midline, no thyromegaly Respiratory normal respiratory effort, lungs clear to auscultation Cardiovascular RRR, no murmur, no edema Gastrointestinal (Abdomen) normal bowel sounds, soft, nontender, no hepatosplenomegaly Musculoskeletal no cyanosis or clubbing, extremities motor strength 5/5 Skin no rashes, warm and dry Neurologic PERRL, EOMI, accommodation nl, no face palsy, no dysarthria Psychiatric A+Ox3, euthymic affect Discharge Data Allergies Allergy/AdvReac Type Severity Reaction Status Date / Time hazelnut Allergy Severe ANAPHYLAXIS; Verified 12/17/18 05:30 reported allergy to all nuts nut - unspecified Allergy Severe ANAPHYLAXIS Verified 12/17/18 05:30 peanut Allergy Severe ANAPHYLAXIS-ALL Verified 12/17/18 05:30 NUTS Penicillins Allergy Intermediate RASH - HAS Verified 12/17/18 05:30 TOLERATED ROCEPHIN 2012 Consultations 12/17/18 06:43 ED Decision to Admit Stat 12/17/18 12:03 Consult Cardiology Routine Ordered Studies 12/17/18 07:12 CT abd pelvis IV con only Urgent IMPRESSION: 1. No acute process in the abdomen or pelvis. 2. Stable hepatic cyst. 3. Ventral hernia considered nonobstructive and unchanged. 4. Scattered colonic diverticuli with no evidence for diverticulitis. Hospital Course (1) Substernal chest pain: Noncardiac-possible related to GI issues/pancreatitis(symptom completely resolved now), atypical for angina Appreciate input from cardiology Exercise stress test/exercise stress echo on 12/18/18: No stress-induced angina, no EKG change, heart response to exercise: Normal hypertensive response pt started on HCTZ 12.5 mg daily -by cardiology Will have continued follow-up with family physician for BP monitoring, blood pressure medication adjustment is (2) Impaired glucose tolerance: A1c 6.3 Lifestyle modification (3) Anxiety: Stable (4) Hernia of abdominal cavity: History of abdominal hernia, elective surgery contemplated pending outpatient stress test Follow up outpatient (5) DVT prophylaxis: lovenox sq Total Time Total Time Spent Total Time Spent (In Minutes): approx 45 mi ns Total Time Includes: Examination of the Patient, Discharge Planning and Medication Reconciliation Discharge Plan Discharge Items Patient Disposition: Home - Self-Care Reason For Visit: CHEST PAIN,ABDOMINAL PAIN Discharge Diagnosis: Chest pain noncardiac, negative cardiac stress test, pancreatitis, resolved Activity: Resume your previous activity Non-emergency contact: Primary Care Provider Call non-emergency contact if: you have any medication questions Follow-up/Referrals: Elva Ackerman MD [Primary Care Provider] - 12/21/18 11:05 am Diet: Heart Healthy and Low Fat Addtl Attending Provider Instructions: HOSPITAL FOLLOW UP : WITH DR ELVA ACKERMAN Tuesday12/21/18 @ 11:05 AM NEW MEDICATION : HYDROCHLOROTHIAZIDE 12.5 MG DAILY -FOR HIGH BLOOD PRESSURE Pending Studies at Discharge: No Stand-Alone Forms: Call Back Authorization, [facility] [employer], Smoking Cessation Medications and DC Order Prescriptions: New hydrochlorothiazide 25 mg Tablet 12.5 mg PO QAM 30 Days Qty: 15 RF: 0 gabapentin 300 mg Capsule 300 mg PO QAM 30 Days Qty: 30 RF: 0 gabapentin 400 mg Capsule 400 mg PO HS 30 Days Qty: 30 RF: 0 Continued fluticasone propionate [Flonase Allergy Relief] 50 mcg/actuation [place],S uspension 2 spray INTRANASAL QAM RF: 0 sertraline [Zoloft] 50 mg Tablet 50 mg PO QAM RF: 0 multivitamin Tablet 1 tab PO DAILY RF: 0 melatonin 5 mg Capsule PO HS RF: 0 vitamin B complex Tablet 1 tab PO DAILY RF: 0 milk thistle 150 mg Capsule 150 mg PO DAILY RF: 0 Apex-3 + Vitamin D3 31.25-117-100 mg-mg-unit Tablet,Chewable 1 tab PO DAILY RF: 0 Discontinued gabapentin 100 mg Capsule 300 mg PO QAM RF: 0 Discharge Orders: Discharge Order (Routine); Ordered 12/19/18 Ordered By: Magali Bansal/Other Patient Handouts: A1C, Prediabetes, Diabetes Meal Planning Admission Data Admit Date/Time: 12/18/18 17:09 Attending Provider: Magali Castanead Admit Provider: Sid Lunsford Primary Care Provider: Elva Ackerman Other Providers: Sid Lunsford ; Floyd Felix Wilkerson Other Interventions: Discharge Summary Assessment (RN) Last Done: 12/19/18 10:46 DC Date/Time DO NOT enter until pt leaves facility: 12/19/18 11:03
== END 2018-12-19 11:03 | disposition home or self-care (01) | DRG 313 ==
LOC: 2E 05:00 → ED 05:00 → SUATTDRO 07:19 → 2E 07:56 → SUATTDRO 12-18 17:09

== ENCOUNTER 2019-12-27 16:29 | Inpatient (IN) ==
[2019-12-27] MEDS ORDERED: ONDANSETRON INJ 2 MG/ML 2 ML VIAL IV STA (17:45)
[2019-12-27] MEDS ORDERED: SODIUM CHLORIDE 0.9% 1000ML 1,000 ML IV ONE (17:45)
[2019-12-27 18:47] LABS: Basophils # (auto) 0.02 K/uL (0-0.2); Basophils % (auto) 0.2 %; Eosinophils # (auto) 0.14 K/uL (0-0.5); Eosinophils % (auto) 1.3 %; Hemoglobin 13.1 g/dL (12.0-16.0); Immature Granulocytes # (auto) 0.02 K/uL (0.00-0.02); Immature Granulocytes % (auto) 0.2 %; Lymphocytes # (auto) 2.43 K/uL (1.2-3.4); Lymphocytes % (auto) 22.9 %; Mean Corpuscular Volume 84.5 fL (80-100); Mean Platelet Volume 10.3 fL (7.4-10.4); Monocytes # (auto) 1.13 K/uL (0.11-0.59); Monocytes % (auto) 10.7 %; Neutrophils # (auto) 6.87 K/uL (1.4-6.5); Neutrophils % (auto) 64.7 %; Platelet Count 266 K/uL (130-400); RDW Coefficient of Variation 16.4 % (11.5-14.5); RDW Standard Deviation 50.6 fL (36.4-46.3); Red Blood Count 4.85 M/uL (4.2-5.4); White Blood Count 10.61 K/uL (4.8-10.8)
[2019-12-27 18:55] LABS: Appearance Urine Turbid (Clear); Bacteria Urine Automated 4+ (Negative); Bilirubin Urine Negative (Negative); Blood Urine 2+ (Negative); Color Urine Yellow; Epithelial Cell Urine Auto >30 /lpf (0-5); Glucose Urine UA Negative (Negative); Ketones Urine Negative (Negative); Leukocyte Esterase Urine 3+ (Negative); Nitrite Urine Positive (Negative); Protein Urine Trace (Negative); Specific Gravity Urine 1.012 (1.000-1.030); Urobilinogen Urine Negative (Negative); WBC Urine Automated >30 /hpf (0-5); pH Urine 5.5 (4.5-7.5)
[2019-12-27 19:04] LABS: Alanine Aminotransferase 32 U/L (12-78); Albumin Level 3.2 gm/dl (3.4-5.0); Aspartate Aminotransferase 17 U/L (15-37); BUN Creatinine Ratio 17.1 (10-20); Blood Urea Nitrogen 14 mg/dl (7-18); Calcium 9.1 mg/dl (8.5-10.1); Carbon Dioxide 29 mmol/L (21-32); Chloride 103 mmol/L (98-107); Est GFR (African American) 100.3; Est GFR (Non-African American) 86.6; Glucose 112 mg/dl (70-99); Potassium 3.5 mmol/L (3.5-5.1); Sodium 136 mmol/L (136-145)
[2019-12-27 19:08] LABS: Albumin Globulin Ratio 0.8 (0.9-2); Alkaline Phosphatase 81 U/L (45-117); Bilirubin,Total 0.5 mg/dl (0.2-1); Total Protein 7.2 gm/dl (6.4-8.2); Troponin I < 0.015 ng/ml (0-0.045)
--- NOTE | 2019-12-27 19:12 | XRay Report ---
XR chest 1V portable CLINICAL HISTORY: Shortness of breath COMPARISON STUDY: 12/17/2018 FINDINGS: The cardiac and mediastinal contours remain stable. There is no focal pulmonary consolidati on. There is no failure. There are no pleural effusions. Slight interstitial prominence is felt to be related to technical factors.[ IMPRESSION: No active disease in the chest. ACT 112: Negative or not required by law. Electronically signed by: Danny Olivo M.D. 12/27/2019 7:10 PM
[2019-12-27 19:29] LABS: Partial Thromboplastin Time 29.1 Seconds (21.0-31.0); Prothrombin Time 10.3 Seconds (9.0-12.0)
[2019-12-27 19:30] LABS: Cast Urine Automated 0 /lpf (0-5)
--- NOTE | 2019-12-27 19:35 | Emergency Department Note ---
Impression & Plan Pyelonephritis, SOB (shortness of breath) ED Provider Note CHIEF COMPLAINT: Shortness of breath, dizziness, nausea, flank pain and urinary symptoms HISTORY OF PRESENTING ILLNESS: This is a 49-year-old female who presents to the emergency department by private vehicle with complaint of dizziness, nausea, and shortness of breath that occurred earlier today and has been persistent all afternoon. Patient states she woke up this morning feeling very fatigued and tired "I just felt exhausted and like I wanted to go back to bed" and has been progressively feeling dizzy and short of breath with nausea this afternoon. Patient does note that she has been having some symptoms of a UTI for the past 4 to 5 days and noticed some right flank pain a few days ago, she notes a history of kidney infections in the past and feels like this might be the same. She rates her flank pain as a 1/10 and states it is not bothering her very much. She does complain of nausea but has not vomited. She notes a fever of 101 earlier today, and states she has been feeling feverish and chilled and feels like her face is flushed. She does admit that she was exposed to someone who was positive for COVID-19 about 5 days ago, she has not been tested for Covid and she states "I do not think that is what this is." She notes having a cough, but states she is a smoker and always has a cough. She denies any chest pain. REVIEW OF SYSTEMS: A complete 10 point review of systems was reviewed with the patient with pertinent positives and negatives as per history of present illness. All else were negative. PAST MEDICAL HISTORY: Hypertension, depression, anxiety, prediabetes, GERD, gastric ulcer SOCIAL HISTORY: Lives at home, she is a current everyday smoker ALLERGIES: Reviewed in chart and with the patient PHYSICAL EXAM: CONSTITUTIONAL: Pleasant and cooperative. Nontoxic-appearing and in no acute distress. Mildly dehydrated, but otherwise well appearing and well nourished. HEENT: Normocephalic, atraumatic. PERRL, EOMI with no nystagmus. Pharynx normal. Tacky mucous membranes. NECK: Supple, full active range of motion without discomfort. No cervical adenopathy. RESPIRATORY: Clear to auscultation bilaterally with no wheezing, crackles, rhonchi or stridor. Equal expansion bilaterally. CARDIOVASCULAR: Regular rate and rhythm with no murmurs, rubs or gallops. Normal peripheral perfusion. No edema. GASTROINTESTINAL: Soft, nontender, nondistended. Obese abdomen. No palpable masses or HSM. Bowel sounds present in all quadrants. Mild right-sided CVA tenderness to percussion. No left-sided CVA tenderness. MUSCULOSKELETAL: Full range of motion of all joints without discomfort. INTEGUMENTARY: No rash or other significant dermatologic conditions noted. NEUROLOGIC: Alert and oriented X 4 with normal affect. Normal strength and sensation in all 4 extremities. Normal speech. Normal gait observed. ED COURSE AND MEDICAL DECISION MAKING: CC: Patient presenting with complaint of shortness of breath, dizziness, nausea, flank pain and urinary symptoms DIFFERENTIAL DIAGNOSIS: Includes, but not limited to UTI, pyelonephritis, bronchitis, pneumonia, PE, viral infection, COVID-19, acute coronary syndrome, dehydration, electrolyte abnormality, anemia, among others. INTERPRETATION OF LABS: No leukocytosis, no anemia, normal platelets, no significant electrolyte abnormalities, normal renal function, normal liver enzymes. Troponin undetectable. Coagulation factors within normal limits. COVID-19 PCR pending. Urinalysis appears consistent with a UTI, large WBCs, blood, positive nitrite, 3+ leukocyte esterase, 4+ bacteria. A urine culture is pending. IMAGING: XR chest 1V portable CLINICAL HISTORY: Shortness of breath COMPARISON STUDY: 12/17/2018 FINDINGS: The cardiac and mediastinal contours remain stable. There is no focal pulmonary consolidation. There is no failure. There are no pleural effusions. Slight interstitial prominence is felt to be related to technical factors.[ IMPRESSION: No active disease in the chest. EKG: Shows normal sinus rhythm with a rate of 76 bpm, normal intervals, no ST or T wave abnormalities, no ectopy, no significant change when compared to previous EKG from 12/18/2018 by my interpretation. MEDICATION RECONCILIATION: I attest that I have personally reviewed the patient's current medication list. INITIAL VITAL SIGNS REVIEW: I reviewed the patient's initial vital signs and interpret them as follows: T: Afebrile; BP: Hypertensive; HR: Within normal limits; RR: Within normal limits; Pulse Ox: Within normal limits on room air. MDM SUMMARY: Patient was evaluated at bedside, history and physical exam performed. Patient is alert and oriented, in no acute distress, resting calmly in the stretcher. No evidence for labored breathing on exam, she is not tachypneic or hypoxic on room air. Cardiac monitoring: An order was placed for continuous cardiac monitoring. The monitor shows a rate of 67 bpm with normal sinus rhythm. EKG reviewed, no evidence for acute ischemic changes. PERC negative, I do not have a high suspicion for PE at this time. Given the patient's report of a recent exposure to COVID-19, I do feel that this needs to be evaluated. Orders were placed at bedside for labs, troponin, COVID-19 PCR, urinalysis, IV fluid bolus for hydration, IV Zofran for nausea, chest x-ray to evaluate for s hortness of breath. Patient was offered something for pain, she declines at this time. Patient discussed with Dr. Koehler, who agrees with my assessment, plan, and disposition. Labs and imaging reviewed as above, no leukocytosis, normal renal function, no electrolyte abnormalities. Troponin undetectable. UA appears consistent with a UTI. Given her complaint of flank pain, I suspect she does have pyelonephritis. IV Rocephin was ordered at this time. She appears hemodynamically stable and has been afebrile in the emergency department, though she does note a fever of 101 at home today. I discussed the option of discharge home with oral antibiotics, the patient was not comfortable with this noting that the last time she had pyelonephritis "I got a blood infection and had sepsis." She requested to be admitted to the hospital. I spoke on the phone with Dr. Gutierrez, hospitalist service, who agrees to evaluate the patient for admission. The patient's COVID-19 test was changed to a rapid in-house test, this was performed and is negative. The patient was stable at time of admission. The chart was completed utilizing [employer] Speech voice recognition software. Grammatical errors, random word insertions, pronoun errors, and incomplete sentences are an occasional consequence of this system due to software limitations, ambient noise, and hardware issues. Any formal questions or co ncerns about the content, text, or information contained within the body of this dictation should be directly addressed to the nurse practitioner for clarification. Past Med/Surg History Medical History (Updated 12/28/19 @ 00:56 by GEORGES Lucas) Asthma Has not used inhaler for years. H/o hospitalization and intubation in 1979. Bladder infection Depression E. coli septic shock Hernia of abdominal cavity History of anemia History of bronchitis Kidney stones Morbid obesity Pyelonephritis Shingles UTI (urinary tract infection) Surgical History H/O section H/O cystoscopy History of appendectomy Hx of cholecystectomy S/P tonsillectomy Family History Father Diabetes Hypertension Heart disease Mother Cancer Breast cancer Grandfather Colorectal cancer Other Family history of high blood pressure Family history of kidney disease Social History Smoking Status: Current every day smoker Cigarettes Per Day: 5; Second Hand Exposure: No; Hx Alcohol Use: No Hx Substance Use: No Preferred Language: Serbian Communication Ability: Effective Brush Finisher Required: No Beliefs That Will Affect Care: None marital status: Current Living Situation: Family Current Living Situation Comment: lives with mother and daughter How many Children do You have: 3 Feels Safe at Home: Yes Assistive Devices: None Allergies Allergies Allergy/AdvReac Type Severity Reaction Status Date / Time hazelnut Allergy Severe ANAPHYLAXIS; Verified 12/27/19 19:50 reported allergy to all nuts nut - unspecified Allergy Severe ANAPHYLAXIS Verified 12/27/19 19:50 peanut Allergy Severe ANAPHYLAXIS-ALL Verified 12/27/19 19:50 NUTS Penicillins Allergy Intermediate RASH - HAS Verified 12/27/19 19:50 TOLERATED ROCEPHIN 2012 Home Meds Home Medications Medication Instructions Recorded Confirmed fluticasone propionate [Flonase 2 spray INTRANASAL QAM 03/16/18 12/27/19 Allergy Relief] vitamin B complex 1 tab PO DAILY 10/08/18 12/27/19 melatonin 0 mg PO HS 12/17/18 12/27/19 multivitamin 1 tab PO DAILY 12/17/18 12/27/19 gabapentin See Rx Instructions .ROUTE .COMPLEX 03/21/19 12/27/19 hydrochlorothiazide 12.5 mg PO QAM 03/21/19 12/27/19 ascorbic acid (vitamin C) [Vitamin 1 g PO QAM 12/27/19 12/27/19 C] bupropion HCl [Wellbutrin XL] 300 mg PO QAM 12/27/19 12/27/19 elderberry fruit and flower 1 cap PO DAILY 12/27/19 12/27/19 lorazepam [Ativan] 0.5 mg PO DAILY PRN 12/27/19 12/27/19 losartan 50 mg PO DAILY 12/27/19 12/27/19 omeprazole 20 mg PO HS 12/27/19 12/27/19 trazodone 50 mg PO HS PRN 12/27/19 12/27/19 turmeric 400 mg PO DAILY 12/27/19 12/27/19 Results & Data (ED) Vital Signs Vital Signs - 24 hr 12/27/19 16:55 12/27/19 18:00 12/27/19 18:30 Temperature 36.8 C Temperature Source Oral Pulse Rate 89 80 Pulse Rate from SpO2 Sensor 79 Respiratory Rate 20 15 Respiratory Effort / Characteristics Non-Labored Spontaneous Respiratory Depth Normal Respiratory Pattern Regular Blood Pressure 144/80 H 135/79 Blood Pressure Mean 101 87 Pulse Oximetry 98 98 96 Oxygen Delivery Method Room Air Room Air Sepsis Recent Fever Within 48 Hours No Sepsis New/Unexplained Change in Mental Status No Sepsis Action Taken by Nursing No Action Required 12/27/19 18:33 Temperature Temperature Source Pulse Rate 78 Pulse Rate from SpO2 Sensor 77 Respiratory Rate 20 Respiratory Effort / Characteristics Respiratory Depth Respiratory Pattern Blood Pressure Blood Pressure Mean Pulse Oximetry 95 Oxygen Delivery Method Sepsis Recent Fever Within 48 Hours Sepsis New/Unexplained Change in Mental Status Sepsis Action Taken by Nursing Laboratory Data Result diagrams: 12/27/19 18:28 12/27/19 18:28 Lab Results 12/27/19 12/27/19 12/27/19 Range/Units 18:16 18:28 18:28 WBC 10.61 (4.8-10.8) K/uL RBC 4.85 (4.2-5.4) M/uL Hgb 13.1 (12.0-16.0) g/dL Hct 41.0 (37-47) % MCV 84.5 (80-100) fL MCH 27.0 (25-34) pg MCHC 32.0 (32-36) g/dL RDW Std Deviation 50.6 H (36.4-46.3) fL RDW Coeff of Shannen 16.4 H (11.5-14.5) % Plt Count 266 (130-400) K/uL MPV 10.3 (7.4-10.4) fL Immature Gran % (Auto) 0.2 % Neut % (Auto) 64.7 % Lymph % (Auto) 22.9 % [place] % (Auto) 10.7 % Eos % (Auto) 1.3 % Baso % (Auto) 0.2 % Neut # (Auto) 6.87 H (1.4-6.5) K/uL Lymph # (Auto) 2.43 (1.2-3.4) K/uL [place]on # (Auto) 1.13 H (0.11-0.59) K/uL Eos # (Auto) 0.14 (0-0.5) K/uL Baso # (Auto) 0.02 (0-0.2) K/uL Immature Gran # (Auto) 0.02 (0.00-0.02) K/uL PT 10.3 (9.0-12.0) Seconds INR 1.0 (0.9-1.1) APTT 29.1 (21.0-31.0) Seconds PTT Ratio 1.0 D-Dimer (0-500) ug/L FEU Sodium (136-145) mmol/L Potassium (3.5-5.1) mmol/L Chloride (98-107) mmol/L Carbon Dioxide (21-32) mmol/L Anion Gap (3-11) BUN (7-18) mg/dl Creatinine (0.6-1.2) mg/dl Est Cr Clr Drug Dosing Est GFR ( Amer) Est GFR (Non-Af Amer) BUN/Creatinine Ratio (10-20) Glucose (70-99) mg/dl Calcium (8.5-10.1) mg/dl Magnesium (1.8-2.4) mg/dl Total Bilirubin (0.2-1) mg/dl AST (15-37) U/L ALT (12-78) U/L Alkaline Phosphatase (45-117) U/L Troponin I (0-0.045) ng/ml Total Protein (6.4-8.2) gm/dl Albumin (3.4-5.0) gm/dl Globulin (2.5-4.0) gm/dl Albumin/Globulin Ratio (0.9-2) Urine Color Yellow Urine Appearance Turbid A (Clear) Urine pH 5.5 (4.5-7.5) Ur Specific [place] 1.012 (1.000-1.030) Urine Protein Trace H (Negative) Urine Glucose (UA) Negative (Negative) Urine Ketones Negative (Negative) Urine Blood 2+ H (Negative) Urine Nitrite Positive A (Negative) Urine Bilirubin Negative (Negative) Urine Urobilinogen Negative (Negative) Ur Leukocyte Esterase 3+ H (Negative) Urine WBC (Auto) >30 H (0-5) /hpf Urine RBC (Auto) 5-10 H (0-4) /hpf U Hyaline Cast (Auto) 0 (0-5) /lpf U Epithel Cells (Auto) >30 H (0-5) /lpf Urine Bacteria (Auto) 4+ H (Negative) Urine Yeast Not Reportable COVID-19 Eval Order COVID-19 PCR (Negative) Nasopharyn COVID-19 PCR 12/27/19 12/27/19 12/27/19 Range/Units 18:28 18:28 18:28 WBC (4.8-10.8) K/uL RBC (4.2-5.4) M/uL Hgb (12.0-16.0) g/dL Hct (37-47) % MCV (80-100) fL MCH (25-34) pg MCHC (32-36) g/dL RDW Std Deviation (36.4-46.3) fL RDW Coeff of Shannen (11.5-14.5) % Plt Count (130-400) K/uL MPV (7.4-10.4) fL Immature Gran % (Auto) % Neut % (Auto) % Lymph % (Auto) % [place] % (Auto) % Eos % (Auto) % Baso % (Auto) % Neut # (Auto) (1.4-6.5) K/uL Lymph # (Auto) (1.2-3.4) K/uL [place] # (Auto) (0.11-0.59) K/uL Eos # (Auto) (0-0.5) K/uL Baso # (Auto) (0-0.2) K/uL Immature Gran # (Auto) (0.00-0.02) K/uL PT (9.0-12.0) Seconds INR (0.9-1.1) APTT (21.0-31.0) Seconds PTT Ratio D-Dimer (0-500) ug/L FEU Sodium 136 (136-145) mmol/L Potassium 3.5 (3.5-5.1) mmol/L Chloride 103 (98-107) mmol/L Carbon Dioxide 29 (21-32) mmol/L Anion Gap 4.0 (3-11) BUN 14 (7-18) mg/dl Creatinine 0.80 (0.6-1.2) mg/dl Est Cr Clr Drug Dosing Not Reportable Est GFR ( Amer) 100.3 Est GFR (Non-Af Amer) 86.6 BUN/Creatinine Ratio 17.1 (10-20) Glucose 112 H (70-99) mg/dl Calcium 9.1 (8.5-10.1) mg/dl Magnesium 2.1 (1.8-2.4) mg/dl Total Bilirubin 0.5 (0.2-1) mg/dl AST 17 (15-37) U/L ALT 32 (12-78) U/L Alkaline Phosphatase 81 (45-117) U/L Troponin I < 0.015 (0-0.045) ng/ml Total Protein 7.2 (6.4-8.2) gm/dl Albumin 3.2 L (3.4-5.0) gm/dl Globulin 4.0 (2.5-4.0) gm/dl Albumin/Globulin Ratio 0.8 L (0.9-2) Urine Color Urine Appearance (Clear) Urine pH (4.5-7.5) Ur Specific [place] (1.000-1.030) Urine Protein (Negative) Urine Glucose (UA) (Negative) Urine Ketones (Negative) Urine Blood (Negative) Urine Nitrite (Negative) Urine Bilirubin (Negative) Urine Urobilinogen (Negative) Ur Leukocyte Esterase (Negative) Urine WBC (Auto) (0-5) /hpf Urine RBC (Auto) (0-4) /hpf U Hyaline Cast (Auto) (0-5) /lpf U Epithel Cells (Auto) (0-5) /lpf Urine Bacteria (Auto) (Negative) Urine Yeast COVID-19 Eval Order Covid19 Done at [facility] COVID-19 PCR (Negative) Nasopharyn COVID-19 PCR Cancelled 12/27/19 12/27/19 Range/Units 18:28 18:28 WBC (4.8-10.8) K/uL RBC (4.2-5.4) M/uL Hgb (12.0-16.0) g/dL Hct (37-47) % MCV (80-100) fL MCH (25-34) pg MCHC (32-36) g/dL RDW Std Deviation (36.4-46.3) fL RDW Coeff of Shannen (11.5-14.5) % Plt Count (130-400) K/uL MPV (7.4-10.4) fL Immature Gran % (Auto) % Neut % (Auto) % Lymph % (Auto) % Weston % (Auto) % Eos % (Auto) % Baso % (Auto) % Neut # (Auto) (1.4-6.5) K/uL Lymph # (Auto) (1.2-3.4) K/uL [place] # (Auto) (0.11-0.59) K/uL Eos # (Auto) (0-0.5) K/uL Baso # (Auto) (0-0.2) K/uL Immature Gran # (Auto) (0.00-0.02) K/uL PT (9.0-12.0) Seconds INR (0.9-1.1) APTT (21.0-31.0) Seconds PTT Ratio D-Dimer 620 H* (0-500) ug/L FEU Sodium (136-145) mmol/L Potassium (3.5-5.1) mmol/L Chloride (98-107) mmol/L Carbon Dioxide (21-32) mmol/L Anion Gap (3-11) BUN (7-18) mg/dl Creatinine (0.6-1.2) mg/dl Est Cr Clr Drug Dosing Est GFR ( Amer) Est GFR (Non-Af Amer) BUN/Creatinine Ratio (10-20) Glucose (70-99) mg/dl Calcium (8.5-10.1) mg/dl Magnesium (1.8-2.4) mg/dl Total Bilirubin (0.2-1) mg/dl AST (15-37) U/L ALT (12-78) U/L Alkaline Phosphatase (45-117) U/L Troponin I (0-0.045) ng/ml Total Protein (6.4-8.2) gm/dl Albumin (3.4-5.0) gm/dl Globulin (2.5-4.0) gm/dl Albumin/Globulin Ratio (0.9-2) Urine Color Urine Appearance (Clear) Urine pH (4.5-7.5) Ur Specific [place] (1.000-1.030) Urine Protein (Negative) Urine Glucose (UA) (Negative) Urine Ketones (Negative) Urine Blood (Negative) Urine Nitrite (Negative) Urine Bilirubin (Negative) Urine Urobilinogen (Negative) Ur Leukocyte Esterase (Negative) Urine WBC (Auto) (0-5) /hpf Urine RBC (Auto) (0-4) /hpf U Hyaline Cast (Auto) (0-5) /lpf U Epithel Cells (Auto) (0-5) /lpf Urine Bacteria (Auto) (Negative) Urine Yeast COVID-19 Eval Order COVID-19 PCR NEGATIVE (Negative) Nasopharyn COVID-19 PCR Administered Medications Nicotine (Nicotine 7 Mg/24 Hr Tdsy) 7 mg TD QAM ROSIBEL Stop: 01/26/20 22:09 Last Admin: 12/27/19 22:44 Dose: 7 mg Documented by: [id number] Discontinued Medications Acetaminophen (Acetaminophen 500 Mg Tab) 1,000 mg PO NOW STA Stop: 12/27/19 19:54 Last Admin: 12/27/19 20:26 Dose: 1,000 mg Documented by: [id number] Sodium Chloride (Nss 1000ml) 1,000 mls @ 999 mls/hr IV .[id number] ONE Stop: 12/27/19 18:45 Last Infusion: 12/27/19 20:35 Dose: 0 mls/hr Documented by: [id number] Admin: 12/27/19 18:38 Dose: 999 mls/hr Documented by: [id number] Ceftriaxone Sodium (Rocephin) 2,000 mg in 70 mls @ 140 mls/hr IV NOW STA Stop: 12/27/19 20:20 Last Infusion: 12/28/19 00:38 Dose: 0 mls/hr Documented by: [id number] Admin: 12/27/19 20:26 Dose: 140 mls/hr Documented by: [id number] Promethazine HCl (Phenergan) 12.5 mg in 50.5 mls @ 202 mls/hr IV NOW STA Stop: 12/27/19 20:09 Last Infusion: 12/27/19 22:20 Dose: 0 mls/hr Documented by: [id number] Infusion: 12/27/19 22:20 Dose: 0 mls/hr Documented by: [id number] Admin: 12/27/19 20:26 Dose: 202 mls/hr Documented by: [id number] Ioversol (Optiray 320 125ml) 125 ml IV ONCE ONE Stop: 12/28/19 00:09 Last Admin: 12/28/19 00:08 Dose: 110 ml Documented by: [id number] Ondansetron HCl (Ondansetron Inj 2 Mg/Ml 2 Ml Vial) 4 mg IV NOW STA Stop: 12/27/19 17:46 Last Admin: 12/27/19 18:38 Dose: 4 mg Documented by: [id number] Trimethoprim/Sulfamethoxazole (Sulfamethoxazole/Trimethoprim Ds 800/160mg Tab) 1 tab PO NOW ONE Stop: 12/27/19 19:52 Last Admin: 12/27/19 20:35 Dose: Not Given Documented by: [id number] Discharge Plan Visit Data Chief Complaint: Shortness of Breath/Dyspnea Stated Complaint: SOB, DIZZY ED Provider: Héctor Koehler ED Midlevel Provider: Naye Jamil Discharge Problem: Pyelonephritis, SOB (shortness of breath) Patient Disposition: Admitted As Inpatient Discharge Instructions Interventions: ED Discharge Assessment Last Done: 12/27/19 22:55
[2019-12-27] MEDS ORDERED: cefTRIAXone SODIUM 2,000 MG/70 ML BAG IV STA (19:51)
[2019-12-27] MEDS ORDERED: SULFAMETHOXAZOLE/TRIMETHOPRIM DS 800/160MG TAB PO ONE (19:51)
[2019-12-27] MEDS ORDERED: ACETAMINOPHEN 500 MG TAB PO STA (19:53)
[2019-12-27] MEDS ORDERED: PROMETHAZINE 12.5 MG/50.5 ML BAG IV STA (19:55)
[2019-12-27 20:21] LABS: Magnesium 2.1 mg/dl (1.8-2.4)
[2019-12-27 20:46] LABS: D Dimer 620 ug/L FEU (0-500)
--- NOTE | 2019-12-27 21:59 | History & Physical Report ---
Date of Service December 27, 2019 Assessment & Plan (1) SOB (shortness of breath): Rule out PE given abnormal D-dimer Complicated UTI, no sepsis Rule out obstructive uropathy given right flank pain symptoms and history kidney stones mood disorder, at baseline DM2 diet-controlled, well-controlled as of recent hemoglobin A1c of 6.28 May 2019 ongoing tobacco abuse OBS Medical telemetry CT chest PE study Follow urine cultures, IV cefepime CT abdomen pelvis RE flank pain Further management pending work-up results ISS BG goal [id number], update hemoglobin A1c Nicotine patch DVT prophylaxis. Lovenox subcu Full code Text document was generated using [employer] voice recognition software. It may contain grammatical or spelling errors. Kindly contact undersigned for clarification of any documentation item in question. History of Present Illness Chief Complaint: Shortness of breath, dizziness, flank pain Primary Care Provider: Janeth Ackerman MD History obtained from patient and records. Medical history significant for mood disorder, endometriosis, recurrent UTI, history urolithiasis, DM2 diet-controlled, ongoing tobacco abuse. Last confinement November 2018 for noncardiac chest pain. This morning, patient woke up not feeling well, feeling tired, dizziness described as lightheadedness, achy symptoms reminiscent of migraine headaches. Shortness of breath without chest pain. Usual smoker's cough symptoms. Possible COVID-19 contact last week. Achy right flank pain with dysuria symptoms without hematuria. Patient given ceftriaxone at the ER for UTI. 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 Allergies Allergy/AdvReac Type Severity Reaction Status Date / Time hazelnut Allergy Severe ANAPHYLAXIS; Verified 12/27/19 19:50 reported allergy to all nuts nut - unspecified Allergy Severe ANAPHYLAXIS Verified 12/27/19 19:50 peanut Allergy Severe ANAPHYLAXIS-ALL Verified 12/27/19 19:50 NUTS Penicillins Allergy Intermediate RASH - HAS Verified 12/27/19 19:50 TOLERATED ROCEPHIN 2012 Home Medications Home Medications Medication Instructions Recorded Confirmed Type fluticasone propionate [Flonase 2 spray INTRANASAL QAM 03/16/18 12/27/19 History Allergy Relief] vitamin B complex 1 tab PO DAILY 10/08/18 12/27/19 History melatonin 0 mg PO HS 12/17/18 12/27/19 History multivitamin 1 tab PO DAILY 12/17/18 12/27/19 History gabapentin See Rx Instructions .ROUTE .COMPLEX 03/21/19 12/27/19 History hydrochlorothiazide 12.5 mg PO QAM 03/21/19 12/27/19 History ascorbic acid (vitamin C) [Vitamin 1 g PO QAM 12/27/19 12/27/19 History C] bupropion HCl [Wellbutrin XL] 300 mg PO QAM 12/27/19 12/27/19 History elderberry fruit and flower 1 cap PO DAILY 12/27/19 12/27/19 History lorazepam [Ativan] 0.5 mg PO DAILY PRN 12/27/19 12/27/19 History losartan 50 mg PO DAILY 12/27/19 12/27/19 History omeprazole 20 mg PO HS 12/27/19 12/27/19 History trazodone 50 mg PO HS PRN 12/27/19 12/27/19 History turmeric 400 mg PO DAILY 12/27/19 12/27/19 History Past Med/Surg History Medical History (Updated 12/28/19 @ 00:56 by GEORGES Lucas) Asthma Has not used inhaler for years. H/o hospitalization and intubation in 1979. Bladder infection Depression E. coli septic shock Hernia of abdominal cavity History of anemia History of bronchitis Kidney stones Morbid obesity Pyelonephritis Shingles UTI (urinary tract infection) Surgical History H/O section H/O cystoscopy History of appendectomy Hx of cholecystectomy S/P tonsillectomy Family History Father Diabetes Hypertension Heart disease Mother Cancer Breast cancer Grandfather Colorectal cancer Other Family history of high blood pressure Family history of kidney disease Social History Smoking Status: Former smoker Cigarettes Per Day: 5; Smoking End Date: 48 hours ago; Second Hand Exposure: No; Hx Alcohol Use: Yes Alcohol type: wine Hx Substance Use: No Preferred Language: Macedonian Communication Ability: Effective Manager E Learning Required: No Beliefs That Will Affect Care: None marital status: Current Living Situation: Family Current Living Situation Comment: Lives at home with kids How many Children do You have: 3 Feels Safe at Home: Yes Safety Concerns: Feels Safe At This Time Assistive Devices: None Review of Systems Review of Systems: As per HPI, all 10 systems reviewed, all other ROS negative Physical Exam Physical Exam: GENERAL: Slightly uncomfortable, morbidly obese, no respiratory distress SKIN: Normal color, warm HEENT: [place] palpebral conjunctivae, no ptosis, dry buccal mucosa NECK : Supple, short neck, no tenderness CHEST : CTA, no tenderness HEART : RRR, no obvious murmurs ABDOMEN: Some distention, nontender BACK : Minimal right flank tenderness EXTREMITIES : Minimal LE swelling, no LE tenderness, no other conspicuous deformities noted NEUROLOGIC : Coherent, no facial asymmetry, no other gross focality Results & Data Results & Data ([facility]) Vital Signs (Past 12 Hours) Vital Signs Temp Pulse Resp BP Pulse Ox 12/27/19 18:33 78 20 95 12/27/19 18:30 80 15 135/79 96 12/27/19 18:00 98 12/27/19 16:55 36.8 C 89 20 144/80 H 98 Laboratory Results Laboratory Results WBC 10.61 K/uL (4.8-10.8) 12/27/19 18:28 RBC 4.85 M/uL (4.2-5.4) 12/27/19 18:28 Hgb 13.1 g/dL (12.0-16.0) 12/27/19 18:28 Hct 41.0 % (37-47) 12/27/19 18:28 MCV 84.5 fL (80-100) 12/27/19 18:28 MCH 27.0 pg (25-34) 12/27/19 18:28 MCHC 32.0 g/dL (32-36) 12/27/19 18:28 RDW Std Deviation 50.6 fL (36.4-46.3) H 12/27/19 18:28 RDW Coeff of Shannen 16.4 % (11.5-14.5) H 12/27/19 18:28 Plt Count 266 K/uL (130-400) 12/27/19 18:28 MPV 10.3 fL (7.4-10.4) 12/27/19 18:28 Immature Gran % (Auto) 0.2 % 12/27/19 18: Neut % (Auto) 64.7 % 12/27/19 18: Lymph % (Auto) 22.9 % 12/27/19 18: [place] % (Auto) 10.7 % 12/27/19 18: Eos % (Auto) 1.3 % 12/27/19 18: Baso % (Auto) 0.2 % 12/27/19 18: Neut # (Auto) 6.87 K/uL (1.4-6.5) H 12/27/19 18: Lymph # (Auto) 2.43 K/uL (1.2-3.4) 12/27/19 18: [place] # (Auto) 1.13 K/uL (0.11-0.59) H 12/27/19 18: Eos # (Auto) 0.14 K/uL (0-0.5) 12/27/19 18: Baso # (Auto) 0.02 K/uL (0-0.2) 12/27/19 18: Immature Gran # (Auto) 0.02 K/uL (0.00-0.02) 12/27/19 18: PT 10.3 Seconds (9.0-12.0) 12/27/19 18: INR 1.0 (0.9-1.1) 12/27/19 18: APTT 29.1 Seconds (21.0-31.0) 12/27/19 18: PTT Ratio 1.0 12/27/19 18: D-Dimer 620 ug/L FEU (0-500) H* 12/27/19 18: Sodium 136 mmol/L (136-145) 12/27/19 18: Potassium 3.5 mmol/L (3.5-5.1) 12/27/19 18: Chloride 103 mmol/L (98-107) 12/27/19 18: Carbon Dioxide 29 mmol/L (21-32) 12/27/19 18: Anion Gap 4.0 (3-11) 12/27/19 18: BUN 14 mg/dl (7-18) 12/27/19 18: Creatinine 0.80 mg/dl (0.6-1.2) 12/27/19 18:28 Est Cr Clr Drug Dosing Not Reportable 12/27/19 18: Est GFR ( Amer) 100.3 12/27/19 18: Est GFR (Non-Af Amer) 86.6 12/27/19 18:28 BUN/Creatinine Ratio 17.1 (10-20) 12/27/19 18: Glucose 112 mg/dl (70-99) H 12/27/19 18: Calcium 9.1 mg/dl (8.5-10.1) 12/27/19 18: Magnesium 2.1 mg/dl (1.8-2.4) 12/27/19 18: Total Bilirubin 0.5 mg/dl (0.2-1) 12/27/19 18: AST 17 U/L (15-37) 12/27/19 18: ALT 32 U/L (12-78) 12/27/19 18: Alkaline Phosphatase 81 U/L (45-117) 12/27/19 18: Troponin I < 0.015 ng/ml (0-0.045) 12/27/19 18: Total Protein 7.2 gm/dl (6.4-8.2) 12/27/19 18: Albumin 3.2 gm/dl (3.4-5.0) L 12/27/19 18: Globulin 4.0 gm/dl (2.5-4.0) 12/27/19 18: Albumin/Globulin Ratio 0.8 (0.9-2) L 12/27/19 18: Urine Color Yellow 12/27/19 18: Urine Appearance Turbid (Clear) A 12/27/19 18: Urine pH 5.5 (4.5-7.5) 12/27/19 18: Ur Specific [place] 1.012 (1.000-1.030) 12/27/19 18: Urine Protein Trace (Negative) H 12/27/19 18:16 Urine Glucose (UA) Negative (Negative) 12/27/19 18:16 Urine Ketones Negative (Negative) 12/27/19 18: Urine Blood 2+ (Negative) H 12/27/19 18:16 Urine Nitrite Positive (Negative) A 12/27/19 18:16 Urine Bilirubin Negative (Negative) 12/27/19 18:16 Urine Urobilinogen Negative (Negative) 12/27/19 18:16 Ur Leukocyte Esterase 3+ (Negative) H 12/27/19 18:16 Urine WBC (Auto) >30 /hpf (0-5) H 12/27/19 18:16 Urine RBC (Auto) 5-10 /hpf (0-4) H 12/27/19 18:16 U Hyaline Cast (Auto) 0 /lpf (0-5) 12/27/19 18:16 U Epithel Cells (Auto) >30 /lpf (0-5) H 12/27/19 18:16 Urine Bacteria (Auto) 4+ (Negative) H 12/27/19 18:16 Urine Yeast Not Reportable 12/27/19 18:16 COVID-19 Eval Order Covid19 Done at [facility] 12/27/19 18:28 COVID-19 PCR NEGATIVE (Negative) 12/27/19 18:28 Nasopharyn COVID-19 PCR Cancelled 12/27/19 18:28 Diagnostic Findings Chest x-ray : No active disease in the chest. EKG as per my interpretation : Rate 75, NSR, normal axis, no ischemia
[2019-12-27] MEDS: NICOTINE 7 MG/24 HR TDSY TD SCH (22:44)
[2019-12-28] MEDS ORDERED: OPTIRAY 320 125ml IV ONE (00:08)
[2019-12-28] MEDS ORDERED: CARBOHYDRATES FOR HYPOGLYCEMIA PO PRN (00:31)
[2019-12-28] MEDS ORDERED: CEFEPIME CONSULT ACTIVE PRN (00:31)
[2019-12-28] MEDS ORDERED: MELATONIN 3 MG TAB PO PRN (00:31)
[2019-12-28] MEDS ORDERED: DEXTROSE 50% 50 ML SYRINGE IV PRN (00:31)
[2019-12-28] MEDS ORDERED: LORazepam 0.5 MG TAB PO PRN (00:31)
[2019-12-28] MEDS ORDERED: traZODone HCL 50 MG TAB PO PRN (00:31)
[2019-12-28] MEDS ORDERED: GLUCOSE 10 TABS/TUBE PO PRN (00:31)
[2019-12-28] MEDS ORDERED: GLUCOSE 40% GEL 15 GM TUBE PO PRN (00:31)
[2019-12-28] MEDS ORDERED: GLUCAGON FOR INJ 1 MG VIAL SQ PRN (00:31)
[2019-12-28] MEDS ORDERED: MoRPHine SULFATE 4 MG/ML 1 ML CARP\\VIAL IV PRN (00:31)
[2019-12-28] MEDS ORDERED: POTASSIUM CHLORIDE 40 MEQ in SODIUM CHLORIDE 0.9% 1000ML 1,000 ML IV ONE (01:00)
[2019-12-28] MEDS: INSULIN ASPART 100 UNITS/ML 3 ML PEN SC SCH ×3 (01:14→12:06)
[2019-12-28] MEDS: CEFEPIME 2,000 MG in SYRINGE 0 ML IV SCH ×2 (01:40→13:17)
[2019-12-28] MEDS: IBUPROFEN 200 MG TAB PO PRN (04:06)
[2019-12-28 06:11] LABS: Basophils # (auto) 0.01 K/uL (0-0.2); Basophils % (auto) 0.1 %; Eosinophils % (auto) 1.3 %; Hematocrit (blood only) 39.6 % (37-47); Hemoglobin 12.5 g/dL (12.0-16.0); Immature Granulocytes # (auto) 0.02 K/uL (0.00-0.02); Immature Granulocytes % (auto) 0.3 %; Lymphocytes # (auto) 1.69 K/uL (1.2-3.4); Lymphocytes % (auto) 21.8 %; Mean Corpuscular Hemoglobin 27.1 pg (25-34); Mean Corpuscular Hgb Conc 31.6 g/dL (32-36); Mean Corpuscular Volume 85.9 fL (80-100); Mean Platelet Volume 10.4 fL (7.4-10.4); Monocytes # (auto) 0.92 K/uL (0.11-0.59); Monocytes % (auto) 11.9 %; Neutrophils % (auto) 64.6 %; Platelet Count 243 K/uL (130-400); RDW Coefficient of Variation 16.7 % (11.5-14.5); RDW Standard Deviation 52.8 fL (36.4-46.3); Red Blood Count 4.61 M/uL (4.2-5.4); White Blood Count 7.74 K/uL (4.8-10.8)
[2019-12-28 06:30] LABS: Estimated Average Glucose 131 mg/dl; Hemoglobin A1C 6.2 % (4.5-5.6)
[2019-12-28 06:52] LABS: Calcium 8.6 mg/dl (8.5-10.1); Creatinine Clr Calc Pharmacy 103.6 ml/min; Est GFR (African American) 105.1; Est GFR (Non-African American) 90.7; Potassium 4.1 mmol/L (3.5-5.1)
[2019-12-28] MEDS: PROMETHAZINE HCL 12.5 MG in SODIUM CHLORIDE 0.9% 50 ML IV PRN ×2 (07:48→17:41)
[2019-12-28] MEDS: oxyCODONE HCL IR 5 MG TAB (IMMEDIATE RELEASE) PO PRN ×2 (07:49→15:21)
[2019-12-28] MEDS ORDERED: KETOROLAC TROMETHAMINE 15 MG/ML VIAL IV ONE (07:49)
[2019-12-28] MEDS: ENOXAPARIN INJ 40 MG/0.4 ML SYR SQ SCH (08:11)
[2019-12-28] MEDS: FLUTICASONE PROPIONATE NA SPR 16 GM BTL SCH (08:11)
[2019-12-28] MEDS: LOSARTAN POTASSIUM 50 MG TAB PO SCH (08:11)
[2019-12-28] MEDS: VITAMIN B COMPLEX TAB PO SCH (08:12)
[2019-12-28] MEDS: GABAPENTIN 400 MG CAP PO SCH ×2 (08:12→20:45)
[2019-12-28] MEDS: MULTIVITAMIN TAB PO SCH (08:12)
[2019-12-28] MEDS: buPROPion XL 300 MG TABCR PO SCH (08:12)
--- NOTE | 2019-12-28 08:15 | CT Scan Report ---
CT SCAN OF THE ABDOMEN AND PELVIS WITHOUT IV CONTRAST CLINICAL HISTORY: Right flank pain. COMPARISON STUDY: Abdominal CT dated 03/21/2019 and 04/25/2017. TECHNIQUE: CT scan of the abdomen and pelvis is performed from the lung bases to the proximal femora. Images are reviewed in the axial, sagittal, and coronal planes. IV contrast was not administered for this examination as per the referring clinician. A dose lowering technique was utilized adhering to the principles of ALARA. CT DOSE: 2553.71 mGy.cm FINDINGS: Lung bases: The heart is normal in size and without pericardial effusion. A 3 mm right lower lobe pul monary nodule is seen on image #26. A 3 mm right middle lobe pulmonary nodule is seen on image #25. T hese are unchanged from previous. There is no airspace consolidation or pleural effusion. Dependent a telectasis is noted at both lung bases. There is a small hiatal hernia. Liver: The unenhanced liver is normal in size, contour, and attenuation. There is no intrahepatic jen iary ductal dilatation. A 5 cm multiloculated cystic lesion is again seen in the right lobe of liver. This has been present over multiple prior studies. Gallbladder: Surgically absent noting clips in the gallbladder fossa. Spleen: Normal in size and attenuation. Pancreas: Unremarkable. Adrenal glands: Unremarkable. Kidneys: The unenhanced kidneys are normal in size and without hydronephrosis. There are 2 punctate n onobstructing right renal calculi. There are least 5 nonobstructing left renal calculi measuring up t o 3 mm. No ureteral stone is seen. There is no evidence of contour deforming renal mass lesion. There is mild right-sided perinephric stranding. Abdominal vasculature: The abdominal aorta is normal in course and caliber. Bowel: There is mild colonic diverticulosis without CT evidence of acute diverticulitis. No bowel obs truction is seen. The appendix is not identified and reported surgically absent. Peritoneum: There is no intraperitoneal free air or abdominal ascites. There is evidence of previous ventral hernia repair. Lymphadenopathy: None. Pelvic viscera: The bladder, uterus, and adnexa are normal as visualized. Skeletal structures: No lytic or blastic lesions are seen. Sclerotic change is noted in the sacroilia c joints. Mild lumbosacral spondylosis is observed. IMPRESSION: 1. Bilateral nephrolithiasis. There is no ureteral stone or hydronephrosis. 2. There is mild nonspecific right-sided perinephric stranding. This could represent the sequelae of a recently passed kidney stone or possibly ascending urinary tract infection/pyelonephritis. Correlat ion with clinical findings and urinalysis will be required. 3. Mild colonic diverticulosis without CT evidence of acute diverticulitis. 4. Additional findings as above. ACT 112: Negative or not required by law. Electronically signed by: Jared Guillermo M.D. 12/28/2019 8:14 AM
--- NOTE | 2019-12-28 08:40 | CT Scan Report ---
CHEST CTA for PULMONARY ARTERIES CT DOSE: HISTORY: Shortness of breath. TECHNIQUE: Multiaxial CT images of the chest were performed following the intravenous administration of contrast to evaluate the pulmonary arteries. Maximal intensity projection images were also obtaine d. A dose lowering technique was utilized adhering to the principles of ALARA. COMPARISON STUDY: Chest CTA 06/19/2018. FINDINGS: Please refer to same day abdomen and pelvis CT for further evaluation of the abdominal stru ctures. Normal esophagus. No mediastinal or hilar lymphadenopathy. The heart is normal in size. No pl eural or pericardial effusions. Normal caliber thoracic aorta with no evidence for dissection. No adina ling defects within the pulmonary arteries to suggest pulmonary embolus. Questionable filling defect seen within the lingular branch is likely secondary to motion artifact. No pneumothorax. The central airways are patent. Mild central bronchial wall thickening. No pneumothorax. No focal lung consolidat ions to suggest pneumonia. Groundglass density within the lung bases posteriorly favor mild dependent change. A few scattered subpleural nodules remain stable. A dominant right upper lobe pulmonary nodu le within the on image 200 measures 7 mm. There is also a stable 11 mm nodular density along the righ t minor fissure on image 150. No new pulmonary nodules identified. These nodules are stable compared to a [address] and are therefore considered to be benign. IMPRESSION: 1. No evidence for pulmonary embolus. 2. Stable pulmonary nodules. ACT 112: Negative or not required by law. Electronically signed by: Judd Harley M.D. 12/28/2019 8:38 AM
[2019-12-28] MEDS ORDERED: NON-FORMULARY MEDICATION (Elderberry Fruit And Flower 460-115 mg Capsule) PO SCH (09:00)
[2019-12-28] MEDS: NICOTINE 7 MG/24 HR TDSY TD SCH (09:16)
--- NOTE | 2019-12-28 12:03 | Hospitalist Progress Note ---
Date of Service December 28, 2019 Assessment & Plan (1) Acute pyelonephritis: Pt describes clinical pyelo with fevers, chills, flank pain and UTI symptoms. Recent passage of kidney stone on the right, and no ureteral stone obstructing at this time. Nephrolithiasis is present and patient is aware of this. Encouraged to stay hydrated. For now, pain is not severe, and moreso in the bladder. Start Pyridium. Cont cefepime pending urine culture results, blood culture results, and clinical improvement. DC telemetry (2) Nephrolithiasis: Stay hydrated, supportive care for now. (3) HTN (hypertension): Relative hypotension in the setting of acute illness. She is also receiving some IVF from admission. Will plan to restart HCTZ in am as she reports feeling dehydrated but swollen in her fingers, too. Cont Losartan per home regimen. (4) Mood disorder: Cont Welbutrin per home regimen. (5) Metabolic syndrome: A1C is 6.2 and glucose levels are within normal limits. Cancelling frequent blood sugar checks and no insulin coverage at this time. Regular diet. (6) Morbid obesity: Lifestyle changes recommended including decrease percent body fat for better health. (7) Smoker: Nicoderm patch while admitted. Cont to encourage to quit completely for better health. (8) DVT prophylaxis: Lovenox Full Code Dispo-to home when improved, likely Tuesday or Tuesday. Cherie Lamb DO [facility] Hospitalist Admission and Anticipated Discharge Date Admission Date: December 27, 2019 Subjective Fatigue reported for about one week associated wtih dysuria and incomplete voiding. Excessive urinary urgency. Flank pain present for the past 3 weeks with fevers and chills recently. She reports feeling as if she passed a kidney stone on the right. Review of Systems Review of Systems: All systems reviewed & are unremarkable except as noted in Subjective Physical Exam Physical Exam: CONSTITUTIONAL: obese, vitals as above, generally well- appearing but fatigued. EYES: pupils are round and equal bilaterally, normal conjunctivae, no scleral icterus ENT: external ear and nose normal, MMM RESPIRATORY: clear to auscultation bilaterally, no crackles, rales or wheezes, normal respiratory effort CARDIOVASCULAR: regular rate and rhythm, S1 and 2 heard without murmurs, gallops or rubs, no JVD, no peripheral edema GASTROINTESTINAL: soft, TTP in lower abdomen, +CVA tenderness on the right flank, nondistended. MUSCULOSKELETAL: strength 5/5 throughout, head is normocephalic and atraumatic SKIN: warm and dry NEUROLOGIC: CN 2-12 grossly intact, normal cognition, normal speech, no gross focal deficits. PSYCHIATRIC: alert cooperative and oriented to person, place and time. Results & Data Results & Data ([facility]) Vital Signs (Past 12 Hours) Vital Signs Temp Pulse Pulse Resp BP Pulse Ox 12/28/19 11:31 36.8 C 54 L 20 102/69 96 12/28/19 07:32 36.5 C 57 L 20 120/77 94 12/28/19 07:18 63 12/28/19 03:00 37.4 C 70 20 154/71 H 94 12/28/19 00:52 36.7 C 56 L 18 120/78 99 12/28/19 00:41 57 L Laboratory Results Short CBC 12/27/19 12/28/19 Range/Units 18:28 05:39 WBC 10.61 7.74 (4.8-10.8) K/uL Hgb 13.1 12.5 (12.0-16.0) g/dL Hct 41.0 39.6 (37-47) % Plt Count 266 243 (130-400) K/uL BMP 12/27/19 12/28/19 18:28 05:39 Sodium 136 139 Potassium 3.5 4.1 D Chloride 103 106 Carbon Dioxide 29 27 BUN 14 10 Creatinine 0.80 0.77 Glucose 112 H 99 Calcium 9.1 8.6 Cardiac Enzymes 12/27/19 Range/Units 18:28 Troponin I < 0.015 (0-0.045) ng/ml Liver Function 12/27/19 Range/Units 18:28 Total Bilirubin 0.5 (0.2-1) mg/dl AST 17 (15-37) U/L ALT 32 (12-78) U/L Alkaline Phosphatase 81 (45-117) U/L Albumin 3.2 L (3.4-5.0) gm/dl Urine 12/27/19 Range/Units 18:16 Urine Color Yellow Urine Appearance Turbid A (Clear) Urine pH 5.5 (4.5-7.5) Ur Specific [place] 1.012 (1.000-1.030) Urine Protein Trace H (Negative) Urine Glucose (UA) Negative (Negative) Diagnostic Findings CHEST CTA for PULMONARY ARTERIES CT DOSE: HISTORY: Shortness of breath. TECHNIQUE: Multiaxial CT images of the chest were performed following the intravenous administration of contrast to evaluate the pulmonary arteries. Maximal intensity projection images were also obtained. A dose lowering technique was utilized adhering to the principles of ALARA. COMPARISON STUDY: Chest CTA 06/19/2018. FINDINGS: Please refer to same day abdomen and pelvis CT for further evaluation of the abdominal structures. Normal esophagus. No mediastinal or hilar lymphadenopathy. The heart is normal in size. No pleural or pericardial effusions. Normal caliber thoracic aorta with no evidence for dissection. No filling defects within the pulmonary arteries to suggest pulmonary embolus. Questionable filling defect seen within the lingular branch is likely secondary to motion artifact. No pneumothorax. The central airways are patent. Mild central bronchial wall thickening. No pneumothorax. No focal lung consolidations to suggest pneumonia. Groundglass density within the lung bases posteriorly favor mild dependent change. A few scattered subpleural nodules remain stable. A dominant right upper lobe pulmonary nodule within the on image 200 measures 7 mm. There is also a stable 11 mm nodular density along the right minor fissure on image 150. No new pulmonary nodules identified. These nodules are stable compared to a [address] and are therefore considered to be benign. IMPRESSION: 1. No evidence for pulmonary embolus. 2. Stable pulmonary nodules. CT SCAN OF THE ABDOMEN AND PELVIS WITHOUT IV CONTRAST CLINICAL HISTORY: Right flank pain. COMPARISON STUDY: Abdominal CT dated 03/21/2019 and 04/25/2017. TECHNIQUE: CT scan of the abdomen and pelvis is performed from the lung bases to the proximal femora. Images are reviewed in the axial, sagittal, and coronal planes. IV contrast was not administered for this examination as per the referring clinician. A dose lowering technique was utilized adhering to the principles of ALARA. CT DOSE: 2553.71 mGy.cm FINDINGS: Lung bases: The heart is normal in size and without pericardial effusion. A 3 mm right lower lobe pulmonary nodule is seen on image #26. A 3 mm right middle lobe pulmonary nodule is seen on image #25. These are unchanged from previous. There is no airspace consolidation or pleural effusion. Dependent atelectasis is noted at both lung bases. There is a small hiatal hernia. Liver: The unenhanced liver is normal in size, contour, and attenuation. There is no intrahepatic biliary ductal dilatation. A 5 cm multiloculated cystic lesion is again seen in the right lobe of liver. This has been present over multiple prior studies. Gallbladder: Surgically absent noting clips in the gallbladder fossa. Spleen: Normal in size and attenuation. Pancreas: Unremarkable. Adrenal glands: Unremarkable. Kidneys: The unenhanced kidneys are normal in size and without hydronephrosis. There are 2 punctate nonobstructing right renal calculi. There are least 5 nonobstructing left renal calculi measuring up to 3 mm. No ureteral stone is seen. There is no evidence of contour deforming renal mass lesion. There is mild right-sided perinephric stranding. Abdominal vasculature: The abdominal aorta is normal in course and caliber. Bowel: There is mild colonic diverticulosis without CT evidence of acute diverticulitis. No bowel obstruction is seen. The appendix is not identified and reported surgically absent. Peritoneum: There is no intraperitoneal free air or abdominal ascites. There is evidence of previous ventral hernia repair. Lymphadenopathy: None. Pelvic viscera: The bladder, uterus, and adnexa are normal as visualized. Skeletal structures: No lytic or blastic lesions are seen. Sclerotic change is noted in the sacroiliac joints. Mild lumbosacral spondylosis is observed. IMPRESSION: 1. Bilateral nephrolithiasis. There is no ureteral stone or hydronephrosis. 2. There is mild nonspecific right-sided perinephric stranding. This could represent the sequelae of a recently passed kidney stone or possibly ascending urinary tract infection/pyelonephritis. Correlation with clinical findings and urinalysis will be required. 3. Mild colonic diverticulosis without CT evidence of acute diverticulitis. 4. Additional findings as above. Medications Administered Current Inpatient Medications Acetaminophen (Acetaminophen 325 Mg Tab) 650 mg PO Q4H PRN PRN Reason: Pain or Fever Stop: 01/27/20 00:30 Ascorbic Acid (Ascorbic Acid 500 Mg Tab) 1,000 mg PO QAM [facility] Stop: 01/28/20 08:59 Bupropion HCl (Bupropion Xl 300 Mg Tabcr) 300 mg PO [facility] Stop: 01/27/20 08:59 Last Admin: 12/28/19 08:12 Dose: 300 mg Documented by: Dextrose (Dextrose 50% 50 Ml Syringe) 25 - 50 ml IV UD PRN; Protocol PRN Reason: Hypoglycemia Protocol Stop: 01/27/20 00:30 Enoxaparin Sodium (Enoxaparin Inj 40 Mg/0.4 Ml Syr) 40 mg SQ [facility] Stop: 01/27/20 08:59 Last Admin: 12/28/19 08:11 Dose: 40 mg Documented by: Fluticasone Propionate (Fluticasone Propionate Na Spr 16 Gm Btl) 2 sprays NA [facility] Stop: 01/27/20 08:59 Last Admin: 12/28/19 08:11 Dose: 2 sprays Documented by: Gabapentin (Gabapentin 400 Mg Cap) 400 mg PO [facility] Stop: 01/27/20 08:59 Last Admin: 12/28/19 08:12 Dose: 400 mg Documented by: Gabapentin (Gabapentin 400 Mg Cap) 800 mg PO [facility] Stop: 01/27/20 20:59 Glucagon (Glucagon For Inj 1 Mg Vial) 1 mg SQ UD PRN; Protocol PRN Reason: Hypoglycemia Protocol Stop: 01/27/20 00:30 Glucose (Glucose 10 Tabs/Tube) 4 - 8 tabs PO UD PRN; Protocol PRN Reason: Hypoglycemia Protocol Stop: 01/27/20 00:30 Glucose (Glucose 40% Gel 15 Gm Tube) 15 - 30 gm PO UD PRN; Protocol PRN Reason: Hypoglycemia Protocol Stop: 01/27/20 00:30 Hydrochlorothiazide (Hydrochlorothiazide 25 Mg Tab) 12.5 mg PO [facility] Stop: 01/28/20 08:59 Promethazine HCl 12.5 mg/ (Sodium Chloride) 50.5 mls @ 202 mls/hr IV Q6H PRN PRN Reason: Nausea And Vomiting Stop: 01/27/20 00:30 Last Infusion: 12/28/19 08:09 Dose: Infused Documented by: Potassium Chloride 40 meq/ (Sodium Chloride) 1,020 mls @ 60 mls/hr IV .Q17H [facility] Stop: 12/28/19 17:59 Last Admin: 12/28/19 01:40 Dose: 60 mls/hr Documented by: Cefepime HCl 2,000 mg/ Syringe 20 mls @ 5 mls/min IV Q12H [facility]; Protocol Stop: 01/07/20 00:59 Last Admin: 12/28/19 01:40 Dose: 5 mls/min Documented by: Ibuprofen (Ibuprofen 200 Mg Tab) 200 mg PO Q6H PRN PRN Reason: Mild Pain Stop: 01/27/20 03:47 Last Admin: 12/28/19 04:06 Dose: 200 mg Documented by: Insulin Aspart (Insulin Aspart 100 Units/Ml 3 Ml Pen) 0 units SC ACHS [facility] Stop: 01/27/20 00:30 Last Admin: 12/28/19 08:44 Dose: Not Given Documented by: Lorazepam (Lorazepam 0.5 Mg Tab) 0.5 mg PO DAILY PRN PRN Reason: Anxiety Stop: 01/27/20 00:30 Losartan Potassium (Losartan Potassium 50 Mg Tab) 50 mg PO DAILY [facility] Stop: 01/27/20 08:59 Last Admin: 12/28/19 08:11 Dose: 50 mg Documented by: Melatonin (Melatonin 3 Mg Tab) 3 mg PO HS PRN PRN Reason: Insomnia Stop: 01/27/20 00:30 Miscellaneous (Carbohydrates For Hypoglycemia ) 15 - 30 gm PO UD PRN PRN Reason: Hypoglycemia Protocol Stop: 01/27/20 00:30 Miscellaneous (Remove Nicoderm Patch) 1 ea N/A DAILY@0859 [facility] Stop: 01/27/20 08:58 Last Admin: 12/28/19 08:12 Dose: 1 ea Documented by: Miscellaneous Information (Cefepime Consult Active) 1 ea N/A UD PRN PRN Reason: Consult Stop: 01/27/20 00:30 Morphine Sulfate (Morphine Sulfate 4 Mg/Ml 1 Ml Carp\Vial) 4 mg IV Q4H PRN PRN Reason: Pain Stop: 01/11/20 00:30 Multivitamins (Multivitamin Tab) 1 tab PO DAILY [facility] Stop: 01/27/20 08:59 Last Admin: 12/28/19 08:12 Dose: 1 tab Documented by: Nicotine (Nicotine 7 Mg/24 Hr Tdsy) 7 mg TD QAM [facility] Stop: 01/26/20 22:09 Last Admin: 12/28/19 09:16 Dose: 7 mg Documented by: Oxycodone HCl (Oxycodone Hcl Ir 5 Mg Tab (Immediate Release)) 5 - 10 mg PO QID PRN PRN Reason: Pain Stop: 01/11/20 00:30 Last Admin: 12/28/19 07:49 Dose: 5 mg Documented by: Pantoprazole Sodium (Pantoprazole 40 Mg Tab) 40 mg PO HS [facility] Stop: 01/27/20 20:59 Phenazopyridine HCl (Phenazopyridine Hcl 200 Mg Tab) 200 mg PO TID [facility] Stop: 12/30/19 13:59 Trazodone HCl (Trazodone Hcl 50 Mg Tab) 50 mg PO HS PRN PRN Reason: Sleep Stop: 01/27/20 00:30 Vitamin B Complex (Vitamin B Complex Tab) 1 tab PO DAILY [facility] Stop: 01/27/20 08:59 Last Admin: 12/28/19 08:12 Dose: 1 tab Documented by:
[2019-12-28] MEDS: PHENAZOPYRIDINE HCL 200 MG TAB PO SCH ×2 (13:17→20:46)
[2019-12-28] MEDS ORDERED: SODIUM CHLORIDE 0.9% 1000ML 1,000 ML IV ONE (17:22)
--- NOTE | 2019-12-28 18:12 | Electrocardiogram Report ---
Test Reason : Blood Pressure : / mmHG Vent. Rate : 076 BPM Atrial Rate : 076 BPM P-R Int : 150 ms QRS Dur : 076 ms QT Int : 388 ms P-R-T Axes : 055 030 028 degrees QTc Int : 436 ms Normal sinus rhythm Normal ECG When compared with ECG of 18-DEC-2018 06:39, No significant change was found Confirmed by Jack Whaley ([id number]) on 12/28/2019 6:11:57 PM Referred By: REFERRED SELF Confirmed By:Shailesh Whaley
[2019-12-28] MEDS: ACETAMINOPHEN 325 MG TAB PO PRN (19:01)
[2019-12-28] MEDS: PANTOprazole 40 MG TAB PO SCH (20:46)
[2019-12-29] MEDS: CEFEPIME 2,000 MG in SYRINGE 0 ML IV SCH (01:52)
[2019-12-29] MEDS: PROMETHAZINE HCL 12.5 MG in SODIUM CHLORIDE 0.9% 50 ML IV PRN (04:27)
[2019-12-29] MEDS: oxyCODONE HCL IR 5 MG TAB (IMMEDIATE RELEASE) PO PRN (04:30)
[2019-12-29] MEDS: FLUTICASONE PROPIONATE NA SPR 16 GM BTL SCH (08:02)
[2019-12-29] MEDS: buPROPion XL 300 MG TABCR PO SCH (08:03)
[2019-12-29] MEDS: GABAPENTIN 400 MG CAP PO SCH ×2 (08:03→20:38)
[2019-12-29] MEDS: LOSARTAN POTASSIUM 50 MG TAB PO SCH (08:03)
[2019-12-29] MEDS: PHENAZOPYRIDINE HCL 200 MG TAB PO SCH ×3 (08:03→20:37)
[2019-12-29] MEDS: NICOTINE 7 MG/24 HR TDSY TD SCH (08:04)
[2019-12-29] MEDS: ASCORBIC ACID 500 MG TAB PO SCH (08:04)
[2019-12-29] MEDS: hydroCHLOROthiazide 25 MG TAB PO SCH (08:04)
[2019-12-29] MEDS: VITAMIN B COMPLEX TAB PO SCH (08:04)
[2019-12-29] MEDS: MULTIVITAMIN TAB PO SCH (08:04)
[2019-12-29] MEDS: ENOXAPARIN INJ 40 MG/0.4 ML SYR SQ SCH (08:05)
[2019-12-29 09:25] LABS: Basophils # (auto) 0.02 K/uL (0-0.2); Basophils % (auto) 0.3 %; Eosinophils % (auto) 3.1 %; Hematocrit (blood only) 40.6 % (37-47); Hemoglobin 12.5 g/dL (12.0-16.0); Immature Granulocytes # (auto) 0.01 K/uL (0.00-0.02); Immature Granulocytes % (auto) 0.2 %; Lymphocytes # (auto) 1.93 K/uL (1.2-3.4); Lymphocytes % (auto) 29.5 %; Mean Corpuscular Hemoglobin 26.7 pg (25-34); Mean Corpuscular Hgb Conc 30.8 g/dL (32-36); Mean Corpuscular Volume 86.6 fL (80-100); Mean Platelet Volume 10.1 fL (7.4-10.4); Monocytes # (auto) 0.67 K/uL (0.11-0.59); Monocytes % (auto) 10.2 %; Neutrophils # (auto) 3.72 K/uL (1.4-6.5); Neutrophils % (auto) 56.7 %; Platelet Count 220 K/uL (130-400); RDW Coefficient of Variation 16.7 % (11.5-14.5); RDW Standard Deviation 52.8 fL (36.4-46.3); Red Blood Count 4.69 M/uL (4.2-5.4); White Blood Count 6.55 K/uL (4.8-10.8)
[2019-12-29 09:57] LABS: BUN Creatinine Ratio 9.4 (10-20); Calcium 8.7 mg/dl (8.5-10.1); Creatinine Clr Calc Pharmacy 90.6 ml/min; Est GFR (African American) 88.2; Est GFR (Non-African American) 76.1
--- NOTE | 2019-12-29 12:29 | Hospitalist Progress Note ---
Date of Service December 29, 2019 Assessment & Plan (1) Acute pyelonephritis: Some fever overnight but this was improved with APAP and not persistent. Feeling better today. Flank pain has resolved and pelvic discomfort is improved. Dysuria and other UTI symptoms greatly improves with abx and pyridium. E coli marks-sensitive in urine, blood clear. Switch cefepime to cipro BID x 7 days. First dose now. Monitor today in hospital with persistent intermittent nausea and still with some malaise. Hope to see continued clinical improvement in am and will dc to home. (2) Nephrolithiasis: Stay hydrated, supportive care for now. Flank pain resolved. (3) HTN (hypertension): Relative hypotension in the setting of acute illness. Home antihypertensives were initially held. BP elevated this morning as a result of this and some IVF last night when sick. Restarted home meds this morning. Expect things to normalize throughout the day. (4) Mood disorder: Cont Welbutrin per home regimen. (5) Metabolic syndrome: A1C is 6.2 and glucose levels are within normal limits. Cancelling frequent blood sugar checks and no insulin coverage at this time. Regular diet. (6) Morbid obesity: Lifestyle changes recommended including decrease percent body fat for better health. (7) Smoker: Nicoderm patch while admitted. Cont to encourage to quit completely for better health. (8) DVT prophylaxis: Lovenox Full Code Dispo-to home tomorrow if she continues to improve clinically. Cherie Lamb DO [facility] Hospitalist Admission and Anticipated Discharge Date Admission Date: December 27, 2019 Subjective feeling better today afebrile tolerating PO but concerned for some intermittent nausea Review of Systems Review of Systems: All systems reviewed & are unremarkable except as noted in Subjective Physical Exam Physical Exam: CONSTITUTIONAL: obese, vitals as above, generally well- appearing but fatigued. EYES: pupils are round and equal bilaterally, normal conjunctivae, no scleral icterus ENT: external ear and nose normal, MMM RESPIRATORY: clear to auscultation bilaterally, no crackles, rales or wheezes, normal respiratory effort CARDIOVASCULAR: regular rate and rhythm, S1 and 2 heard without murmurs, gallops or rubs, no JVD, no peripheral edema GASTROINTESTINAL: soft, TTP in lower abdomen that is improved, CVA tenderness on the right flank has resolved, nondistended. MUSCULOSKELETAL: strength 5/5 throughout, head is normocephalic and atraumatic SKIN: warm and dry NEUROLOGIC: CN 2-12 grossly intact, normal cognition, normal speech, no gross focal deficits. PSYCHIATRIC: alert cooperative and oriented to person, place and time. Results & Data Results & Data ([facility]) Vital Signs (Past 12 Hours) Vital Signs Temp Pulse Resp BP Pulse Ox 12/29/19 07:58 37.0 C 66 20 160/80 H 95 Laboratory Results Short CBC 12/29/19 Range/Units 09:05 WBC 6.55 (4.8-10.8) K/uL Hgb 12.5 (12.0-16.0) g/dL Hct 40.6 (37-47) % Plt Count 220 (130-400) K/uL BMP 12/29/19 09:05 Sodium 139 Potassium 4.0 Chloride 106 Carbon Dioxide 26 BUN 8 Creatinine 0.89 Glucose 207 H Calcium 8.7 Medications Administered Current Inpatient Medications Acetaminophen (Acetaminophen 325 Mg Tab) 650 mg PO Q4H PRN PRN Reason: Pain or Fever Stop: 01/27/20 00:30 Last Admin: 12/28/19 19:01 Dose: 650 mg Documented by: Ascorbic Acid (Ascorbic Acid 500 Mg Tab) [facility] Stop: 01/28/20 08:59 Last Admin: 12/29/19 08:04 Dose: 1,000 mg Documented by: Bupropion HCl (Bupropion Xl 300 Mg Tabcr) [facility] Stop: 01/27/20 08:59 Last Admin: 12/29/19 08:03 Dose: 300 mg Documented by: Ciprofloxacin (Ciprofloxacin 500 Mg Tab) 500 mg PO BID [facility] Stop: 01/08/20 11:44 Enoxaparin Sodium (Enoxaparin Inj 40 Mg/0.4 Ml Syr) 40 [facility] Stop: 01/27/20 08:59 Last Admin: 12/29/19 08:05 Dose: 40 mg Documented by: Fluticasone Propionate (Fluticasone Propionate Na Spr 16 Gm Btl) 2 sprays [facility] Stop: 01/27/20 08:59 Last Admin: 12/29/19 08:02 Dose: 2 sprays Documented by: Gabapentin (Gabapentin 400 Mg Cap) [facility] Stop: 01/27/20 08:59 Last Admin: 12/29/19 08:03 Dose: 400 mg Documented by: Gabapentin (Gabapentin 400 Mg Cap) 800 mg PO HS [facility] Stop: 01/27/20 20:59 Last Admin: 12/28/19 20:45 Dose: 800 mg Documented by: Hydrochlorothiazide (Hydrochlorothiazide 25 Mg Tab) 12.5 mg PO QAM [facility] Stop: 01/28/20 08:59 Last Admin: 12/29/19 08:04 Dose: 12.5 mg Documented by: Promethazine HCl 12.5 mg/ (Sodium Chloride) 50.5 mls @ 202 mls/hr IV Q6H PRN PRN Reason: Nausea And Vomiting Stop: 01/27/20 00:30 Last Infusion: 12/29/19 04:42 Dose: Infused Documented by: Ibuprofen (Ibuprofen 200 Mg Tab) 200 mg PO Q6H PRN PRN Reason: Mild Pain Stop: 01/27/20 03:47 Last Admin: 12/28/19 04:06 Dose: 200 mg Documented by: Lorazepam (Lorazepam 0.5 Mg Tab) 0.5 mg PO DAILY PRN PRN Reason: Anxiety Stop: 01/27/20 00:30 Losartan Potassium (Losartan Potassium 50 Mg Tab) 50 mg PO DAILY [facility] Stop: 01/27/20 08:59 Last Admin: 12/29/19 08:03 Dose: 50 mg Documented by: Melatonin (Melatonin 3 Mg Tab) 3 mg PO HS PRN PRN Reason: Insomnia Stop: 01/27/20 00:30 Miscellaneous (Remove Nicoderm Patch) 1 ea N/A DAILY@0859 [facility] Stop: 01/27/20 08:58 Last Admin: 12/29/19 08:02 Dose: 1 ea Documented by: Morphine Sulfate (Morphine Sulfate 4 Mg/Ml 1 Ml Carp\Vial) 4 mg IV Q4H PRN PRN Reason: Pain Stop: 01/11/20 00:30 Multivitamins (Multivitamin Tab) 1 tab PO DAILY [facility] Stop: 01/27/20 08:59 Last Admin: 12/29/19 08:04 Dose: 1 tab Documented by: Nicotine (Nicotine 7 Mg/24 Hr Tdsy) 7 mg TD QAM [facility] Stop: 01/26/20 22:09 Last Admin: 12/29/19 08:04 Dose: 7 mg Documented by: Oxycodone HCl (Oxycodone Hcl Ir 5 Mg Tab (Immediate Release)) 5 - 10 mg PO QID PRN PRN Reason: Pain Stop: 01/11/20 00:30 Last Admin: 12/29/19 04:30 Dose: 5 mg Documented by: Pantoprazole Sodium (Pantoprazole 40 Mg Tab) 40 mg PO HS [facility] Stop: 01/27/20 20:59 Last Admin: 12/28/19 20:46 Dose: 40 mg Documented by: Phenazopyridine HCl (Phenazopyridine Hcl 200 Mg Tab) 200 mg PO TID [facility] Stop: 12/30/19 13:59 Last Admin: 12/29/19 08:03 Dose: 200 mg Documented by: Trazodone HCl (Trazodone Hcl 50 Mg Tab) 50 mg PO HS PRN PRN Reason: Sleep Stop: 01/27/20 00:30 Vitamin B Complex (Vitamin B Complex Tab) 1 tab PO DAILY [facility] Stop: 01/27/20 08:59 Last Admin: 12/29/19 08:04 Dose: 1 tab Documented by:
[2019-12-29] MEDS: CIPROFLOXACIN 500 MG TAB PO SCH ×2 (13:01→20:37)
[2019-12-29] MEDS: IBUPROFEN 200 MG TAB PO PRN (18:45)
[2019-12-29] MEDS: PANTOprazole 40 MG TAB PO SCH (20:38)
[2019-12-30 07:47] VITALS: BP 108/70; TEMP 97.5; O2SAT 96
[2019-12-30] MEDS: ACETAMINOPHEN 325 MG TAB PO PRN (08:23)
[2019-12-30] MEDS: buPROPion XL 300 MG TABCR PO SCH (08:24)
[2019-12-30] MEDS: CIPROFLOXACIN 500 MG TAB PO SCH (08:24)
[2019-12-30] MEDS: ASCORBIC ACID 500 MG TAB PO SCH (08:24)
[2019-12-30] MEDS: VITAMIN B COMPLEX TAB PO SCH (08:24)
[2019-12-30] MEDS: GABAPENTIN 400 MG CAP PO SCH (08:25)
[2019-12-30] MEDS: hydroCHLOROthiazide 25 MG TAB PO SCH (08:25)
[2019-12-30] MEDS: NICOTINE 7 MG/24 HR TDSY TD SCH (08:25)
[2019-12-30] MEDS: LOSARTAN POTASSIUM 50 MG TAB PO SCH (08:25)
[2019-12-30] MEDS: MULTIVITAMIN TAB PO SCH (08:25)
[2019-12-30] MEDS: ENOXAPARIN INJ 40 MG/0.4 ML SYR SQ SCH ×2 (08:26→08:51)
[2019-12-30] MEDS: FLUTICASONE PROPIONATE NA SPR 16 GM BTL SCH (08:26)
[2019-12-30] MEDS: PHENAZOPYRIDINE HCL 200 MG TAB PO SCH (08:27)
[2019-12-30 10:59] VITALS: PULSE 77
--- NOTE | 2019-12-30 12:35 | Discharge Summary ---
Date of Service December 30, 2019 Admission HPI Per Admitting Provider History obtained from patient and records. Medical history significant for mood disorder, endometriosis, recurrent UTI, history urolithiasis, DM2 diet-controlled, ongoing tobacco abuse. Last confinement November 2018 for noncardiac chest pain. This morning, patient woke up not feeling well, feeling tired, dizziness described as lightheadedness, achy symptoms reminiscent of migraine headaches. Shortness of breath without chest pain. Usual smoker's cough symptoms. Possible COVID-19 contact last week. Achy right flank pain with dysuria symptoms without hematuria. Patient given ceftriaxone at the ER for UTI. 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 Admission Exam Per Admitting Provider GENERAL: Slightly uncomfortable, morbidly obese, no respiratory distress SKIN: Normal color, warm HEENT: [place] palpebral conjunctivae, no ptosis, dry buccal mucosa NECK : Supple, short neck, no tenderness CHEST : CTA, no tenderness HEART : RRR, no obvious murmurs ABDOMEN: Some distention, nontender BACK : Minimal right flank tenderness EXTREMITIES : Minimal LE swelling, no LE tenderness, no other conspicuous deformities noted NEUROLOGIC : Coherent, no facial asymmetry, no other gross focality Principal Diagnosis Acute pyelonephritis Nephrolithiasis Discharge Exam CONSTITUTIONAL: obese, vitals as above, generally well-appearing but fatigued. EYES: pupils are round and equal bilaterally, normal conjunctivae, no scleral icterus ENT: external ear and nose normal, MMM RESPIRATORY: clear to auscultation bilaterally, no crackles, rales or wheezes, normal respiratory effort CARDIOVASCULAR: regular rate and rhythm, S1 and 2 heard without murmurs, gallops or rubs, no JVD, no peripheral edema GASTROINTESTINAL: soft, TTP in lower abdomen that is improved, CVA tenderness on the right flank has resolved, nondistended. MUSCULOSKELETAL: strength 5/5 throughout, head is normocephalic and atraumatic SKIN: warm and dry NEUROLOGIC: CN 2-12 grossly intact, normal cognition, normal speech, no gross focal deficits. PSYCHIATRIC: alert cooperative and oriented to person, place and time. Discharge Data Allergies Allergy/AdvReac Type Severity Reaction Status Date / Time hazelnut Allergy Severe ANAPHYLAXIS; Verified 12/27/19 19:50 reported allergy to all nuts nut - unspecified Allergy Severe ANAPHYLAXIS Verified 12/27/19 19:50 peanut Allergy Severe ANAPHYLAXIS-ALL Verified 12/27/19 19:50 NUTS Penicillins Allergy Intermediate RASH - HAS Verified 12/27/19 19:50 TOLERATED ROCEPHIN 2012 Consultations 12/27/19 20:06 ED Decision to Admit Stat Ordered Studies Dante, [id number] CT Scan Report Patient: EDUARD ARREAGA Date: 12/27/19#: [id number]: [id number] [facility] [facility]:[id number]: Date: 1970City Zip: [place], [place] [address]Dxk: 49Location: 2NSex: FRoom/Bed: [id number] Phy: Cherie Lamb DODiagnosis: SHORTNESS OF BREATHPri Phy: Janeth Ackerman MDService Date: 12/27/19Fam Phy: Janeth Ackerman MDInterpreting Phy: Judd Harley MDAdmit Phy: Sid Lunsford MD Ordering Phy: Sid Lunsford MD cc: ~ CHEST CTA for PULMONARY ARTERIES CT DOSE: HISTORY: Shortness of breath. TECHNIQUE: Multiaxial CT images of the chest were performed following the intravenous administration of contrast to evaluate the pulmonary arteries. Maximal intensity projection images were also obtained. A dose lowering technique was utilized adhering to the principles of ALARA. COMPARISON STUDY: Chest CTA 06/19/2018. FINDINGS: Please refer to same day abdomen and pelvis CT for further evaluation of the abdominal structures. Normal esophagus. No mediastinal or hilar lymphadenopathy. The heart is normal in size. No pleural or pericardial effusions. Normal caliber thoracic aorta with no evidence for dissection. No filling defects within the pulmonary arteries to suggest pulmonary embolus. Questionable filling defect seen within the lingular branch is likely secondary to motion artifact. No pneumothorax. The central airways are patent. Mild central bronchial wall thickening. No pneumothorax. No focal lung consolidations to suggest pneumonia. Groundglass density within the lung bases posteriorly favor mild dependent change. A few scattered subpleural nodules remain stable. A dominant right upper lobe pulmonary nodule within the on image 200 measures 7 mm. There is also a stable 11 mm nodular density along the right minor fissure on image 150. No new pulmonary nodules identified. These nodules are stable com pared to a [address] and are therefore considered to be benign. IMPRESSION: 1. No evidence for pulmonary embolus. 2. Stable pulmonary nodules. ACT 112: Negative or not required by law. Electronically signed by: Judd Harley M.D. 12/28/2019 8:38 AM Dictated: 12/28/19821Transcribed: 12/28/19827 [facility], [id number] CT Scan Report Patient: EDUARD ARREAGA Date: 12/27/19#: [id number]: [id number] BALAJI [facility] ID:[id number]: Date: 1970[facility] Zip: [place], [place] [address]Cmg: 49Location: 2NSex: FRoom/Bed: [id number] Phy: Cherie Lamb DODiagnosis: SHORTNESS OF BREATHPri Phy: Janeth Ackerman MDService Date: 12/27/19Fam Phy: Janeth Ackerman MDInterpreting Phy: Jared Guillermo MDAdmit Phy: Sid Lunsford MD Ordering Phy: Sid Lunsford MD cc: ~ CT SCAN OF THE ABDOMEN AND PELVIS WITHOUT IV CONTRAST CLINICAL HISTORY: Right flank pain. COMPARISON STUDY: Abdominal CT dated 03/21/2019 and 04/25/2017. TECHNIQUE: CT scan of the abdomen and pelvis is performed from the lung bases to the proximal femora. Images are reviewed in the axial, sagittal, and coronal planes. IV contrast was not administered for this examination as per the referring clinician. A dose lowering technique was utilized adhering to the principles of ALARA. CT DOSE: 2553.71 mGy.cm FINDINGS: Lung bases: The heart is normal in size and without pericardial effusion. A 3 mm right lower lobe pulmonary nodule is seen on image #26. A 3 mm right middle lobe pulmonary nodule is seen on image #25. These are unchanged from previous. There is no airspace consolidation or pleural effusion. Dependent atelectasis is noted at both lung bases. There is a small hiatal hernia. Liver: The unenhanced liver is normal in size, contour, and attenuation. There is no intrahepatic biliary ductal dilatation. A 5 cm multiloculated cystic lesion is again seen in the right lobe of liver. This has been present over multiple prior studies. Gallbladder: Surgically absent noting clips in the gallbladder fossa. Spleen: Normal in size and attenuation. Pancreas: Unremarkable. Adrenal glands: Unremarkable. Kidneys: The unenhanced kidneys are normal in size and without hydronephrosis. There are 2 punctate nonobstructing right renal calculi. There are least 5 nonobstructing left renal calculi measuring up to 3 mm. No ureteral stone is seen. There is no evidence of contour deforming renal mass lesion. There is mild right-sided perinephric stranding. Abdominal vasculature: The abdominal aorta is normal in course and caliber. Bowel: There is mild colonic diverticulosis without CT evidence of acute diverticulitis. No bowel obstruction is seen. The appendix is not identified and reported surgically absent. Peritoneum: There is no intraperitoneal free air or abdominal ascites. There is evidence of previous ventral hernia repair. Lymphadenopathy: None. Pelvic viscera: The bladder, uterus, and adnexa are normal as visualized. Skeletal structures: No lytic or blastic lesions are seen. Sclerotic change is noted in the sacroiliac joints. Mild lumbosacral spondylosis is observed. IMPRESSION: 1. Bilateral nephrolithiasis. There is no ureteral stone or hydronephrosis. 2. There is mild nonspecific right-sided perinephric stranding. This could represent the sequelae of a recently passed kidney stone or possibly ascending urinary tract infection/pyelonephritis. Correlation with clinical findings and urinalysis will be required. 3. Mild colonic diverticulosis without CT evidence of acute diverticulitis. 4. Additional findings as above. ACT 112: Negative or not required by law. Electronically signed by: Jared Guillermo M.D. 12/28/2019 8:14 AM Dictated: 12/28/19806Transcribed: 12/28/19806 [facility], [phone] XRay Report Patient: EDUARD ARREAGA Date: 12/27/19#: [id number]: [id number] BALAJ[address] [facility] ID:[id number]: Date: 1970City Zip: [place], [place] [address]Dir: 49Location: EDSex: FRoom/Bed:Att Phy:Diagnosis: SOB, DIZZYPri Phy: Janeth Ackerman MDService Date: 12/27/19Fam Phy:Interpreting Phy: Danny Olivo MDAdmit Phy: Ordering Phy: Héctor Koehler M.D. cc: ~ XR chest 1V portable CLINICAL HISTORY: Shortness of breath COMPARISON STUDY: 12/17/2018 FINDINGS: The cardiac and mediastinal contours remain stable. There is no focal pulmonary consolidation. There is no failure. There are no pleural effusions. Slight interstitial prominence is felt to be related to technical factors.[ IMPRESSION: No active disease in the chest. ACT 112: Negative or not required by law. Electronically signed by: Danny Olivo M.D. 12/27/2019 7:10 PM Dictated: 12/27/191909Transcribed: 12/27/191909 Hospital Course (1) Acute pyelonephritis: (2) Nephrolithiasis: (3) HTN (hypertension): (4) Mood disorder: (5) Metabolic syndrome: (6) Morbid obesity: (7) Smoker: The patient is a 49-year-old female who was admitted to the hospitalist service and treated for acute pyelonephritis. She initially reported some shortness of breath on admission and a D-dimer was drawn and abnormal. A CT angiogram of the chest followed which ensured there was no pulmonary embolus present. A CT of the abdomen pelvis was performed regarding some flank pain reported and the patient also mentions some UTI symptoms for the past 4 to 5 days. She has a known history of kidney stones and also recently passed a stone in the last 3 weeks. Review of systems revealed fever and chills and during her first 24 hours of admission she did have a fever. In the ER she was started on IV Rocephin which was continued. CT of the abdomen pelvis revealed bilateral nephrolithiasis with no evidence of ureteral stone or hydronephrosis. There was some mild nonspecific right-sided perinephric stranding which correlated clinically to her flank pain. This in addition to fevers and chills made the diagnosis of acute pyelonephritis. Rocephin was continued and she i mproved clinically over the next couple of days. Medications were switched to oral ciprofloxacin which will be continued for the remainder of the course. The acute pyelonephritis was likely potentiated from the nephrolithiasis which is something she chronically deals with. At time of discharge she was hemodynamically stable and afebrile and tolerating p.o. She was mentating and ambulating at baseline and oxygenating well on room air. She was strongly advised to quit smoking and consider working with her primary care physician on this or obtaining nicotine supplementation to help her stay quit. Close follow- up with primary care is recommended. Total Time Total Time Spent Total Time Spent (In Minutes): 60 Total Time Includes: Examination of the Patient, Discharge Planning, Medication Reconciliation and Communication With Other Providers Discharge Plan Discharge Items Patient Disposition: Home - Self-Care Reason For Visit: SHORTNESS OF BREATH Discharge Diagnosis: Acute pyelonephritis Nephrolithiasis Condition on Discharge: Good Activity: Resume your previous activity Non-emergency contact: Primary Care Provider Call non-emergency contact if: you have any medication questions, your symptoms worsen, your pain is not controlled and you have a fever Follow-up/Referrals: Janeth Ackerman MD [Primary Care Provider] - Diet: Regular Addtl Attending Provider Instructions: Please take all medications as instructed on discharge list below. It is recommended that you follow-up with your primary care physician within one week of discharge from the hospital to ensure you are still doing well and don't need to have your antibiotic course extended. Please use the Pyridium or OTC Tylenol for any mild pain. For any severe pain that is concerning, please seek immediate medical attention. It is strongly recommended that you quit smoking as this is terrible for your health. Please consider working with your primary care physician on this or obtain nicotine supplementation to help you stay quit. It was a pleasure taking care of you! Please call if you have any questions or problems. You can reach a [facility] hospitalist on duty at [facility] 24 hours a day by calling [phone]. Take care of yourself. Cherie Lamb, DO [facility] Hospitalist Pending Studies at Discharge: No Stand-Alone Forms: My [facility], Smoking Cessation Medications and DC Order Prescriptions: New ciprofloxacin HCl 500 mg Tablet 500 mg PO BID Qty: 10 RF: 0 phenazopyridine [Pyridium] 200 mg Tablet 200 mg PO TID PRN (Reason: pelvic discomfort) Qty: 10 RF: 0 Continued fluticasone propionate [Flonase Allergy Relief] 50 mcg/actuation [place],Suspension 2 spray INTRANASAL QAM RF: 0 multivitamin Tablet 1 tab PO DAILY RF: 0 melatonin 5 mg Capsule 0 mg PO HS RF: 0 vitamin B complex Tablet 1 tab PO DAILY RF: 0 hydrochlorothiazide 12.5 mg capsule 12.5 mg PO QAM RF: 0 gabapentin 400 mg capsule See Rx Instructions .ROUTE .COMPLEX RF: 0 losartan 50 mg Tablet 50 mg PO DAILY RF: 0 ascorbic acid (vitamin C) [Vitamin C] 1,000 mg Tablet 1 g PO QAM RF: 0 trazodone 50 mg Tablet 50 mg PO HS PRN (Reason: Sleep) RF: 0 lorazepam [Ativan] 0.5 mg Tablet 0.5 mg PO DAILY PRN (Reason: Anxiety) RF: 0 omeprazole 20 mg Capsule,Delayed Release(Dr/Ec) 20 mg PO HS RF: 0 bupropion HCl [Wellbutrin XL] 300 mg Tablet Extended Release 24 Hr 300 mg PO QAM RF: 0 elderberry fruit and flower 460-115 mg Capsule 1 cap PO DAILY RF: 0 turmeric 400 mg Capsule 400 mg PO DAILY RF: 0 Discharge Orders: Discharge Order (Routine); Ordered 12/30/19 Ordered By: Cherie Lamb Admission Data Admit Date/Time: 12/27/19 22:03 Attending Provider: Cherie Lamb Admit Provider: Sid Lunsford Primary Care Provider: Janeth Ackerman Other Providers: Oconer,Sid N. Other Interventions: Discharge Summary Assessment (RN) Last Done: 12/30/19 10:57
== END 2019-12-30 13:49 | disposition home or self-care (01) | DRG 690 ==
LOC: ED 16:29 → 2N 22:03 → INTOOBSV 22:03 → 2N 22:55

== ENCOUNTER 2020-01-14 23:26 | Inpatient (IN) ==
[2020-01-14] MEDS ORDERED: DEXAMETHASONE SOD INJ 10 MG/ML VIAL IV ONE (23:43)
[2020-01-14] MEDS ORDERED: ACETAMINOPHEN 500 MG TAB PO STA (23:43)
[2020-01-14] MEDS ORDERED: ONDANSETRON INJ 2 MG/ML 2 ML VIAL IV STA (23:43)
[2020-01-14] MEDS ORDERED: SODIUM CHLORIDE 0.9% 500 ML IV ONE (23:43)
--- NOTE | 2020-01-14 23:46 | Emergency Department Note ---
Impression & Plan COVID-19, SOB (shortness of breath), Chest pain ED Provider Note Name: EDUARD ARREAGA Age: 49 Sex: F Arrives Via: Walk-In Informant: Patient ED Provider: Richard Allen MD Chief Complaint:COVID-19 Impression: Covid-19 Shortness of breath Chest Pain Medical Decision Makin yr old female with history asthma, metabolic syndrome, htn, mood disorder arr angie with continued shortness of breath and now chest pain for the last 24 hours after being diagnosed with COVID-19 several days ago. She was seen here 2 days ago and CTA at that time without clot, dissection, etc. On arrival she has normal vitals, appears in no distress other than a bit anxious with clear lungs. Work up obtained with normal labs, normal Trop, EKG unchanged, and improving CXR. Given IV steroids as complaining shob with asthma history and known COVID infection. Furthermore given Albuterol HFA as she notes continued shortness of breath, though no wheezing on repeat examinations. Patient with sats in the upper 90s throughout without any prolonged time in low 90s (despite patient stating otherwise). With essentially unremarkable work-up I discussed home treatment with inhaler and continuing outpatient steroids to see if that would help her feel better. I will note that with normal vitals and unremarkable exam in the setting of 2 CTAs of the chest in last 3 weeks (both negative other than covid findings 2 days ago), I do not feel that emergent repeat CTA indicated at this time and thus will defer to hospitalist if further imaging beyond CXR. She requested hospitalist evaluation as she stated she did not feel well enough to go home. In setting of the 3rd visit to ED in almost as many days I did consult hospitalist for another opinion. I do not feel there is evidence ACS given entire day worth of bilateral non-specific chest pain in setting of normal EKG and normal Troponin. Prior Medical Record and Triage/Nursing Notes reviewed by Me Additional history obtained from chart Differentials:Reactive airway disease, pneumonia, pneumothorax, COPD, CHF, infections, cardiac ischemia, pulmonary embolism, musculoskeletal, gastrointestinal, as well as other pathologies. amongst other pathologies. Vital Signs: reviewed and remarkable for no significant abnormalities Interventions: See Below Labs:Reviewed and remarkable for no significant abnormalities Imaging:X ray results are stated below per my interpretation: Chest: 1 view: No infiltrate, no effusion, normal cardiac border. EKG:Per My Interpretation: Indication Chest Pain: NSR 83 bpm, qtc 441. No Ectopy. No Ischemia. Compared to EKG 01/12/20, no significant changes. Cardiac/Tele Monitoring: Cardiac Monitoring: An Order was placed for continuous cardiac monitoring. The monitor shows a rate of 80 with a normal sinus rhythm. Consults:Dr Lunsford Plan: Disposition:Hospitalization. Condition: Good Prescriptions:none PDMP: n/a History of Present Illness:49 yr old female with remote history Asthma arrives for evaluation of shortness of breath. Patient notes positive Covid testing a few days ago and this is now 3rd visit for evaluation. States she has been having chest tightness, shortness of breath, diffuse mild headache, body aches, nausea and fatigue all day long. Pain is bilateral and tight in nature. Notes non-productive cough as well. Tmax 100 at home. Used Tylenol earlier in afternoon without improvement. No syncope, rashes, leg swelling, vomiting, nor other symptoms. ROS: See above HPI for pertinent positives & negatives. A total of 10 systems reviewed and were otherwise negative. Past Medical History:See Below Past Surgical History:See Below Family History:See Below Social History:See Below Home Medications:See Below Allergies:Nuts, Penicillin Vitals:Blood Pressure: 118/84, Pulse 86, RR 24, T 37C, O2 97% on RA Physical Exam: GENERAL: Patient is well appearing and in minimal distress. Mildly anxious EYES: No scleral icterus, unremarkable pupils. ENT: Mucous membranes moist, no nasal congestion. NECK: No masses appreciated, nomeningismus, trachea is midline. RESPIRATORY: No dyspnea on my evaluation. Clear to auscultation and equal jen aterally. No wheeze, no rhonchi. CARDIOVASCULAR: Regular rate and rhythm.No murmurs, rubs, gallops appreciated. GASTROINTESTINAL: Abdomen soft, non-tender, no peritonitis.Bowel sounds positive.No masses appreciated. BACK: No midline tenderness, no CVA tenderness EXTREMITIES: Normal motion all extremities, no cyanosis, no edema. NEUROLOGIC: Alert and oriented, no acute motor or sensory deficits, no focal weakness, cranial nerves grossly intact. SKIN: No rash, no jaundice, no diaphoresis. PSYCH: Appropriate, Mildly anxious GCS: 15 ED Course: Times/Reassessments: Multiple. Patient noted to be in no distress on multiple evaluation with clear lungs, normal vitals. She requested hospitalist evaluation as she noted she didn't feel well enough to come home and that this was her 3rd visit to ED> Richard Allen MD Past Med/Surg History Medical History (Updated 01/15/20 @ 22:20 by Cherie Lamb, DO) Asthma Has not used inhaler for years. H/o hospitalization and intubation in 1979. Bladder infection Depression E. coli septic shock Hernia of abdominal cavity History of anemia History of bronchitis Kidney stones Morbid obesity Pyelonephritis Shingles SOB (shortness of breath) UTI (urinary tract infection) Surgical History H/O section H/O cystoscopy History of appendectomy Hx of cholecystectomy S/P tonsillectomy Family History Father Diabetes Hypertension Heart disease Mother Cancer Breast cancer Grandfather Colorectal cancer Other Family history of high blood pressure Family history of kidney disease Social History Smoking Status: Current every day smoker Tobacco Type: Cigarettes Cigarettes Per Day: 5; Second Hand Exposure: No; Hx Alcohol Use: Yes Alcohol type: wine Hx Substance Use: No Preferred Language: Macedonian Communication Ability: Effective Pricing Strategist Required: No Beliefs That Will Affect Care: None marital status: Current Living Situation: Family Current Living Situation Comment: Lives at home with kids How many Children do You have: 3 Feels Safe at Home: Yes Assistive Devices: None Allergies Allergies Allergy/AdvReac Type Severity Reaction Status Date / Time hazelnut Allergy Severe ANAPHYLAXIS; Verified 01/14/20 23:38 reported allergy to all nuts nut - unspecified Allergy Severe ANAPHYLAXIS Verified 01/14/20 23:38 peanut Allergy Severe ANAPHYLAXIS-ALL Verified 01/14/20 23:38 NUTS Penicillins Allergy Intermediate RASH - HAS Verified 01/14/20 23:38 TOLERATED ROCEPHIN 2012 Home Meds Home Medications Medication Instructions Recorded Confirmed fluticasone propionate [Flonase 2 spray INTRANASAL QAM 03/16/18 01/15/20 Allergy Relief] vitamin B complex 1 tab PO QAM 10/08/18 01/15/20 multivitamin 1 tab PO QAM 12/17/18 01/15/20 gabapentin See Rx Instructions .ROUTE .COMPLEX 03/21/19 01/15/20 hydrochlorothiazide 12.5 mg PO QAM 03/21/19 01/15/20 ascorbic acid (vitamin C) [Vitamin 1 g PO QAM 12/27/19 01/15/20 C] bupropion HCl [Wellbutrin XL] 300 mg PO QAM 12/27/19 01/15/20 elderberry fruit and flower 1 cap PO QAM 12/27/19 01/15/20 lorazepam [Ativan] 0.5 mg PO DAILY PRN 12/27/19 01/15/20 losartan 75 mg PO QAM 12/27/19 01/15/20 omeprazole 20 mg PO HS 12/27/19 01/15/20 trazodone 50 mg PO HS PRN 12/27/19 01/15/20 turmeric 400 mg PO QAM 12/27/19 01/15/20 acetaminophen [Tylenol Extra 1,000 mg PO Q6H PRN 01/12/20 01/15/20 Strength] cholecalciferol (vitamin D3) 125 mcg PO Q OTHER DAY 01/12/20 01/15/20 [Vitamin D3] zinc 50 mg PO QAM 01/12/20 01/15/20 Previous Rx's Medication Instructions Recorded albuterol sulfate 2 inh INHALATION Q4H PRN #8.5 g 01/15/20 methylprednisolone [Medrol (Scott)] See Rx Instructions .ROUTE 01/15/20 .COMPLEX #21 ea Results & Data (ED) Vital Signs Vital Signs - 24 hr 01/14/20 23:41 01/15/20 01:00 01/15/20 02:00 Temperature 37 C Temperature Source Oral Pulse Rate 86 Pulse Rate [Right Finger] 81 75 Pulse Rate from SpO2 Sensor Pulse Rhythm [Right Finger] Pulse Strength [Right Finger] Respiratory Rate 24 18 16 Respiratory Effort / Characteristics Respiratory Depth Normal Respiratory Pattern Blood Pressure 118/84 Blood Pressure [Right Arm] 120/76 118/73 Blood Pressure Mean 95 Blood Pressure Mean [Right Arm] 90 88 Blood Pressure Position Sitting Blood Pressure Position [Right Arm] Lying Lying Pulse Oximetry 97 97 98 Oxygen Delivery Method Room Air Room Air Room Air Sepsis Recent Fever Within 48 Hours No Sepsis New/Unexplained Change in Mental Status N/A Sepsis Action Taken by Nursing No Action Required 01/15/20 03:55 01/15/20 05:00 01/15/20 06:49 Temperature Temperature Source Pulse Rate Pulse Rate [Right Finger] 70 61 60 Pulse Rate from SpO2 Sensor Pulse Rhythm [Right Finger] Regular Pulse Strength [Right Finger] Normal Respiratory Rate 16 16 16 Respiratory Effort / Characteristics Respiratory Depth Normal Respiratory Pattern Blood Pressure Blood Pressure [Right Arm] 112/68 115/68 116/70 Blood Pressure Mean Blood Pressure Mean [Right Arm] 82 83 85 Blood Pressure Position Blood Pressure Position [Right Arm] Lying Lying Lying Pulse Oximetry 96 97 96 Oxygen Delivery Method Room Air Room Air Room Air Sepsis Recent Fever Within 48 Hours Sepsis New/Unexplained Change in Mental Status Sepsis Action Taken by Nursing 01/15/20 07:00 01/15/20 07:17 01/15/20 07:30 Temperature Temperature Source Pulse Rate 60 64 59 L Pulse Rate [Right Finger] Pulse Rate from SpO2 Sensor 64 59 L Pulse Rhythm [Right Finger] Pulse Strength [Right Finger] Respiratory Rate 18 20 19 Respiratory Effort / Characteristics Respiratory Depth Respiratory Pattern Blood Pressure 121/70 Blood Pressure [Right Arm] Blood Pressure Mean 79 Blood Pressure Mean [Right Arm] Blood Pressure Position Blood Pressure Position [Right Arm] Pulse Oximetry 92 93 Oxygen Delivery Method Sepsis Recent Fever Within 48 Hours Sepsis New/Unexplained Change in Mental Status Sepsis Action Taken by Nursing 01/15/20 07:45 01/15/20 09:58 01/15/20 14:07 Temperature 36.4 C L 36.7 C Temperature Source Oral Oral Pulse Rate Pulse Rate [Right Finger] 56 L 74 Pulse Rate from SpO2 Sensor Pulse Rhythm [Right Finger] Pulse Strength [Right Finger] Respiratory Rate 16 17 Respiratory Effort / Characteristics Non-Labored Spontaneous Respiratory Depth Normal Normal Respiratory Pattern Regular Blood Pressure Blood Pressure [Right Arm] 110/60 114/71 Blood Pressure Mean Blood Pressure Mean [Right Arm] 76 85 Blood Pressure Position Blood Pressure Position [Right Arm] Semi-fowlers Semi-fowlers Pulse Oximetry 95 97 97 Oxygen Delivery Method Room Air Room Air Room Air Sepsis Recent Fever Within 48 Hours Sepsis New/Unexplained Change in Mental Status Sepsis Action Taken by Nursing 01/15/20 16:05 01/15/20 16:30 01/15/20 19:41 Temperature 36.6 C Temperature Source Oral Pulse Rate Pulse Rate [Right Finger] 60 68 Pulse Rate from SpO2 Sensor Pulse Rhythm [Right Finger] Regular Pulse Strength [Right Finger] Normal Respiratory Rate 22 20 Respiratory Effort / Characteristics Non-Labored Spontaneous Non-Labored Spontaneous Non-Labored Spontaneous Respiratory Depth Normal Normal Respiratory Pattern Regular Regular Blood Pressure Blood Pressure [Right Arm] 108/70 Blood Pressure Mean Blood Pressure Mean [Right Arm] 82 Blood Pressure Position Blood Pressure Position [Right Arm] Semi-fowlers Pulse Oximetry 96 99 Oxygen Delivery Method Room Air Room Air Room Air Sepsis Recent Fever Within 48 Hours Sepsis New/Unexplained Change in Mental Status Sepsis Action Taken by Nursing Laboratory Data Result diagrams: 01/15/20 00:00 01/15/20 00:00 Lab Results 01/15/20 01/15/20 01/15/20 Range/Units 00:00 00:00 04:05 WBC 5.38 (4.8-10.8) K/uL RBC 5.26 (4.2-5.4) M/uL Hgb 14.4 (12.0-16.0) g/dL Hct 44.2 (37-47) % MCV 84.0 (80-100) fL MCH 27.4 (25-34) pg MCHC 32.6 (32-36) g/dL RDW Std Deviation 49.3 H (36.4-46.3) fL RDW Coeff of Shannen 16.0 H (11.5-14.5) % Plt Count 230 (130-400) K/uL MPV 10.3 (7.4-10.4) fL Immature Gran % (Auto) 0.4 % Neut % (Auto) 51.6 % Lymph % (Auto) 35.7 % Wilkin % (Auto) 11.2 % Eos % (Auto) 0.7 % Baso % (Auto) 0.4 % Neut # (Auto) 2.78 (1.4-6.5) K/uL Lymph # (Auto) 1.92 (1.2-3.4) K/uL Wilkin # (Auto) 0.60 H (0.11-0.59) K/uL Eos # (Auto) 0.04 (0-0.5) K/uL Baso # (Auto) 0.02 (0-0.2) K/uL Immature Gran # (Auto) 0.02 (0.00-0.02) K/uL Sodium 136 (136-145) mmol/L Potassium 4.0 (3.5-5.1) mmol/L Chloride 102 (98-107) mmol/L Carbon Dioxide 27 (21-32) mmol/L Anion Gap 7.0 (3-11) BUN 14 (7-18) mg/dl Creatinine 0.86 (0.6-1.2) mg/dl Est Cr Clr Drug Dosing 95.5 ml/min Est GFR ( Amer) 91.9 Est GFR (Non-Af Amer) 79.3 BUN/Creatinine Ratio 16.4 (10-20) Glucose 94 (70-99) mg/dl POC Glucose (70-99) mg/dl Calcium 9.4 (8.5-10.1) mg/dl Magnesium 1.9 (1.8-2.4) mg/dl Total Creatine Kinase 36 (26-192) U/L Troponin I < 0.015 (0-0.045) ng/ml Urine Color Yellow Urine Appearance Slightly Cloudy (Clear) Urine pH 6.5 (4.5-7.5) Ur Specific [place] <= 1.005 (1.000-1.030) Urine Protein Negative (Negative) Urine Glucose (UA) Negative (Negative) Urine Ketones Negative (Negative) Urine Blood Negative (Negative) Urine Nitrite Negative (Negative) Urine Bilirubin Negative (Negative) Urine Urobilinogen Negative (Negative) Ur Leukocyte Esterase Negative (Negative) 01/15/20 01/15/20 Range/Units 17:16 21:35 WBC (4.8-10.8) K/uL RBC (4.2-5.4) M/uL Hgb (12.0-16.0) g/dL Hct (37-47) % MCV (80-100) fL MCH (25-34) pg MCHC (32-36) g/dL RDW Std Deviation (36.4-46.3) fL RDW Coeff of Shannen (11.5-14.5) % Plt Count (130-400) K/uL MPV (7.4-10.4) fL Immature Gran % (Auto) % Neut % (Auto) % Lymph % (Auto) % Wilkin % (Auto) % Eos % (Auto) % Baso % (Auto) % Neut # (Auto) (1.4-6.5) K/uL Lymph # (Auto) (1.2-3.4) K/uL Wilkin # (Auto) (0.11-0.59) K/uL Eos # (Auto) (0-0.5) K/uL Baso # (Auto) (0-0.2) K/uL Immature Gran # (Auto) (0.00-0.02) K/uL Sodium (136-145) mmol/L Potassium (3.5-5.1) mmol/L Chloride (98-107) mmol/L Carbon Dioxide (21-32) mmol/L Anion Gap (3-11) BUN (7-18) mg/dl Creatinine (0.6-1.2) mg/dl Est Cr Clr Drug Dosing ml/min Est GFR ( Amer) Est GFR (Non-Af Amer) BUN/Creatinine Ratio (10-20) Glucose (70-99) mg/dl POC Glucose 111 H 181 H (70-99) mg/dl Calcium (8.5-10.1) mg/dl Magnesium (1.8-2.4) mg/dl Total Creatine Kinase (26-192) U/L Troponin I (0-0.045) ng/ml Urine Color Urine Appearance (Clear) Urine pH (4.5-7.5) Ur Specific [place] (1.000-1.030) Urine Protein (Negative) Urine Glucose (UA) (Negative) Urine Ketones (Negative) Urine Blood (Negative) Urine Nitrite (Negative) Urine Bilirubin (Negative) Urine Urobilinogen (Negative) Ur Leukocyte Esterase (Negative) Administered Medications Albuterol (Albuterol Hfa 8 Gm Inhaler) 2 puffs INH Q4R PRN PRN Reason: Shortness Of Breath Or Wheezing Stop: 02/14/20 08:45 Last Admin: 01/15/20 19:38 Dose: 2 puffs Documented by: [id number] Ascorbic Acid (Ascorbic Acid 500 Mg Tab) 1,000 mg PO QAM ROSIBEL Stop: 02/14/20 09:59 Last Admin: 01/15/20 10:31 Dose: 1,000 mg Documented by: [id number] Bupropion HCl (Bupropion Xl 300 Mg Tabcr) 300 mg PO QAM ROSIBEL Stop: 02/14/20 08:59 Last Admin: 01/15/20 10:30 Dose: 300 mg Documented by: [id number] Enoxaparin Sodium (Enoxaparin Inj 40 Mg/0.4 Ml Syr) 40 mg SQ QAM [facility] Stop: 02/14/20 08:59 Last Admin: 01/15/20 10:30 Dose: 40 mg Documented by: [id number] Fluticasone Propionate (Fluticasone Propionate Na Spr 16 Gm Btl) 2 sprays CHAPO QAM [facility] Stop: 02/14/20 08:59 Last Admin: 01/15/20 10:28 Dose: 2 sprays Documented by: [id number] Gabapentin (Gabapentin 400 Mg Cap) 400 mg PO QAM [facility] Stop: 02/14/20 09:59 Last Admin: 01/15/20 10:31 Dose: 400 mg Documented by: [id number] Gabapentin (Gabapentin 400 Mg Cap) 800 mg PO HS [facility] Stop: 02/14/20 20:59 Last Admin: 01/15/20 22:23 Dose: 800 mg Documented by: [id number] Guaifenesin (Guaifenesin 600 Mg Tabcr) 600 mg PO Q12 [facility] Stop: 02/14/20 08:59 Last Admin: 01/15/20 22:23 Dose: 600 mg Documented by: [id number] Admin: 01/15/20 10:30 Dose: 600 mg Documented by: [id number] Insulin Aspart (Insulin Aspart 100 Units/Ml 3 Ml Pen) [facility] Stop: 02/14/20 08:45 Last Admin: 01/15/20 22:10 Dose: 1 units Documented by: [id number] Cosigned by: [id number] Admin: 01/15/20 19:08 Dose: Not Given Documented by: [id number] Cosigned by: [id number] Admin: 01/15/20 11:27 Dose: Not Given Documented by: [id number] Cosigned by: [id number] Admin: 01/15/20 10:47 Dose: Not Given Documented by: [id number] Cosigned by: [id number] Losartan Potassium (Losartan Potassium 25 Mg Tab) [facility] [place] Stop: 02/14/20 08:59 Last Admin: 01/15/20 10:29 Dose: 75 mg Documented by: [id number] Multivitamins (Multivitamin Tab) 1 tab [facility] [place] Stop: 02/14/20 08:59 Last Admin: 01/15/20 10:29 Dose: 1 tab Documented by: [id number] Naproxen (Naproxen 250 Mg Tab) 250 mg PO BID PRN PRN Reason: headache, mild pain Stop: 02/14/20 14:51 Last Admin: 01/15/20 16:49 Dose: 250 mg Documented by: [id number] Pantoprazole Sodium (Pantoprazole 40 Mg Tab) 40 mg PO HS [facility] Stop: 02/14/20 20:59 Last Admin: 01/15/20 22:23 Dose: 40 mg Documented by: [id number] Vitamin B Complex (Vitamin B Complex Tab) 1 tab PO QAM [facility] Stop: 02/14/20 09:59 Last Admin: 01/15/20 10:31 Dose: 1 tab Documented by: [id number] Vitamin D (Cholecalciferol 1,000 Units 25 Mcg Tab) 5,000 units PO Q2D@0900 [facility] Stop: 02/14/20 09:29 Last Admin: 01/15/20 10:30 Dose: 5,000 units Documented by: [id number] Zinc Sulfate (Zinc Sulfate 220 Mg Capsule) 220 mg PO QAM [facility] Stop: 02/14/20 09:59 Last Admin: 01/15/20 10:31 Dose: 220 mg Documented by: [id number] Discontinued Medications Acetaminophen (Acetaminophen 500 Mg Tab) 1,000 mg PO NOW STA Stop: 01/14/20 23:44 Last Admin: 01/15/20 00:06 Dose: 1,000 mg Documented by: [id number] Hydrox/Mg Hydrox/Simethicone (Gi Cocktail Ed Use) 1 dose PO ONE ONE Stop: 01/15/20 00:19 Last Admin: 01/15/20 00:31 Dose: Not Given Documented by: [id number] Albuterol (Albuterol Hfa 8 Gm Inhaler) 2 puffs INH NOW ONE Stop: 01/15/20 00:58 Last Admin: 01/15/20 01:54 Dose: 2 puffs Documented by: [id number] Albuterol (Albuterol Hfa 8 Gm Inhaler) 2 puffs INH Q4R ROSIBEL Stop: 02/14/20 08:45 Last Admin: 01/15/20 10:09 Dose: Not Given Documented by: [id number] Dexamethasone (Dexamethasone Sod Inj 10 Mg/Ml Vial) 10 mg IV NOW ONE Stop: 01/14/20 23:44 Last Admin: 01/15/20 00:06 Dose: 10 mg Documented by: [id number] Dexamethasone (Dexamethasone Sod Inj 10 Mg/Ml Vial) 10 mg IV NOW ONE Stop: 01/15/20 00:19 Last Admin: 01/15/20 00:31 Dose: Not Given Documented by: [id number] Diphenhydramine HCl (Diphenhydramine 50 Mg/Ml Vial) 50 mg IV NOW STA Stop: 01/15/20 00:19 Last Admin: 01/15/20 00:31 Dose: Not Given Documented by: [id number] Famotidine (Famotidine 20mg/5ml Iv Push) 20 mg IV ONE STA Stop: 01/15/20 00:19 Last Admin: 01/15/20 01:54 Dose: Not Given Documented by: [id number] Sodium Chloride (Nss) 500 mls @ 999 mls/hr IV .Q31M ONE Stop: 01/15/20 00:13 Last Infusion: 01/15/20 07:37 Dose: 0 mls/hr Documented by: [id number] Admin: 01/15/20 00:06 Dose: 999 mls/hr Documented by: [id number] Sodium Chloride (Nss 1000ml) 1,000 mls @ 999 mls/hr IV .Q1H1M ONE Stop: 01/15/20 01:18 Last Admin: 01/15/20 00:31 Dose: Not Given Documented by: [id number] Parenteral Electrolytes (Normosol-R) 1,000 mls @ 500 mls/hr IV .Q2H ONE Stop: 01/15/20 05:15 Last Infusion: 01/15/20 11:38 Dose: 0 mls/hr Documented by: [id number] Infusion: 01/15/20 11:30 Dose: 0 mls/hr Documented by: [id number] Admin: 01/15/20 03:48 Dose: 100 mls/hr Documented by: [id number] Magnesium Sulfate/Dextrose (Magnesium Sulfate / D5w) 1 gm in 100 mls @ 50 mls/hr IV ONE STA Stop: 01/15/20 06:12 Last Infusion: 01/15/20 07:37 Dose: 0 mls/hr Documented by: [id number] Admin: 01/15/20 05:37 Dose: 50 mls/hr Documented by: [id number] Ioversol (Optiray 320 125ml) 125 ml IV ONCE ONE Stop: 01/15/20 04:03 Last Admin: 01/15/20 04:03 Dose: 118 ml Documented by: [id number] Methylprednisolone (Methylprednisolone 40 Mg/Ml Vial) 20 mg IV ONE STA Stop: 01/15/20 03:13 Last Admin: 01/15/20 03:48 Dose: 20 mg Documented by: [id number] Ondansetron HCl (Ondansetron Inj 2 Mg/Ml 2 Ml Vial) 4 mg IV NOW STA Stop: 01/14/20 23:44 Last Admin: 01/15/20 00:06 Dose: 4 mg Documented by: [id number] Discharge Plan Visit Data Chief Complaint: Shortness of Breath/Dyspnea Stated Complaint: COVID +, CANT BREATHE ED Provider: Richard Allen Discharge Problem: COVID-19, SOB (shortness of breath), Chest pain Patient Disposition: Admitted As Inpatient Condition: Good Discharge Instructions Interventions: ED Discharge Assessment Last Done: 01/15/20 07:45 Discharge Problem: Chest pain Qualifiers: Chest pain type: chest pain on breathing Qualified Code(s): R07.1 - Chest pain on breathing
[2020-01-15] MEDS ORDERED: FAMOTIDINE 20MG/5ML IV PUSH IV STA (00:18)
[2020-01-15] MEDS ORDERED: DEXAMETHASONE SOD INJ 10 MG/ML VIAL IV ONE (00:18)
[2020-01-15] MEDS ORDERED: diphenhydrAMINE 50 MG/ML VIAL IV STA (00:18)
[2020-01-15] MEDS ORDERED: GI COCKTAIL ED USE PO ONE (00:18)
[2020-01-15] MEDS ORDERED: SODIUM CHLORIDE 0.9% 1000ML 1,000 ML IV ONE (00:18)
[2020-01-15 00:20] LABS: Basophils # (auto) 0.02 K/uL (0-0.2); Basophils % (auto) 0.4 %; Eosinophils # (auto) 0.04 K/uL (0-0.5); Eosinophils % (auto) 0.7 %; Hematocrit (blood only) 44.2 % (37-47); Hemoglobin 14.4 g/dL (12.0-16.0); Immature Granulocytes # (auto) 0.02 K/uL (0.00-0.02); Immature Granulocytes % (auto) 0.4 %; Lymphocytes # (auto) 1.92 K/uL (1.2-3.4); Lymphocytes % (auto) 35.7 %; Mean Corpuscular Hemoglobin 27.4 pg (25-34); Mean Corpuscular Hgb Conc 32.6 g/dL (32-36); Mean Platelet Volume 10.3 fL (7.4-10.4); Monocytes % (auto) 11.2 %; Neutrophils # (auto) 2.78 K/uL (1.4-6.5); Neutrophils % (auto) 51.6 %; Platelet Count 230 K/uL (130-400); RDW Standard Deviation 49.3 fL (36.4-46.3); Red Blood Count 5.26 M/uL (4.2-5.4); White Blood Count 5.38 K/uL (4.8-10.8)
[2020-01-15 00:42] LABS: BUN Creatinine Ratio 16.4 (10-20); Blood Urea Nitrogen 14 mg/dl (7-18); Calcium 9.4 mg/dl (8.5-10.1); Carbon Dioxide 27 mmol/L (21-32); Chloride 102 mmol/L (98-107); Creatinine Clr Calc Pharmacy 95.5 ml/min; Est GFR (African American) 91.9; Est GFR (Non-African American) 79.3; Glucose 94 mg/dl (70-99); Sodium 136 mmol/L (136-145)
[2020-01-15 00:47] LABS: Creatine Kinase 36 U/L (26-192); Troponin I < 0.015 ng/ml (0-0.045)
[2020-01-15] MEDS ORDERED: ALBUTEROL HFA 8 GM INHALER INH ONE (00:57)
[2020-01-15] MEDS ORDERED: methylPREDNISolone 20 MG in SYRINGE 0 ML IV STA (03:06)
--- NOTE | 2020-01-15 03:08 | History & Physical Report ---
Date of Service January 15, 2020 Assessment & Plan (1) SOB (shortness of breath): Viral bronchopneumonia secondary to COVID-19 Patient uncomfortable going home after third ER visit since COVID-19 diagnosis from last week. No sepsis for now. HTN, stable DM2 diet-controlled, well-controlled as of recent hemoglobin A1c of 6.24 December 2019 Diarrhea secondary to viral illness rule out C. difficile given recent Cipro Rx for UTI ongoing tobacco abuse OBS GMF MDI RTC Supportive management for viral bronchopneumonia Stool C. difficile ISS BG goal [id number] Nicotine patch as needed DVT prophylaxis. Lovenox subcu Full code Text document was generated using [employer] voice recognition software. It may contain grammatical or spelling errors. Kindly contact undersigned for clarification of any documentation item in question. History of Present Illness Chief Complaint: Shortness of breath, worsening chest pain Primary Care Provider: Janeth Ackerman MD History obtained from patient and records. Medical history significant for HTN, mood disorder, endometriosis, recurrent UTI, history urolithiasis, DM2 diet-controlled, ongoing tobacco abuse. Recent confinement 3 weeks ago for pyelonephritis. Patient discharged on Cipro course. Last week ago, patient noted headache, dry cough, congestion, runny nose sympto ms. Chest pain with coughing and fever at home. Patient later had nausea vomiting diarrhea symptoms. Outpatient COVID-19 test positive. Supportive management at home prescribed recommended by PCP. Two ER visits in the last week for worsening symptoms. Outpatient CT angio from recent ER visit 3 days ago negative for PE. Yesterday, patient noted worsening pleuritic chest pain associated with dry cough and shortness of breath symptoms. Oxygen noted to be low on home pulse ox. Patient uncomfortable leaving emergency room after ER provider evaluation. 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 Allergies Allergy/AdvReac Type Severity Reaction Status Date / Time hazelnut Allergy Severe ANAPHYLAXIS; Verified 01/14/20 23:38 reported allergy to all nuts nut - unspecified Allergy Severe ANAPHYLAXIS Verified 01/14/20 23:38 peanut Allergy Severe ANAPHYLAXIS-ALL Verified 01/14/20 23:38 NUTS Penicillins Allergy Intermediate RASH - HAS Verified 01/14/20 23:38 TOLERATED ROCEPHIN 2012 Home Medications Medication Instructions Recorded Confirmed Type fluticasone propionate [Flonase 2 spray INTRANASAL QAM 03/16/18 01/15/20 History Allergy Relief] vitamin B complex 1 tab PO QAM 10/08/18 01/15/20 History multivitamin 1 tab PO QAM 12/17/18 01/15/20 History gabapentin See Rx Instructions .ROUTE .COMPLEX 03/21/19 01/15/20 History hydrochlorothiazide 12.5 mg PO QAM 03/21/19 01/15/20 History ascorbic acid (vitamin C) [Vitamin 1 g PO QAM 12/27/19 01/15/20 History C] bupropion HCl [Wellbutrin XL] 300 mg PO QAM 12/27/19 01/15/20 History elderberry fruit and flower 1 cap PO QAM 12/27/19 01/15/20 History lorazepam [Ativan] 0.5 mg PO DAILY PRN 12/27/19 01/15/20 History losartan 75 mg PO QAM 12/27/19 01/15/20 History omeprazole 20 mg PO HS 12/27/19 01/15/20 History trazodone 50 mg PO HS PRN 12/27/19 01/15/20 History turmeric 400 mg PO QAM 12/27/19 01/15/20 History acetaminophen [Tylenol Extra 1,000 mg PO Q6H PRN 01/12/20 01/15/20 History Strength] cholecalciferol (vitamin D3) 125 mcg PO Q OTHER DAY 01/12/20 01/15/20 History [Vitamin D3] zinc 50 mg PO QAM 01/12/20 01/15/20 History albuterol sulfate 2 inh INHALATION Q4H PRN #8.5 g 01/15/20 Rx methylprednisolone [Medrol (Scott)] See Rx Instructions .ROUTE 01/15/20 Rx .COMPLEX #21 ea Past Med/Surg History Medical History (Updated 01/15/20 @ 02:04 by Richard Allen MD) Asthma Has not used inhaler for years. H/o hospitalization and intubation in 1979. Bladder infection Depression E. coli septic shock Hernia of abdominal cavity History of anemia History of bronchitis Kidney stones Morbid obesity Pyelonephritis Shingles SOB (shortness of breath) UTI (urinary tract infection) Surgical History H/O section H/O cystoscopy History of appendectomy Hx of cholecystectomy S/P tonsillectomy Family History Father Diabetes Hypertension Heart disease Mother Cancer Breast cancer Grandfather Colorectal cancer Other Family history of high blood pressure Family history of kidney disease Social History Smoking Status: Current every day smoker Tobacco Type: Cigarettes Cigarettes Per Day: 5; Second Hand Exposure: No; Hx Alcohol Use: Yes Alcohol type: wine Hx Substance Use: No Preferred Language: Vincentian Communication Ability: Effective 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 Beliefs That Will Affect Care: None marital status: Current Living Situation: Family Current Living Situation Comment: Lives at home with kids How many Children do You have: 3 Feels Safe at Home: Yes Assistive Devices: None Review of Systems Review of Systems: As per HPI, all 10 systems reviewed, all other ROS negative Physical Exam Physical Exam: GENERAL: uncomfortable, anxious, morbidly obese no respiratory distress SKIN: Normal color, warm HEENT: [place] palpebral conjunctivae, no ptosis, dry buccal mucosa NECK : Supple, short neck, no tenderness CHEST : Expiratory wheezes, no tenderness HEART : RRR, no obvious murmurs ABDOMEN: Some distention, nontender EXTREMITIES : Minimal LE swelling, no LE tenderness, no other conspicuous deformities noted NEUROLOGIC : Coherent, no facial asymmetry, no other gross focality Results & Data Results & Data ([facility]) Vital Signs (Past 12 Hours) Vital Signs Temp Pulse Pulse Resp BP BP Pulse Ox 01/15/20 02:00 75 16 118/73 98 01/15/20 01:00 81 18 120/76 97 01/14/20 23:41 37 C 86 24 118/84 97 Laboratory Results Laboratory Results WBC 5.38 K/uL (4.8-10.8) 01/15/20 00:00 RBC 5.26 M/uL (4.2-5.4) 01/15/20 00:00 Hgb 14.4 g/dL (12.0-16.0) 01/15/20 00:00 Hct 44.2 % (37-47) 01/15/20 00:00 MCV 84.0 fL (80-100) 01/15/20 00:00 MCH 27.4 pg (25-34) 01/15/20 00:00 MCHC 32.6 g/dL (32-36) 01/15/20 00:00 RDW Std Deviation 49.3 fL (36.4-46.3) H 01/15/20 00:00 RDW Coeff of Shannen 16.0 % (11.5-14.5) H 01/15/20 00:00 Plt Count 230 K/uL (130-400) 01/15/20 00:00 MPV 10.3 fL (7.4-10.4) 01/15/20 00:00 Immature Gran % (Auto) 0.4 % 01/15/20 00:00 Neut % (Auto) 51.6 % 01/15/20 00:00 Lymph % (Auto) 35.7 % 01/15/20 00:00 Gregg % (Auto) 11.2 % 01/15/20 00:00 Eos % (Auto) 0.7 % 01/15/20 00:00 Baso % (Auto) 0.4 % 01/15/20 00:00 Neut # (Auto) 2.78 K/uL (1.4-6.5) 01/15/20 00:00 Lymph # (Auto) 1.92 K/uL (1.2-3.4) 01/15/20 00:00 Gregg # (Auto) 0.60 K/uL (0.11-0.59) H 01/15/20 00:00 Eos # (Auto) 0.04 K/uL (0-0.5) 01/15/20 00:00 Baso # (Auto) 0.02 K/uL (0-0.2) 01/15/20 00:00 Immature Gran # (Auto) 0.02 K/uL (0.00-0.02) 01/15/20 00:00 Sodium 136 mmol/L (136-145) 01/15/20 00:00 Potassium 4.0 mmol/L (3.5-5.1) 01/15/20 00:00 Chloride 102 mmol/L (98-107) 01/15/20 00:00 Carbon Dioxide 27 mmol/L (21-32) 01/15/20 00:00 Anion Gap 7.0 (3-11) 01/15/20 00:00 BUN 14 mg/dl (7-18) 01/15/20 00:00 Creatinine 0.86 mg/dl (0.6-1.2) 01/15/20 00:00 Est Cr Clr Drug Dosing 95.5 ml/min 01/15/20 00:00 Est GFR ( Amer) 91.9 01/15/20 00:00 Est GFR (Non-Af Amer) 79.3 01/15/20 00:00 BUN/Creatinine Ratio 16.4 (10-20) 01/15/20 00:00 Glucose 94 mg/dl (70-99) 01/15/20 00:00 Calcium 9.4 mg/dl (8.5-10.1) 01/15/20 00:00 Total Creatine Kinase 36 U/L (26-192) 01/15/20 00:00 Troponin I < 0.015 ng/ml (0-0.045) 01/15/20 00:[address] chest initial read: No CT evidence of pulmonary embolism. Mild patchy bilateral airspace opacities with predominantly peripheral distribution which may reflect atypical pneumonia slightly progressed. Several pulmonary nodules measuring up to 6 mm. Mild subcarinal lymphadenopathy. Mild bilateral axillary lymphadenopathy as before. 5 cm complex right hepatic hypodensity as before. Cholecystectomy EKG as per my interpretation rate 85, NSR, normal axis, no ischemia
[2020-01-15] MEDS ORDERED: NORMOSOL-R 1,000 ML IV ONE (03:16)
[2020-01-15 03:18] LABS: Magnesium 1.9 mg/dl (1.8-2.4)
[2020-01-15] MEDS ORDERED: OPTIRAY 320 125ml IV ONE (04:02)
[2020-01-15] MEDS ORDERED: MAGNESIUM SULFATE / D5W 1 GM/100 ML BAG IV STA (04:13)
[2020-01-15 05:38] LABS: Appearance Urine Slightly Cloudy (Clear); Bilirubin Urine Negative (Negative); Blood Urine Negative (Negative); Color Urine Yellow; Glucose Urine UA Negative (Negative); Ketones Urine Negative (Negative); Leukocyte Esterase Urine Negative (Negative); Nitrite Urine Negative (Negative); Protein Urine Negative (Negative); Specific Gravity Urine <= 1.005 (1.000-1.030); Urobilinogen Urine Negative (Negative); pH Urine 6.5 (4.5-7.5)
--- NOTE | 2020-01-15 06:43 | XRay Report ---
XR chest 1V portable HISTORY: 49 years-old Female Chest pain, sob, covid acute atypical chest pain with shortness of sandra th COMPARISON: Chest radiograph 01/12/2020, CTA chest 01/15/2020 TECHNIQUE: Portable AP view of the chest FINDINGS: Cardiomediastinal and hilar silhouettes are within normal limits. No pneumothorax, pleural effusion o r overt pulmonary edema. Subtle subpleural ill-defined opacities are better seen characterized on the CTA chest study of same day. Osteophytic spurring of the spine. IMPRESSION: Subtle ill-defined peripheral opacities of the lungs are better seen and characterized on the CTA chest study of same day. ACT 112: Negative or not required by law. The above report was generated using voice recognition software. It may contain grammatical, syntax o r spelling errors. Electronically signed by: Reji Dey M.D. 01/15/2020 6:42 AM
--- NOTE | 2020-01-15 07:29 | CT Scan Report ---
CT ANGIOGRAM OF THE CHEST CLINICAL HISTORY: Atypical chest pain. Possible pulmonary embolism. Covid positive patient COMPARISON STUDY: 01/12/2020, chest x-ray dated 01/15/2020 TECHNIQUE: Following the IV administration of 118 mL of Optiray-320, CT angiogram of the thorax was p erformed from the thoracic inlet to the lung bases utilizing the pulmonary embolus protocol. Images a re reviewed in the axial, sagittal, and coronal planes. IV contrast was administered without complica tion. MIP imaging was performed. A dose lowering technique was utilized adhering to the principles o f ALARA. CT DOSE: 553.64 mGycm FINDINGS: There is a stable partially visualized 48 mm hypodense lesion within the right lobe of the liver There is a minimally enlarged 12 mm subcarinal lymph node, likely reactive. Borderline enlarged axill alessio lymph nodes also remain stable. There was no evidence of thoracic aortic dilatation. There were no pulmonary artery filling defects to indicate acute pulmonary embolism. No pleural effusions are visualized. There are progressive multifocal groundglass pulmonary opacities with a peripheral distribution. The findings are consistent with progressive Covid pneumonia. IMPRESSION: 1. No evidence of acute pulmonary embolism. 2. Progressive multifocal pulmonary groundglass opacity with a peripheral distribution. The findings are consistent with progressive Covid pneumonia ACT 112: Negative or not required by law. Electronically signed by: Danny Olivo M.D. 01/15/2020 7:28 AM
[2020-01-15] MEDS ORDERED: MoRPHine SULFATE 4 MG/ML 1 ML CARP\\VIAL IV PRN (08:46)
[2020-01-15] MEDS ORDERED: DEXTROSE 50% 50 ML SYRINGE IV PRN (08:46)
[2020-01-15] MEDS ORDERED: ALBUTEROL HFA 8 GM INHALER INH SCH (08:46)
[2020-01-15] MEDS ORDERED: PROMETHAZINE HCL 12.5 MG in SODIUM CHLORIDE 0.9% 50 ML IV PRN (08:46)
[2020-01-15] MEDS ORDERED: GLUCOSE 10 TABS/TUBE PO PRN (08:46)
[2020-01-15] MEDS ORDERED: GLUCOSE 40% GEL 15 GM TUBE PO PRN (08:46)
[2020-01-15] MEDS ORDERED: CARBOHYDRATES FOR HYPOGLYCEMIA PO PRN (08:46)
[2020-01-15] MEDS ORDERED: GLUCAGON FOR INJ 1 MG VIAL SQ PRN (08:46)
[2020-01-15] MEDS ORDERED: traZODone HCL 50 MG TAB PO PRN (08:46)
[2020-01-15] MEDS ORDERED: ALBUTEROL HFA 8 GM INHALER INH PRN (10:08)
[2020-01-15] MEDS: FLUTICASONE PROPIONATE NA SPR 16 GM BTL NAE SCH (10:28)
[2020-01-15] MEDS: LOSARTAN POTASSIUM 25 MG TAB PO SCH (10:29)
[2020-01-15] MEDS: MULTIVITAMIN TAB PO SCH (10:29)
[2020-01-15] MEDS: ENOXAPARIN INJ 40 MG/0.4 ML SYR SQ SCH (10:30)
[2020-01-15] MEDS: CHOLECALCIFEROL 1,000 UNITS 25 MCG TAB PO SCH (10:30)
[2020-01-15] MEDS: guaiFENesin 600 MG TABCR PO SCH ×2 (10:30→22:23)
[2020-01-15] MEDS: buPROPion XL 300 MG TABCR PO SCH (10:30)
[2020-01-15] MEDS: ASCORBIC ACID 500 MG TAB PO SCH (10:31)
[2020-01-15] MEDS: ZINC SULFATE 220 MG CAPSULE PO SCH (10:31)
[2020-01-15] MEDS: VITAMIN B COMPLEX TAB PO SCH (10:31)
[2020-01-15] MEDS: GABAPENTIN 400 MG CAP PO SCH ×2 (10:31→22:23)
[2020-01-15] MEDS: INSULIN ASPART 100 UNITS/ML 3 ML PEN SC SCH ×4 (10:47→22:10)
[2020-01-15] MEDS: NAPROXEN 250 MG TAB PO PRN (16:49)
--- NOTE | 2020-01-15 19:10 | Hospitalist Progress Note ---
Date of Service January 15, 2020 Assessment & Plan (1) Pneumonia due to COVID-19 virus: Worsening bilateral infiltrates. No hypoxia or fever at this time but was febrile on arrival to the ER. Will start Rocephin and doxycycline at this time, trend pro calcitonin, watch for progression of pneumonia. If patient becomes significantly hypoxic with significant oxygen requirement, consider convalescent plasma and remdesivir which have been discussed with her. 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 (3) Smoker: Encouraged to quit smoking as this is bad for her health. (4) Diarrhea: Covid associated diarrhea, continue supportive care. 1 L normal saline given tonight. (5) DVT prophylaxis: Lovenox Full Dispo-to home when medically stable. I did discuss the assessment above and the plan as well as treatment options for Covid virus with her daughter by phone. All questions were answered to her satisfaction. Cherie Lamb DO [facility] Hospitalist Admission and Anticipated Discharge Date Admission Date: January 15, 2020 Subjective cc: asthma exacerbation Patient is more short of breath today, denies coughing Profuse wheezing on exam, conversational dyspnea She is afebrile, voices significant anxiety over progression of Covid illness Review of Systems Review of Systems: All systems reviewed & are unremarkable except as noted in Subjective Physical Exam Physical Exam: CONSTITUTIONAL: obese, vitals as above, generally well- appearing EYES: normal conjunctivae, no scleral icterus ENT: external ear and nose normal, oropharynx clear, MMM RESPIRATORY: Diffuse wheezing throughout, normal respiratory effort, +conversational dyspnea. CARDIOVASCULAR: regular rate and rhythm, S1 and 2 heard without murmurs, gallops or rubs, no JVD, no peripheral edema GASTROINTESTINAL: soft, nontender, nondistended, no guarding MUSCULOSKELETAL: strength 5/5 throughout, head is normocephalic and atraumatic, neck supple, normal palpation of chest wall without tenderness SKIN: warm and dry, no rashes NEUROLOGIC: CN 2-12 grossly intact, no sensory deficit, normal cognition, normal speech, no tremor PSYCHIATRIC: alert cooperative and oriented to person, place and time. Results & Data Results & Data ([facility]) Vital Signs (Past 12 Hours) Vital Signs Temp Pulse Pulse Resp BP BP Pulse Ox 01/15/20 16:30 36.6 C 60 22 108/70 96 01/15/20 14:07 36.7 C 74 17 114/71 97 01/15/20 09:58 36.4 C L 56 L 16 110/60 97 01/15/20 07:45 95 01/15/20 07:30 59 L 19 93 01/15/20 07:17 64 20 121/70 Laboratory Results Short CBC 01/15/20 Range/Units 00:00 WBC 5.38 (4.8-10.8) K/uL Hgb 14.4 (12.0-16.0) g/dL Hct 44.2 (37-47) % Plt Count 230 (130-400) K/uL BMP 01/15/20 00:00 Sodium 136 Potassium 4.0 Chloride 102 Carbon Dioxide 27 BUN 14 Creatinine 0.86 Glucose 94 Calcium 9.4 Cardiac Enzymes 01/15/20 Range/Units 00:00 Total Creatine Kinase 36 (26-192) U/L Troponin I < 0.015 (0-0.045) ng/ml Urine 01/15/20 Range/Units 04:05 Urine Color Yellow Urine Appearance Slightly Cloudy (Clear) Urine pH 6.5 (4.5-7.5) Ur Specific [place] <= 1.005 (1.000-1.030) Urine Protein Negative (Negative) Urine Glucose (UA) Negative (Negative) Medications Administered Current Inpatient Medications Albuterol (Albuterol Hfa 8 Gm Inhaler) 2 puffs INH Q4R PRN PRN Reason: Shortness Of Breath Or Wheezing Stop: 02/14/20 08:45 Ascorbic Acid (Ascorbic Acid 500 Mg Tab) 1,000 mg PO QAM ROSIBEL Stop: 02/14/20 09:59 Last Admin: 01/15/20 10:31 Dose: 1,000 mg Documented by: Bupropion HCl (Bupropion Xl 300 Mg Tabcr) 300 mg PO QAM ROSIBEL Stop: 02/14/20 08:59 Last Admin: 01/15/20 10:30 Dose: 300 mg Documented by: Dextrose (Dextrose 50% 50 Ml Syringe) 25 - 50 ml IV UD PRN; Protocol PRN Reason: Hypoglycemia Protocol Stop: 02/14/20 08:45 Enoxaparin Sodium (Enoxaparin Inj 40 Mg/0.4 Ml Syr) 40 mg SQ QAM [facility] Stop: 02/14/20 08:59 Last Admin: 01/15/20 10:30 Dose: 40 mg Documented by: Fluticasone Propionate (Fluticasone Propionate Na Spr 16 Gm Btl) 2 sprays [place] QAM [facility] Stop: 02/14/20 08:59 Last Admin: 01/15/20 10:28 Dose: 2 sprays Documented by: Gabapentin (Gabapentin 400 Mg Cap) 400 mg PO QAM [facility] Stop: 02/14/20 09:59 Last Admin: 01/15/20 10:31 Dose: 400 mg Documented by: Gabapentin (Gabapentin 400 Mg Cap) 800 mg PO HS [facility] Stop: 02/14/20 20:59 Glucagon (Glucagon For Inj 1 Mg Vial) 1 mg SQ UD PRN; Protocol PRN Reason: Hypoglycemia Protocol Stop: 02/14/20 08:45 Glucose (Glucose 10 Tabs/Tube) 4 - 8 tabs PO UD PRN; Protocol PRN Reason: Hypoglycemia Protocol Stop: 02/14/20 08:45 Glucose (Glucose 40% Gel 15 Gm Tube) 15 - 30 gm PO UD PRN; Protocol PRN Reason: Hypoglycemia Protocol Stop: 02/14/20 08:45 Guaifenesin (Guaifenesin 600 Mg Tabcr) 600 mg PO Q12 [facility] Stop: 02/14/20 08:59 Last Admin: 01/15/20 10:30 Dose: 600 mg Documented by: Lorazepam (Ativan) 0.25 mg in 0.5 mls @ 0.5 mls/min IV Q4H PRN PRN Reason: Anxiety Stop: 02/14/20 08:45 Promethazine HCl 12.5 mg/ (Sodium Chloride) 50.5 mls @ 202 mls/hr IV Q6H PRN PRN Reason: Nausea And Vomiting Stop: 02/14/20 08:45 Insulin Aspart (Insulin Aspart 100 Units/Ml 3 Ml Pen) 0 units SC ACHS [facility] Stop: 02/14/20 08:45 Last Admin: 01/15/20 19:08 Dose: Not Given Documented by: Lorazepam (Lorazepam 0.5 Mg Tab) 0.5 mg PO DAILY PRN PRN Reason: Anxiety Stop: 02/14/20 08:45 Losartan Potassium (Losartan Potassium 25 Mg Tab) 75 mg PO QAM [facility] Stop: 02/14/20 08:59 Last Admin: 01/15/20 10:29 Dose: 75 mg Documented by: Miscellaneous (Carbohydrates For Hypoglycemia ) 15 - 30 gm PO UD PRN PRN Reason: Hypoglycemia Protocol Stop: 02/14/20 08:45 Morphine Sulfate (Morphine Sulfate 4 Mg/Ml 1 Ml Carp\Vial) 4 mg IV Q4H PRN PRN Reason: Pain Stop: 01/29/20 08:45 Multivitamins (Multivitamin Tab) 1 tab PO QAM [facility] Stop: 02/14/20 08:59 Last Admin: 01/15/20 10:29 Dose: 1 tab Documented by: Naproxen (Naproxen 250 Mg Tab) 250 mg PO BID PRN PRN Reason: headache, mild pain Stop: 02/14/20 14:51 Last Admin: 01/15/20 16:49 Dose: 250 mg Documented by: Pantoprazole Sodium (Pantoprazole 40 Mg Tab) 40 mg PO HS ROSIBEL Stop: 02/14/20 20:59 Tramadol HCl (Tramadol Hcl 50 Mg Tablet) 25 - 50 mg PO Q4H PRN PRN Reason: Pain Stop: 02/14/20 08:45 Trazodone HCl (Trazodone Hcl 50 Mg Tab) 50 mg PO HS PRN PRN Reason: Sleep Stop: 02/14/20 08:45 Vitamin B Complex (Vitamin B Complex Tab) [facility] Stop: 02/14/20 09:59 Last Admin: 01/15/20 10:31 Dose: 1 tab Documented by: Vitamin D (Cholecalciferol 1,000 Units 25 Mcg Tab) 5,000 units PO Q2D@0900 [facility] Stop: 02/14/20 09:29 Last Admin: 01/15/20 10:30 Dose: 5,000 units Documented by: Zinc Sulfate (Zinc Sulfate 220 Mg Capsule) 220 mg PO QAM [facility] Stop: 02/14/20 09:59 Last Admin: 01/15/20 10:31 Dose: 220 mg Documented by: (1) Diarrhea Diarrhea type: unspecified type Qualified Code(s): R19.7 - Diarrhea, unspecified
[2020-01-15] MEDS: PANTOprazole 40 MG TAB PO SCH (22:23)
[2020-01-15] MEDS ORDERED: SODIUM CHLORIDE 0.9% 1000ML 1,000 ML IV SCH (22:30)
[2020-01-15] MEDS: methylPREDNISolone 20 MG in SYRINGE 0 ML IV SCH (23:16)
[2020-01-15] MEDS: cefTRIAXone SODIUM 2,000 MG in DEXTROSE 5% 50 ML IV SCH (23:21)
[2020-01-16] MEDS: DOXYCYCLINE HYCLATE 100 MG in DEXTROSE 5% 100 ML IV SCH ×3 (00:26→23:38)
[2020-01-16] MEDS: LORazepam 0.25 MG/0.5 ML VIAL IV PRN ×2 (01:11→22:48)
--- NOTE | 2020-01-16 04:47 | Electrocardiogram Report ---
Test Reason : Blood Pressure : / mmHG Vent. Rate : 083 BPM Atrial Rate : 083 BPM P-R Int : 140 ms QRS Dur : 074 ms QT Int : 376 ms P-R-T Axes : 052 017 051 degrees QTc Int : 441 ms Poor data quality, interpretation may be adversely affected Normal sinus rhythm Cannot rule out Anterior infarct (cited on or before 12-JAN-2020) Abnormal ECG When compared with ECG of 12-JAN-2020 16:58, No significant change was found Confirmed by Norberto Nelson ([id number]) on 01/16/2020 4:46:56 AM Referred By: REFERRED SELF Confirmed By:Norberto Nelson
[2020-01-16] MEDS: methylPREDNISolone 20 MG in SYRINGE 0 ML IV SCH ×4 (05:50→23:38)
[2020-01-16 06:07] LABS: Basophils # (auto) 0.01 K/uL (0-0.2); Basophils % (auto) 0.2 %; Hematocrit (blood only) 40.7 % (37-47); Immature Granulocytes # (auto) 0.01 K/uL (0.00-0.02); Immature Granulocytes % (auto) 0.2 %; Lymphocytes # (auto) 0.99 K/uL (1.2-3.4); Lymphocytes % (auto) 18.6 %; Mean Corpuscular Hemoglobin 27.1 pg (25-34); Mean Corpuscular Hgb Conc 31.9 g/dL (32-36); Mean Corpuscular Volume 84.8 fL (80-100); Mean Platelet Volume 10.8 fL (7.4-10.4); Monocytes # (auto) 0.51 K/uL (0.11-0.59); Monocytes % (auto) 9.6 %; Neutrophils # (auto) 3.79 K/uL (1.4-6.5); Neutrophils % (auto) 71.4 %; Platelet Count 225 K/uL (130-400); White Blood Count 5.31 K/uL (4.8-10.8)
[2020-01-16 06:42] LABS: Alanine Aminotransferase 29 U/L (12-78); Albumin Level 3.1 gm/dl (3.4-5.0); Aspartate Aminotransferase 10 U/L (15-37); BUN Creatinine Ratio 24.7 (10-20); Bilirubin Direct < 0.1 mg/dl (0-0.2); Blood Urea Nitrogen 17 mg/dl (7-18); Calcium 8.3 mg/dl (8.5-10.1); Carbon Dioxide 24 mmol/L (21-32); Chloride 106 mmol/L (98-107); Creatinine Clr Calc Pharmacy 117.3 ml/min; Est GFR (African American) 117.9; Est GFR (Non-African American) 101.7; Glucose 155 mg/dl (70-99); Potassium 4.3 mmol/L (3.5-5.1); Sodium 136 mmol/L (136-145)
[2020-01-16 06:49] LABS: Alkaline Phosphatase 78 U/L (45-117); Bilirubin,Total 0.3 mg/dl (0.2-1); Creatine Kinase 25 U/L (26-192); Ferritin 50.2 ng/ml (8-388)
[2020-01-16] MEDS: INSULIN ASPART 100 UNITS/ML 3 ML PEN SC SCH ×4 (08:20→21:28)
[2020-01-16] MEDS: VITAMIN B COMPLEX TAB PO SCH (08:28)
[2020-01-16] MEDS: LOSARTAN POTASSIUM 25 MG TAB PO SCH (08:28)
[2020-01-16] MEDS: GABAPENTIN 400 MG CAP PO SCH ×2 (08:29→21:33)
[2020-01-16] MEDS: guaiFENesin 600 MG TABCR PO SCH ×2 (08:29→21:34)
[2020-01-16] MEDS: buPROPion XL 300 MG TABCR PO SCH (08:29)
[2020-01-16] MEDS: ZINC SULFATE 220 MG CAPSULE PO SCH (08:29)
[2020-01-16] MEDS: MULTIVITAMIN TAB PO SCH (08:30)
[2020-01-16] MEDS: ENOXAPARIN INJ 40 MG/0.4 ML SYR SQ SCH (08:30)
[2020-01-16] MEDS: FLUTICASONE PROPIONATE NA SPR 16 GM BTL NAE SCH (08:31)
[2020-01-16] MEDS: ASCORBIC ACID 500 MG TAB PO SCH (08:33)
[2020-01-16] MEDS: NAPROXEN 250 MG TAB PO PRN (12:39)
[2020-01-16] MEDS: LORazepam 0.5 MG TAB PO PRN (13:06)
--- NOTE | 2020-01-16 16:45 | Hospitalist Progress Note ---
Date of Service January 16, 2020 Assessment & Plan (1) Pneumonia due to COVID-19 virus: Worsening bilateral infiltrates. No hypoxia or fever at this time but was febrile on arrival to the ER. Has been on Rocephin and doxycycline at this time, trend pro calcitonin, watch for progression of pneumonia. If patient becomes significantly hypoxic with significant oxygen requirement, consider convalescent plasma and remdesivir which have been discussed with her. 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 Gradual improvement (3) Smoker: Encouraged to quit smoking as this is bad for her health. (4) Diarrhea: Covid associated diarrhea, continue supportive care. 1 L normal saline given tonight. We will give more IV fluids today (5) DVT prophylaxis: Lovenox Full Dispo-to home when medically stable. I did discuss the assessment above and the plan as well as treatment options for Covid virus with her daughter by phone. All questions were answered to her satisfaction. Admission and Anticipated Discharge Date Admission Date: January 15, 2020 Subjective 01/16/2020 The patient was seen and examined in medical floor She still has shortness of breath with wheezing on minimal exertion Overall condition is better compared with yesterday Saturating well over 94% on room air Review of Systems Review of Systems: All systems reviewed and are unremarkable except as noted below Respiratory: + cough, + dyspnea on exertion and + wheezing Cardiovascular: + chest pain (Secondary to cough) Physical Exam Physical Exam: Sitting at the edge of the bed with minimal shortness of breath Constitutional: well developed, well nourished, + acute distress (Due to some shortness of breath with wheezing) and + ill appearing Eyes: PERRL, conjunctivae normal, anicteric sclerae ENMT: external ear and nose normal, oropharynx normal Neck: trachea midline, no thyromegaly Respiratory: + respiratory distress (Shortness of breath with exertion with wheezing) Auscultation: + diminished lung sounds, + crackles and + wheezes Cardiovascular: Rate/Rhythm: regular rate and regular rhythm Heart Sounds: no murmur Extremities: + edema Gastrointestinal (Abdomen): Inspection/Auscultation: normal bowel sounds; abdomen not distended Percussion/Palpation: abdomen soft; abdomen nontender Musculoskeletal: No acute arthritis in any joint Neurologic: Alert, awake and oriented x3 Lymphatic: no cervical or axillary lymphadenopathy Results & Data Results & Data ([facility]) Vital Signs (Past 12 Hours) Vital Signs Temp Pulse Resp BP Pulse Ox 01/16/20 15:33 36.7 C 64 16 127/78 97 01/16/20 12:53 68 18 144/83 H 95 01/16/20 08:20 36.4 C L 57 L 18 145/82 H 96 Laboratory Results Short CBC 01/16/20 Range/Units 05:33 WBC 5.31 (4.8-10.8) K/uL Hgb 13.0 (12.0-16.0) g/dL Hct 40.7 (37-47) % Plt Count 225 (130-400) K/uL BMP 01/16/20 05:33 Sodium 136 Potassium 4.3 Chloride 106 Carbon Dioxide 24 BUN 17 Creatinine 0.70 Glucose 155 H Calcium 8.3 L Cardiac Enzymes 01/16/20 Range/Units 05:33 Total Creatine Kinase 25 L (26-192) U/L Liver Function 01/16/20 Range/Units 05:33 Total Bilirubin 0.3 (0.2-1) mg/dl Direct Bilirubin < 0.1 (0-0.2) mg/dl AST 10 L (15-37) U/L ALT 29 (12-78) U/L Alkaline Phosphatase 78 (45-117) U/L Albumin 3.1 L (3.4-5.0) gm/dl Medications Administered Current Inpatient Medications Albuterol (Albuterol Hfa 8 Gm Inhaler) 2 puffs INH Q4R PRN PRN Reason: Shortness Of Breath Or Wheezing Stop: 02/14/20 08:45 Last Admin: 01/15/20 19:38 Dose: 2 puffs Documented by: Ascorbic Acid (Ascorbic Acid 500 Mg Tab) 1,000 mg PO QAM [facility] Stop: 02/14/20 09:59 Last Admin: 01/16/20 08:33 Dose: 1,000 mg Documented by: Bupropion HCl (Bupropion Xl 300 Mg Tabcr) [facility] Stop: 02/14/20 08:59 Last Admin: 01/16/20 08:29 Dose: 300 mg Documented by: Dextrose (Dextrose 50% 50 Ml Syringe) 25 - 50 ml IV UD PRN; Protocol PRN Reason: Hypoglycemia Protocol Stop: 02/14/20 08:45 Enoxaparin Sodium (Enoxaparin Inj 40 Mg/0.4 Ml Syr) 40 mg SQ [facility] Stop: 02/14/20 08:59 Last Admin: 01/16/20 08:30 Dose: 40 mg Documented by: Fluticasone Propionate (Fluticasone Propionate Na Spr 16 Gm Btl) 2 sprays [facility] Stop: 02/14/20 08:59 Last Admin: 01/16/20 08:31 Dose: 2 sprays Documented by: Gabapentin (Gabapentin 400 Mg Cap) 400 [facility] Stop: 02/14/20 09:59 Last Admin: 01/16/20 08:29 Dose: 400 mg Documented by: Gabapentin (Gabapentin 400 Mg Cap) 800 mg PO [facility] Stop: 02/14/20 20:59 Last Admin: 01/15/20 22:23 Dose: 800 mg Documented by: Glucagon (Glucagon For Inj 1 Mg Vial) 1 mg SQ UD PRN; Protocol PRN Reason: Hypoglycemia Protocol Stop: 02/14/20 08:45 Glucose (Glucose 10 Tabs/Tube) 4 - 8 tabs PO UD PRN; Protocol PRN Reason: Hypoglycemia Protocol Stop: 02/14/20 08:45 Glucose (Glucose 40% Gel 15 Gm Tube) 15 - 30 gm PO UD PRN; Protocol PRN Reason: Hypoglycemia Protocol Stop: 02/14/20 08:45 Guaifenesin (Guaifenesin 600 Mg Tabcr) 600 mg PO Q12 [facility] Stop: 02/14/20 08:59 Last Admin: 01/16/20 08:29 Dose: 600 mg Documented by: Lorazepam (Ativan) 0.25 mg in 0.5 mls @ 0.5 mls/min IV Q4H PRN PRN Reason: Anxiety Stop: 02/14/20 08:45 Last Admin: 01/16/20 01:11 Dose: 0.5 mls/min Documented by: Promethazine HCl 12.5 mg/ (Sodium Chloride) 50.5 mls @ 202 mls/hr IV Q6H PRN PRN Reason: Nausea And Vomiting Stop: 02/14/20 08:45 Methylprednisolone 20 mg/ (Syringe) 0.32 mls @ 1.5 mls/min IV Q6H [facility] Stop: 02/14/20 22:14 Last Admin: 01/16/20 12:40 Dose: 1.5 mls/min Documented by: Doxycycline Hyclate 100 mg/ (Dextrose) 110 mls @ 50 mls/hr IV Q12H [facility] Stop: 01/23/20 00:00 Last Infusion: 01/16/20 14:52 Dose: Infused Documented by: Ceftriaxone Sodium 2,000 mg/ (Dextrose) 70 mls @ 100 mls/hr IV Q24H [facility]; Protocol Stop: 01/22/20 22:59 Last Infusion: 01/16/20 00:34 Dose: Infused Documented by: Insulin Aspart (Insulin Aspart 100 Units/Ml 3 Ml Pen) 0 units SC ACHS [facility] Stop: 02/14/20 08:45 Last Admin: 01/16/20 12:42 Dose: 1 units Documented by: Lorazepam (Lorazepam 0.5 Mg Tab) 0.5 mg PO DAILY PRN PRN Reason: Anxiety Stop: 02/14/20 08:45 Last Admin: 01/16/20 13:06 Dose: 0.5 mg Documented by: Losartan Potassium (Losartan Potassium 25 Mg Tab) 75 mg PO QAM [facility] Stop: 02/14/20 08:59 Last Admin: 01/16/20 08:28 Dose: 75 mg Documented by: Miscellaneous (Carbohydrates For Hypoglycemia ) 15 - 30 gm PO UD PRN PRN Reason: Hypoglycemia Protocol Stop: 02/14/20 08:45 Morphine Sulfate (Morphine Sulfate 4 Mg/Ml 1 Ml Carp\Vial) 4 mg IV Q4H PRN PRN Reason: Pain Stop: 01/29/20 08:45 Multivitamins (Multivitamin Tab) 1 tab PO [facility] Stop: 02/14/20 08:59 Last Admin: 01/16/20 08:30 Dose: 1 tab Documented by: Naproxen (Naproxen 250 Mg Tab) 250 mg PO BID PRN PRN Reason: headache, mild pain Stop: 02/14/20 14:51 Last Admin: 01/16/20 12:39 Dose: 250 mg Documented by: Pantoprazole Sodium (Pantoprazole 40 Mg Tab) 40 mg PO HS [facility] Stop: 02/14/20 20:59 Last Admin: 01/15/20 22:23 Dose: 40 mg Documented by: Tramadol HCl (Tramadol Hcl 50 Mg Tablet) 25 - 50 mg PO Q4H PRN PRN Reason: Pain Stop: 02/14/20 08:45 Trazodone HCl (Trazodone Hcl 50 Mg Tab) 50 mg PO HS PRN PRN Reason: Sleep Stop: 02/14/20 08:45 Vitamin B Complex (Vitamin B Complex Tab) [facility] Stop: 02/14/20 09:59 Last Admin: 01/16/20 08:28 Dose: 1 tab Documented by: Vitamin D (Cholecalciferol 1,000 Units 25 Mcg Tab) 5,000 units PO Q2D@0900 [facility] Stop: 02/14/20 09:29 Last Admin: 01/15/20 10:30 Dose: 5,000 units Documented by: Zinc Sulfate (Zinc Sulfate 220 Mg Capsule) 220 mg PO QAM [facility] Stop: 02/14/20 09:59 Last Admin: 01/16/20 08:29 Dose: 220 mg Documented by: (1) Diarrhea Diarrhea type: unspecified type Qualified Code(s): R19.7 - Diarrhea, unspecified
[2020-01-16] MEDS: traMADol HCL 50 MG TABLET PO PRN ×2 (17:55→22:46)
[2020-01-16] MEDS: PANTOprazole 40 MG TAB PO SCH (21:34)
[2020-01-16] MEDS: cefTRIAXone SODIUM 2,000 MG in DEXTROSE 5% 50 ML IV SCH (22:47)
[2020-01-16] MEDS: SODIUM CHLORIDE 0.9% 1000ML 1,000 ML IV SCH (23:38)
[2020-01-17] MEDS: methylPREDNISolone 20 MG in SYRINGE 0 ML IV SCH ×4 (06:13→23:41)
[2020-01-17] MEDS: traMADol HCL 50 MG TABLET PO PRN (06:18)
[2020-01-17] MEDS: INSULIN ASPART 100 UNITS/ML 3 ML PEN SC SCH ×5 (09:00→23:42)
[2020-01-17] MEDS: GABAPENTIN 400 MG CAP PO SCH ×2 (09:26→20:26)
[2020-01-17] MEDS: guaiFENesin 600 MG TABCR PO SCH ×2 (09:26→20:27)
[2020-01-17] MEDS: ASCORBIC ACID 500 MG TAB PO SCH (09:27)
[2020-01-17] MEDS: CHOLECALCIFEROL 1,000 UNITS 25 MCG TAB PO SCH (09:27)
[2020-01-17] MEDS: ZINC SULFATE 220 MG CAPSULE PO SCH (09:27)
[2020-01-17] MEDS: ENOXAPARIN INJ 40 MG/0.4 ML SYR SQ SCH (09:28)
[2020-01-17] MEDS: MULTIVITAMIN TAB PO SCH (09:28)
[2020-01-17] MEDS: buPROPion XL 300 MG TABCR PO SCH (09:28)
[2020-01-17] MEDS: FLUTICASONE PROPIONATE NA SPR 16 GM BTL NAE SCH (09:29)
[2020-01-17] MEDS: VITAMIN B COMPLEX TAB PO SCH (09:29)
[2020-01-17] MEDS: LOSARTAN POTASSIUM 25 MG TAB PO SCH (09:30)
[2020-01-17] MEDS: SODIUM CHLORIDE 0.9% 1000ML 1,000 ML IV SCH ×2 (12:17→23:23)
[2020-01-17] MEDS: DOXYCYCLINE HYCLATE 100 MG in DEXTROSE 5% 100 ML IV SCH ×2 (12:21→23:24)
--- NOTE | 2020-01-17 13:48 | Hospitalist Progress Note ---
Date of Service January 17, 2020 Assessment & Plan (1) Pneumonia due to COVID-19 virus: Worsening bilateral infiltrates. No hypoxia or fever at this time but was febrile on arrival to the ER. Has been on Rocephin and doxycycline at this time, trend pro calcitonin, watch for progression of pneumonia. If patient becomes significantly hypoxic with significant oxygen requirement, consider convalescent plasma and remdesivir which have been discussed with her. 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 Gradual improvement Condition is getting better gradually (3) Smoker: Encouraged to quit smoking as this is bad for her health. (4) Diarrhea: Covid associated diarrhea, continue supportive care. 1 L normal saline given tonight. We will give more IV fluids today Advised to drink more fluid (5) DVT prophylaxis: Lovenox Full Dispo-to home when medically stable. I did discuss the assessment above and the plan as well as treatment options for Covid virus with her daughter by phone. All questions were answered to her satisfaction. Admission and Anticipated Discharge Date Admission Date: January 15, 2020 Subjective 01/16/2020 The patient was seen and examined in medical floor She still has shortness of breath with wheezing on minimal exertion Overall condition is better compared with yesterday Saturating well over 94% on room air 01/17/2020 The patient was seen and examined in medical floor She complains to have extreme weakness and tiredness and nauseous Her breathing seems to better and maintaining saturation more than 98% on room air Review of Systems Review of Systems: All systems reviewed and are unremarkable except as noted below Respiratory: + cough, + dyspnea on exertion and + wheezing Cardiovascular: + chest pain (Secondary to cough) Physical Exam Physical Exam: Sitting at the edge of the bed with minimal shortness of breath Constitutional: well developed, well nourished, + acute distress (Due to some shortness of breath with wheezing) and + ill appearing Eyes: PERRL, conjunctivae normal, anicteric sclerae ENMT: external ear and nose normal, oropharynx normal Neck: trachea midline, no thyromegaly Respiratory: + respiratory distress (Shortness of breath with exertion with wheezing) Auscultation: + diminished lung sounds, + crackles and + wheezes Cardiovascular: Rate/Rhythm: regular rate and regular rhythm Heart Sounds: no murmur Extremities: + edema Gastrointestinal (Abdomen): Inspection/Auscultation: normal bowel sounds; abdomen not distended Percussion/Palpation: abdomen soft; abdomen nontender Musculoskeletal: No acute arthritis in any joint Neurologic: Alert awake and oriented x3 Lymphatic: no cervical or axillary lymphadenopathy Results & Data Results & Data ([facility]) Vital Signs (Past 12 Hours) Vital Signs Temp Pulse Resp BP Pulse Ox 01/17/20 09:15 36.6 C 51 L 16 133/82 97 Medications Administered Current Inpatient Medications Albuterol (Albuterol Hfa 8 Gm Inhaler) 2 puffs INH Q4R PRN PRN Reason: Shortness Of Breath Or Wheezing Stop: 02/14/20 08:45 Last Admin: 01/15/20 19:38 Dose: 2 puffs Documented by: Ascorbic Acid (Ascorbic Acid 500 Mg Tab) 1,000 mg PO QAM [facility] Stop: 02/14/20 09:59 Last Admin: 01/17/20 09:27 Dose: 1,000 mg Documented by: Bupropion HCl (Bupropion Xl 300 Mg Tabcr) 300 mg PO QAM [facility] Stop: 02/14/20 08:59 Last Admin: 01/17/20 09:28 Dose: 300 mg Documented by: Dextrose (Dextrose 50% 50 Ml Syringe) 25 - 50 ml IV UD PRN; Protocol PRN Reason: Hypoglycemia Protocol Stop: 02/14/20 08:45 Enoxaparin Sodium (Enoxaparin Inj 40 Mg/0.4 Ml Syr) [facility] Stop: 02/14/20 08:59 Last Admin: 01/17/20 09:28 Dose: 40 mg Documented by: Fluticasone Propionate (Fluticasone Propionate Na Spr 16 Gm Btl) 2 sprays [facility] Stop: 12/24/20 08:59 Last Admin: 01/17/20 09:29 Dose: 2 sprays Documented by: Gabapentin (Gabapentin 400 Mg Cap) 400 mg PO QAM [facility] Stop: 02/14/20 09:59 Last Admin: 01/17/20 09:26 Dose: 400 mg Documented by: Gabapentin (Gabapentin 400 Mg Cap) 800 mg PO HS [facility] Stop: 02/14/20 20:59 Last Admin: 01/16/20 21:33 Dose: 800 mg Documented by: Glucagon (Glucagon For Inj 1 Mg Vial) 1 mg SQ UD PRN; Protocol PRN Reason: Hypoglycemia Protocol Stop: 02/14/20 08:45 Glucose (Glucose 10 Tabs/Tube) 4 - 8 tabs PO UD PRN; Protocol PRN Reason: Hypoglycemia Protocol Stop: 02/14/20 08:45 Glucose (Glucose 40% Gel 15 Gm Tube) 15 - 30 gm PO UD PRN; Protocol PRN Reason: Hypoglycemia Protocol Stop: 02/14/20 08:45 Guaifenesin (Guaifenesin 600 Mg Tabcr) 600 mg PO Q12 [facility] Stop: 02/14/20 08:59 Last Admin: 01/17/20 09:26 Dose: 600 mg Documented by: Lorazepam (Ativan) 0.25 mg in 0.5 mls @ 0.5 mls/min IV Q4H PRN PRN Reason: Anxiety Stop: 02/14/20 08:45 Last Admin: 01/16/20 22:48 Dose: 0.5 mls/min Documented by: Promethazine HCl 12.5 mg/ (Sodium Chloride) 50.5 mls @ 202 mls/hr IV Q6H PRN PRN Reason: Nausea And Vomiting Stop: 02/14/20 08:45 Last Infusion: 01/17/20 06:31 Dose: Infused Documented by: Methylprednisolone 20 mg/ (Syringe) 0.32 mls @ 1.5 mls/min IV Q6H [facility] Stop: 02/14/20 22:14 Last Admin: 01/17/20 12:20 Dose: 1.5 mls/min Documented by: Doxycycline Hyclate 100 mg/ (Dextrose) 110 mls @ 50 mls/hr IV Q12H [facility] Stop: 01/23/20 00:00 Last Admin: 01/17/20 12:21 Dose: 50 mls/hr Documented by: Ceftriaxone Sodium 2,000 mg/ (Dextrose) 70 mls @ 100 mls/hr IV Q24H [facility]; Protocol Stop: 01/22/20 22:59 Last Infusion: 01/16/20 23:29 Dose: Infused Documented by: Sodium Chloride (Nss 1000ml) 1,000 mls @ 80 mls/hr IV .[id number] [facility] Stop: 01/18/20 12:29 Last Admin: 01/17/20 12:17 Dose: 80 mls/hr Documented by: Insulin Aspart (Insulin Aspart 100 Units/Ml 3 Ml Pen) 0 units SC ACHS [facility] Stop: 02/14/20 08:45 Last Admin: 01/17/20 12:56 Dose: Not Given Documented by: Lorazepam (Lorazepam 0.5 Mg Tab) 0.5 mg PO DAILY PRN PRN Reason: Anxiety Stop: 02/14/20 08:45 Last Admin: 01/16/20 13:06 Dose: 0.5 mg Documented by: Losartan Potassium (Losartan Potassium 25 Mg Tab) [facility] Stop: 02/14/20 08:59 Last Admin: 01/17/20 09:30 Dose: 75 mg Documented by: Miscellaneous (Carbohydrates For Hypoglycemia ) 15 - 30 gm PO UD PRN PRN Reason: Hypoglycemia Protocol Stop: 02/14/20 08:45 Morphine Sulfate (Morphine Sulfate 4 Mg/Ml 1 Ml Carp\Vial) 4 mg IV Q4H PRN PRN Reason: Pain Stop: 01/29/20 08:45 Multivitamins (Multivitamin Tab) 1 tab PO [facility] Stop: 02/14/20 08:59 Last Admin: 01/17/20 09:28 Dose: 1 tab Documented by: Naproxen (Naproxen 250 Mg Tab) 250 mg PO BID PRN PRN Reason: headache, mild pain Stop: 02/14/20 14:51 Last Admin: 01/16/20 12:39 Dose: 250 mg Documented by: Pantoprazole Sodium (Pantoprazole 40 Mg Tab) 40 mg PO HS [facility] Stop: 02/14/20 20:59 Last Admin: 01/16/20 21:34 Dose: 40 mg Documented by: Tramadol HCl (Tramadol Hcl 50 Mg Tablet) 25 - 50 mg PO Q4H PRN PRN Reason: Pain Stop: 02/14/20 08:45 Last Admin: 01/17/20 06:18 Dose: 50 mg Documented by: Trazodone HCl (Trazodone Hcl 50 Mg Tab) 50 mg PO HS PRN PRN Reason: Sleep Stop: 02/14/20 08:45 Vitamin B Complex (Vitamin B Complex Tab) [facility] Stop: 02/14/20 09:59 Last Admin: 01/17/20 09:29 Dose: 1 tab Documented by: Vitamin D (Cholecalciferol 1,000 Units 25 Mcg Tab) 5,000 units PO Q2D@0900 [facility] Stop: 02/14/20 09:29 Last Admin: 01/17/20 09:27 Dose: 5,000 units Documented by: Zinc Sulfate (Zinc Sulfate 220 Mg Capsule) 220 mg PO [facility] Stop: 02/14/20 09:59 Last Admin: 01/17/20 09:27 Dose: 220 mg Documented by: (1) Diarrhea Diarrhea type: unspecified type Qualified Code(s): R19.7 - Diarrhea, unspecified
[2020-01-17] MEDS ORDERED: COUGH DROP (SUGAR FREE) LOZ 24 LOZ/1 BOX BUCCAL PRN (18:08)
[2020-01-17] MEDS: PANTOprazole 40 MG TAB PO SCH (20:26)
[2020-01-17] MEDS ORDERED: PHARMACY GLYCEMIC MGMT CONSULT PRN (20:52)
[2020-01-17] MEDS ORDERED: INSULIN GLARGINE SOLOSTAR 100 UNITS/ML 3 ML PEN SC STA (21:06)
--- NOTE | 2020-01-17 21:21 | Pharmacy Report ---
Glycemic Control Consultation - Date of Service January 17, 2020 - Scope Scope: Glycemic Pharmacist consulted for glycemic control and to write orders per [facility] inpatient glycemic control protocol. - Objective Weight: 109 kg Accuchecks BSG (last 24hrs): 01/16/20 01/17/20 01/17/20 21:26 09:18 12:13 POC Glucose 289 H 102 H 104 H 01/17/20 01/17/20 01/17/20 17:24 20:30 20:32 POC Glucose 222 H 317 H* 341 H* - Recent Pertinent Medications Outpatient Anti-diabetic Regimen: * N/A; patient is pre-diabetic * A1c = 6.2 % (12/28/19) The patient is currently receiving: * Correctional Insulin: Novolog Correction per scale ACHS Goal Range: Low 140 mg/dL - High 180 mg/dL Correction Factor: 20 mg/dL/unit * Prandial insulin: Per carb ratio of 1 unit per -- grams CHO consumed Risk Factors for Insulin Resistance: * Steroids: Methylprednisolone 20mg IV q6 * Infection: Ceftriaxone + Doxycycline * Diet: Regular - Assessment & Plan Assessment & Plan: ASSESSMENT: * 49 y/o F with no diagnosis of diabetes, but she is pre-diabetic given HbA1c of 6.2% (A1c was 6.3% in 2019). Currently admitted for SOB due to pneumonia secondary to COVID and asthma exacerbation. Hyperglycemia secondary to methylprednisolone 20mg IV q6 * Pharmacy consulted for glycemic management due to BG of 341 tonight. She is currently ordered correctional Novolog, but goal range is too loose and no carb ratio ordered; she is also ordered a "regular" diet. CF of 20 seems to be working well based on BG trends. * Will tighten goal range and add carb ratio; will give a one-time basal insulin dose (~0.1 units/kg) and add overnight checks PLAN FOR INPATIENT GLYCEMIC CONTROL: * Basal insulin * Lantus 10 units SQ x 10 *stat* * Bolus insulin * NovoLog per scale ACHS or Q6hrs while NPO * Goal Range: Low 110 mg/dL - High 140 mg/dL * Correction Factor: 20 mg/dL/unit * Nutritional / Prandial insulin per carb ratio of 1 unit per 7 grams CHO consumed * Please note that the plan above was derived based on current level of insulin resistance and hospital stress. These recommendations are appropriate for inpatient admission only. Plan of care upon discharge will need to be reassessed to avoid potential outpatient hypo/hyperglycemia. Thank you.
[2020-01-17] MEDS: NAPROXEN 250 MG TAB PO PRN (21:30)
[2020-01-17] MEDS: LORazepam 0.25 MG/0.5 ML VIAL IV PRN (21:30)
[2020-01-17] MEDS ORDERED: POLYETHYLENE (MIRALAX) 17 GM PACK PO PRN (21:45)
[2020-01-17] MEDS: cefTRIAXone SODIUM 2,000 MG in DEXTROSE 5% 50 ML IV SCH (23:24)
[2020-01-18] MEDS: traMADol HCL 50 MG TABLET PO PRN (03:44)
[2020-01-18] MEDS: INSULIN ASPART 100 UNITS/ML 3 ML PEN SC SCH ×5 (03:51→21:17)
[2020-01-18] MEDS: methylPREDNISolone 20 MG in SYRINGE 0 ML IV SCH ×3 (06:10→18:11)
[2020-01-18] MEDS: VITAMIN B COMPLEX TAB PO SCH (08:27)
[2020-01-18] MEDS: ASCORBIC ACID 500 MG TAB PO SCH (08:27)
[2020-01-18] MEDS: GABAPENTIN 400 MG CAP PO SCH ×2 (08:27→21:20)
[2020-01-18] MEDS: MULTIVITAMIN TAB PO SCH (08:27)
[2020-01-18] MEDS: guaiFENesin 600 MG TABCR PO SCH ×2 (08:27→21:20)
[2020-01-18] MEDS: FLUTICASONE PROPIONATE NA SPR 16 GM BTL NAE SCH (08:28)
[2020-01-18] MEDS: buPROPion XL 300 MG TABCR PO SCH (08:28)
[2020-01-18] MEDS: LOSARTAN POTASSIUM 25 MG TAB PO SCH (08:28)
[2020-01-18] MEDS: ZINC SULFATE 220 MG CAPSULE PO SCH (08:29)
[2020-01-18] MEDS: ENOXAPARIN INJ 40 MG/0.4 ML SYR SQ SCH (08:29)
[2020-01-18 08:39] LABS: Hematocrit (blood only) 42.2 % (37-47); Hemoglobin 13.5 g/dL (12.0-16.0); Immature Granulocytes # (auto) 0.02 K/uL (0.00-0.02); Immature Granulocytes % (auto) 0.3 %; Lymphocytes # (auto) 1.49 K/uL (1.2-3.4); Mean Corpuscular Hemoglobin 27.5 pg (25-34); Mean Corpuscular Volume 85.9 fL (80-100); Mean Platelet Volume 11.1 fL (7.4-10.4); Monocytes # (auto) 0.51 K/uL (0.11-0.59); Monocytes % (auto) 6.5 %; Neutrophils # (auto) 5.82 K/uL (1.4-6.5); Neutrophils % (auto) 74.2 %; Platelet Count 229 K/uL (130-400); RDW Coefficient of Variation 16.1 % (11.5-14.5); RDW Standard Deviation 51.5 fL (36.4-46.3); Red Blood Count 4.91 M/uL (4.2-5.4); White Blood Count 7.84 K/uL (4.8-10.8)
[2020-01-18] MEDS: INSULIN GLARGINE SOLOSTAR 100 UNITS/ML 3 ML PEN SC SCH ×2 (08:46→21:17)
[2020-01-18 09:39] LABS: BUN Creatinine Ratio 20.2 (10-20); Blood Urea Nitrogen 13 mg/dl (7-18); Calcium 8.8 mg/dl (8.5-10.1); Carbon Dioxide 24 mmol/L (21-32); Chloride 108 mmol/L (98-107); Creatinine Clr Calc Pharmacy 126.3 ml/min; Est GFR (African American) 120.8; Est GFR (Non-African American) 104.3; Glucose 113 mg/dl (70-99); Potassium 4.3 mmol/L (3.5-5.1); Sodium 137 mmol/L (136-145)
[2020-01-18 09:46] LABS: Troponin I < 0.015 ng/ml (0-0.045)
--- NOTE | 2020-01-18 11:34 | Pharmacy Report ---
Pharmacy Glycemic Short Note 2 - Date of Service January 18, 2020 - Glycemic Short BSG Results (Last 24 hours): 01/17/20 01/17/20 01/17/20 12:13 17:24 20:30 Glucose POC Glucose 104 H 222 H 317 H* 01/17/20 01/17/20 01/18/20 20:32 23:37 03:46 Glucose POC Glucose 341 H* 225 H 103 H 01/18/20 01/18/20 07:56 08:21 Glucose 113 H POC Glucose 117 H OUTPATIENT ANTIDIABETIC REGIMEN: * n/a * HbA1c: 6.2% (12/28/19) * indicating pre-diabetes ASSESSMENT: 01/17: * BSGs resolved overnight after the initiation of basal insulin and the addition of carb coverage. * High-dose steroids continue (IV SoluMedrol 20mg q6h). * Will continue basal/bolus insulin and adjust as required as steroids taper. * Started ongoing basal insulin this morning, conservatively. 01/16 * 49 y/o F with no diagnosis of diabetes, but she is pre-diabetic given HbA1c of 6.2% (A1c was 6.3% in 2019). Currently admitted for SOB due to pneumonia secondary to COVID and asthma exacerbation. Hyperglycemia secondary to methylprednisolone 20mg IV q6 * Pharmacy consulted for glycemic management due to BG of 341 tonight. She is currently ordered correctional Novolog, but goal range is too loose and no carb ratio ordered; she is also ordered a "regular" diet. CF of 20 seems to be working well based on BG trends. * Will tighten goal range and add carb ratio; will give a one-time basal insulin dose (~0.1 units/kg) and add overnight checks PLAN FOR INPATIENT GLYCEMIC CONTROL: * Hold outpatient oral diabetes medications * Basal insulin * Lantus 10 units SQ BID * Bolus insulin * NovoLog per scale ACHS or Q6hrs while NPO * Goal Range: Low 110 mg/dL - High 140 mg/dL * Correction Factor: 20 mg/dL/unit * Nutritional / Prandial insulin per carb ratio of 1 unit per 7 grams CHO consumed
[2020-01-18] MEDS: DOXYCYCLINE HYCLATE 100 MG in DEXTROSE 5% 100 ML IV SCH (12:18)
--- NOTE | 2020-01-18 15:43 | Hospitalist Progress Note ---
Date of Service January 18, 2020 Assessment & Plan (1) Pneumonia due to COVID-19 virus: Worsening bilateral infiltrates. No hypoxia or fever at this time but was febrile on arrival to the ER. Has been on Rocephin and doxycycline at this time, trend pro calcitonin, watch for progression of pneumonia. If patient becomes significantly hypoxic with significant oxygen requirement, consider convalescent plasma and remdesivir which have been discussed with her. Minimally better as of today and still saturating well above 94% on room air Complains of wheezing and chest pain with cough C-reactive protein is only 0.84 No indication to start remdesivir or convalescent plasma as of yet Breathing is much better with saturation more than 98% on room air Has been complaining of extreme weakness and tiredness-was advised to move around in the room on 01/16 Clinically a lot better today. 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 Gradual improvement Condition is getting better gradually We will get to do steps O2 saturation before discharging tomorrow (3) Smoker: Encouraged to quit smoking as this is bad for her health. (4) Diarrhea: Covid associated diarrhea, continue supportive care. 1 L normal saline given tonight. We will give more IV fluids today Advised to drink more fluid (5) DVT prophylaxis: Lovenox Full Dispo-to home when medically stable. I did discuss the assessment above and the plan as well as treatment options for Covid virus with her daughter by phone. All questions were answered to her satisfaction. Discussed about discharging tomorrow She will be in quarantine at home before he is followed up by her primary care physician Admission and Anticipated Discharge Date Admission Date: January 15, 2020 Subjective 01/16/2020 The patient was seen and examined in medical floor She still has shortness of breath with wheezing on minimal exertion Overall condition is better compared with yesterday Saturating well over 94% on room air 01/17/2020 The patient was seen and examined in medical floor She complains to have extreme weakness and tiredness and nauseous Her breathing seems to better and maintaining saturation more than 98% on room air 01/18/2020 The patient was seen and examined in medical floor She has been feeling a lot better Denies any shortness of breath at rest She has been ambulating well in the room and she has not been requiring any oxygen to maintain saturation Review of Systems Review of Systems: All systems reviewed and are unremarkable except as noted below Respiratory: + dyspnea on exertion and + wheezing; no cough Cardiovascular: no chest pain (Secondary to cough) Physical Exam Physical Exam: Lying in bed without any apparent distress Constitutional: well developed, well nourished, + acute distress (Due to some shortness of breath with wheezing) and + obese; not ill appearing Eyes: PERRL, conjunctivae normal, anicteric sclerae ENMT: external ear and nose normal, oropharynx normal Neck: trachea midline, no thyromegaly Respiratory: no respiratory distress (Shortness of breath with exertion with wheezing) Auscultation: + diminished lung sounds and + wheezes (Minimal or no wheezing); no crackles Cardiovascular: Rate/Rhythm: regular rate and regular rhythm Heart Sounds: no murmur Extremities: + edema Gastrointestinal (Abdomen): Inspection/Auscultation: normal bowel sounds; abdomen not distended Percussion/Palpation: abdomen soft; abdomen nontender Musculoskeletal: No acute arthritis in any joint Lymphatic: no cervical or axillary lymphadenopathy Results & Data Results & Data ([facility]) Vital Signs (Past 12 Hours) Vital Signs Temp Pulse Pulse Resp BP Pulse Ox 01/18/20 15:25 36.6 C 64 16 156/84 H 97 01/18/20 07:54 54 L 01/18/20 07:50 36.5 C 50 L 16 160/88 H 97 Laboratory Results Short CBC 01/18/20 Range/Units 08:21 WBC 7.84 (4.8-10.8) K/uL Hgb 13.5 (12.0-16.0) g/dL Hct 42.2 (37-47) % Plt Count 229 (130-400) K/uL BMP 01/18/20 08:21 Sodium 137 Potassium 4.3 Chloride 108 H Carbon Dioxide 24 BUN 13 Creatinine 0.65 Glucose 113 H Calcium 8.8 Cardiac Enzymes 01/18/20 Range/Units 08:21 Troponin I < 0.015 (0-0.045) ng/ml Medications Administered Current Inpatient Medications Albuterol (Albuterol Hfa 8 Gm Inhaler) 2 puffs INH Q4R PRN PRN Reason: Shortness Of Breath Or Wheezing Stop: 02/14/20 08:45 Last Admin: 01/15/20 19:38 Dose: 2 puffs Documented by: Ascorbic Acid (Ascorbic Acid 500 Mg Tab) 1,000 mg PO QAM [facility] Stop: 02/14/20 09:59 Last Admin: 01/18/20 08:27 Dose: 1,000 mg Documented by: Bupropion HCl (Bupropion Xl 300 Mg Tabcr) 300 mg PO QAM [facility] Stop: 02/14/20 08:59 Last Admin: 01/18/20 08:28 Dose: 300 mg Documented by: Dextrose (Dextrose 50% 50 Ml Syringe) 25 - 50 ml IV UD PRN; Protocol PRN Reason: Hypoglycemia Protocol Stop: 02/14/20 08:45 Enoxaparin Sodium (Enoxaparin Inj 40 Mg/0.4 Ml Syr) 40 [facility] [place]: 02/14/20 08:59 Last Admin: 01/18/20 08:29 Dose: 40 mg Documented by: Fluticasone Propionate (Fluticasone Propionate Na Spr 16 Gm Btl) 2 sprays [place] QAM [facility] Stop: 02/14/20 08:59 Last Admin: 01/18/20 08:28 Dose: 2 sprays Documented by: Gabapentin (Gabapentin 400 Mg Cap) 400 mg PO QAM [facility] Stop: 02/14/20 09:59 Last Admin: 01/18/20 08:27 Dose: 400 mg Documented by: Gabapentin (Gabapentin 400 Mg Cap) 800 mg PO HS [facility] Stop: 02/14/20 20:59 Last Admin: 01/17/20 20:26 Dose: 800 mg Documented by: Glucagon (Glucagon For Inj 1 Mg Vial) 1 mg SQ UD PRN; Protocol PRN Reason: Hypoglycemia Protocol Stop: 02/14/20 08:45 Glucose (Glucose 10 Tabs/Tube) 4 - 8 tabs PO UD PRN; Protocol PRN Reason: Hypoglycemia Protocol Stop: 02/14/20 08:45 Glucose (Glucose 40% Gel 15 Gm Tube) 15 - 30 gm PO UD PRN; Protocol PRN Reason: Hypoglycemia Protocol Stop: 02/14/20 08:45 Guaifenesin (Guaifenesin 600 Mg Tabcr) 600 mg PO Q12 [facility] Stop: 02/14/20 08:59 Last Admin: 01/18/20 08:27 Dose: 600 mg Documented by: Lorazepam (Ativan) 0.25 mg in 0.5 mls @ 0.5 mls/min IV Q4H PRN PRN Reason: Anxiety Stop: 02/14/20 08:45 Last Admin: 01/17/20 21:30 Dose: 0.5 mls/min Documented by: Promethazine HCl 12.5 mg/ (Sodium Chloride) 50.5 mls @ 202 mls/hr IV Q6H PRN PRN Reason: Nausea And Vomiting Stop: 02/14/20 08:45 Last Infusion: 01/17/20 06:31 Dose: Infused Documented by: Methylprednisolone 20 mg/ (Syringe) 0.32 mls @ 1.5 mls/min IV Q6H [facility] Stop: 02/14/20 22:14 Last Admin: 01/18/20 12:15 Dose: 1.5 mls/min Documented by: Doxycycline Hyclate 100 mg/ (Dextrose) 110 mls @ 50 mls/hr IV Q12H [facility] Stop: 01/23/20 00:00 Last Infusion: 01/18/20 14:11 Dose: Infused Documented by: Ceftriaxone Sodium 2,000 mg/ (Dextrose) 70 mls @ 100 mls/hr IV Q24H [facility]; Protocol Stop: 01/22/20 22:59 Last Infusion: 01/18/20 01:57 Dose: Infused Documented by: Insulin Aspart (Insulin Aspart 100 Units/Ml 3 Ml Pen) 0 units SC ACHS [facility]; Protocol Stop: 02/14/20 08:45 Last Admin: 01/18/20 12:32 Dose: 3 units Documented by: Insulin Glargine (Insulin Glargine Solostar 100 Units/Ml 3 Ml Pen) 10 units SC BID [facility]; Protocol Stop: 02/17/20 08:59 Last Admin: 01/18/20 08:46 Dose: 10 units Documented by: Lorazepam (Lorazepam 0.5 Mg Tab) 0.5 mg PO DAILY PRN PRN Reason: Anxiety Stop: 02/14/20 08:45 Last Admin: 01/16/20 13:06 Dose: 0.5 mg Documented by: Losartan Potassium (Losartan Potassium 25 Mg Tab) 75 mg PO QAM [facility] Stop: 02/14/20 08:59 Last Admin: 01/18/20 08:28 Dose: 75 mg Documented by: Menthol (Cough Drop (Sugar Free) Marcel 24 Marcel/1 Box) 1 marcel BUCCAL PRN PRN PRN Reason: Sore Throat Stop: 02/16/20 18:07 Last Admin: 01/17/20 20:25 Dose: 1 marcel Documented by: Miscellaneous (Carbohydrates For Hypoglycemia ) 15 - 30 gm PO UD PRN PRN Reason: Hypoglycemia Protocol Stop: 02/14/20 08:45 Miscellaneous Information (Pharmacy Glycemic Mgmt Consult) 1 ea N/A UD PRN PRN Reason: Consult Stop: 02/16/20 20:51 Morphine Sulfate (Morphine Sulfate 4 Mg/Ml 1 Ml Carp\Vial) 4 mg IV Q4H PRN PRN Reason: Pain Stop: 01/29/20 08:45 Multivitamins (Multivitamin Tab) 1 tab PO QAM [facility] Stop: 02/14/20 08:59 Last Admin: 01/18/20 08:27 Dose: 1 tab Documented by: Naproxen (Naproxen 250 Mg Tab) 250 mg PO BID PRN PRN Reason: headache, mild pain Stop: 02/14/20 14:51 Last Admin: 01/17/20 21:30 Dose: 250 mg Documented by: Pantoprazole Sodium (Pantoprazole 40 Mg Tab) 40 mg PO HS [facility] Stop: 02/14/20 20:59 Last Admin: 01/17/20 20:26 Dose: 40 mg Documented by: Polyethylene Glycol (Polyethylene (Miralax) 17 Gm Pack) 17 gm PO DAILY PRN PRN Reason: Constipation Stop: 02/16/20 21:44 Last Admin: 01/17/20 23:25 Dose: 17 gm Documented by: Tramadol HCl (Tramadol Hcl 50 Mg Tablet) 25 - 50 mg PO Q4H PRN PRN Reason: Pain Stop: 02/14/20 08:45 Last Admin: 01/18/20 03:44 Dose: 50 mg Documented by: Trazodone HCl (Trazodone Hcl 50 Mg Tab) 50 mg PO HS PRN PRN Reason: Sleep Stop: 02/14/20 08:45 Vitamin B Complex (Vitamin B Complex Tab) 1 tab PO QAM [facility] Stop: 02/14/20 09:59 Last Admin: 01/18/20 08:27 Dose: 1 tab Documented by: Vitamin D (Cholecalciferol 1,000 Units 25 Mcg Tab) 5,000 units PO Q2D@0900 [facility] Stop: 02/14/20 09:29 Last Admin: 01/17/20 09:27 Dose: 5,000 units Documented by: Zinc Sulfate (Zinc Sulfate 220 Mg Capsule) 220 mg PO QAM [facility] Stop: 02/14/20 09:59 Last Admin: 01/18/20 08:29 Dose: 220 mg Documented by: (1) Diarrhea Diarrhea type: unspecified type Qualified Code(s): R19.7 - Diarrhea, unspecified
[2020-01-18] MEDS: NAPROXEN 250 MG TAB PO PRN (16:17)
--- NOTE | 2020-01-18 21:01 | Electrocardiogram Report ---
Test Reason : Blood Pressure : / mmHG Vent. Rate : 054 BPM Atrial Rate : 054 BPM P-R Int : 136 ms QRS Dur : 096 ms QT Int : 456 ms P-R-T Axes : 066 026 041 degrees QTc Int : 432 ms Sinus bradycardia Otherwise normal ECG When compared with ECG of 14-JAN-2020 23:50, Vent. rate has decreased BY 29 BPM Confirmed by Teo Santiago ([id number]) on 01/18/2020 9:01:04 PM Referred By: REFERRED SELF Confirmed By:Teo Santiago
[2020-01-18] MEDS: LORazepam 0.5 MG TAB PO PRN (21:19)
[2020-01-18] MEDS: PANTOprazole 40 MG TAB PO SCH (21:20)
[2020-01-18] MEDS: cefTRIAXone SODIUM 2,000 MG in DEXTROSE 5% 50 ML IV SCH (22:30)
[2020-01-19] MEDS: methylPREDNISolone 20 MG in SYRINGE 0 ML IV SCH ×3 (00:14→12:53)
[2020-01-19] MEDS: DOXYCYCLINE HYCLATE 100 MG in DEXTROSE 5% 100 ML IV SCH (00:18)
[2020-01-19] MEDS: NAPROXEN 250 MG TAB PO PRN (08:40)
[2020-01-19] MEDS: buPROPion XL 300 MG TABCR PO SCH (08:41)
[2020-01-19] MEDS: ZINC SULFATE 220 MG CAPSULE PO SCH (08:41)
[2020-01-19] MEDS: LOSARTAN POTASSIUM 25 MG TAB PO SCH (08:41)
[2020-01-19] MEDS: ASCORBIC ACID 500 MG TAB PO SCH (08:41)
[2020-01-19] MEDS: MULTIVITAMIN TAB PO SCH (08:42)
[2020-01-19] MEDS: GABAPENTIN 400 MG CAP PO SCH (08:42)
[2020-01-19] MEDS: CHOLECALCIFEROL 1,000 UNITS 25 MCG TAB PO SCH (08:42)
[2020-01-19] MEDS: guaiFENesin 600 MG TABCR PO SCH (08:43)
[2020-01-19] MEDS: VITAMIN B COMPLEX TAB PO SCH (08:43)
[2020-01-19] MEDS: ENOXAPARIN INJ 40 MG/0.4 ML SYR SQ SCH (08:45)
[2020-01-19] MEDS: FLUTICASONE PROPIONATE NA SPR 16 GM BTL NAE SCH (08:46)
[2020-01-19] MEDS: INSULIN GLARGINE SOLOSTAR 100 UNITS/ML 3 ML PEN SC SCH (08:46)
[2020-01-19] MEDS: INSULIN ASPART 100 UNITS/ML 3 ML PEN SC SCH ×2 (08:49→12:49)
--- NOTE | 2020-01-19 11:13 | Hospitalist Progress Note ---
Date of Service January 19, 2020 Assessment & Plan (1) Pneumonia due to COVID-19 virus: Worsening bilateral infiltrates. No hypoxia or fever at this time but was febrile on arrival to the ER. Has been on Rocephin and doxycycline at this time, trend pro calcitonin, watch for progression of pneumonia. If patient becomes significantly hypoxic with significant oxygen requirement, consider convalescent plasma and remdesivir which have been discussed with her. Minimally better as of today and still saturating well above 94% on room air Complains of wheezing and chest pain with cough C-reactive protein is only 0.84 No indication to start remdesivir or convalescent plasma as of yet Breathing is much better with saturation more than 98% on room air Has been complaining of extreme weakness and tiredness-was advised to move around in the room on 01/16 Clinically a lot better today. 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 Gradual improvement Condition is getting better gradually We will get to do steps O2 saturation before discharging tomorrow We will keep tapering dose of steroid on discharge (3) Smoker: Encouraged to quit smoking as this is bad for her health. (4) Diarrhea: Covid associated diarrhea, continue supportive care. 1 L normal saline given tonight. We will give more IV fluids today Advised to drink more fluid No more diarrhea (5) DVT prophylaxis: Lovenox Full Dispo-to home when medically stable. I did discuss the assessment above and the plan as well as treatment options for Covid virus with her daughter by phone. All questions were answered to her satisfaction. Discussed about discharging tomorrow She will be in quarantine at home before he is followed up by her primary care physician Admission and Anticipated Discharge Date Admission Date: January 15, 2020 Subjective 01/16/2020 The patient was seen and examined in medical floor She still has shortness of breath with wheezing on minimal exertion Overall condition is better compared with yesterday Saturating well over 94% on room air 01/17/2020 The patient was seen and examined in medical floor She complains to have extreme weakness and tiredness and nauseous Her breathing seems to better and maintaining saturation more than 98% on room air 01/18/2020 The patient was seen and examined in medical floor She has been feeling a lot better Denies any shortness of breath at rest She has been ambulating well in the room and she has not been requiring any oxygen to maintain saturation 01/19/2020 The patient was seen and examined in medical floor She has been feeling a lot better but he still has some chest tightness Wheezing and shortness of breath have improved a lot Review of Systems 2 Review of Systems: All systems reviewed and are unremarkable except as noted below Respiratory: + dyspnea on exertion and + wheezing; no cough Physical Exam Physical Exam: Lying in bed without any apparent distress Constitutional: well developed, well nourished, + acute distress (Due to some shortness of breath with wheezing) and + obese; not ill appearing Eyes: PERRL, conjunctivae normal, anicteric sclerae ENMT: external ear and nose normal, oropharynx normal Neck: trachea midline, no thyromegaly Respiratory: no respiratory distress (Shortness of breath with exertion with wheezing) Auscultation: + diminished lung sounds; no crackles and no wheezes (Minimal or no wheezing) Cardiovascular: Rate/Rhythm: regular rate and regular rhythm Heart Sounds: no murmur Extremities: + edema Gastrointestinal (Abdomen): Inspection/Auscultation: normal bowel sounds; abdomen not distended Percussion/Palpation: abdomen soft; abdomen nontender Musculoskeletal: No acute arthritis in any joint Neurologic: Alert, awake and oriented x3. No focal sensory and motor deficit appreciated Psychiatric: A+Ox3, euthymic affect Lymphatic: no cervical or axillary lymphadenopathy Results & Data Results & Data ([facility]) Vital Signs (Past 12 Hours) Vital Signs Temp Pulse Pulse Resp BP Pulse Ox 01/19/20 08:04 36.7 C 49 L 16 160/88 H 98 01/18/20 23:40 36.8 C 50 L 20 165/83 H 97 Medications Administered Current Inpatient Medications Albuterol (Albuterol Hfa 8 Gm Inhaler) 2 puffs INH Q4R PRN PRN Reason: Shortness Of Breath Or Wheezing Stop: 02/14/20 08:45 Last Admin: 01/15/20 19:38 Dose: 2 puffs Documented by: Ascorbic Acid (Ascorbic Acid 500 Mg Tab) 1,000 mg PO QAM [facility] Stop: 02/14/20 09:59 Last Admin: 01/19/20 08:41 Dose: 1,000 mg Documented by: Bupropion HCl (Bupropion Xl 300 Mg Tabcr) 300 mg PO QAM [facility] Stop: 02/14/20 08:59 Last Admin: 01/19/20 08:41 Dose: 300 mg Documented by: Dextrose (Dextrose 50% 50 Ml Syringe) 25 - 50 ml IV UD PRN; Protocol PRN Reason: Hypoglycemia Protocol Stop: 02/14/20 08:45 Enoxaparin Sodium (Enoxaparin Inj 40 Mg/0.4 Ml Syr) [facility] [place]: 02/14/20 08:59 Last Admin: 01/19/20 08:45 Dose: 40 mg Documented by: Fluticasone Propionate (Fluticasone Propionate Na Spr 16 Gm Btl) [address] Stop: 02/14/20 08:59 Last Admin: 01/19/20 08:46 Dose: 2 sprays Documented by: Gabapentin (Gabapentin 400 Mg Cap) 400 [facility] [place]: 02/14/20 09:59 Last Admin: 01/19/20 08:42 Dose: 400 mg Documented by: Gabapentin (Gabapentin 400 Mg Cap) 800 mg PO HS [facility] Stop: 02/14/20 20:59 Last Admin: 01/18/20 21:20 Dose: 800 mg Documented by: Glucagon (Glucagon For Inj 1 Mg Vial) 1 mg SQ UD PRN; Protocol PRN Reason: Hypoglycemia Protocol Stop: 02/14/20 08:45 Glucose (Glucose 10 Tabs/Tube) 4 - 8 tabs PO UD PRN; Protocol PRN Reason: Hypoglycemia Protocol Stop: 02/14/20 08:45 Glucose (Glucose 40% Gel 15 Gm Tube) 15 - 30 gm PO UD PRN; Protocol PRN Reason: Hypoglycemia Protocol Stop: 02/14/20 08:45 Guaifenesin (Guaifenesin 600 Mg Tabcr) 600 mg PO Q12 [facility] Stop: 02/14/20 08:59 Last Admin: 01/19/20 08:43 Dose: 600 mg Documented by: Lorazepam (Ativan) 0.25 mg in 0.5 mls @ 0.5 mls/min IV Q4H PRN PRN Reason: Anxiety Stop: 02/14/20 08:45 Last Admin: 01/17/20 21:30 Dose: 0.5 mls/min Documented by: Promethazine HCl 12.5 mg/ (Sodium Chloride) 50.5 mls @ 202 mls/hr IV Q6H PRN PRN Reason: Nausea And Vomiting Stop: 02/14/20 08:45 Last Infusion: 01/17/20 06:31 Dose: Infused Documented by: Methylprednisolone 20 mg/ (Syringe) 0.32 mls @ 1.5 mls/min IV Q6H [facility] Stop: 02/14/20 22:14 Last Admin: 01/19/20 06:09 Dose: 1.5 mls/min Documented by: Doxycycline Hyclate 100 mg/ (Dextrose) 110 mls @ 50 mls/hr IV Q12H [facility] Stop: 01/23/20 00:00 Last Infusion: 01/19/20 02:57 Dose: Infused Documented by: Ceftriaxone Sodium 2,000 mg/ (Dextrose) 70 mls @ 100 mls/hr IV Q24H [facility]; Protocol Stop: 01/22/20 22:59 Last Infusion: 01/19/20 00:12 Dose: Infused Documented by: Insulin Aspart (Insulin Aspart 100 Units/Ml 3 Ml Pen) 0 units SC ACHS [facility]; Protocol Stop: 02/14/20 08:45 Last Admin: 01/19/20 08:49 Dose: 6 units Documented by: Insulin Glargine (Insulin Glargine Solostar 100 Units/Ml 3 Ml Pen) 10 units SC BID [facility]; Protocol Stop: 02/17/20 08:59 Last Admin: 01/19/20 08:46 Dose: 10 units Documented by: Lorazepam (Lorazepam 0.5 Mg Tab) 0.5 mg PO DAILY PRN PRN Reason: Anxiety Stop: 02/14/20 08:45 Last Admin: 01/18/20 21:19 Dose: 0.5 mg Documented by: Losartan Potassium (Losartan Potassium 25 Mg Tab) 75 mg PO QAM [facility] Stop: 02/14/20 08:59 Last Admin: 01/19/20 08:41 Dose: 75 mg Documented by: Menthol (Cough Drop (Sugar Free) Marcel 24 Marcel/1 Box) 1 marcel BUCCAL PRN PRN PRN Reason: Sore Throat Stop: 02/16/20 18:07 Last Admin: 01/17/20 20:25 Dose: 1 marcel Documented by: Miscellaneous (Carbohydrates For Hypoglycemia ) 15 - 30 gm PO UD PRN PRN Reason: Hypoglycemia Protocol Stop: 02/14/20 08:45 Miscellaneous Information (Pharmacy Glycemic Mgmt Consult) 1 ea N/A UD PRN PRN Reason: Consult Stop: 02/16/20 20:51 Morphine Sulfate (Morphine Sulfate 4 Mg/Ml 1 Ml Carp\Vial) 4 mg IV Q4H PRN PRN Reason: Pain Stop: 01/29/20 08:45 Multivitamins (Multivitamin Tab) 1 tab PO QAM [facility] Stop: 02/14/20 08:59 Last Admin: 01/19/20 08:42 Dose: 1 tab Documented by: Naproxen (Naproxen 250 Mg Tab) 250 mg PO BID PRN PRN Reason: headache, mild pain Stop: 02/14/20 14:51 Last Admin: 01/19/20 08:40 Dose: 250 mg Documented by: Pantoprazole Sodium (Pantoprazole 40 Mg Tab) 40 mg PO HS [facility] Stop: 02/14/20 20:59 Last Admin: 01/18/20 21:20 Dose: 40 mg Documented by: Polyethylene Glycol (Polyethylene (Miralax) 17 Gm Pack) 17 gm PO DAILY PRN PRN Reason: Constipation Stop: 02/16/20 21:44 Last Admin: 01/17/20 23:25 Dose: 17 gm Documented by: Tramadol HCl (Tramadol Hcl 50 Mg Tablet) 25 - 50 mg PO Q4H PRN PRN Reason: Pain Stop: 02/14/20 08:45 Last Admin: 01/18/20 03:44 Dose: 50 mg Documented by: Trazodone HCl (Trazodone Hcl 50 Mg Tab) 50 mg PO HS PRN PRN Reason: Sleep Stop: 02/14/20 08:45 Vitamin B Complex (Vitamin B Complex Tab) 1 tab PO QAM [facility] Stop: 02/14/20 09:59 Last Admin: 01/19/20 08:43 Dose: 1 tab Documented by: Vitamin D (Cholecalciferol 1,000 Units 25 Mcg Tab) 5,000 units PO Q2D@0900 [facility] Stop: 02/14/20 09:29 Last Admin: 01/19/20 08:42 Dose: 5,000 units Documented by: Zinc Sulfate (Zinc Sulfate 220 Mg Capsule) [address] [facility] Stop: 02/14/20 09:59 Last Admin: 01/19/20 08:41 Dose: 220 mg Documented by: (1) Diarrhea Diarrhea type: unspecified type Qualified Code(s): R19.7 - Diarrhea, unspecified
[2020-01-19] MEDS ORDERED: cefUROXime axetil 500 MG TAB PO SCH (12:00)
[2020-01-19] MEDS ORDERED: DOXYCYCLINE HYCLATE 100 MG CAP PO SCH (12:00)
--- NOTE | 2020-01-20 08:31 | Discharge Summary ---
Date of Service January 20, 2020 Admission HPI Per Admitting Provider History obtained from patient and records. Medical history significant for HTN, mood disorder, endometriosis, recurrent UTI, history urolithiasis, DM2 diet-controlled, ongoing tobacco abuse. Recent confinement 3 weeks ago for pyelonephritis. Patient discharged on Cipro course. Last week ago, patient noted headache, dry cough, congestion, runny nose symptoms. Chest pain with coughing and fever at home. Patient later had nausea vomiting diarrhea symptoms. Outpatient COVID-19 test positive. Supportive management at home prescribed recommended by PCP. Two ER visits in the last week for worsening symptoms. Outpatient CT angio from recent ER visit 3 days ago negative for PE. Yesterday, patient noted worsening pleuritic chest pain associated with dry cough and shortness of breath symptoms. Oxygen noted to be low on home pulse ox. Patient uncomfortable leaving emergency room after ER provider evaluation. 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 Admission Exam Per Admitting Provider Physical Exam: GENERAL: uncomfortable, anxious, morbidly obese no respiratory distress SKIN: Normal color, warm HEENT: [place] palpebral conjunctivae, no ptosis, dry buccal mucosa NECK : Supple, short neck, no tenderness CHEST : Expiratory wheezes, no tenderness HEART : RRR, no obvious murmurs ABDOMEN: Some distention, nontender EXTREMITIES : Minimal LE swelling, no LE tenderness, no other conspicuous deformities noted NEUROLOGIC : Coherent, no facial asymmetry, no other gross focality Principal Diagnosis Asthma exacerbation, COVID-19 pneumonia without significant symptom Discharge Exam Constitutional well developed, well nourished, + acute distress (Due to some shortness of breath with wheezing) and + obese; not ill appearing Eyes PERRL, conjunctivae normal, anicteric sclerae ENMT external ear and nose normal, oropharynx normal Neck trachea midline, no thyromegaly Respiratory no respiratory distress (Shortness of breath with exertion with wheezing) Auscultation: + diminished lung sounds; no crackles and no wheezes (Minimal or no wheezing) Cardiovascular Rate/Rhythm: regular rate and regular rhythm Heart Sounds: no murmur Extremities: + edema Gastrointestinal (Abdomen) Inspection/Auscultation: normal bowel sounds; abdomen not distended Percussion/Palpation: abdomen soft; abdomen nontender Psychiatric A+Ox3, euthymic affect Lymphatic no cervical or axillary lymphadenopathy Discharge Data Allergies Allergy/AdvReac Type Severity Reaction Status Date / Time hazelnut Allergy Severe ANAPHYLAXIS; Verified 01/14/20 23:38 reported allergy to all nuts nut - unspecified Allergy Severe ANAPHYLAXIS Verified 01/14/20 23:38 peanut Allergy Severe ANAPHYLAXIS-ALL Verified 01/14/20 23:38 NUTS Penicillins Allergy Intermediate RASH - HAS Verified 01/14/20 23:38 TOLERATED ROCEPHIN 2012 Consultations 01/15/20 03:10 ED Decision to Admit Stat 01/19/20 11:17 Consult Case Management - Discharge Planning Routine Ordered Studies 01/15/20 03:06 CT angio chest PE protocol Urgent Hospital Course (1) Pneumonia due to COVID-19 virus: Worsening bilateral infiltrates. No hypoxia or fever at this time but was febrile on arrival to the ER. Has been on Rocephin and doxycycline at this time, trend pro calcitonin, watch for progression of pneumonia. If patient becomes significantly hypoxic with significant oxygen requirement, consider convalescent plasma and remdesivir which have been discussed with her. Minimally better as of today and still saturating well above 94% on room air Complains of wheezing and chest pain with cough C-reactive protein is only 0.84 No indication to start remdesivir or convalescent plasma as of yet Breathing is much better with saturation more than 98% on room air Has been complaining of extreme weakness and tiredness-was advised to move around in the room on 01/16 Clinically a lot better today. 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 Gradual improvement Condition is getting better gradually We will get to do steps O2 saturation before discharging tomorrow We will keep tapering dose of steroid on discharge (3) Smoker: Encouraged to quit smoking as this is bad for her health. (4) Diarrhea: Covid associated diarrhea, continue supportive care. 1 L normal saline given tonight. We will give more IV fluids today Advised to drink more fluid No more diarrhea (5) DVT prophylaxis: Lovenox Full Dispo-to home when medically stable. I did discuss the assessment above and the plan as well as treatment options for Covid virus with her daughter by phone. All questions were answered to her satisfaction. Discussed about discharging tomorrow She will be in quarantine at home before he is followed up by her primary care physician Total Time Total Time Spent Total Time Spent (In Minutes): 35 minutes Total Time Includes: Examination of the Patient, Discharge Planning, Medication Reconciliation and Communication With Other Providers Discharge Plan Discharge Items Patient Disposition: Home - Self-Care Reason For Visit: SOB Discharge Diagnosis: Asthma exacerbation, COVID-19 pneumonia without significant symptom Condition on Discharge: Good Activity: Resume your previous activity Non-emergency contact: Primary Care Provider Call non-emergency contact if: you have any medication questions and your symptoms worsen Follow-up/Referrals: Janeth Ackerman MD [Primary Care Provider] - (Your doctor's office will call you with an appointment within 7 days) Diet: Regular Addtl Attending Provider Instructions: Please take precaution to avoid falls Try to drink more fluid At least 7 more days of isolation at home. Home Isolation COVID-19 Instructions The following information about Home Isolation is from the CDC Website: https://www.cdc.gov/coronavirus/2019-ncov/hcp/jnmccaaa-rqdkksl-eriays.html Stay home except to get medical care People who are mildly ill with COVID-19 are able to isolate at home during their illness. You should restrict activities outside your home, except for getting medical care. Do not go to work, school, or public areas. Avoid using public transportation, ride-sharing, or taxis. Separate yourself from other people and animals in your home People: As much as possible, you should stay in a specific room and away from other people in your home. Also, you should use a separate bathroom, if available. Animals: You should restrict contact with pets and other animals while you are sick with COVID-19, just like you would around other people. Although there have not been reports of pets or other animals becoming sick with COVID-19, it is still recommended that people sick with COVID-19 limit contact with animals until more information is known about the virus. When possible, have another member of your household care for your animals while you are sick. If you are sick with COVID-19, avoid contact with your pet, including petting, snuggling, being kissed or licked, and sharing food. If you must care for your pet or be around animals while you are sick, wash your hands before and after you interact with pets and wear a face mask. Call ahead before visiting your doctor If you have a medical appointment, call the healthcare provider and tell them that you have or may have COVID-19. This will help the healthcare providers office take steps to keep other people from getting infected or exposed. Wear a face mask You should wear a face mask when you are around other people (e.g., sharing a room or vehicle) or pets and before you enter a healthcare providers office. If you are not able to wear a face mask (for example, because it causes trouble breathing), then people who live with you should not stay in the same room with you, or they should wear a face mask if they enter your room. Cover your coughs and sneezes Cover your mouth and nose with a tissue when you cough or sneeze. Throw used tissues in a lined trash can. Immediately wash your hands with soap and water for at least 20 seconds or, if soap and water are not available, clean your hands with an alcohol-based hand hearing instrument specialist that contains at least 60% alcohol. Clean your hands often Wash your hands often with soap and water for at least 20 seconds, especially after blowing your nose, coughing, or sneezing; going to the bathroom; and before eating or preparing food. If soap and water are not readily available, use an alcohol-based hand hearing instrument specialist with at least 60% alcohol, covering all surfaces of your hands and rubbing them together until they feel dry. Soap and water are the best option if hands are visibly dirty. Avoid touching your eyes, nose, and mouth with unwashed hands. Avoid sharing personal household items You should not share dishes, drinking glasses, cups, eating utensils, towels, or bedding with other people or pets in your home. After using these items, they should be washed thoroughly with soap and water. Clean all high-touch surfaces everyday High touch surfaces include counters, tabletops, doorknobs, bathroom fixtures, toilets, phones, keyboards, tablets, and bedside tables. Also, clean any surfaces that may have blood, stool, or body fluids on them. Use a household cleaning spray or wipe, according to the label instructions. Labels contain instructions for safe and effective use of the cleaning product including precautions you should take when applying the product, such as wearing gloves and making sure you have good ventilation during use of the product. Monitor your symptoms Seek prompt medical attention if your illness is worsening (e.g., difficulty breathing).Beforeseeking care, call your healthcare provider and tell them that you have, or are being evaluated for, COVID-19. Put on a face mask before you enter the facility. These steps will help the healthcare providers office to keep other people in the office or waiting room from getting infected or exposed. Ask your healthcare provider to call the local or state health department. Persons who are placed under active monitoring or facilitated self- monitoring should follow instructions provided by their local health department or occupational health professionals, as appropriate. When working with your local health department check their available hours. If you have a medical emergency and need to call 911, notify the dispatch personnel that you have, or are being evaluated for COVID-19. If possible, put on a face mask before emergency medical services arrive. Discontinuing home isolation Patients with confirmed COVID-19 should remain under home isolation precautions until the risk of secondary transmission to others is thought to be low. The decision to discontinue home isolation precautions should be made on a [id number] basis, in consultation with healthcare providers and [facility] health departments. Pending Studies at Discharge: No Stand-Alone Forms: [facility], Smoking Cessation Medications and DC Order Prescriptions: New cefuroxime axetil 500 mg Tablet 500 mg PO BID 3 Days Qty: 6 RF: 0 albuterol sulfate [Ventolin HFA] 90 mcg/actuation Hfa Aerosol Inhaler 2 puff inhalation Q4R PRN (Reason: shortness of breath or wheezing) 30 Days Qty: 1 RF: 0 prednisone 10 mg tablet 10 mg PO UD Qty: 30 RF: 0 Lactinex 1 million cell tablet,chewable 1 tab PO BID Qty: 30 RF: 0 albuterol sulfate 0.63 mg/3 mL solution for nebulization 0.63 mg inhalation Q6H PRN (Reason: bronchospasm) Qty: 75 RF: 0 doxycycline monohydrate 100 mg capsule 100 mg PO BID Qty: 6 RF: 0 Continued fluticasone propionate [Flonase Allergy Relief] 50 mcg/actuation [place],Suspension 2 spray INTRANASAL QAM RF: 0 multivitamin Tablet 1 tab PO QAM RF: 0 zinc 50 mg Tablet 50 mg PO QAM RF: 0 cholecalciferol (vitamin D3) [Vitamin D3] 125 mcg (5,000 unit) Tablet 125 mcg PO Q OTHER DAY RF: 0 acetaminophen [Tylenol Extra Strength] 500 mg Tablet 1,000 mg PO Q6H PRN (Reason: Pain) RF: 0 vitamin B complex Tablet 1 tab PO QAM RF: 0 hydrochlorothiazide 12.5 mg capsule 12.5 mg PO QAM RF: 0 gabapentin 400 mg capsule See Rx Instructions .ROUTE .COMPLEX RF: 0 losartan 50 mg Tablet 75 mg PO QAM RF: 0 ascorbic acid (vitamin C) [Vitamin C] 1,000 mg Tablet 1 g PO QAM RF: 0 trazodone 50 mg Tablet 50 mg PO HS PRN (Reason: Sleep) RF: 0 lorazepam [Ativan] 0.5 mg Tablet 0.5 mg PO DAILY PRN (Reason: Anxiety) RF: 0 omeprazole 20 mg Capsule,Delayed Release(Dr/Ec) 20 mg PO HS RF: 0 bupropion HCl [Wellbutrin XL] 300 mg Tablet Extended Release 24 Hr 300 mg PO QAM RF: 0 elderberry fruit and flower 460-115 mg Capsule 1 cap PO QAM RF: 0 turmeric 400 mg Capsule 400 mg PO QAM RF: 0 Discharge Orders: Discharge Order (Routine); Ordered 01/19/20 Ordered By: Natalia Vazquez Admission Data Admit Date/Time: 01/15/20 22:06 Attending Provider: Natalia Vazquez Admit Provider: Sid Lunsford Primary Care Provider: Janeth Ackerman Other Providers: Sid Lunsford ; Cherie Lamb Other Interventions: Discharge Summary Assessment (RN) Last Done: 01/19/20 13:37
== END 2020-01-19 15:10 | disposition home or self-care (01) | DRG 177 ==
LOC: ED 23:26 → 3E 23:26 → SUATTDRO 01-15 22:06 → 3E 01-19 00:05